=== PATIENT | female | born 1940 | race Caucasian/White ===

== ENCOUNTER 2017-05-15 12:48 | Day surgery (SDC) | payer MEDICARE ==
--- NOTE | 2017-05-10 14:40 | HP ---
CC: RUDDY Pulido, in Cardiology Office; Jatin Ordonez MD; Dr. Obdulio Castrejon; Dr. Lucas Harley * HISTORY AND PHYSICAL: DATE OF OFFICE VISIT/ENCOUNTER: 05/10/17 DATE OF ADMISSION/SURGERY: 05/15/17 CHIEF COMPLAINT: Left inner thigh mass. ATTENDING PHYSICIAN: Nabila Huynh MD (DICTATED BY RUDDY MILLER) HISTORY OF PRESENT ILLNESS: Ms. Estrada is a pleasant 77-year-old female who was seen in our office last month for evaluation of left thigh mass. The patient apparently was diagnosed with a left thigh abscess that was treated initially with clindamycin and it resolved. However, it started to become swollen again for which she was sent to our office to discuss I and D. She was seen by Dr. Huynh approximately 3 weeks ago where she was evaluated and found to have a possible left thigh abscess but no drainage or I and D was indicated at the time. The patient continued on clindamycin 3 times daily and reports that every time she stops taking her clindamycin the swollen mass would return. She returned to the office today and she is still on clindamycin but now want to discuss possible excision of that left thigh mass. She denies any fever, chills, drainage or bleeding from the area. She is not sure exactly how long she has had it or how it started, but she notes that she works in her garden quite a lot and she possibly had a bug bite or some sort of contact dermatitis to the area that progressed to an abscess. She is scheduled with Dr. Huynh to undergo excision of her left thigh mass later next week and she was seen in the office today for preop evaluation and to discuss surgery. PAST MEDICAL HISTORY: She has a quite significant past medical history with known angina type chest pain, with negative as stress echo test most recently in December 2016. She has been on nitro patch for her chest pain that has helped a lot and she denied having any atypical chest pain since then. She had multiple negative EKGs and negative troponin by her hydroelectric component machinist Dr. Castrejon in recent visits. She also had history of hypertension, herniated cervical discs, mild congenital spinal stenosis, hypercholesterolemia, history of DVT in the lower extremity after knee arthroscopy. She also had history of peripheral vascular disease, vertigo, sleep apnea, Alzheimer, colitis that has been treated with antibiotics on occasion. PAST SURGICAL HISTORY: Significant for sections x3, left breast lumpectomy after biopsy, left knee arthroscopy, history of Meckel's diverticulum , renal artery stenosis with right renal angioplasty and patient had recently a renal ultrasound that she informed was normal, cervical stenosis at C4 to C7 with a cervical fusion in [facility] back in July 2011. The patient had most recently a nuclear stress echocardiogram revealing no evidence of ischemia or infarction, with normal ejection fraction of 70% that was in December 2016. She also has history of cardiac catheterization with no obstructive disease back in January 2005. CURRENT MEDICATIONS: Her current medications include: 1. Clindamycin 300 mg 1 tab p.o. t.i.d. 2. Nitro-Dur 0.4 mg per hour on in the morning and off at night. 3. Verapamil 240 mg 1 tablet p.o. once daily. 4. Torsemide 10 mg once daily. 5. Nitrostat 0.4 mg sublingual every 5 minutes up to 3 doses as needed for chest pain. 6. Triazolam 0.25 two tablets q.h.s. p.r.n. 7. Nucynta extended release 200 mg b.i.d. 8. Hyalgan injection twice a year in both knees. 9. Aspirin coated 81 mg once daily. 10. Calcium with vitamin D 1 tablet daily. 11. Jantoven 5 mg once a week. 12. Multivitamin once daily. 13. Glucosamine chondroitin 1500 complex once daily. 14. Lialda 2 tablets daily. 15. Diovan 40 mg one tablet a day. 16. Coumadin 5 mg once daily. ALLERGIES: She has long list of allergies including PENICILLIN, CELEBREX, BETA - BLOCKERS, NEURONTIN, EFFEXOR, NORTRIPTYLINE, LYRICA, TRAMADOL, STATINS, OXYCODONE, DOXYCYCLINE, CYMBALTA, and CODEINE. Allergy list most recently reviewed on 04/30/2017. FAMILY HISTORY: Noncontributory. She denies any history of skin cancer in the family. SOCIAL HISTORY: The patient is . Lives with . She has never smoked and she drinks alcoholic beverage occasionally. REVIEW OF SYSTEMS: See HPI, otherwise negative. She denies any fevers, chills , night sweats or recent weight loss. No headache, dizziness, blurred vision, or double vision. No sore throat, chest pain, palpitation or shortness of breath. No abdominal pain, hernias, nausea, vomiting, or changes in her bowel habits. No flank pain, dysuria, hematuria or urinary frequency. She reports a left inner thigh mass that has gotten better as long as she stays on her clindamycin. Denies any significant pain, redness, induration, bleeding or drainage. PHYSICAL EXAMINATION GENERAL: She is a pleasant, elderly female appears healthy and in no acute distress or discomfort at this time. VITALS: Today revealed a blood pressure of 140/80, pulse of 80, temperature of 98.1, respirations of 16. She is 5 feet 2 inches, 148 pounds with BMI of 27. HEENT: Sclerae anicteric. PERRLA. EOMs intact. Oropharynx is pink, moist, with no exudate. NECK: Supple. Trachea midline. No cervical adenopathy, thyromegaly or JVD. LUNGS: Clear to auscultation bilaterally. No rales or rhonchi noted. HEART: Regular rate and rhythm. Normal S1 and S2 without rubs, murmurs or gallops. ABDOMEN: Soft, nontender and nondistended. No hernias, masses or hepatosplenomegaly. BACK: With normal curvature. No CVA tenderness. BREAST EXAM: Deferred at this time. EXTREMITIES: Without cyanosis, clubbing or edema. Examination of the left inner thigh revealed a palpable mass to the inner mid thigh on the left side approximately 2 cm that was mobile and nontender. There is no surrounding induration, erythema noted. No bleeding or discharge noted as well. There is no inguinal lymphadenopathy. RECTAL EXAM: Deferred at this time. NEUROLOGIC: Grossly intact. IMPRESSION: A 77-year-old female with persistent left inner thigh mass. PLAN: We discussed with the patient proceeding with excision of her left thigh mass. She seems to be doing well as long as she is taking her antibiotics; however, when she has stopped talking her clindamycin the mass gets larger in size, more tender, and surrounded with erythema. I discussed with her that we likely will like to the mass while it is not inflamed and more tender to decrease any risk of spreading infections. She was seen by Dr. Huynh earlier this week and plan was made for her to have an excision of this left thigh mass next week under IV sedation. Given her ongoing cardiac history, we will obtain baseline blood work; however, her recent hydroelectric component machinist visit revealed a negative echocardiogram as well as good ejection fraction with no signs of any cardiac problems at this time. She was advised to hold her Coumadin 5 days prior to surgery and we will check a stat PT/INR at Day Surgery upon her arrival on surgery date. All her questions were answered. I discussed with her the rationale, indications, risks and benefits of left thigh mass excision. Risks include but not limited to infection, bleeding or injury to adjacent structures. She seems to be well informed and she consents to proceed with surgery as outlined. We will follow her up accordingly after surgery. RUDDY MILLER [id number]/[facility] #: [id number] MTDNicole
[~2017-05-15 12:48] MED LIST: Buffered Lidocaine 0.9% SYRIN* 5 ML/SYR SYRINGE INTRADERM ONE; Buffered Lidocaine 0.9% SYRIN* 5 ML/SYR SYRINGE ONE; Clindamycin 900 MG IVPREMIX(* 900 MG/50 ML SDV IV ONE; Dexamethasone IV* 4 MG/ML 1 ML (4 MG) ONE; Famotidine IV* 10 MG/ML 2 ML (20 mg) IV ONE; Famotidine IV* 10 MG/ML 2 ML (20 mg) ONE; KETAMINE HCL* 50 MG/ML 10 ML VIAL ONE; Ketorolac INJ* 30 MG/ML 1 ML VIAL ONE; Lidocaine 2% PF * 5 ML VIAL ONE; Metoclopramide TAB* 10 MG ONE; Metoclopramide TAB* 10 MG PO ONE; Midazolam* 1 MG/ML 5 ML VIAL (5 MG) ONE; Ondansetron INJ* 2 MG/ML VIAL ONE; Propofol* 10 MG/ML 20 ML BTL IV PUSH ONE; fentaNYL* 50 MCG/ML 2 ML VIAL (100 MCG VIAL) ONE
[2017-05-15] MEDS ORDERED: Ondansetron INJ* 2 MG/ML VIAL IV PRN (13:24)
[2017-05-15] MEDS ORDERED: fentaNYL* 50 MCG/ML 2 ML VIAL (100 MCG VIAL) IV PRN (13:24)
--- NOTE | 2017-05-15 13:26 | PN ---
Progress Note - Progress Note Date of Service: 05/15/17 Note: Surgery Ms. Estrada reported that the mass on the left thigh opened up and "started draining a couple of days ago". Exam shows an open wound ~3 cm across, with surrounding erythema and induration and a mix of granulation and slough on wound base. Will plan I&D and possible excision of wound rather than simple excision. I discussed this with and explained it to Ms. Estrada who understands that there will be an open wound that will need further care most likely at the wound center. Dawit
[2017-05-15] MEDS ORDERED: Bupivacaine 0.5% W/EPI SDV* 10 ML VIAL INJ ONE (14:18)
[2017-05-15] MEDS ORDERED: Lidocaine 1% INJ* 10 MG/ML 30 ML SDV ONE (14:19)
[2017-05-15] MEDS ORDERED: EPHEDrine (Pressors)* 50 MG/ML VIAL ONE (14:52)
[2017-05-15] MEDS ORDERED: Propofol* 10 MG/ML 20 ML BTL IV PUSH ONE (14:57)
--- NOTE | 2017-05-15 15:44 | SURGPN ---
Brief Operative Note - Surgery Procedures: Procedures CATARAC PHACOEMULS/ASPIR (05/07/13) COLONOSCOPY (09/26/02) D & C NEC (03/26/95) DESTRUCT-KNEE LESION NEC (01/14/01) EXCIS KNEE SEMILUN CARTL (01/14/01) HYSTEROSCOPY (03/26/95) INSERT LENS AT CATAR EXT (05/07/13) KNEE SYNOVECTOMY (01/14/01) OTHER LOCAL DESTRUC SKIN (03/26/95) OTHER SLEEP DISORDER FUNCTION TESTS (03/20/02) POLYSOMNOGRAM (02/18/02) SPINAL CANAL INJECT NEC (03/12/14) 05/15/17 Op Note Pre-op dx: infected cyst of left thigh Post-op dx: same Procedure: excision of infected cyst Surgeon: Lino asst: none Anesth: local-MAC EBL: 25 cc complications: none Pt. tolerated procedure well and was transferred to in a stable condition. CLFoster
[2017-05-15] MEDS ORDERED: fentaNYL* 50 MCG/ML 2 ML VIAL (100 MCG VIAL) ONE (15:45)
[2017-05-15 16:24] VITALS: BP 95/42
--- NOTE | 2017-05-16 13:16 | OP ---
CC: Dr. Estefania Dumont * DATE OF OPERATION: 05/15/17 - [facility] DATE OF : 38 SURGEON: Nabila Huynh MD. SCREEN STRETCHER: There was no medical practice assistant for this case. ANESTHESIOLOGIST: Francois Grant MD ANESTHESIA: Monitored anesthesia care. PRE-OP DIAGNOSIS: Infected cyst of the left thigh. POST-OP DIAGNOSIS: Infected cyst of the left thigh. OPERATIVE PROCEDURE: Excision of infected cyst on the left thigh. INDICATION: Ms. Estrada is a 77-year-old woman, who presented with an infected lesion on her thigh, prompting a plan for surgical intervention as it initially seemed to be responding to antibiotics. She was kept on antibiotics with an eye toward getting this done in the operating room and apparently 2 days prior to the surgical date, it opened and drained. Exam showed lesion with 3 cm of open wound with granulation and some fibrinopurulent exudate on the surface, thus changed the plan to possible I and D versus excision of the lesion and she was brought to the operating room. DESCRIPTION OF PROCEDURE: She was placed on the OR table in supine position and given IV sedation. The left thigh was prepped and draped in the usual sterile fashion. After infiltrating with local anesthetic, an elliptical incision encompassing the lesion was made. Subcutaneous tissue was then divided with electrocautery to excise what appeared to be cavitating lesion and it was handed off as a specimen. Cultures were taken prior to handing it off. In the process of excising this lesion, some blood vessels were encountered, these were suture ligated for control. The wound was then irrigated copiously with saline. It was noted that the depth of the wound extended to the muscle layer and there did not appear to be any residual infection or cyst wall left in the wound. The wound was packed with half inch packing strip and covered with a dry sterile dressing. She was given instructions regarding packing changes and will follow up in the Wound Center in a week. [id number]/[facility] #: [id number] E.J. NOBLE HOSPITALNicole
== END 2017-05-15 16:44 | disposition home or self-care (01) ==
LOC: OR 12:48
PROVIDERS: ATTEND Surgery
DX: L02.416 Cutaneous abscess of left lower limb (principal); Z86.718 Personal history of other venous thrombosis and embolism; Z79.01 Long term (current) use of anticoagulants; I10 Essential (primary) hypertension
CPT/HCPCS: 36415; 85610; 87070; 87073; 87077; 87186; 87205; 88305; A9270-GY; J1100; J1885; J2001; J2250; J2405; J2704; J3010

== ENCOUNTER 2017-07-13 18:02 | Observation (INO) | payer MEDICARE ==
[2017-07-13] MEDS ORDERED: Nitroglycerin 0.4 MG/HR PATCH* (10 MG) TRANSDERM ONE (18:37)
[2017-07-13] MEDS ORDERED: LORazepam INJ* 2 MG/ML 1 ML VIAL IV PUSH PRN (18:37)
--- NOTE | 2017-07-13 18:56 | RAD ---
HISTORY: Chest pain COMPARISONS: October 10, 2015 VIEWS:1: Single frontal portable view of the chest at 6:43 PM FINDINGS: LINES AND TUBES: None. CARDIOMEDIASTINAL SILHOUETTE: The cardiomediastinal silhouette is normal for portable technique. PLEURA: The costophrenic angles are sharp. No pleural abnormalities are noted. LUNG PARENCHYMA: There is hyperinflation. ABDOMEN: The upper abdomen is clear. There is no subphrenic gas. BONES AND SOFT TISSUES: No bone or soft tissue abnormalities are noted. IMPRESSION: HYPERINFLATION. NO ACTIVE CARDIOPULMONARY DISEASE.
[2017-07-13 18:58] LABS: Hematocrit 40 % (35-47); Hemoglobin 12.9 g/dl (12.0-16.0); Mean Corpuscular HGB Conc 33 g/dl (31-36); Mean Corpuscular Hemoglobin 29 pg (27-31); Mean Corpuscular Volume 88 fL (80-97); Mean Platelet Volume 8 um3 (7.4-10.4); Red Blood Count 4.53 10^6/ul (4.0-5.4); Red Cell Distribution Width 15 % (10.5-15); White Blood Count 6.1 10^3/ul (3.5-10.8)
[2017-07-13] MEDS ORDERED: Nitro Patch/OINT Remove TOPICAL SCH (19:00)
[2017-07-13 19:14] LABS: Albumin 3.9 g/dL (3.2-5.2); BUN/Creatinine Ratio 15.1 (8-20); Calcium 10.3 mg/dL (8.6-10.3); EGFR African American 99.2 (>60); EGFR Non-African American 77.1 (>60); Globulin 3.2 g/dL (2-4); Potassium 3.7 mmol/L (3.5-5.0); Total Bilirubin 0.3 mg/dL (0.2-1.0); Total Protein 7.1 g/dL (6.4-8.9)
--- NOTE | 2017-07-13 20:03 | ED ---
Lilly Leonard Alfonso, scribed for Mae Solomon MD on 07/13/17 at 1840 . HPI Chest Pain - HPI Summary HPI Summary: This patient is a 77 year old F presenting to [facility] accompanied by and daughter with a chief complaint of substernal CP since approximately one week ago. The CP is worse since 1744 today. The CP radiates to her bilateral UE. The CP is described as a pressure. The patient rates the pain 8/10 at its worse and 6/10 currently in severity. Symptoms aggravated by stress (son recently ) and deep breaths. Symptoms alleviated by nothing. Patient reports anxiety and a rash (aggravated by louie butter). She reports a [address] two days ago. She did not take her NTG today. Dr. Castrejon is her professional nursing tutor. She denies CAD, and DM. PMHx includes HTN and DVTs. - History of Current Complaint Chief Complaint: EDChestPainROMI Time Seen by Provider: 07/13/17 18:19 Hx Obtained From: Patient Onset/Duration: Started Weeks Ago - 1, Worse Since - 1744 today Timing: Lasting Weeks - 1 Initial Severity: Severe Current Severity: Severe Pain Intensity: 8 Pain Scale Used: 0-10 Numeric Chest Pain Location: Discrete at: - substernal Chest Pain Radiates: Yes Chest Pain Radiates To:: Arm - Bilateral Character: Pressure/Squeezing Aggravating Factor(s): Deep Breaths, Other: - Stress Alleviating Factor(s): Nothing Associated Signs and Symptoms: Positive: Other: - Patient reports anxiety and a rash (aggravated by louie butter). - Allergy/Home Medications Allergies/Adverse Reactions: Allergies Allergy/AdvReac Type Severity Reaction Status Date / Time Penicillins Allergy Severe Difficulty Verified 07/13/17 19:12 Breathing Perryman Butter Allergy Mild Hives Verified 07/13/17 19:14 Gabapentin [From Neurontin] Allergy Mild rash and Verified 07/13/17 19:14 hives Celecoxib [From Celebrex] AdvReac Intermediate hypertensive Verified 07/13/17 19 :14 reaction Pregabalin [From Lyrica] AdvReac Intermediate hallucinati Verified 07/13/17 19: 14 ng Tramadol AdvReac Intermediate felt extra Verified 07/13/17 19:14 hyper and agitated Atenolol AdvReac Mild fatigued Verified 07/13/17 19:14 and "washed out" Metronidazole [From Flagyl] AdvReac Mild Nausea Verified 07/13/17 19:14 Nortriptyline AdvReac Mild Nausea Verified 07/13/17 19:14 Statins AdvReac Mild Muscle Ache Verified 07/13/17 19:14 Venlafaxine [From Effexor] AdvReac Mild Nausea Verified 07/13/17 19:14 PMH/Surg Hx/FS Hx/Imm Hx Endocrine/Hematology History: Denies: Hx Diabetes Cardiovascular History: Reports: Hx Angina, Hx Hypertension, Hx Peripheral Vascular Disease, Other Cardiovascular Problems/Disorders - DVT HAS BEEN ON COUMADIN Denies: Hx Coronary Artery Disease, Hx Hypercholesterolemia, Hx Myocardial Infarction, Hx Pacemaker/ICD, Hx Valvular Heart Disease Respiratory History: Reports: Hx Sleep Apnea Denies: Hx Asthma, Hx Chronic Obstructive Pulmonary Disease (COPD) GI History: Reports: Hx Gastroesophageal Reflux Disease - ON MEDICATON, Hx Hiatal Hernia, Other GI Disorders - chronic diarrhea, MECKLES DIVERTICULUM Musculoskeletal History: Reports: Hx Arthritis - GENERALIZED, Other Musculoskeletal History - LUMBAR RADICULOPATHY AND CERVICAL LUMBAR SPONDYLOLISTHESIS Sensory History: Reports: Hx Cataracts, Hx Contacts or Glasses - GLASSES Denies: Hx Hearing Aid Opthamlomology History: Reports: Hx Cataracts, Hx Contacts or Glasses - GLASSES Neurological History: Reports: Other Neuro Impairments/Disorders - PAIN CLINIC INJECTION Psychiatric History: Reports: Hx Anxiety Denies: Hx Panic Disorder - Surgical History Surgery Procedure, Year, and Place: [facility] [place] CERVICAL SPINE FUSION SURGERY C4-C7 BREAST BIOPSY LEFT [facility] BILATERAL CATARACT REMOVAL Hx Anesthesia Reactions: No - Immunization History Date of Tetanus Vaccine: UTD Date of Influenza Vaccine: UTD Infectious Disease History: Denies: Traveled Outside the [place] in Last 30 Days - Family History Known Family History: Positive: Other - Cancer - Social History Alcohol Use: Rare Alcohol Amount: 1 glass of wine on Sunday nights Substance Use Type: Reports: None Substance Use Comment - Amount & Last Used: Nucynta Smoking Status (MU): Never Smoked Tobacco Review of Systems Positive: Chest Pain Positive: Rash Positive: Anxious All Other Systems Reviewed And Are Negative: Yes Physical Exam Triage Information Reviewed: Yes Vital Signs On Initial Exam: Initial Vitals Temp Pulse Resp BP Pulse Ox 98.4 F 80 20 220/90 94 07/13/17 18:13 07/13/17 18:13 07/13/17 18:13 07/13/17 18:13 07/13/17 18:13 Vital Signs Reviewed: Yes Appearance: Positive: Well-Appearing, No Pain Distress Skin: Positive: Skin Color Reflects Adequate Perfusion, Dry Eyes: Positive: EOMI, FLORENCIA ENT: Positive: Pharynx normal, TMs normal Neck: Positive: Supple, Nontender Respiratory/Lung Sounds: Positive: Clear to Auscultation, Breath Sounds Present. Negative: Rales, Rhonchi, Wheezes Cardiovascular: Positive: RRR, Other - No gallop. Negative: Murmur, Rub Abdomen Description: Positive: Nontender, Soft, Other: - No rebound. Negative: Distended, Guarding Bowel Sounds: Positive: Present Musculoskeletal: Positive: Strength/ROM Intact. Negative: Edema Left, Edema Right Neurological: Positive: Sensory/Motor Intact, Alert, Oriented to Person Place, Time, CN Intact II-III Psychiatric: Positive: Affect/Mood Appropriate Diagnostics - Vital Signs Vital Signs Temp Pulse Resp BP Pulse Ox 07/13/17 18:13 98.4 F 80 20 220/90 94 - Laboratory Lab Results: Lab Results 07/13/17 07/13/17 07/13/17 Range/Units 18:48 18:48 18:48 WBC 6.1 (3.5-10.8) 10^3/ul RBC 4.53 (4.0-5.4) 10^6/ul Hgb 12.9 (12.0-16.0) g/dl Hct 40 (35-47) % MCV 88 (80-97) fL MCH 29 (27-31) pg MCHC 33 (31-36) g/dl RDW 15 (10.5-15) % Plt Count 315 (150-450) 10^3/ul MPV 8 (7.4-10.4) um3 Neut % (Auto) 56.2 (38-83) % Lymph % (Auto) 29.5 (25-47) % [place] % (Auto) 8.6 (1-9) % Eos % (Auto) 4.5 (0-6) % Baso % (Auto) 1.2 (0-2) % Absolute Neuts (auto) 3.4 (1.5-7.7) 10^3/ul Absolute Lymphs (auto) 1.8 (1.0-4.8) 10^3/ul Absolute Monos (auto) 0.5 (0-0.8) 10^3/ul Absolute Eos (auto) 0.3 (0-0.6) 10^3/ul Absolute Basos (auto) 0.1 (0-0.2) 10^3/ul Absolute Nucleated RBC 0.01 10^3/ul Nucleated RBC % 0.1 Sodium 137 (133-145) mmol/L Potassium 3.7 (3.5-5.0) mmol/L Chloride 101 (101-111) mmol/L Carbon Dioxide 32 (22-32) mmol/L Anion Gap 4 (2-11) mmol/L BUN 11 (6-24) mg/dL Creatinine 0.73 (0.51-0.95) mg/dL Est GFR ( Amer) 99.2 (>60) Est GFR (Non-Af Amer) 77.1 (>60) BUN/Creatinine Ratio 15.1 (8-20) Glucose 96 (70-100) mg/dL Lactic Acid 0.6 (0.5-2.0) mmol/L Calcium 10.3 (8.6-10.3) mg/dL Total Bilirubin 0.30 (0.2-1.0) mg/dL AST 23 (13-39) U/L ALT 18 (7-52) U/L Alkaline Phosphatase 86 (34-104) U/L Troponin I 0.00 (<0.04) ng/mL Total Protein 7.1 (6.4-8.9) g/dL Albumin 3.9 (3.2-5.2) g/dL Globulin 3.2 (2-4) g/dL Albumin/Globulin Ratio 1.2 (1-3) Result Diagrams: 07/13/17 18:48 07/13/17 18:48 Lab Statement: Any lab studies that have been ordered have been reviewed, and results considered in the medical decision making process. - Radiology CXR Radiology Interpretation Completed By: Radiologist - HYPERINFLATION. NO ACTIVE CARDIOPULMONARY DISEASE. ED physician has reviewed this radiology report and agrees. - EKG 1814 Cardiac Rate: NL - BPM 63 EKG Rhythm: Sinus Rhythm EKG Interpretation: Frequent PACs. Normal T-waves EKG Comparison: Other - Frequent PACs from 10/10/13 Chest Pain Course/Dx - Course Course Of Treatment: pt admitted for chest pain case discussed with Dr. Wong - Diagnoses Provider Diagnoses: Chest pain - Provider Notifications Discussed Care Of Patient With: Baldemar Wong Time Discussed With Above Provider: 19:35 Instructed by Provider To: Other - Consulted Dr. Wong (hospitalist) who agrees to admit. Discharge - Discharge Plan Condition: Stable Disposition: HOME The documentation as recorded by the Lilly hope Alfonso accurately reflects the service I personally performed and the decisions made by me, Mae Solomon MD.
--- NOTE | 2017-07-13 20:17 | HP ---
H&P (Free Text) History and Physical: PCP: Darline Dumont MD Date/Time of Evaluation: 07/13/20171999 CC: chest pain HPI: Mrs Estrada is a 77YO female HX chronic chest pain who reports around 1500 noticing an increase in non-exertional chest pressure in the L apical area radiating down the L arm without SOB associated with light nausea, but no palpitations, light-headedness, or sweats. 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 She did not feel this was necessary and so monitored it at home. Around 1700 the pain had continued to increase and her blood pressure had increased to ~210 systolic causing her to become concerned enough to present for evaluation. She denies exacerbating or alleviating factors. Bowel & bladder have been normal. She denies F/C, cough, congestion, or other new complaints. 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 PMedHx chronic chest pain DVT on warfarin HTN renal artery stenosis s/p stent ulcerative colitis cardiac murmur GERD lumbar radiculopathy & spondylolisthesis OA B knees Ambulatory Orders Calcium Carbonate-Vitamin D [Calcium 600 + D] 1 tab PO DAILY 12/24/12 Lidocaine PATCH 5%* [Lidoderm 5% Patch*] 3 patch TOPICAL QAM 12/24/12 Multivitamins/Minerals TAB* [Thera M Plus*] 1 tab PO DAILY 12/24/12 Tapentadol ER (NF) [Nucynta ER (NF)] 200 mg PO BID 12/24/12 Tapentadol HCl [Nucynta] 50 mg PO 1200 12/24/12 Triazolam TAB* [Halcion*] 0.50 mg PO BEDTIME 12/24/12 Glucosamine-Chondroitin [Glucosamine Chondroitin] 1 cap PO DAILY 04/23/13 Verapamil HCl [Verapamil HCl ER] 240 mg PO DAILY 04/23/13 Valsartan TAB* [Diovan TAB*] 80 mg PO DAILY 10/05/14 Warfarin TAB(*) [Coumadin TAB(*)] 15 mg PO SEE INSTRUCTIONS 10/05/14 Warfarin Sodium [Jantoven] 5 mg PO WEEKLY 07/08/15 Mesalamine (NF) [Lialda (NF)] 2 tab PO BID 01/04/17 Aspirin [Aspirin Adult Low Dose 81 MG] 81 mg PO DAILY 05/10/17 Metaxalone TAB* [Skelaxin TAB*] 800 mg PO BID 05/10/17 Nitroglycerin 0.4 MG/HR PATCH* [Nitroglycerin 10 MG PATCH*] 1 patch TRANSDERM DAILY 05/10/17 Allergies Penicillins Allergy (Severe, Verified 07/13/17 19:12) Difficulty Breathing [place] Butter Allergy (Mild, Verified 07/13/17 19:14) Hives Gabapentin [From Neurontin] Allergy (Mild, Verified 07/13/17 19:14) rash and hives Celecoxib [From Celebrex] Adverse Reaction (Intermediate, Verified 07/13/17 19: 14) hypertensive reaction Pregabalin [From Lyrica] Adverse Reaction (Intermediate, Verified 07/13/17 19:14 ) hallucinating Tramadol Adverse Reaction (Intermediate, Verified 07/13/17 19:14) felt extra hyper and agitated Atenolol Adverse Reaction (Mild, Verified 07/13/17 19:14) fatigued and "washed out" Metronidazole [From Flagyl] Adverse Reaction (Mild, Verified 07/13/17 19:14) Nausea Nortriptyline Adverse Reaction (Mild, Verified 07/13/17 19:14) Nausea Statins Adverse Reaction (Mild, Verified 07/13/17 19:14) Muscle Ache Venlafaxine [From Effexor] Adverse Reaction (Mild, Verified 07/13/17 19:14) Nausea PSurgHx C4-7 fusion breast biopsy Meckle's diverticulum repair renal artery stenting appendectomy section x3 L knee arthroscopy SocHx: no HX tobacco or recreational drugs, rare alcohol; lives with her , Dr Wongtanna; significantly increased stress over the past week 2nd her son who had been treated via radiation for SCCA of throat which had unknowingly eroded into his carotid causing a rupture and sudden ; full code status FamHx: Mother passed of ovarian CA. Father passed of lung CA. Son recently ( last week) passed of a carotid artery rupture 2nd radiation therapy for SCC of throat. ROS: as above, otherwise reviewed and all were negative Constitutional: NAD, normally developed, well-nourished elderly white female vitals: Vital Signs Temp 37.3 C 07/13/17 19:09 Pulse 70 07/13/17 19:30 Resp 16 07/13/17 19:30 BP 174/61 07/13/17 19:30 Pulse Ox 97 07/13/17 19:30 Intake & Output 07/12/17 07/13/17 07/13/17 23:59 11:59 23:59 Weight 66.678 kg HEENM: atraumatic; sclera/conjunctiva: non-icteric/clear; hearing: clinically intact; oropharynx: clear, mucosa moist Neck: soft tissue: non-tender; thyroid: normal Pulmonary: clear to auscultation bilaterally, good aeration, no accessory muscle use CV: RR/RR, normal S1S2, no carotid bruit, no jugular venous distention, 2+ B DP/ PT, no edema Abdominal: soft, non-distended, non-tender, no rebound/guarding/rigidity, normoactive bowel sounds, no hepatosplenomegaly or masses, no costovertebral angle tenderness Musculoskeletal: general: grossly intact; gait: stable Integumental: normal appearance and texture of exposed skin Psychiatric orientation: AA&O to PPS affect: calm mood: cooperative eye contact: good content: reliable responses: timely insight: fair Testing: Lab Results 07/13/17 07/13/17 07/13/17 Range/Units 18:48 18:48 18:48 WBC 6.1 (3.5-10.8) 10^3/ul RBC 4.53 (4.0-5.4) 10^6/ul Hgb 12.9 (12.0-16.0) g/dl Hct 40 (35-47) % MCV 88 (80-97) fL MCH 29 (27-31) pg MCHC 33 (31-36) g/dl RDW 15 (10.5-15) % Plt Count 315 (150-450) 10^3/ul MPV 8 (7.4-10.4) um3 Neut % (Auto) 56.2 (38-83) % Lymph % (Auto) 29.5 (25-47) % [place] % (Auto) 8.6 (1-9) % Eos % (Auto) 4.5 (0-6) % Baso % (Auto) 1.2 (0-2) % Absolute Neuts (auto) 3.4 (1.5-7.7) 10^3/ul Absolute Lymphs (auto) 1.8 (1.0-4.8) 10^3/ul Absolute Monos (auto) 0.5 (0-0.8) 10^3/ul Absolute Eos (auto) 0.3 (0-0.6) 10^3/ul Absolute Basos (auto) 0.1 (0-0.2) 10^3/ul Absolute Nucleated RBC 0.01 10^3/ul Nucleated RBC % 0.1 Sodium 137 (133-145) mmol/L Potassium 3.7 (3.5-5.0) mmol/L Chloride 101 (101-111) mmol/L Carbon Dioxide 32 (22-32) mmol/L Anion Gap 4 (2-11) mmol/L BUN 11 (6-24) mg/dL Creatinine 0.73 (0.51-0.95) mg/dL Est GFR ( Amer) 99.2 (>60) Est GFR (Non-Af Amer) 77.1 (>60) BUN/Creatinine Ratio 15.1 (8-20) Glucose 96 (70-100) mg/dL Lactic Acid 0.6 (0.5-2.0) mmol/L Calcium 10.3 (8.6-10.3) mg/dL Total Bilirubin 0.30 (0.2-1.0) mg/dL AST 23 (13-39) U/L ALT 18 (7-52) U/L Alkaline Phosphatase 86 (34-104) U/L Troponin I 0.00 (<0.04) ng/mL Total Protein 7.1 (6.4-8.9) g/dL Albumin 3.9 (3.2-5.2) g/dL Globulin 3.2 (2-4) g/dL Albumin/Globulin Ratio 1.2 (1-3) ECG, personally reviewed: supraventricular bigemini rate 63, no ischemia, T- wave inversion III CXR, personally reviewed: IMPRESSION: HYPERINFLATION. NO ACTIVE CARDIOPULMONARY DISEASE. US renal artery: (05/08/2017) IMPRESSION: No Doppler evidence for hemodynamic significant renal artery stenosis. Impression: 77F presenting with chest pain for r/o ACS DIAGNOSIS & PLAN Primary chest pain r/o ACS : telemetry : trend troponin : aspirin : metoprolol : supplemental oxygen : recheck ECG in AM : if patient rules out and has no further cardiac symptoms, may have outpatient stress next week : supportive care HTN, uncontrolled : HX renal artery stent, US 05/08/2017 w/o recurrent stenosis : possible HTN-barbara urgency given chest pain escalation : continue valsartan & verapamil : add PO metoprolol as above : hydralazine IV PRN Secondary HX DVT : continue warfarin ulcerative colitis : continue mesalamine GERD : omeprazole lumbar radiculopathy & spondylolisthesis : continue tapentadol OA B knees : continue tapentadol & lidocaine patch Admission Rational: CDU observation for r/o ACS DVTp: warfarin Code Status: full HCP: , Dr Estrada
[2017-07-13] MEDS ORDERED: TAPENTADOL 200 MG PO SCH (21:00)
[2017-07-13] MEDS ORDERED: Triazolam TAB* 0.25 MG PO SCH ×2 (21:00→23:30)
[2017-07-13] MEDS ORDERED: Aspirin Low Dose CHEW TAB* 81 MG PO ONE (21:28)
[2017-07-13] MEDS ORDERED: Acetaminophen TAB* 325 MG PO PRN (21:33)
[2017-07-13] MEDS ORDERED: Morphine INJ* 2 MG/ML 1 ML SYRINGE IV PRN (21:33)
[2017-07-13] MEDS ORDERED: CMCS:Melatonin (NF) 3 MG TAB PO PRN (21:33)
[2017-07-13] MEDS ORDERED: oxyCODONE TAB* 5 MG TAB PO PRN (21:33)
[2017-07-13] MEDS ORDERED: Ondansetron INJ* 2 MG/ML VIAL IV PRN (21:33)
[2017-07-13] MEDS ORDERED: NS 0.9% 1000 ML* 1,000 ML IV SCH (21:45)
[2017-07-13] MEDS: Metoprolol Tartrate TAB* 25 MG PO SCH (22:01)
[2017-07-13] MEDS: Tapentadol(NF) 50 MG TAB PO SCH (23:38)
[2017-07-13] MEDS: Metaxalone TAB* 800 MG PO SCH (23:39)
[2017-07-13] MEDS: Mesalamine (NF) 1.2 GM TAB PO SCH (23:41)
[2017-07-14] MEDS ORDERED: Omeprazole CAP* 20 MG PO SCH (06:00)
[2017-07-14] MEDS ORDERED: hydrALAZINE IV* 20 MG/ML VIAL IV PRN (06:12)
[2017-07-14] MEDS: Tapentadol(NF) 50 MG TAB PO SCH ×2 (06:53→09:18)
[2017-07-14 07:43] VITALS: BP 164/71
[2017-07-14] MEDS: Metaxalone TAB* 800 MG PO SCH (07:50)
[2017-07-14] MEDS: Metoprolol Tartrate TAB* 25 MG PO SCH (07:51)
[2017-07-14] MEDS: Mesalamine (NF) 1.2 GM TAB PO SCH (08:01)
[2017-07-14] MEDS ORDERED: Valsartan TAB* 40 MG PO SCH (09:00)
[2017-07-14] MEDS ORDERED: Nitroglycerin 0.4 MG/HR PATCH* (10 MG) TRANSDERM SCH (09:00)
[2017-07-14] MEDS ORDERED: Aspirin EC Low Dose* 81 MG TAB.EC PO SCH (09:00)
[2017-07-14] MEDS ORDERED: Lidocaine PATCH 5%* 1 PATCH TRANSDERM SCH (09:00)
[2017-07-14] MEDS ORDERED: Verapamil SR TAB* 240 MG PO SCH (09:00)
[2017-07-14] MEDS ORDERED: Tapentadol(NF) 50 MG TAB PO SCH ×2 (12:00→13:00)
[2017-07-14] MEDS ORDERED: Warfarin TAB(*) 5 MG PO SCH (17:00)
[2017-07-14] MEDS ORDERED: Nitro Patch/OINT Remove PATCH OFF SCH (21:00)
--- NOTE | 2017-07-15 02:12 | DS ---
CC: Dr. Estefania Dumont * DISCHARGE SUMMARY: DATE OF ADMISSION: 07/13/17 DATE OF DISCHARGE: 07/14/17 PRIMARY CARE PHYSICIAN: Dr. Estefania Dumont. ADMISSION DIAGNOSIS: Chest pain. SECONDARY DIAGNOSES: 1. Hypertension. 2. History of deep venous thrombosis. 3. Gastroesophageal reflux disease. 4. Ulcerative colitis. DISCHARGE DIAGNOSES: 1. Hypertension. 2. History of deep venous thrombosis. 3. Gastroesophageal reflux disease. 4. Ulcerative colitis. HOSPITAL COURSE: The patient is a 77-year-old woman, who presented to the [facility] with a chief complaint of chest pain. Please see H and P for further details. The patient also notes that her son suddenly last week at the age of 52. She admits to being quite anxious and sad about this. The patient was admitted and ruled out for an acute SC. Her troponin never luis to more than 0.02. She also notes she has had a stress test within last 3 months. The patient was anxious to go home over the following day. 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 PHYSICAL EXAMINATION: On the date of discharge, well-developed, well-nourished woman, sitting up in bed, no acute distress. Vital Signs: Heart rate 64 beats per minute, respiratory rate 16 breaths per minute, pulse ox 97% on room air, blood pressure 164/71, temperature 98.2 degrees. HEENT: Normocephalic, atraumatic. Pupils equal, round, and reactive to light. Moist mucous membranes. Neck: Supple. No JVD, bruits, palpable thyroid, or lymphadenopathy. Chest: Clear to auscultation and percussion bilaterally. Cardiovascular Exam: S1 and S2 appreciated. Regular rate and rhythm. No murmurs, gallops, or rubs. Abdominal Exam: Positive bowel sounds in all 4 quadrants. Soft, nontender, and nondistended. No hepatosplenomegaly. Extremities: No cyanosis, clubbing, or edema. +2 pulses bilaterally. Neuro: Alert and oriented x3. Moves all extremities. Skin: No rashes or abnormalities. STUDIES DONE WHILE IN THE HOSPITAL: Chest x-ray, on 07/13/17, impression: Hyperinflation and no active cardiopulmonary disease. DISCHARGE MEDICATIONS: 1. Coumadin 15 mg 6 days a week, 5 mg one day a week. 2. Verapamil 240 mg daily. 3. Valsartan 80 mg daily. 4. Halcion 0.5 mg at bedtime. 5. Nucynta 50 mg at noon and Nucynta ER 200 mg twice daily. 6. Nitroglycerin 0.4 mg per hour patch daily. 7. Multivitamin 1 tablet daily. 8. Skelaxin 800 mg twice daily. 9. Mesalamine 2 tabs twice daily. 10. Lidocaine patch 5%, 3 patches topical in the morning. 11. Glucosamine chondroitin 1 capsule daily. 12. Calcium with vitamin D 1 tablet daily. 13. Aspirin 81 mg daily. DISCHARGE PLAN: The patient will be discharged to home as noted earlier. She will follow up with her PCP within 1 week as well as assistant plant controller. The patient will return to the ED if she develops any worrisome symptoms. TIME SPENT: Over 35 minutes was spent on this discharge, more than 20 minutes of which was spent in direct [id number] contact with the patient in evaluation , physical exam, counseling, and coordination of care. [id number]/[facility] #: [id number] ELVIRA
[2017-07-15] MEDS ORDERED: Warfarin TAB(*) 5 MG PO SCH (17:00)
== END 2017-07-14 10:55 | disposition home or self-care (01) ==
LOC: ED 18:02 → MEDTELE 19:58
PROVIDERS: ADMIT Hospitalist; ATTEND Internal Medicine
DX: R07.89 Other chest pain (principal); M79.602 Pain in left arm; M79.601 Pain in right arm; I10 Essential (primary) hypertension; I49.1 Atrial premature depolarization; Z73.3 Stress, not elsewhere classified; F41.9 Anxiety disorder, unspecified; Z86.718 Personal history of other venous thrombosis and embolism; Z79.01 Long term (current) use of anticoagulants; K21.9 Gastro-esophageal reflux disease without esophagitis; Z79.899 Other long term (current) drug therapy; K51.90 Ulcerative colitis, unspecified, without complications
CPT/HCPCS: 36415; 71010; 80053; 83605; 84484; 85025; 85379; 85610; 93005; 99284; A9270-GY; G0378

== ENCOUNTER 2017-07-27 18:42 | Emergency (ER) | payer MEDICARE ==
[2017-07-27] MEDS ORDERED: NS 0.9% 1000 ML* 1,000 ML IV ONE (19:33)
[2017-07-27 19:42] VITALS: BP 116/80
[2017-07-27 20:08] LABS: Urine Bacteria Absent (Absent); Urine Bilirubin Negative (Negative); Urine Glucose Negative (Negative); Urine Nitrite Negative (Negative)
[2017-07-27 20:10] LABS: Hematocrit 39 % (35-47); Mean Corpuscular HGB Conc 33 g/dl (31-36); Mean Corpuscular Hemoglobin 29 pg (27-31); Mean Corpuscular Volume 88 fL (80-97); Mean Platelet Volume 7 um3 (7.4-10.4); Red Blood Count 4.44 10^6/ul (4.0-5.4); Red Cell Distribution Width 14 % (10.5-15); White Blood Count 8.6 10^3/ul (3.5-10.8)
[2017-07-27 20:26] LABS: Albumin 3.7 g/dL (3.2-5.2); BUN/Creatinine Ratio 18.5 (8-20); C Reactive Protein 8.37 mg/L (< 5.00); Calcium 9.3 mg/dL (8.6-10.3); EGFR African American 113.4 (>60); EGFR Non-African American 88.2 (>60); Globulin 3.4 g/dL (2-4); Total Bilirubin 0.3 mg/dL (0.2-1.0); Total Protein 7.1 g/dL (6.4-8.9)
[2017-07-27] MEDS ORDERED: Ciprofloxacin TAB* 500 MG PO ONE (21:18)
[2017-07-27] MEDS ORDERED: metroNIDAZOLE TAB* 250 MG PO ONE (21:20)
--- NOTE | 2017-07-27 22:35 | ED ---
Sylvester Leonard SooYoung, scribed for Donald Roblero MD on 07/27/17 at 1935 . GI/ HPI - HPI Summary HPI Summary: A 77 y/o F referred by Dr. Dumont presents to ED with c/o intermittent rectal bleeding initial onset in December. Bleeding has been worsening, becoming more consistent over the past two weeks. Today's rectal bleeding was heavy. Pt states when she used the bathroom earlier it was "all over" pants. When she used the bathroom at the ED, she states blood was on the tissue. Associated sx: R-sided abd pain mostly resolved, dizziness since resolved, diarrhea, melena. Denies: nausea, fever. She states her appetite has been normal. PMHx: Colonoscopy in November, dx: colitis, diverticulitis. Started new Rx steroid yesterday. Takes a baby aspirin a day. Takes Coumadin. 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 Negative: Nausea, Fever Additional Signs & Symptoms: Positive: Other: - rectal bleeding - Additional Pertinent History Primary Care Physician: [id number] - Allergy/Home Medications Allergies/Adverse Reactions: Allergies Allergy/AdvReac Type Severity Reaction Status Date / Time Penicillins Allergy Severe Difficulty Verified 07/27/17 19:37 Breathing [place] Butter Allergy Mild Hives Verified 07/27/17 19:37 Gabapentin [From Neurontin] Allergy Mild rash and Verified 07/27/17 19:37 hives Celecoxib [From Celebrex] AdvReac Intermediate hypertensive Verified 07/27/17 19 :37 reaction Pregabalin [From Lyrica] AdvReac Intermediate hallucinati Verified 07/27/17 19: 37 ng Tramadol AdvReac Intermediate felt extra Verified 07/27/17 19:37 hyper and agitated Atenolol AdvReac Mild fatigued Verified 07/27/17 19:37 and "washed out" Metronidazole [From Flagyl] AdvReac Mild Nausea Verified 07/27/17 19:37 Nortriptyline AdvReac Mild Nausea Verified 07/27/17 19:37 Statins AdvReac Mild Muscle Ache Verified 07/27/17 19:37 Venlafaxine [From Effexor] AdvReac Mild Nausea Verified 07/27/17 19:37 PMH/Surg Hx/FS Hx/Imm Hx Previously Healthy: No Endocrine/Hematology History: Denies: Hx Diabetes Cardiovascular History: Reports: Hx Angina, Hx Hypertension, Hx Peripheral Vascular Disease, Other Cardiovascular Problems/Disorders - DVT HAS BEEN ON COUMADIN Denies: Hx Coronary Artery Disease, Hx Hypercholesterolemia, Hx Myocardial Infarction, Hx Pacemaker/ICD, Hx Valvular Heart Disease Respiratory History: Reports: Hx Sleep Apnea Denies: Hx Asthma, Hx Chronic Obstructive Pulmonary Disease (COPD) GI History: Reports: Hx Gastroesophageal Reflux Disease - ON MEDICATON, Hx Hiatal Hernia, Other GI Disorders - chronic diarrhea, MECKLES DIVERTICULUM Musculoskeletal History: Reports: Hx Arthritis - GENERALIZED, Other Musculoskeletal History - LUMBAR RADICULOPATHY AND CERVICAL LUMBAR SPONDYLOLISTHESIS Sensory History: Reports: Hx Cataracts, Hx Contacts or Glasses Denies: Hx Hearing Aid Opthamlomology History: Reports: Hx Cataracts, Hx Contacts or Glasses Neurological History: Reports: Other Neuro Impairments/Disorders - PAIN CLINIC INJECTION Psychiatric History: Reports: Hx Anxiety Denies: Hx Panic Disorder - Surgical History Surgery Procedure, Year, and Place: [facility] CERVICAL SPINE FUSION SURGERY C4-C7 BREAST BIOPSY LEFT [facility] BILATERAL CATARACT REMOVAL Hx Anesthesia Reactions: No - Immunization History Date of Tetanus Vaccine: UTD Date of Influenza Vaccine: UTD Infectious Disease History: Denies: Traveled Outside the [place] in Last 30 Days - Family History Known Family History: Positive: Other - Cancer - Social History Occupation: Retired Lives: With Family Alcohol Use: Occasionally Alcohol Amount: 1 glass of wine on Sunday nights Hx Substance Use: No Substance Use Type: Reports: None Substance Use Comment - Amount & Last Used: Nucynta Hx Tobacco Use: No Smoking Status (MU): Never Smoked Tobacco Review of Systems Negative: Fever Positive: Abdominal Pain, Diarrhea, Other - pos: rectal bleeding, melena. Negative: Nausea Neurological: Other - pos: dizziness All Other Systems Reviewed And Are Negative: Yes Physical Exam - Summary Physical Exam Summary: The patient is well-nourished in no acute distress and in no acute pain. The skin is warm and dry and skin color reflects adequate perfusion. HEENT: The head is normocephalic and atraumatic. The pupils are equal and reactive. The conjunctivae are clear and without drainage. Nares are patent and without drainage. Mouth reveals moist mucous membranes and the throat is without erythema and exudate. The external ears are intact. The ear canals are patent and without drainage. The tympanic membranes are intact. Neck is supple with full range of motion and non-tender. There are no carotid bruits. There is no neck vein distension. Respiratory: Chest is non-tender. Lungs are clear to auscultation and breath sounds are symmetrical and equal. Cardiovascular: Heart is regular rate and rhythm. Murmur. There is no peripheral edema and pulses are symmetrical and equal. Abdomen: The abdomen is soft. Tenderness to RLQ, RUQ. No CVA tenderness. Tenderness over transverse colon with palpation. No palpable tenderness on L. No guarding. No rebounding. There are normal bowel sounds heard in all four quadrants and there is no organomegaly palpated. Musculoskeletal: There is no back pain noted. Extremities are non-tender with full range of motion. There is good capillary refill. There is no peripheral edema or calf tenderness elicited. Neurological: Patient is alert and oriented to person, place and time. The patient has symmetrical motor strength in all four extremities. Cranial nerves are grossly intact. Deep tendon reflexes are symmetrical and equal in all four extremities. Psychiatric: The patient has an appropriate affect and does not exhibit any anxiety or depression. Triage Information Reviewed: Yes Vital Signs On Initial Exam: Initial Vitals Temp Pulse Resp BP Pulse Ox 98.4 F 84 20 154/79 95 07/27/17 18:44 07/27/17 18:44 07/27/17 18:44 07/27/17 18:44 07/27/17 18:44 Vital Signs Reviewed: Yes Diagnostics - Vital Signs Vital Signs Temp Pulse Resp BP Pulse Ox 07/27/17 18:44 98.4 F 84 20 154/79 95 - Laboratory Lab Results: Lab Results 07/27/17 07/27/17 07/27/17 Range/Units 19:55 20:00 20:00 WBC 8.6 (3.5-10.8) 10^3/ul RBC 4.44 (4.0-5.4) 10^6/ul Hgb 13.0 (12.0-16.0) g/dl Hct 39 (35-47) % MCV 88 (80-97) fL MCH 29 (27-31) pg MCHC 33 (31-36) g/dl RDW 14 (10.5-15) % Plt Count 364 (150-450) 10^3/ul MPV 7 L (7.4-10.4) um3 Neut % (Auto) 72.1 (38-83) % Lymph % (Auto) 14.8 L (25-47) % [place] % (Auto) 7.9 (1-9) % Eos % (Auto) 4.4 (0-6) % Baso % (Auto) 0.8 (0-2) % Absolute Neuts (auto) 6.2 (1.5-7.7) 10^3/ul Absolute Lymphs (auto) 1.3 (1.0-4.8) 10^3/ul Absolute Monos (auto) 0.7 (0-0.8) 10^3/ul Absolute Eos (auto) 0.4 (0-0.6) 10^3/ul Absolute Basos (auto) 0.1 (0-0.2) 10^3/ul Absolute Nucleated RBC 0 10^3/ul Nucleated RBC % 0 INR (Anticoag Therapy) (0.89-1.11) APTT (26.0-36.3) seconds Sodium 135 (133-145) mmol/L Potassium 4.0 (3.5-5.0) mmol/L Chloride 100 L (101-111) mmol/L Carbon Dioxide 29 (22-32) mmol/L Anion Gap 6 (2-11) mmol/L BUN 12 (6-24) mg/dL Creatinine 0.65 (0.51-0.95) mg/dL Est GFR ( Amer) 113.4 (>60) Est GFR (Non-Af Amer) 88.2 (>60) BUN/Creatinine Ratio 18.5 (8-20) Glucose 105 H (70-100) mg/dL Lactic Acid (0.5-2.0) mmol/L Calcium 9.3 (8.6-10.3) mg/dL Total Bilirubin 0.30 (0.2-1.0) mg/dL AST 18 (13-39) U/L ALT 17 (7-52) U/L Alkaline Phosphatase 90 (34-104) U/L C-Reactive Protein 8.37 H (< 5.00) mg/L Total Protein 7.1 (6.4-8.9) g/dL Albumin 3.7 (3.2-5.2) g/dL Globulin 3.4 (2-4) g/dL Albumin/Globulin Ratio 1.1 (1-3) Lipase 13 (11.0-82.0) U/L Urine Color Straw Urine Appearance Clear Urine pH 6.0 (5-9) Ur Specific [place] 1.006 L (1.010-1.030) Urine Protein Negative (Negative) Urine Ketones Negative (Negative) Urine Blood 1+ H (Negative) Urine Nitrate Negative (Negative) Urine Bilirubin Negative (Negative) Urine Urobilinogen Negative (Negative) Ur Leukocyte Esterase 2+ H (Negative) Urine WBC (Auto) Trace(0-5/hpf) (Absent) Urine RBC (Auto) 1+(3-5/hpf) H (Absent) Urine Bacteria Absent (Absent) Urine Glucose Negative (Negative) 07/27/17 07/27/17 Range/Units 20:00 20:00 WBC (3.5-10.8) 10^3/ul RBC (4.0-5.4) 10^6/ul Hgb (12.0-16.0) g/dl Hct (35-47) % MCV (80-97) fL MCH (27-31) pg MCHC (31-36) g/dl RDW (10.5-15) % Plt Count (150-450) 10^3/ul MPV (7.4-10.4) um3 Neut % (Auto) (38-83) % Lymph % (Auto) (25-47) % [place] % (Auto) (1-9) % Eos % (Auto) (0-6) % Baso % (Auto) (0-2) % Absolute Neuts (auto) (1.5-7.7) 10^3/ul Absolute Lymphs (auto) (1.0-4.8) 10^3/ul Absolute Monos (auto) (0-0.8) 10^3/ul Absolute Eos (auto) (0-0.6) 10^3/ul Absolute Basos (auto) (0-0.2) 10^3/ul Absolute Nucleated RBC 10^3/ul Nucleated RBC % INR (Anticoag Therapy) 1.67 H (0.89-1.11) APTT 37.0 H (26.0-36.3) seconds Sodium (133-145) mmol/L Potassium (3.5-5.0) mmol/L Chloride (101-111) mmol/L Carbon Dioxide (22-32) mmol/L Anion Gap (2-11) mmol/L BUN (6-24) mg/dL Creatinine (0.51-0.95) mg/dL Est GFR ( Amer) (>60) Est GFR (Non-Af Amer) (>60) BUN/Creatinine Ratio (8-20) Glucose (70-100) mg/dL Lactic Acid 0.6 (0.5-2.0) mmol/L Calcium (8.6-10.3) mg/dL Total Bilirubin (0.2-1.0) mg/dL AST (13-39) U/L ALT (7-52) U/L Alkaline Phosphatase (34-104) U/L C-Reactive Protein (< 5.00) mg/L Total Protein (6.4-8.9) g/dL Albumin (3.2-5.2) g/dL Globulin (2-4) g/dL Albumin/Globulin Ratio (1-3) Lipase (11.0-82.0) U/L Urine Color Urine Appearance Urine pH (5-9) Ur Specific [place] (1.010-1.030) Urine Protein (Negative) Urine Ketones (Negative) Urine Blood (Negative) Urine Nitrate (Negative) Urine Bilirubin (Negative) Urine Urobilinogen (Negative) Ur Leukocyte Esterase (Negative) Urine WBC (Auto) (Absent) Urine RBC (Auto) (Absent) Urine Bacteria (Absent) Urine Glucose (Negative) Result Diagrams: 07/27/17 20:00 07/27/17 20:00 Lab Statement: Any lab studies that have been ordered have been reviewed, and results considered in the medical decision making process. Re-Evaluation - Re-Evaluation 1 Re-Evaluation Time: 21:16 Change: Unchanged Comment: Discussing labs with pt and diverticulitis shown on CT scan done yesterday. Offered admissoin, pt declined. Will dispo home. Pt voiced understanding. GIGU Course/Dx - Course Course Of Treatment: Pt is a 77 y/o F referred by Dr. Dumont presents to ED with c/o intermittent rectal bleeding initial onset in December. Bleeding has been worsening, becoming more consistent over the past two weeks. Today's rectal bleeding was heavy. Pt states when she used the bathroom earlier it was "all over" pants. When she used the bathroom at the ED, she states blood was on the tissue. Associated sx: R-sided abd pain mostly resolved, dizziness since resolved, diarrhea, melena. Denies: nausea, fever. She states her appetite has been normal. PMHx: Colonoscopy in November, dx: colitis, diverticulitis. Started new Rx steroid yesterday. Daily aspirin, on Coumadin. Bloodwork is without significant abnormality. UA results show 1+ blood, 2+ esterase, 1+ RBC and specific gravity of 1.006. Pt will be D/C home with Jose and Mulu, and f/u with Dr. Dumont. - Diagnoses Differential Diagnoses - Female: Colitis, Diverticulitis, Other - anticoagulation therapy, Provider Diagnoses: Diverticulitis Discharge - Discharge Plan Condition: Stable Disposition: HOME Prescriptions: Ciprofloxacin TAB* [Cipro 500 MG TAB*] 500 mg PO BID #18 tab Metronidazole [Flagyl 500 MG TAB] 500 mg PO QID #38 tab Patient Education Materials: Diverticulitis (ED), Rectal Bleeding (ED), Ciprofloxacin (By mouth), Metronidazole (By mouth) Referrals: Estefania Dumont MD [Primary Care Provider] - 4 Days Additional Instructions: Follow up with Dr. Dumont within the next week. Please return to the ED if you experience increase in pain, fever, or vomiting. The documentation as recorded by the Sylvester hope SooYoung accurately reflects the service I personally performed and the decisions made by me, Donald Roblero MD.
--- NOTE | 2017-07-30 08:59 | PN ---
Progress Note - Progress Note Date of Service: 07/27/17 Note: Patient was diagnosed with diverticulitis and placed on cipro. urine preliminary results show gram negative bacilli 10-25,000 of growth. already on cipro. will wait for final sensitivity results however growth is very minimal treatment is not required. no further action needed at this time.
== END 2017-07-27 21:57 | disposition home or self-care (01) ==
LOC: ED 18:42
DX: K57.92 Diverticulitis of intestine, part unspecified, without perforation or abscess without bleeding (principal); I10 Essential (primary) hypertension; I73.9 Peripheral vascular disease, unspecified; Z79.01 Long term (current) use of anticoagulants; K21.9 Gastro-esophageal reflux disease without esophagitis; Z86.718 Personal history of other venous thrombosis and embolism; M19.90 Unspecified osteoarthritis, unspecified site; F41.9 Anxiety disorder, unspecified; Z79.82 Long term (current) use of aspirin; Z88.0 Allergy status to penicillin
CPT/HCPCS: 36415; 80053; 81003; 81015; 83605; 83690; 85025; 85610; 85730; 86140; 87077; 87086; 87186; A9270-GY

== ENCOUNTER 2017-10-26 09:41 | Emergency (ER) | payer MEDICARE ==
[2017-10-26 10:22] LABS: Hematocrit 41 % (35-47); Hemoglobin 13.1 g/dl (12.0-16.0); Mean Corpuscular HGB Conc 32 g/dl (31-36); Mean Corpuscular Hemoglobin 28 pg (27-31); Mean Corpuscular Volume 88 fL (80-97); Mean Platelet Volume 8 um3 (7.4-10.4); Red Blood Count 4.62 10^6/ul (4.0-5.4); Red Cell Distribution Width 16 % (10.5-15); White Blood Count 11.6 10^3/ul (3.5-10.8)
[2017-10-26 10:46] LABS: Troponin I 0.01 ng/mL (<0.04)
--- NOTE | 2017-10-26 10:46 | RAD ---
HISTORY: Chest pain COMPARISONS: July 13, 2017 VIEWS: 4: Frontal dual-energy and lateral views of the chest. FINDINGS: CARDIOMEDIASTINAL SILHOUETTE: The cardiomediastinal silhouette is normal. NAZ: The naz are normal. PLEURA: The costophrenic angles are sharp. No pleural abnormalities are noted. LUNG PARENCHYMA: There is hyperinflation with flattening of the diaphragm and expansion of the AP diameter of the chest. ABDOMEN: The upper abdomen is clear. There is no subphrenic gas. BONES AND SOFT TISSUES: The patient is status post anterior cervical fusion. Mild degenerative changes are noted. OTHER: None. IMPRESSION: HYPERINFLATION. NO ACTIVE CARDIOPULMONARY DISEASE.
[2017-10-26 10:47] LABS: Albumin 3.8 g/dL (3.2-5.2); BUN/Creatinine Ratio 22.4 (8-20); Calcium 9.4 mg/dL (8.6-10.3); EGFR African American 109.5 (>60); EGFR Non-African American 85.1 (>60); Globulin 3.3 g/dL (2-4); Potassium 3.6 mmol/L (3.5-5.0); Total Bilirubin 0.6 mg/dL (0.2-1.0); Total Protein 7.1 g/dL (6.4-8.9)
--- NOTE | 2017-10-26 10:47 | RAD ---
HISTORY: Left shoulder pain COMPARISONS: March 01, 2006 VIEWS: 4, Frontal internal rotation, external rotation, outlet, and axillary views of the left shoulder FINDINGS: BONE DENSITY: Normal. BONES: There is no displaced fracture. JOINTS: There is moderate to advanced osteoarthritis of the glenohumeral joint with mild osteoarthritis of the AC joint ALIGNMENT: There is no dislocation. SOFT TISSUES: Unremarkable. OTHER FINDINGS: The patient is status post anterior cervical fusion. IMPRESSION: OSTEOARTHRITIS. NO ACUTE OSSEOUS INJURY. IF SYMPTOMS PERSIST, RECOMMEND REPEAT IMAGING.
[2017-10-26] MEDS ORDERED: Dexamethasone IV* 4 MG/ML 1 ML (4 MG) IV SLOW PU ONE (11:48)
[2017-10-26] MEDS ORDERED: HYDROcodone/ACETAMIN 5-325 MG* 1 TAB PO ONE (11:48)
[2017-10-26 11:56] LABS: T4 9.85 mcg/mL (6.09-12.23)
[2017-10-26 12:00] LABS: TSH (Thyroid Stimulating Horm) 2.05 mcIU/mL (0.34-5.60)
[2017-10-26] MEDS ORDERED: Tapentadol(NF) 50 MG TAB PO ONE (12:40)
[2017-10-26 14:14] VITALS: BP 152/70
--- NOTE | 2017-10-28 16:25 | ED ---
Gabino Leonard Angela, scribed for Channing Trammell MD on 10/26/17 at 1003 . HPI Chest Pain - HPI Summary HPI Summary: This pt is a 77 y/o female presenting to [facility] c/o left sided chest pain since 08:30 today. Pt reports her pain began in her left shoulder which radiated to her right arm. As pt started ambulating, she began to experience left sided chest pain, which she describes as "just pain." She additionally endorses light- headedness. Currently, pt rates her pain 7-8 out of 10 in severity. Pt denies SOB, nausea, vomiting, diaphoresis, abd pain, swelling in LE. Pt has had stress tests in the past, she is unsure of when was her last one. PMHx includes diverticulitis, HTN, DVT. - History of Current Complaint Time Seen by Provider: 10/26/17 09:47 Hx Obtained From: Patient Onset/Duration: Started Hours Ago, Atraumatic, Still Present Pain Intensity: 7 Pain Scale Used: 0-10 Numeric Chest Pain Location: Left Anterior Chest Pain Radiates: Yes Chest Pain Radiates To:: Shoulder - left, Arm - left Character: Other: - "just pain" Associated Signs and Symptoms: Positive: Chest Pain, Other: - light-headedness. Negative: Shortness of Breath, Diaphoresis, Nausea, Abdominal Pain, Calf Pain/ Swelling, Vomiting - Additional Pertinent History Primary Care Physician: JANET - Allergy/Home Medications Allergies/Adverse Reactions: Allergies Allergy/AdvReac Type Severity Reaction Status Date / Time Penicillins Allergy Severe Difficulty Verified 10/26/17 10:19 Breathing [place] Butter Allergy Mild Hives Verified 10/26/17 10:19 Gabapentin [From Neurontin] Allergy Mild rash and Verified 10/26/17 10:19 hives Celecoxib [From Celebrex] AdvReac Intermediate hypertensive Verified 10/26/17 10 :19 reaction Pregabalin [From Lyrica] AdvReac Intermediate hallucinati Verified 10/26/17 10: 19 ng Tramadol AdvReac Intermediate felt extra Verified 10/26/17 10:19 hyper and agitated Atenolol AdvReac Mild fatigued Verified 10/26/17 10:19 and "washed out" Metronidazole [From Flagyl] AdvReac Mild Nausea Verified 10/26/17 10:19 Nortriptyline AdvReac Mild Nausea Verified 10/26/17 10:19 Statins AdvReac Mild Muscle Ache Verified 10/26/17 10:19 Venlafaxine [From Effexor] AdvReac Mild Nausea Verified 07/27/17 19:37 Home Medications: Home Medications Aspirin EC Low Dose* [Ecotrin EC Low Dose 81 MG*] 81 mg PO DAILY 10/26/17 [ History Confirmed 10/26/17] Ciprofloxacin TAB* [Cipro 500 MG TAB*] 500 mg PO BID 10/26/17 [History Confirmed 10/26/17] Esomeprazole(NF) [NexIUM(NF)] 40 mg PO DAILY 10/26/17 [History Confirmed ] Mirtazapine TAB* [Remeron TAB*] 7.5 mg PO BEDTIME 10/26/17 [History Confirmed ] Nitroglycerin 0.6 MG/HR PATCH* [Nitroglycerin 15 MG PATCH*] 1 patch TRANSDERM DAILY 10/26/17 [History Confirmed 10/26/17] Tapentadol(NF) [Nucynta(NF)] 50 mg PO DAILY 10/26/17 [History Confirmed 10/26/17 ] Verapamil SR TAB* [Calan Sr TAB*] 240 mg PO DAILY 10/26/17 [History Confirmed ] Warfarin TAB(*) [Coumadin TAB(*)] 10 mg PO .MOWEFR 10/26/17 [History Confirmed 10/26/17] PMH/Surg Hx/FS Hx/Imm Hx Endocrine/Hematology History: Denies: Hx Diabetes Cardiovascular History: Reports: Hx Angina, Hx Hypertension, Hx Peripheral Vascular Disease, Other Cardiovascular Problems/Disorders - DVT HAS BEEN ON COUMADIN Denies: Hx Coronary Artery Disease, Hx Hypercholesterolemia, Hx Myocardial Infarction, Hx Pacemaker/ICD, Hx Valvular Heart Disease Respiratory History: Reports: Hx Sleep Apnea Denies: Hx Asthma, Hx Chronic Obstructive Pulmonary Disease (COPD) GI History: Reports: Hx Gastroesophageal Reflux Disease - ON MEDICATON, Hx Hiatal Hernia, Other GI Disorders - chronic diarrhea, MECKLES DIVERTICULUM Musculoskeletal History: Reports: Hx Arthritis - GENERALIZED, Other Musculoskeletal History - LUMBAR RADICULOPATHY AND CERVICAL LUMBAR SPONDYLOLISTHESIS Sensory History: Reports: Hx Cataracts, Hx Contacts or Glasses Denies: Hx Hearing Aid Opthamlomology History: Reports: Hx Cataracts, Hx Contacts or Glasses Neurological History: Reports: Other Neuro Impairments/Disorders - PAIN CLINIC INJECTION Psychiatric History: Reports: Hx Anxiety Denies: Hx Panic Disorder - Surgical History Surgery Procedure, Year, and Place: APPENDECTOMY 60 YEARS AGO C-SECTONS [facility] [place] LEFT KNEE ARTHROSCOPY [facility] CERVICAL SPINE FUSION SURGERY C4-C7 BREAST BIOPSY LEFT [facility] BILATERAL CATARACT REMOVAL Hx Anesthesia Reactions: No - Immunization History Date of Tetanus Vaccine: UTD Date of Influenza Vaccine: UTD - Family History Known Family History: Positive: Other - Cancer - Social History Alcohol Use: Weekly Alcohol Amount: 1 drink/week Hx Substance Use: No Substance Use Type: Reports: None Substance Use Comment - Amount & Last Used: Nucynta Hx Tobacco Use: No Smoking Status (MU): Never Smoked Tobacco Review of Systems Negative: Fever, Chills, Skin Diaphoresis Positive: Chest Pain Negative: Shortness Of Breath Negative: Abdominal Pain, Vomiting, Nausea Musculoskeletal: Other - left shoulder pain Negative: Edema - in LE Neurological: Other - Light-headedness All Other Systems Reviewed And Are Negative: Yes Physical Exam - Summary Physical Exam Summary: VITAL SIGNS: Reviewed. GENERAL: Patient is a well-developed and nourished female who is lying comfortable in the stretcher. Patient is not in any acute respiratory distress. HEAD AND FACE: No signs of trauma. No ecchymosis, hematomas or skull depressions. No sinus tenderness. EYES: PERRLA, EOMI x 2, No injected conjunctiva, no nystagmus. EARS: Hearing grossly intact. Ear canals and tympanic membranes are within normal limits. MOUTH: Oropharynx within normal limits. NECK: Supple, trachea is midline, no adenopathy, no JVD, no carotid bruit, no c- spine tenderness, neck with full ROM. CHEST: Symmetric. Some chest tenderness on left sided chest. LUNGS: Clear to auscultation bilaterally. No wheezing or crackles. CVS: Regular rate and rhythm, S1 and S2 present, no murmurs or gallops appreciated. ABDOMEN: Soft, non-tender. No signs of distention. No rebound no guarding, and no masses palpated. Bowel sounds are normal. EXTREMITIES: No edema, no cyanosis or clubbing. RUE: decreased ROM of the left shoulder. Decreased abduction. Tenderness to palpation on left shoulder. There is no deformity. No hematoma. NEURO: Alert and oriented x 3. No acute neurological deficits. Speech is normal and follows commands. SKIN: Dry and warm Triage Information Reviewed: Yes Vital Signs On Initial Exam: Initial Vitals Temp Pulse Resp BP Pulse Ox 98.4 F 85 17 155/74 94 10/26/17 09:52 10/26/17 09:52 10/26/17 09:52 10/26/17 09:52 10/26/17 09:52 Vital Signs Reviewed: Yes Diagnostics - Vital Signs Vital Signs Temp Pulse Resp BP Pulse Ox 10/26/17 14:13 98.4 F 82 16 152/70 98 10/26/17 09:52 98.4 F 85 17 155/74 94 - Laboratory Lab Results: Lab Results 10/26/17 10/26/17 10/26/17 Range/Units 10:10 10:10 10:10 WBC (3.5-10.8) 10^3/ul RBC (4.0-5.4) 10^6/ul Hgb (12.0-16.0) g/dl Hct (35-47) % MCV (80-97) fL MCH (27-31) pg MCHC (31-36) g/dl RDW (10.5-15) % Plt Count (150-450) 10^3/ul MPV (7.4-10.4) um3 Neut % (Auto) (38-83) % Lymph % (Auto) (25-47) % [place] % (Auto) (1-9) % Eos % (Auto) (0-6) % Baso % (Auto) (0-2) % Absolute Neuts (auto) (1.5-7.7) 10^3/ul Absolute Lymphs (auto) (1.0-4.8) 10^3/ul Absolute Monos (auto) (0-0.8) 10^3/ul Absolute Eos (auto) (0-0.6) 10^3/ul Absolute Basos (auto) (0-0.2) 10^3/ul Absolute Nucleated RBC 10^3/ul Nucleated RBC % INR (Anticoag Therapy) 2.33 H (0.77-1.02) APTT 41.0 H (26.0-36.3) seconds Sodium 138 (133-145) mmol/L Potassium 3.6 (3.5-5.0) mmol/L Chloride 101 (101-111) mmol/L Carbon Dioxide 32 (22-32) mmol/L Anion Gap 5 (2-11) mmol/L BUN 15 (6-24) mg/dL Creatinine 0.67 (0.51-0.95) mg/dL Est GFR ( Amer) 109.5 (>60) Est GFR (Non-Af Amer) 85.1 (>60) BUN/Creatinine Ratio 22.4 H (8-20) Glucose 105 H (70-100) mg/dL Calcium 9.4 (8.6-10.3) mg/dL Total Bilirubin 0.60 (0.2-1.0) mg/dL AST 20 (13-39) U/L ALT 24 (7-52) U/L Alkaline Phosphatase 95 (34-104) U/L Total Creatine Kinase 427 H (10-223) U/L CK-MB (CK-2) 3.1 (0.6-6.3) ng/mL Troponin I 0.01 (<0.04) ng/mL B-Natriuretic Peptide 94 ( - 100) pg/mL Total Protein 7.1 (6.4-8.9) g/dL Albumin 3.8 (3.2-5.2) g/dL Globulin 3.3 (2-4) g/dL Albumin/Globulin Ratio 1.2 (1-3) TSH 2.05 (0.34-5.60) mcIU/mL Thyroxine (T4) 9.85 (6.09-12.23) mcg/mL 10/26/17 10/26/17 Range/Units 10:10 13:20 WBC 11.6 H (3.5-10.8) 10^3/ul RBC 4.62 (4.0-5.4) 10^6/ul Hgb 13.1 (12.0-16.0) g/dl Hct 41 (35-47) % MCV 88 (80-97) fL MCH 28 (27-31) pg MCHC 32 (31-36) g/dl RDW 16 H (10.5-15) % Plt Count 303 (150-450) 10^3/ul MPV 8 (7.4-10.4) um3 Neut % (Auto) 83.3 H (38-83) % Lymph % (Auto) 4.6 L (25-47) % [place] % (Auto) 7.8 (1-9) % Eos % (Auto) 3.8 (0-6) % Baso % (Auto) 0.5 (0-2) % Absolute Neuts (auto) 9.6 H (1.5-7.7) 10^3/ul Absolute Lymphs (auto) 0.5 L (1.0-4.8) 10^3/ul Absolute Monos (auto) 0.9 H (0-0.8) 10^3/ul Absolute Eos (auto) 0.4 (0-0.6) 10^3/ul Absolute Basos (auto) 0.1 (0-0.2) 10^3/ul Absolute Nucleated RBC 0 10^3/ul Nucleated RBC % 0 INR (Anticoag Therapy) (0.77-1.02) APTT (26.0-36.3) seconds Sodium (133-145) mmol/L Potassium (3.5-5.0) mmol/L Chloride (101-111) mmol/L Carbon Dioxide (22-32) mmol/L Anion Gap (2-11) mmol/L BUN (6-24) mg/dL Creatinine (0.51-0.95) mg/dL Est GFR ( Amer) (>60) Est GFR (Non-Af Amer) (>60) BUN/Creatinine Ratio (8-20) Glucose (70-100) mg/dL Calcium (8.6-10.3) mg/dL Total Bilirubin (0.2-1.0) mg/dL AST (13-39) U/L ALT (7-52) U/L Alkaline Phosphatase (34-104) U/L Total Creatine Kinase (10-223) U/L CK-MB (CK-2) (0.6-6.3) ng/mL Troponin I 0.01 (<0.04) ng/mL B-Natriuretic Peptide ( - 100) pg/mL Total Protein (6.4-8.9) g/dL Albumin (3.2-5.2) g/dL Globulin (2-4) g/dL Albumin/Globulin Ratio (1-3) TSH (0.34-5.60) mcIU/mL Thyroxine (T4) (6.09-12.23) mcg/mL Result Diagrams: 10/26/17 10:10 10/26/17 10:10 Lab Statement: Any lab studies that have been ordered have been reviewed, and results considered in the medical decision making process. - Radiology Chest XR Xray Interpretation: Positive (See Comments) - IMPRESSION: Hyperinflation. No active cardiopulmonary disease. ED physician has reviewed this radiology report and agrees. Radiology Interpretation Completed By: Radiologist Left shoulder XR Xray Interpretation: No Acute Changes - IMPRESSION: Osteoarthritis. No acute osseous injury. If symptoms persist, recommend repeat imaging. ED physician has reviewed this radiology report and agrees. Radiology Interpretation Completed By: Radiologist - EKG 0959 Cardiac Rate: NL EKG Rhythm: Sinus Rhythm - at 83 bpm EKG Interpretation: No ST elevation. Normal axis. Chest Pain Course/Dx - Course Assessment/Plan: This pt is a 77 y/o female [facility] c/o left sided chest pain since 08:30 today. Pt reports her pain began in her left shoulder which radiated to her right arm. As pt started ambulating, she began to experience left sided chest pain, which she describes as "just pain." She additionally endorses light-headedness. Currently, pt rates her pain 7-8 out of 10 in severity. Pt denies SOB, nausea, vomiting, diaphoresis, abd pain, swelling in LE. Pt has had stress tests in the past, she is unsure of when was her last one. PMHx includes diverticulitis, HTN, DVT. Test result without any significant abnormalities except for WBC of 11.6, INR of 2.33, total CK is 427. Troponin 1 is 0.01 and second troponin is 0.01. Chest XR shows hyperinflation. No active cardiopulmonary disease. Left shoulder XR shows osteoarthritis. No acute osseous injury. In the ED course, the pt was given one dose of Nucynta and Decadron. I believe the pts pain is coming from his shoulder since she has decreased abduction and has pain coming from her LUE. After these medications, the symptoms are better. Therefore the pt will be discharged to home with follow up from PCP and orthopedics. Pt is hemodynamically stable, alert and oriented x3. - Chest Pain Differential Diagnosis/HQI/PQRI: Acute TX, ACS, Angina, CHF, Chest Wall, GI Disease, Lower Respiratory Infection - Diagnoses Provider Diagnoses: Atypical chest pain, Shoulder pain Discharge - Discharge Plan Condition: Stable Disposition: HOME Prescriptions: Methylprednisolone [Medrol Dosepak 4 MG*] 0 mg PO .SEE CATRACHITO INSTRUCTION #1 catrachito Patient Education Materials: Chest Pain (ED), Shoulder Pain (ED) Referrals: Estefania Dumont MD [Primary Care Provider] - Ramón Covington MD [Medical Doctor] - Additional Instructions: Follow up with Dr. Covington, from orthopedics. Please follow up with your primary care provider. RETURN TO THE ED FOR ANY WORSENING OR NEW SYMPTOMS. The documentation as recorded by the Gabino hope Angela accurately reflects the service I personally performed and the decisions made by , Channing Trammell MD.
== END 2017-10-26 14:13 | disposition home or self-care (01) ==
LOC: ED 09:41
DX: R07.89 Other chest pain (principal); M25.512 Pain in left shoulder; Z86.79 Personal history of other diseases of the circulatory system
CPT/HCPCS: 36415; 71020; 80053; 82550; 82553; 83880; 84436; 84443; 84484; 85025; 85610; 85730; 93005; 96374; 99283; J1100

== ENCOUNTER 2018-02-06 12:23 | Emergency (ER) | payer OTHER, MEDICARE ==
[2018-02-06] MEDS ORDERED: HYDROmorphone INJ* 1 MG/ML CARPUJECT SYRINGE IV ONE (13:22)
[2018-02-06] MEDS ORDERED: Ondansetron INJ* 2 MG/ML VIAL IV ONE (13:22)
[2018-02-06 13:51] LABS: ABS Basophils 0.1 10^3/ul (0-0.2); ABS Eosinophils 0.2 10^3/ul (0-0.6); ABS Monocytes 0.7 10^3/ul (0-0.8); ABS Neutrophils 8.1 10^3/ul (1.5-7.7); ABS Nucleated RBC 0 10^3/ul; Eosinophil % 2.2 % (0-6); Hematocrit 38 % (35-47); Hemoglobin 12.4 g/dl (12.0-16.0); Lymphocyte % 9.7 % (25-47); Mean Corpuscular HGB Conc 33 g/dl (31-36); Mean Corpuscular Hemoglobin 29 pg (27-31); Mean Corpuscular Volume 88 fL (80-97); Mean Platelet Volume 7.7 um3 (7.4-10.4); Nucleated Red Blood Cells % 0; Platelet Count 332 10^3/ul (150-450); Red Blood Count 4.32 10^6/ul (4.0-5.4); Red Cell Distribution Width 14 % (10.5-15); White Blood Count 10.2 10^3/ul (3.5-10.8)
[2018-02-06 13:56] LABS: INR 2.5 (0.77-1.02)
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
[2018-02-06 14:09] LABS: EGFR Non-African American 93.1 (>60)
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
[2018-02-06 15:32] VITALS: BP 125/58
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
== END 2018-02-06 16:00 | disposition home or self-care (01) ==
LOC: ED 12:23
DX: S10.93XA Contusion of unspecified part of neck, initial encounter (principal); S16.1XXA Strain of muscle, fascia and tendon at neck level, initial encounter; M48.54XA Collapsed vertebra, not elsewhere classified, thoracic region, initial encounter for fracture; M51.34 Other intervertebral disc degeneration, thoracic region; M19.90 Unspecified osteoarthritis, unspecified site; V43.52XA Car driver injured in collision with other type car in traffic accident, initial encounter; Y92.9 Unspecified place or not applicable
CPT/HCPCS: 36415; 70450; 71250; 72125; 72131; 74176; 80053; 84484; 85025; 85610; 99282; J1170; J2405

== ENCOUNTER 2018-06-10 13:32 | Observation (INO) | payer BC, MEDICARE, OTHER ==
--- NOTE | 2018-06-10 14:18 | ED ---
Neurological HPI - HPI Summary HPI Summary: This is jayy Schwartz documenting for attending Neto Shipman MD. 78 year old F from PMD's office to [facility] accompanied by complains of intermittent slurred speech for two days. Symptoms aggravated by nothing. Symptoms alleviated by nothing. Patient reports fatigue. Patient was at PMD's office for chronic right knee pain when PMD noticed slurred speech. - History of Current Complaint Chief Complaint: EDGeneral Stated Complaint: POSS STROKE Time Seen by Provider: 06/10/18 14:00 Hx Obtained From: Patient Onset/Duration: Started days ago - 2, Still Present Timing: Intermittent Episodes Lasting: Aggravating: Nothing Alleviating: Nothing - Additional Pertinent History Primary Care Physician: JANET - Allergy/Home Medications Allergies/Adverse Reactions: Allergies Allergy/AdvReac Type Severity Reaction Status Date / Time Penicillins Allergy Severe Difficulty Verified 06/10/18 13:42 Breathing cocoa butter Allergy Mild Hives Verified 06/10/18 13:42 gabapentin Allergy Mild Hives Verified 06/10/18 13:42 celecoxib AdvReac Intermediate Hypertensive Verified 06/10/18 13:42 Reaction tramadol AdvReac Intermediate See Comment Verified 06/10/18 17:45 atenolol AdvReac Mild See Comment Verified 06/10/18 17:49 metronidazole AdvReac Mild Nausea Verified 06/10/18 17:49 nortriptyline AdvReac Mild Nausea Verified 06/10/18 17:49 pregabalin AdvReac Mild Hallucinati Verified 06/10/18 13:42 ons [id number] Reductase AdvReac Mild See Comment Verified 06/10/18 17:49 Inhibitor venlafaxine AdvReac Mild Nausea Verified 06/10/18 17:49 Home Medications: Home Medications Aspirin EC TAB* [Ecotrin EC Low Dose 81 MG*] 81 mg PO DAILY 06/10/18 [History Confirmed 06/10/18] Calcium Polycarbophil TAB* [Fibercon TAB*] 625 mg PO DAILY 06/10/18 [History Confirmed 06/10/18] Cholecalciferol TAB* [Vitamin D TAB*] 2,000 units PO DAILY 06/10/18 [History Confirmed 06/10/18] Diclofenac 1% GEL (NF) [Voltaren 1% GEL (NF)] 3 gm TOPICAL BID PRN 06/10/18 [ History Confirmed 06/10/18] Escitalopram (NF) [Lexapro 10 mg (NF)] 10 mg PO DAILY 06/10/18 [History Confirmed 06/10/18] Fluocinonide 0.05% CM (NF) [Lidex 0.05% CREAM (NF)] 1 gm TOPICAL BID 06/10/18 [ History Confirmed 06/10/18] Lidocaine PATCH 5%* [Lidoderm 5% Patch*] 1 patch TRANSDERM DAILY 06/10/18 [ History Confirmed 06/10/18] Losartan TAB* [Cozaar TAB*] 12.5 mg PO DAILY 06/10/18 [History Confirmed ] Mesalamine (NF) [Lialda (NF)] 2.4 gm PO BID 06/10/18 [History Confirmed 06/10/18 ] Nitroglycerin 0.6 MG/HR PATCH* [Nitroglycerin 15 MG PATCH*] 1 patch TRANSDERM DAILY 06/10/18 [History Confirmed 06/10/18] Nitroglycerin TAB 0.4 MG* 0.4 mg SL Q5M PRN 06/10/18 [History Confirmed 06/10/18 ] Omeprazole CAP* [Prilosec CAP* 20 MG] 20 mg PO DAILY 06/10/18 [History Confirmed 06/10/18] Tapentadol ER (NF) [Nucynta ER (NF)] 200 mg PO DAILY 06/10/18 [History Confirmed 06/10/18] Tapentadol(NF) [Nucynta(NF)] 50 mg PO BID PRN 06/10/18 [History Confirmed ] Triamcinolone 0.5% CREAM(NF) [Triamcinolone 0.5% CREAM*] 1 applic TOPICAL BID [History Confirmed 06/10/18] Triazolam TAB* [Halcion TAB*] 0.5 mg PO BEDTIME 06/10/18 [History Confirmed ] Verapamil SR TAB* [Calan Sr TAB*] 240 mg PO DAILY 06/10/18 [History Confirmed ] Warfarin TAB(*) [Coumadin TAB(*)] 15 mg PO DAILY 06/10/18 [History Confirmed ] PMH/Surg Hx/FS Hx/Imm Hx Previously Healthy: No Endocrine/Hematology History: Denies: Hx Diabetes Cardiovascular History: Reports: Hx Angina, Hx Hypertension, Hx Peripheral Vascular Disease, Other Cardiovascular Problems/Disorders - DVT HAS BEEN ON COUMADIN Denies: Hx Coronary Artery Disease, Hx Hypercholesterolemia, Hx Myocardial Infarction, Hx Pacemaker/ICD, Hx Valvular Heart Disease Respiratory History: Reports: Hx Sleep Apnea Denies: Hx Asthma, Hx Chronic Obstructive Pulmonary Disease (COPD) GI History: Reports: Hx Gastroesophageal Reflux Disease - ON MEDICATON, Hx Hiatal Hernia, Other GI Disorders - chronic diarrhea, MECKLES DIVERTICULUM History: Denies: Hx Renal Disease Musculoskeletal History: Reports: Hx Arthritis - GENERALIZED, Other Musculoskeletal History - LUMBAR RADICULOPATHY AND CERVICAL LUMBAR SPONDYLOLISTHESIS Denies: Hx Osteoporosis Sensory History: Reports: Hx Cataracts, Hx Contacts or Glasses Denies: Hx Hearing Aid Opthamlomology History: Reports: Hx Cataracts, Hx Contacts or Glasses Neurological History: Reports: Other Neuro Impairments/Disorders - PAIN CLINIC INJECTION Psychiatric History: Reports: Hx Anxiety Denies: Hx Panic Disorder - Surgical History Surgery Procedure, Year, and Place: APPENDECT[facility]Y 60 YEARS [facility] [place] [facility] [place] [facility] [place] FUSION SURGERY C4-C7 BREAST BIOPSY [place] [facility] [place] BIL[place] CATARACT REMOVAL Hx Anesthesia Reactions: No - Immunization History Date of Tetanus Vaccine: UTD Date of Influenza Vaccine: UTD Immunizations Up to Date: Yes Infectious Disease History: Denies: Traveled Outside the [place] in Last 30 Days - Family History Known Family History: Positive: Other - Cancer - Social History Alcohol Use: Weekly Alcohol Amount: 1 drink/week Hx Substance Use: No Substance Use Type: Reports: None Substance Use Comment - Amount & Last Used: Nucynta Hx Tobacco Use: No Smoking Status (MU): Never Smoked Tobacco Review of Systems Positive: Fatigue Positive: Slurred Speech - intermittent x2 days All Other Systems Reviewed And Are Negative: Yes Physical Exam - Summary Physical Exam Summary: Appearance: The patient is well-nourished in no acute distress and in no acute pain. Skin: The skin is warm and dry and skin color reflects adequate perfusion. HEENT: The head is normocephalic and atraumatic. The pupils are equal and reactive. The conjunctivae are clear and without drainage. Nares are patent and without drainage. Mouth reveals moist mucous membranes and the throat is without erythema and exudate. The external ears are intact. The ear canals are patent and without drainage. The tympanic membranes are intact. Neck: The neck is supple with full range of motion and non-tender. There are no carotid bruits. There is no neck vein distension. Respiratory: Chest is non-tender. Lungs are clear to auscultation and breath sounds are symmetrical and equal. Cardiovascular: Heart is regular rate and rhythm. There is no murmur or rub auscultated. There is no peripheral edema and pulses are symmetrical and equal. Abdomen: The abdomen is soft and non-tender. There are normal bowel sounds heard in all four quadrants and there is no organomegaly palpated. Musculoskeletal: There is no back tenderness noted. Extremities are non-tender with full range of motion. There is good capillary refill. There is no peripheral edema or calf tenderness elicited. Neurological: Patient is alert and oriented to person, place and time. She has a little bit of slurred speech. The patient has symmetrical motor strength in all four extremities. Cranial nerves are grossly intact. Deep tendon reflexes are symmetrical and equal in all four extremities. Psychiatric: The patient has an appropriate affect and does not exhibit any anxiety or depression. Triage Information Reviewed: Yes Vital Signs On Initial Exam: Initial Vitals Temp Pulse BP Pulse Ox 98.4 F 50 87/62 92 06/10/18 13:36 06/10/18 13:36 06/10/18 13:36 06/10/18 13:36 Vital Signs Reviewed: Yes Diagnostics - Vital Signs Vital Signs Temp Pulse BP Pulse Ox 06/10/18 13:36 98.4 F 50 87/62 92 - Laboratory Result Diagrams: 06/10/18 14:43 06/10/18 15:52 Lab Statement: Any lab studies that have been ordered have been reviewed, and results considered in the medical decision making process. - CT Brain CT Interpretation Completed By: Radiologist - NO ACUTE INTRACRANIAL PATHOLOGY. ED physician has reviewed this report. NIH Scale - NIH Scale Level of Consciousness: Alert/Keenly Responsive Ask Patient the Month and His/Her Age: Both Correct Ask Pt to Open/Close Eyes and Decorator Lighting Fixtures/Release Non-Paretic Hand: Both Correctly Best Gaze (Only Horizontal Eye Movement): Normal Visual Field Testing: No Visual Loss Facial Paresis-Pt to Smile & Close Eyes or Grimace Symmetry: Normal/Symmetrical Motor Function - Right Arm: No Drift-Holds 10 Seconds Motor Function - Left Arm: No Drift-Holds 10 Seconds Motor Function - Right Leg: No Drift-Holds 10 Seconds Motor Function - Left Leg: No Drift-Holds 10 Seconds Limb Ataxia-Must be out of Proportion to Weakness Present: Absent Sensory (Use Pinprick to Test Arms/Legs/Trunk/Face): Normal Best Language (Describe Picture, Name Items): No Aphasia Dysarthria (Read Several Words): Slurs Some Words Extinction and Inattention: No Abnormality Total Score: 1 Course/Dx - Course Course Of Treatment: Ms. Estrada was brought in by her after checking her to 's office. For the last 2 days she has intermittently had slurred speech and in general her mental status seems to have been decreased. Her speech was very slightly slurred when I saw her and I didn't detect any other neurological issue. CT scan was obtained and was read by the radiologist as being negative and a consult to rayon winder for neurology. He felt that this was possibly a subacute stroke and recommended admission to the hospital and the hospitalists were contacted. - Diagnoses Provider Diagnoses: CVA (cerebral vascular accident) - Physician Notifications Discussed Care Of Patient With: James Mora Time Discussed With Above Provider: 16:40 Instructed by Provider To: Other - Dr. Mora, neurology, recommends that patient be admited. Dr. Neal, hospitalist, agrees to admit patient. Discharge - Sign-Out/Discharge Documenting (check all that apply): Patient Departure - Admit - Discharge Plan Condition: Stable Disposition: ADMITTED TO [facility] - Billing Disposition and Condition Condition: STABLE Disposition: Admitted to [facility]
[2018-06-10 14:57] LABS: ABS Basophils 0.1 10^3/ul (0-0.2); ABS Eosinophils 0.1 10^3/ul (0-0.6); ABS Lymphocytes 1.3 10^3/ul (1.0-4.8); ABS Monocytes 0.6 10^3/ul (0-0.8); ABS Neutrophils 6.5 10^3/ul (1.5-7.7); ABS Nucleated RBC 0 10^3/ul; Eosinophil % 1.4 % (0-6); Hematocrit 40 % (35-47); Hemoglobin 13.2 g/dl (12.0-16.0); Lymphocyte % 15.5 % (25-47); Mean Corpuscular HGB Conc 33 g/dl (31-36); Mean Corpuscular Hemoglobin 28 pg (27-31); Mean Corpuscular Volume 86 fL (80-97); Mean Platelet Volume 8.4 um3 (7.4-10.4); Nucleated Red Blood Cells % 0; Platelet Count 362 10^3/ul (150-450); Red Blood Count 4.71 10^6/ul (4.00-5.40); Red Cell Distribution Width 16 % (10.5-15); White Blood Count 8.6 10^3/ul (3.5-10.8)
--- NOTE | 2018-06-10 15:03 | RAD ---
HISTORY: AMS COMPARISONS: February 06, 2018 TECHNIQUE: Multiple contiguous axial CT scans were obtained of the head without intravenous contrast. FINDINGS: HEMORRHAGE/INFARCT: There is no hemorrhage or acute infarct. MASSES/SHIFT: There is no mass or shift. EXTRA-AXIAL SPACES: There are no extra-axial fluid collections. SULCI AND VENTRICLES: The sulci and ventricles are normal in size and position for the patient's stated age. CEREBRUM: There is mild, patchy hypoattenuation of the periventricular and subcortical white matter. BRAINSTEM: There are no focal parenchymal abnormalities. CEREBELLUM: There are no focal parenchymal abnormalities. VESSELS: The vessels are grossly normal. PARANASAL SINUSES: The paranasal sinuses are clear. ORBITS: The orbits are unremarkable. BONES AND SOFT TISSUE: No bone or soft tissue abnormalities are noted. OTHER: None IMPRESSION: NO ACUTE INTRACRANIAL PATHOLOGY.
[2018-06-10 15:12] LABS: EGFR Non-African American 46.4 (>60)
--- NOTE | 2018-06-10 16:58 | CONSULT ---
Consult Consult: Complete consult note was dictated. Mrs. Estrada is a pleasant 78-year-old female with history of hypertension who recently had adjustment to her anti-hypertensive agents. She is hypotensive on presentation today and was experiencing a 2 day history of slurred speech, gait imbalance, and excessive fatigue. I suspect she may be symptomatic from her hypotension. CT head showed hypodensity in the left cerebral hemisphere and a left MCA infarction should be further evaluated. I have ordered an MRI brain w/o contrast, MRA head without contrast, carotid ultrasound, and 2D echo. Please hold her aspirin if she is going to be on coumadin. Please hold all antihypertensive agents until her SBP is between 120-<140 mmHg. Call me anytime for any questions or concerns.
[2018-06-10] MEDS ORDERED: Acetaminophen TAB* 325 MG PO PRN (17:31)
[2018-06-10 17:36] LABS: INR 2.82 (0.77-1.02)
[2018-06-10] MEDS ORDERED: HYDROcodone/ACETAMIN 5-325 MG* 1 TAB PO PRN ×2 (18:28→18:45)
--- NOTE | 2018-06-10 18:38 | RAD ---
INDICATION: Slurred speech. COMPARISON: Comparison is made with a prior CT of the brain of the same date. TECHNIQUE: Sagittal T1, axial T1, T2, susceptibility, FLAIR and diffusion weighted images were obtained. FINDINGS: The ventricles, cisterns and sulci are prominent consistent with diffuse atrophy. There are focal areas of increased signal intensity on T2-weighted images present in the subcortical and periventricular white matter most consistent with moderate chronic small vessel ischemic changes. No areas of restricted diffusion are present. There is no evidence for infarct or hemorrhage. The visualized portion of the paranasal sinuses and mastoid air cells appear clear. IMPRESSION: 1. NO EVIDENCE FOR ACUTE INTRACRANIAL ABNORMALITY. 2. ATROPHY AND FINDINGS SUGGESTIVE OF MODERATE CHRONIC SMALL VESSEL ISCHEMIC CHANGES.
--- NOTE | 2018-06-10 18:43 | RAD ---
INDICATION: Slurred speech. COMPARISON: Correlation is made with a prior MRI of the brain of the same day. TECHNIQUE: A 3-D time of flight magnetic resonance angiogram was performed around the [place] of [place]. Images were reconstructed in the maximum intensity projection format. FINDINGS: The internal carotid, anterior and middle cerebral arteries appear patent without evidence for high-grade stenosis or occlusion. The vertebral, basilar and posterior cerebral arteries appear patent without evidence for high-grade stenosis or occlusion. No aneurysm or vascular malformation is seen. IMPRESSION: NEGATIVE EXAM.
[2018-06-10] MEDS: Triamcinolone 0.5% OINT * 15 GM TUBE TOPICAL SCH (20:13)
[2018-06-10] MEDS ORDERED: FLUOCINONIDE 0.05% TOPICAL SCH (21:00)
[2018-06-10] MEDS ORDERED: Triazolam TAB* 0.25 MG PO SCH (21:00)
--- NOTE | 2018-06-10 21:55 | CONS ---
NEUROLOGY CONSULTATION NOTE: DATE OF CONSULT: 06/10/18 CONSULTING PHYSICIAN: Neto Shipman MD REASON FOR CONSULT: Slurred speech. CHIEF COMPLAINT: Slurred speech. HISTORY OF PRESENT ILLNESS: Mrs. Noemy Estrada is a pleasant 78-year-old right handed female who has a history of arthritis, chronic right knee pain, cervical fusion in 2017, depression, arthritis, who presented with a 2-day history of excessive fatigue, and intermittent slurred speech. She has been recently started on a new blood pressure medication after discontinuing Valsartan. She was also started on Lexapro few weeks ago. She is currently taking verapamil 240 mg daily. She also takes Nucynta for pain, but she has been taking this for 2 years. The patient stated that since yesterday morning, her keeps constantly asking if she is okay. She has slurring of speech. She has trouble walking. She went and saw her primary care doctor this morning and since she was unable to walk straight line and was slurring her words, her PCP, Dr. Dumont recommended she should come to the ED immediately. Currently, the patient says that she is extremely tired. Her slurred speech has improved, but she still finds it difficult pronouncing certain words. She has numbness in the right side of the face associated with right arm numbness. She denied any neck pain. She denied any impairment in her bowel or bladder function. She denied any headaches, visual disturbance, chest pain, shortness of breath, fevers or chills. PAST MEDICAL HISTORY: Cervical fusion 2017, depression, arthritis, Meckel's diverticulum, breast biopsy, appendix, bilateral cataract surgery, wedge compression fracture of the thoracic spine. 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 MEDICATIONS: Home medications: 1. Aspirin 81 mg daily. 2. Nitroglycerin 0.4 mg sublingual every 5 minutes as needed for chest pain. 3. Mesalamine 2.4 mg p.o. twice daily. 4. Vitamin D 2000 units p.o. daily. 5. Warfarin 50 mg p.o. daily. ALLERGIES: To PENICILLIN, COCOA BUTTER, GABAPENTIN, CELECOXIB, MS TRAMADOL. FAMILY HISTORY: Father of cancer that metastasized to the brain. No family history of stroke or seizures. SOCIAL HISTORY: She denied any tobacco use. She drinks wine 3 times a year. 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 REVIEW OF SYSTEMS: A 14-point review of systems was obtained and otherwise negative except for what is mentioned in the HPI. PHYSICAL EXAM: Vital Signs: Temperature of 98.4, pulse of 50, oxygen saturation 92, blood pressure of 87/62. General: This is a very pleasant, well -nourished female in no acute distress. She is cooperative throughout the examination. Head is normocephalic, atraumatic without any obvious abnormalities. Eyes: Conjunctivae/corneas are clear with no scleral icterus. Neck is supple and symmetrical with no carotid bruits. Lungs: Clear to auscultation bilaterally with nonlabored breathing. Cardiovascular: Regular rhythm with normal S1, S2. Radial pulses are palpable. Extremities: Normal range of motion with no cyanosis. Skin: No skin lesions or lacerations. Psychiatric: Affect is broad and normal mood. Easy to establish rapport. Neurological Examination: The patient is awake, alert, oriented to person, place, time, and general circumstances. She has mild dysarthria, but language including expression, naming, repetition, and comprehension were assessed and found to be normal. Cranial Nerves: Normal to confrontation testing bilaterally. Pupils are mid range and reactive to light. Normal consensual response. Extraocular muscles were intact with no ptosis. Sensation is reduced to light touch and temperature sensation on the right face. There is mild facial droop on the right with loss of the nasolabial fold on the right, but very subtle finding. There is facial asymmetry. She is able to hear throughout the history process. Symmetrical palatal elevation. There is normal strength against shoulder shrug. Tongue is symmetrical and midline with no atrophy or fasciculation. Motor: No abnormal movement, but there is some subtle pronator drift on the right. There is reduced alternative movements on the right side compared to the left. She has normal strength 5/5 in the upper and lower extremities bilaterally. The patient is having tenderness to palpation in the right knee region. Reflexes Right/Left: Brachioradialis 2/1; biceps 2/1; triceps 2/1; patella unable to assess on the right, 1 on the left; ankles 0/0. Plantar flexor bilaterally. Sensation is reduced to the right arm to light touch and pinprick. In the right arm, there is normal vibration and proprioception at the great toes. Coordination: Normal [id number]-gx-relt bilaterally. Again, station was not assessed due to moderate right knee pain. DIAGNOSTIC STUDIES/LAB DATA: Laboratory findings: WBC of 8.6, hemoglobin of 13.2, hematocrit of 40, platelets of 362. Sodium of 137, potassium of 4.8, creatinine 1.13, lactic acid 1.1. CT head without contrast showed no evidence of acute infarction, however, there are some hypodensities involving the left frontal region near the insula suggestive of subacute to chronic infarction. ASSESSMENT: 1. Mrs. Noemy Estrada is a 78-year-old female with history of cervical spondylosis with fusion, depression, recurrent DVTs on anticoagulation with Coumadin, who presented with a 2-day history of excessive fatigue and intermittent slurred speech. There has been a change in the patient's antihypertensive medication. The patient is slightly hypotensive and she is complaining of chronic fatigue. I suspect her symptoms are related to hypotension. Other differential diagnosis include possible left MCA vascular territory infarction as there is subtle finding of pronator drift on the right as well as reduced rapid alternating movement on the right upper extremity. However, I would first elevate the patient's blood pressure to normal range to see if her symptoms resolve or if she becomes asymptomatic. 2. Evaluate for obstructive sleep apnea as an outpatient - the patient has a history of snoring and excessive fatigue during the day. An underlying sleep disorder should be further evaluated. 3. History of depression, on Lexapro. I do not think Lexapro is the cause of her symptoms. I recommend continuing the medications. 4. Recurrent DVTs on anticoagulation therapy- not sure if she was evaluated by hematology for hypercoagulability. This will not change the medical management as she needs to be on long-term anticoagulation. RECOMMENDATIONS: The patient is not a candidate for IVTPA or mechanical thrombectomy given that she is outside the therapeutic window. Her NIH stroke scale would be 1-2 for slurred speech and decreased sensation on the right side. I recommend admitting to the hospitalist service for possible stroke workup and to improve the patient's hypotension. Neuro checks every 4 hours for the next 24 hours. I have ordered an MRI of brain without contrast, MRA head without contrast, and a carotid sonogram. I also ordered a 2D transthoracic echo. Place the patient on telemetry. Check fasting lipid panel. Continue aspirin 81 mg daily and continue the Coumadin with the therapeutic INR range of 2.0 to 3.0. Please keep her blood pressure within normotensive range in the 120 less than 140 systolic. Please consult Physical Therapy. Do not place urinary catheter unless there is evidence of urinary retention. DVT prophylaxis with Coumadin. I will continue to follow. TIME SPENT: I spent a total of 70 minutes, greater than 50% of that was spent directly reviewing the medical chart, obtaining history and examining the patient, education, counseling and discussing treatment plan with the primary team and the patient. The patient's and the patient agreed to be admitted for further evaluation. [id number]/[facility] #: [id number] ELVIRA
--- NOTE | 2018-06-10 22:45 | HP ---
CC: Dr. Estefania Dumont; Dr. Mora * HISTORY AND PHYSICAL: DATE OF ADMISSION: 06/10/18 PRIMARY CARE PROVIDER: Dr. Estefania Dumont. NEUROLOGY: Dr. Mora. CHIEF COMPLAINT: Slurred speech, unsteady gait. HISTORY OF PRESENT ILLNESS: Noemy Estrada is a 78-year-old female with a history of ulcerative colitis, renal artery stenosis, and chronic pain, who also has a history of hypertension, presented to the hospital with slurred speech, not feeling well, dizziness when walking and standing up. The patient has systolic pressure on presentation in the 80s. The patient stated that due to her problem with recent recall of the valsartan, it was discontinued by her primary care provider and started on losartan 12.5 mg daily approximately a week ago. For the past two or three days, she had been having problems with dizziness, unsteady gait, and intermittent slurred speech. She was evaluated by Neurology and the thought that she could have had a stroke, but likely her symptoms are related to hypotension. She is going to be placed on overnight observation with a diagnosis of slurred speech, to rule out stroke. PAST MEDICAL HISTORY: 1. History of chronic problems with chest pain. 2. History of recurrent DVT. 3. History of hypertension. 4. History of renal artery stenosis, status post stenting. 5. History of ulcerative colitis. 6. History of gastroesophageal reflux disease. 7. History of lumbar radiculopathy. 8. History of heart murmur. 9. History of osteoarthritis, bilateral knees, preparing for knee replacement on the right. MEDICATIONS: Current medications at home include: 1. Lidex cream 0.05% 1 g topical b.i.d. 2. Aspirin 81 daily. 3. Nitroglycerin on a p.r.n. basis. 4. Nitroglycerin powder 0.5 mg an hour. 5. Mesalamine 1200 mg b.i.d. 6. Vitamin D 2000 units daily. 7. FiberCon 625 mg daily. 8. Coumadin 15 mg daily. 9. Triamcinolone 0.5% cream 1 application b.i.d. 10. Omeprazole 20 mg daily. 11. Voltaren gel 1% b.i.d. p.r.n. 12. Nucynta immediate release 50 mg b.i.d. p.r.n. 13. Nucynta extended release 200 mg b.i.d. 14. Lexapro 10 mg daily. 15. Verapamil SR 240 mg daily. 16. Lidoderm patch 5% one patch daily. 17. Halcion 0.5 mg at bedtime. 18. Cozaar 12.5 mg daily. ALLERGIES: PENICILLIN, COCOA POWDER, GABAPENTIN, CELECOXIB, TRAMADOL, ATENOLOL , METRONIDAZOLE, NORTRIPTYLINE, PREGABALIN, STATINS, VENLAFAXINE. FAMILY HISTORY: The patient has a history of being an Ashkenazi Latter Day and multiple relatives with either ovarian or breast cancer. The patient's mother had ovarian cancer in her 60s. Grandmother ovarian cancer in her 60s. Father from lung cancer. Son of carotid artery rupture secondary to radiation therapy for squamous cell carcinoma of throat. 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 She ambulates with a cane. She has problems with ambulation due to her knee osteoarthritis. Denies any tobacco or recreational drugs. Rare alcohol use. Her is her surrogate. REVIEW OF SYSTEMS: Please see history of present illness. All the remaining 12 systems were reviewed with the patient and were otherwise negative. PHYSICAL EXAMINATION GENERAL: The patient is a very pleasant 78-year-old female, who is in no acute distress. Alert, awake, and oriented x3. VITAL SIGNS: Blood pressure currently of 130/64, heart rate of 66 and regular, respiratory rate 17, oxygen saturation 98% on room air, temperature of 97.9. HEENT: Head: Atraumatic, normocephalic. Eyes: Pupils are equal, reactive to light and accommodation. Oropharynx is clear. Mucosa moist. NECK: Supple. No JVD. No bruits bilaterally. RESPIRATORY: Clear to auscultation bilaterally. CARDIOVASCULAR: Regular rate and rhythm. 3/6 systolic ejection murmur to auscultation of the apex. ABDOMEN: Soft and nontender. Bowel sounds are present in all 4 quadrants. EXTREMITIES: There is no edema. Pulses are +2 bilaterally. No clubbing or cyanosis. SKIN: On evaluation of the skin, venous varicosities in bilateral lower extremities noted. There is no evidence of ecchymotic areas of rashes. NEUROLOGIC: Speech is clear. Cranial nerves II through XII are grossly intact. Motor strength is 5/5 bilaterally. Limited range of motion bilateral knees due to severe osteoarthritic changes. PSYCHIATRIC: Oriented x3 with no evidence of anxiety or depression. DIAGNOSTIC STUDIES/LAB DATA: Showed white blood cell count of 8.6, hemoglobin 13.2, hematocrit 40, and platelet of 362. Sodium was 137, potassium 4.8, chloride 98, carbon dioxide 32, BUN 17, creatinine 1.13. Liver functions are unremarkable. Troponin of 0.01. MRI of the brain, impression: "No evidence of acute intracranial abnormality. Atrophy and findings suggestive of moderate chronic small vessel ischemic changes." The patient's EKG shows sinus bradycardia with the heart rate of 48 beats per minute with no ST changes. ASSESSMENT AND PLAN: 1. Episodes of slurred speech, dizziness in a patient, who presented hypotensive after starting a new hypertension medication. At this point, the likely etiology of the patient's symptoms is hypotension. Nevertheless, as per Neurology, the patient is recommended to stay for overnight observation on telemetry monitored bed. An echo is going to be obtained in the morning. Head MRA as well as carotid Dopplers are pending and at time of this history and physical. 2. In regards to patient's hypertension, her verapamil as well as losartan is going to be held. I suspect the patient can be restarted on verapamil once her pressures are in 140s range. 3. Elevated creatinine. Likely due to mild hypoperfusion of kidneys in the setting of hypotension. 4. Chronic pain. The patient's Nucynta unfortunately is not on formulary in the hospital. She is going to be placed on [place] on a p.r.n. basis. 5. In regards to the patient's ulcerative colitis, the patient is going to be continued on mesalamine. 6. For DVT prophylaxis, the patient's INR is 2.8 currently and her Coumadin is going to be held today. INR is going to rechecked in the morning. 7. The patient's code status is full. Her surrogate is her . TIME SPENT: Approximately, 65 minutes was spent on admission of this patient, more than half of that time was spent [id number] with the patient during the interview and physical exam. [id number]/[facility] #: [id number] [facility]
[2018-06-11 03:46] LABS: Urine Appearance Clear; Urine Blood 1+ (Negative); Urine Color Straw; Urine Ketones Negative (Negative); Urine Protein Negative (Negative); Urine Red Blood Cell Trace(0-2/hpf) (Absent); Urine Specific Gravity 1.006 (1.010-1.030); Urine Urobilinogen Negative (Negative); Urine White Blood Cell Trace(0-5/hpf) (Absent)
[2018-06-11] MEDS ORDERED: Losartan TAB* 25 MG PO SCH (05:00)
[2018-06-11 05:55] LABS: ABS Basophils 0 10^3/ul (0-0.2); ABS Eosinophils 0.3 10^3/ul (0-0.6); ABS Lymphocytes 1.2 10^3/ul (1.0-4.8); ABS Monocytes 0.6 10^3/ul (0-0.8); ABS Neutrophils 3.2 10^3/ul (1.5-7.7); ABS Nucleated RBC 0 10^3/ul; Eosinophil % 6.2 % (0-6); Hematocrit 40 % (35-47); Lymphocyte % 22.6 % (25-47); Mean Corpuscular HGB Conc 32 g/dl (31-36); Mean Corpuscular Hemoglobin 28 pg (27-31); Mean Corpuscular Volume 85 fL (80-97); Mean Platelet Volume 8.1 um3 (7.4-10.4); Nucleated Red Blood Cells % 0.1; Platelet Count 289 10^3/ul (150-450); Red Blood Count 4.72 10^6/ul (4.00-5.40); Red Cell Distribution Width 16 % (10.5-15); White Blood Count 5.4 10^3/ul (3.5-10.8)
[2018-06-11 06:04] LABS: INR 2.93 (0.77-1.02)
[2018-06-11 06:13] LABS: EGFR Non-African American 84.9 (>60)
[2018-06-11] MEDS ORDERED: Omeprazole CAP* 20 MG PO SCH (07:30)
[2018-06-11 08:12] VITALS: BP 154/69
[2018-06-11] MEDS: Triamcinolone 0.5% OINT * 15 GM TUBE TOPICAL SCH (08:34)
[2018-06-11] MEDS ORDERED: Calcium Polycarbophil TAB* 625 MG PO SCH (09:00)
[2018-06-11] MEDS ORDERED: Nitroglycerin 0.6 MG/HR PATCH* (15 MG) TRANSDERM SCH (09:00)
[2018-06-11] MEDS ORDERED: Verapamil SR TAB* 240 MG PO SCH (09:00)
[2018-06-11] MEDS ORDERED: Cholecalciferol TAB* 1000 UNITS PO SCH (09:00)
[2018-06-11] MEDS ORDERED: Lidocaine PATCH 5%* 1 PATCH TRANSDERM SCH (09:00)
[2018-06-11] MEDS ORDERED: CMC: Escitalopram (NF) 10 MG TAB PO SCH (09:00)
--- NOTE | 2018-06-11 11:30 | ECHO ---
Patient: GUIDO ROBERTS I [facility] Rec#: [id number] : 1940 Date: 06/11/2018 Age: 78y Height: 157 cm / 61.8 in Weight: 68 kg / 149.9 lbs Sex: F BSA: 1.69 Room#: [facility] Admit Date#: 06/10/2018 Type: Inpatient Referring: James Mora Reading: Keith Florian MD Foundation Engineer: Alta Castellanos,CYNTHIACS,RDMS CC: Estefania Dumont MD Transthoracic Echocardiogram Indication: TIA BP: 153/62 HR: 81 Rhythm: NSR Findings History: HTN, DVT, renal artery stenosis, murmur Technical Comments: The study quality is good. Left Ventricle: The left ventricular chamber size is normal. Mild to moderate concentric left ventricular hypertrophy is observed. Basal interventricular septum shows moderate thickening. Global left ventricular wall motion and contractility are within normal limits. There is normal left ventricular systolic function. The estimated ejection fraction is greater than 65%. There is an E to A reversal in the mitral valve flow pattern suggestive of diastolic dysfunction. Left Atrium: The left atrium is mildly dilated. Right Ventricle: The right ventricular chamber size and systolic function are within normal limits. Right Atrium: The right atrial cavity size is normal. Aortic Valve: The aortic valve is trileaflet. The aortic valve leaflets are mildly thickened. There is aortic annular calcification. There is a trace of aortic regurgitation. There is mild aortic stenosis. The mean gradient of the aortic valve is 16 mmHg. The aortic valve area, by peak velocities, is calculated at 1.8 cm2. The highest aortic valve velocity was obtained with the standard probe from the A5C view. Mitral Valve: The mitral valve leaflets appear normal. There is mitral annular calcification. There is no evidence of mitral regurgitation. There is no evidence of mitral stenosis. Tricuspid Valve: The tricuspid valve leaflets are normal. There is trace tricuspid regurgitation. Unable to estimate the right ventricular systolic pressure. Pulmonic Valve: The pulmonic valve structure is not well visualized. There is a trace pulmonic regurgitation. Pericardium: There is no significant pericardial effusion. Aorta: The aortic root appears normal. There is no dilatation of the aortic arch. Pulmonary Artery: The main pulmonary artery is not well visualized. Venous: The inferior vena cava appears normal in size. There is a greater than 50% respiratory change in the inferior vena cava dimension. Conclusions Mild to moderate concentric left ventricular hypertrophy is observed. Basal interventricular septum shows moderate thickening. Global left ventricular wall motion and contractility are within normal limits. The estimated ejection fraction is greater than 65%. There is mild aortic stenosis. The mean gradient of the aortic valve is 16 mmHg. There is no evidence of mitral regurgitation. There is trace tricuspid regurgitation. Unable to estimate the right ventricular systolic pressure. There is no significant pericardial effusion. Measurements Name Value Normal Range RVIDd (AP) 2D 3 cm (0.9 - 2.6) RVDdMajor (2D) 2.9 cm (2.2 - 4.4) RAd ISD 4CH 4.4 cm (3.4 - 4.9) RA (A4C)W 4 cm (2.9 - 4.6) IVSd (2D) 1.7 cm (0.6 - 1) LVPWd (2D) 1.2 cm (0.6 - 1) LVIDd (2D) 3.8 cm (3.6 - 5.4) LVIDs (2D) 2.1 cm - LV FS (2D) 46 % (25 - 45) Aortic Annulus 2 cm (1.4 - 2.6) Ao root diameter (2D) 2.9 cm (2.1 - 3.5) Ascending Ao 2.3 cm (2.1 - 3.4) Aortic arch 2.3 cm (1.8 - 3.4) LA dimension (AP) 2D 4.2 cm (2.3 - 3.8) LAd ISD 4CH 5.8 cm (2.9 - 5.3) LA ISD 4CH W 3.8 cm (2.5 - 4.5) Name Value Normal Range LA ESV BP (A/L) index 28 ml/m2 - Name Value Normal Range MV E-wave Vmax 0.9 m/sec - MV deceleration time 161 msec - MV A-wave Vmax 1.1 m/sec - MV E:A ratio 0.8 ratio - LV septal e' Vmax 0.07 m/sec - LV lateral e' Vmax 0.09 m/sec - LV E:e' septal ratio 14 ratio - LV E:e' lateral ratio 10 ratio - Name Value Normal Range AV Vmax 2.8 m/sec - AV VTI 52 cm - AV peak gradient 31 mmHg - AV mean gradient 16 mmHg - LVOT diameter 2 cm - LVOT Vmax 1.6 m/sec - LVOT VTI 29 cm - LVOT peak gradient 10 mmHg - LVOT mean gradient 5 mmHg - DOI (VTI) 0.6 ratio - IVONE (continuity Vmax) 1.8 cm2 - IVONE (continuity VTI) 1.8 cm2 - [place] Vmax 0.7 m/sec - Name Value Normal Range MV Vmax 1 m/sec - MV VTI 24 cm - MV peak gradient 4 mmHg - MV mean gradient 2 mmHg - MV PHT 43 msec - MVA (PHT) 5.1 cm2 - Name Value Normal Range RAP 8 mmHg - IVC diameter 1.7 cm - Name Value Normal Range PV Vmax 1 m/sec - PV peak gradient 4 mmHg -
--- NOTE | 2018-06-11 16:58 | PN ---
NEUROLOGY PROGRESS REPORT: DATE OF SERVICE: 06/11/18 PRIMARY PROVIDER: Dr. Nora Sanchez. Neurology is following for the evaluation of intermittent episodes of slurred speech. SUBJECTIVE: The patient is resting comfortably. She has not had any recurrence of slurred speech, except that when she woke up early this morning, she felt that her tongue was heavier and her words were slightly slurred. This lasted for a few minutes. Her blood pressure was within normal range with SBP being around 150s. Her blood pressure did improve yesterday from the systolic in the 80s and it jumped up to the 170s. She was given losartan yesterday and was restarted on the verapamil today. REVIEW OF SYSTEMS: The patient denied any chest pain, shortness of breath, or palpitations. She denied any headaches, slurred speech, inability to swallow, or fevers/chills. MEDICATIONS: Coumadin Aspirin Verapamil IMAGING STUDIES: MRI brain without contrast showed no evidence of acute intracranial abnormality. She has generalized atrophy and moderate chronic small vessel ischemic changes. MRA of the head showed no evidence of large vessel occlusion. EKG this morning showed sinus bradycardia and the rate of 48. PHYSICAL EXAMINATION: Vitals: Temperature of 98.4, pulse rate of 79, respiratory rate of 16, oxygen saturation 97% on room air, and blood pressure of 154/69. General: Well-nourished, well-developed female, in no acute distress. She was getting her echo done this morning. Head: Atraumatic, normocephalic. Neck: Supple with no carotid bruit. Cardiovascular: Regular rate and rhythm with normal S1, S2. Lungs are clear to auscultation bilaterally. Extremities: Normal range of motion with no cyanosis or edema. Neurological Examination: The patient is awake, alert, and oriented. She is oriented to person, place, and time and general circumstances. She has no dysarthria. She has no aphasia. Pupils are midrange and reactive to light. Normal consensual response. Extraocular muscles are intact with no ptosis. Tongue is symmetrical and midline with no atrophy. Motor: No abnormal movements or pronator drift this morning. Pronator drift seen yesterday has resolved. Motor strength is 5/5 in upper and lower extremities bilaterally and symmetrically. Reflexes 1/1 throughout and absent at the ankles. Flexor plantar responses bilaterally. Sensation is intact today in the right arm when compared to yesterday. Coordination: Normal gerzre-xh-nges bilaterally. ASSESSMENT AND RECOMMENDATIONS: 1. Mrs. Noemy Estrada is a 78-year-old female who presented with symptomatic hypotension- Symptoms have resolved once her BP improved. MRI brain was negative for any acute infarction. The patient should continue taking Coumadin and closely monitoring any drop in her blood pressure. She is in no need for aspirin while on coumadin. Pending ultrasound of the carotids. 2. Chronic fatigue and snoring - she should be evaluated for obstructive sleep apnea as an outpatient. 3. Recurrent deep venous thromboses, on chronic anticoagulation therapy. 4. History of depression, on Lexapro. If her echo turns out to be unremarkable, I recommend discharge. We would be more than happy to see her as an outpatient. Please schedule an appointment for her to be seen in 4-6 weeks. [id number]/[facility] #: [id number] ADDENDUM: The patient did not have her carotid ultrasound done while in- patient. She will need to have this done as an outpatient. In addition, she needs to have a lipid panel done and if LDL is over 70, please start her on statin therapy. I have contacted Mrs. Estrada today, June 12 at 824 am and discussed the above mentioned recommendation. She verbalized that an appointment with Dr. Dumont will be made within the next week so she can obtain the carotid ultrasound and lipid panel. Please copy to Dr. Estefania Dumont. [facility] CENTERNicole
[2018-06-11] MEDS ORDERED: Nitro Patch/OINT Remove TOPICAL SCH (21:00)
[2018-06-11] MEDS ORDERED: Lidocaine Patch REMOVE* 1 NOTE MISC PATCH OFF SCH (21:00)
--- NOTE | 2018-06-12 02:34 | DS ---
ADDENDUM NOW INCLUDED ON THIS REPORT CC: Dr. Dumont; Neurology, Dr. Mora; Dr. Hastings, Orthopedic Surgery * DISCHARGE SUMMARY: DATE OF ADMISSION: 06/10/18 DATE OF DISCHARGE: 06/11/18 PRIMARY CARE PROVIDER: Dr. Dumont. DISCHARGE DIAGNOSIS: Episode of slurred speech and dizziness likely due to symptomatic hypotension. MEDICATIONS AT DISCHARGE: Include: 1. Aspirin 81 mg daily. 2. Fibercon 625 mg daily. 3. Voltaren gel 1% apply to the affected area as previously taken. 4. Vitamin D 2000 units daily. 5. Lexapro 10 mg daily. 6. Lidex cream 1 g topical p.r.n. 7. Lidoderm patch as previously taken. 8. Mesalamine 1.2 g b.i.d. 9. Nitroglycerin patch 0.6 mg per hour transdermally daily. 10. Omeprazole 20 mg daily. 11. Nucynta ER 200 mg b.i.d. 12. Nucynta Immediate Release 50 mg up to b.i.d., but usually the patient takes it once a day. 13. Triamcinolone cream 0.5% 1 application topically b.i.d. p.r.n. 14. Halcion 0.5 mg at bedtime. 15. Verapamil SR 240 mg daily. 16. Coumadin 15 mg started on 06/08/18. LABORATORY DATA AND STUDIES PERFORMED DURING THE HOSPITAL STAY: Included: On the day of discharge, INR of 2.93. Sodium was 139, potassium 4.0, chloride 102 , carbon dioxide 32, BUN 14, creatinine 0.67. White blood cell count of 5.4, hemoglobin 13.0, hematocrit of 40, and platelets of 289. Transthoracic echocardiogram obtained on 06/11/18 showed EF of greater than 65% with mild aortic stenosis and basal interventricular septum shows moderate thickening and moderate concentric LVH. Had MRA on 06/10/18, impression, "negative exam." Brain MRI on 06/10/18, impression, "No evidence of acute intracranial abnormality. Atrophy and findings consistent with moderate chronic small vessel ischemic changes." Brain CT, impression, "no active intracranial pathology." CONSULTATIONS DURING THE HOSPITAL STAY: Included Dr. Mora from Neurology. HOSPITALIZATION COURSE: Noemy Estrada is a 78-year-old female with history of hypertension, who was on Diovan that was discontinued due to problems with carcinogenic substances found in the valsartan pills and some of those were discontinued. Instead, the patient was started on losartan 12.5 mg by her primary care provider approximately a week prior to her admission. The patient stated that for the past couple of days, she has been slurring her words and feeling dizzy whenever she walked and stood up. When she came in to the hospital, her systolic pressures were in the 80s. Once her hypotension resolved , her symptoms resolved also. The patient was seen by Neurology, who recommended observation to rule out TIA versus CVA. Her overall neurologic workup was negative. At this point, her losartan is going to be discontinued and remaining medications are going to be continued as previously taken. PHYSICAL EXAMINATION AT THE TIME OF DISCHARGE: Unchanged from admission. ADDENDUM: I just had a followup conversation with the patient's primary care provider, Dr. Dumont. It was noted that as outpatient, the patient has had episodes of confusion that appeared to be related to narcotics. Dr. Dumont noted that patient was off her Nucynta for 4 to 6 weeks and then she was back on it recently. The patient herself did not remember that happening when on an initial interview at admission. Nevertheless, it was decided that the patient should be taking lower Nucynta dose with a dose of 200 of extended release once a day and continue taking the Nucynta 50 mg once to twice a day as needed. I communicated that with the patient and spoke with the patient about it. [id number]/[facility] #: [id number] A- [id number]/[facility] #: [id number] [facility] HEALTHNicole
--- NOTE | 2018-06-12 03:24 | DS ---
CC: Dr. uDmont. DISCHARGE SUMMARY: ADDENDUM: I just had a followup conversation with the patient's primary care provider, Dr. Dumont. It was noted that as outpatient, the patient has had episodes of confusion that appeared to be related to narcotics. Dr. Dumont noted that patient was off her Nucynta for 4 to 6 weeks and then she was back on it recently. The patient herself did not remember that happening when on an initial interview at admission. Nevertheless, it was decided that the patient should be taking lower Nucynta dose with a dose of 200 of extended release once a day and continue taking the Nucynta 50 mg once to twice a day as needed. I communicated that with the patient and spoke with the patient about it. [id number]/[facility] #: [id number] MTDD
== END 2018-06-11 12:57 | disposition home or self-care (01) ==
LOC: ED 13:32 → MEDTELE 17:50
PROVIDERS: ADMIT Internal Medicine; ATTEND Internal Medicine
DX: R47.81 Slurred speech (principal); R42 Dizziness and giddiness; I70.1 Atherosclerosis of renal artery; Z88.0 Allergy status to penicillin; Z79.82 Long term (current) use of aspirin; Z79.01 Long term (current) use of anticoagulants
CPT/HCPCS: 36415; 70450; 70544; 70551; 80048; 80053; 81003; 81015; 83605; 84443; 84484; 85025; 85610; 87077; 87086; 87186; 93005; 93306; 99284; A9270-GY; G0378

== ENCOUNTER 2018-11-25 10:19 | Observation (INO) | payer MEDICARE ==
--- OUTSIDE RECORDS SUMMARY | 2018-11-25 10:29 | XMS REPORT | Continuity of Care Document ---
:1940 External Reference #:[id number] Author Name Otis Figueroa M.D. Address [address] [place] [address] Care Team Providers Name Role Phone Juan Womack M.D. Primary Care Physician Unavailable Payers Type Date Identification Numbers Payment Provider Subscriber Policy Number: [id number] [employer] [facility] Noemy Estrada Group Number: [id number] [address] [address] PayID: [id number] [place] [address] PayID: [id number] Medicare - [facility] Noemy Estrada [address] [place] [address] Advance Directives Description No Information Available Problems Date Description Provider Status Onset: H/O: coagulation defect Active Onset: Sleep apnea Active Onset: Gastroesophageal reflux disease Active Onset: 11/24/2015 Vitreous degeneration Rosette Cottrell O.D. Active Onset: 11/24/2015 Regular astigmatism Rosette Cottrell O.D. Active Onset: 11/24/2015 Presbyopia Rosette Cottrell O.D. Active Onset: 11/24/2015 Other secondary cataract, bilateral Rosette Cottrell O.D. Active Onset: 11/24/2015 Presence of intraocular lens Rosette Cottrell O.D. Active Onset: Arthritis Active Onset: 11/01/2018 Ocular hypertension Otis Figueroa M.D. Active Family History Date Family Member(s) Problem(s) Comments Father No Current Problems Mother No Current Problems Social History Type Date Description Comments Sex Unknown Marital Status Legal Status: Work Status Retired ETOH Use Denies alcohol use Tobacco Use Start: Unknown Patient has never smoked Recreational Drug Use Denies Drug Use Smoking Status Reviewed: 12/14/18 Patient has never smoked Allergies, Adverse Reactions, Alerts Date Description Reaction Status Severity Comments 11/24/2015 Penicillins Active 11/24/2015 Cipro Active Medications Medication Date Status Form Strength Qnty SIG Indications Ordering Provider Nucynta Active Tablets 50mg Unknown Jantoven Active Tablets 5mg Unknown Lidocaine Active Patches 5% Unknown Verapamil HCL ER Active Tablets ER 240mg Unknown Coumadin Active Tablets 5mg Unknown Multi Vitamin Active Tablets Unknown Daily 00 Nitroglycerin Active Patches 24HR 0.6mg/HR Mauser, 00 MD Obdulio Mesalamine Active Tablets DR 1.2gm Julia, 00 Estefania FaganDLv Escitalopram Active Tablets 10mg Jander, Oxalate 00 Estefania M.D. Losartan Active Tablets 25mg Jander, Potassium 00 Estefania M.D. Omeprazole Active Capsules DR 20mg Julia, 00 Estefania M.DLv Clonazepam Active Tablets 0.5mg Jander, 00 Estefania M.D. Aspirin Active Tablets DR 81mg Unknown 00 Immunizations Description No Information Available Vital Signs Description No Information Available Results Test Date Facility Test Result H/L Range Note Laboratory test 04/30/2017 [facility] Hemoglobin A1c 6.1 % High Less than [address] (Glyco HGB) 6.0 [place] [address] (607)- - CBC Auto Diff 03/29/2017 [facility] White Blood 6.1 10 ^3/uL N 3.5-10.[address] [place] [address] (607)- - Red Blood Count 4.63 10^6/uL N 4.0-5.4 Hemoglobin 13.1 g/dL N 12.0-16.0 Hematocrit 41 % N 35-47 Mean Corpuscular Volume 89 fL N 80-97 Mean Corpuscular Hemoglobin 28 pg N 27-31 Mean Corpuscular HGB Conc 32 g/dL N 31-36 Red Cell Distribution Width 15 % N 10.5-15 Platelet Count 366 10^3/uL N 150-450 Mean Platelet Volume 8 um3 N 7.4-10.4 Abs Neutrophils 3.6 10^3/uL N 1.5-7.7 Abs Lymphocytes 1.4 10^3/uL N 1.0-4.8 Abs Monocytes 0.7 10^3/uL N 0-0.8 Abs Eosinophils 0.5 10^3/uL N 0-0.6 Abs Basophils 0.1 10^3/uL N 0-0.2 Abs Nucleated RBC 0 10^3/uL N Granulocyte % 58.4 % N 38-83 Lymphocyte % 22.1 % Low 25-47 Monocyte % 10.7 % High 1-9 Eosinophil % 7.7 % High 0-6 Basophil % 1.1 % N 0-2 Nucleated Red Blood Cells % 0 N Laboratory test 03/29/2017 [facility] B-Type Natriuretic 49 pg/mL N [address] [place] [address] (607)- - Troponin-I (TnI) 0.00 ng/mL N <0.04 3 Inr/Protime 03/29/2017 [facility] Inr 1.67 High 0.89 -1.[address] [place] [address] (607)- - Basic Metabolic Panel 03/29/2017 [facility] Sodium 138 mmol/L N 133-[address] [place] [address] (607)- - Potassium 4.3 mmol/L N 3.5-5.0 Chloride 101 mmol/L N 101-111 Co2 Carbon Dioxide 33 mmol/L High 22-32 Anion Gap 4 mmol/L N 2-11 Glucose 84 mg/dL N 70-100 Blood Urea Nitrogen 13 mg/dL N 6-24 Creatinine 0.71 mg/dL N 0.51-0.95 BUN/Creatinine Ratio 18.3 N 8-20 Calcium 9.3 mg/dL N 8.6-10.3 Egfr Non- 79.8 N >60 Egfr 102.7 N >60 4 CBC Auto Diff 02/17/2016 [facility] White Blood 6.9 10 ^3/uL N 3.5-10.[address] [place] [address] (607)- - Red Blood Count 4.38 10^6/uL N 4.0-5.4 Hemoglobin 12.8 g/dL N 12.0-16.0 Hematocrit 39 % N 35-47 Mean Corpuscular Volume 88 fL N 80-97 Mean Corpuscular Hemoglobin 29 pg N 27-31 Mean Corpuscular HGB Conc 33 g/dL N 31-36 Red Cell Distribution Width 14 % N 10.5-15 Platelet Count 343 10^3/uL N 150-450 Mean Platelet Volume 8 um3 N 7.4-10.4 Abs Neutrophils 4.1 10^3/uL N 1.5-7.7 Abs Lymphocytes 2.0 10^3/uL N 1.0-4.8 Abs Monocytes 0.7 10^3/uL N 0-0.8 Abs Eosinophils 0.2 10^3/uL N 0-0.6 Abs Basophils 0 10^3/uL N 0-0.2 Abs Nucleated RBC 0.01 10^3/uL N Granulocyte % 58.7 % N 38-83 Lymphocyte % 28.6 % N 25-47 Monocyte % 9.6 % High 1-9 Eosinophil % 2.4 % N 0-6 Basophil % 0.7 % N 0-2 Nucleated Red Blood Cells % 0.1 N Basic Metabolic Panel 02/17/2016 [facility] Sodium 136 mmol/L N 133-[address] [place] [address] (607)- - Potassium 3.8 mmol/L N 3.5-5.0 Chloride 99 mmol/L Low 101-111 Co2 Carbon Dioxide 31 mmol/L N 22-32 Anion Gap 6 mmol/L N 2-11 Glucose 98 mg/dL N 70-100 Blood Urea Nitrogen 14 mg/dL N 6-24 Creatinine 0.67 mg/dL N 0.51-0.95 BUN/Creatinine Ratio 20.9 High 8-20 Calcium 9.6 mg/dL N 8.6-10.3 Egfr Non- 85.6 N >60 Egfr 110.1 N >60 5 Laboratory test 02/17/2016 [facility] Troponin-I (TnI) 0.01 ng/mL N <0.03 [address] [place] [address] (607)- - B-Type Natriuretic Peptide BNP 31 pg/mL N 7 D Dimer Quantitative < 200 ng/mL N Less Than 230 8 Connective Tissue 02/17/2016 [facility] [place] Anti-Nuclear Antibody 0.8 U N [address] [place] [address] (000)- - Cyclic Citrullinated Peptide <15.6 U N 10 Interpretation See Comment N 11 1 Therapeutic target for the treatment of diabetes Mellitus patients is <7% HBA1C, and in selective patients <6.0%.Please refer to [place] [employer] Diabetic care guidelines for further information. 2 >100 to <200 pg/mL: likely compensated congestive heart failure (CHF) 200 to 400 pg/mL: likely moderate CHF >400 pg/mL: likely moderate to severe CHF 3 99th percentile=0.04 ng/mL Troponin results at [facility] and [facility] are not interchangeable. 4 Because ethnic data is not always readily available, this report includes an eGFR for both -Americans and non- Americans. The National Kidney Disease Education Program (NKDEP) does not endorse the use of the MDRD equation for patients that are not between the ages of 18 and 70, are , have extremes of body size, muscle mass, or nutritional status, or are non- or non-. According to the National Kidney Foundation, irrespective of diagnosis, the stage of the disease is based on the level of kidney function: Stage Description GFR(mL/min/1.73 m(2)) 1 Kidney damage with normal or decreased GFR 90 2 Kidney damage with mild decrease in GFR 60-89 3 Moderate decrease in GFR 30-59 4 Severe decrease in GFR 15-29 5 Kidney failure <15 (or dialysis) 5 Because ethnic data is not always readily available, this report includes an eGFR for both -Americans and non- Americans. The National Kidney Disease Education Program (NKDEP) does not endorse the use of the MDRD equation for patients that are not between the ages of 18 and 70, are , have extremes of body size, muscle mass, or nutritional status, or are non- or non-. According to the National Kidney Foundation, irrespective of diagnosis, the stage of the disease is based on the level of kidney function: Stage Description GFR(mL/min/1.73 m(2)) 1 Kidney damage with normal or decreased GFR 90 2 Kidney damage with mild decrease in GFR 60-89 3 Moderate decrease in GFR 30-59 4 Severe decrease in GFR 15-29 5 Kidney failure <15 (or dialysis) 6 Reference Range and Interpretation: TnI (ng/mL) Interpretation Less Than 0.03 ng/mL Not supportive of diagnosis of DC 0.03 - 0.50 ng/mL Indeterminate: suggest serial studies if clinically indicated. Greater than 0.5 ng/mL Consistent with diagnosis of DC 7 >100 to <200 pg/mL: likely compensated congestive heart failure (CHF) 200 to 400 pg/mL: likely moderate CHF >400 pg/mL: likely moderate to severe CHF 8 Please note: The following may produce a false positive D Dimer test: - Rheumatoid factor greater than 60 IU/ml - Plasma hemoglobin greater than 0.05 gm/dl - Bilirubin greater than 50 mg/dl - Lipids greater than 1000 mg/dl - FDP greater than 20 ug/ml 9 REFERENCE VALUE <=1.0 (Negative) 10 REFERENCE VALUE <20.0 (Negative) 11 Tests for antibodies to dsDNA and SAMY antigens are not performed automatically unless the TRACEY result is > or= 3.0 U. Studies performed at [facility] indicate that positive TRACEY results <3.0 U are rarely accompanied by positive second order tests. Test Performed by: [facility] - [address] [address] [employer] Instructor: Satya Wu II, M.D., Ph.D. Procedures Date Code Description Status 11/24/2016 600 Frame Parts Completed 11/24/2015 85458 Determination Of Refractive State Completed 11/24/2015 89111 Est Patient Comprehensive Exam Completed 06/14/2013 72879 Recheck Completed 05/07/2013 35396 Extracapsular Cataract Extraction W/Intraocular Lens Completed 04/30/2013 70876 Extracapsular Cataract Extraction W/Intraocular Lens Completed 04/15/2013 11640 Ophthalmic Biometry Completed 04/15/2013 39669 Ophthalmic Biometry Completed 10/30/2012 10458 Est Patient Comprehensive Exam Completed 10/30/2012 90994 Determination Of Refractive State Completed 11/15/2010 09921 Determination Of Refractive State Completed 11/15/2010 18796 Est Patient Comprehensive Exam Completed 04/12/2010 77761 Determination Of Refractive State Completed 04/12/2010 21742 Est Patient Comprehensive Exam Completed 12/31/2008 49027 Determination Of Refractive State Completed 07/22/2008 63613 Determination Of Refractive State Completed 07/22/2008 81259 Est Patient Comprehensive Exam Completed Encounters Type Date Location Provider Dx Diagnosis Office Visit 04/15/2013 Otis Figueroa, Otis Figueroa, 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 If you are a smoker , we strongly recommend that you quit.If you are not a smoker, we strongly recommend that you do not start. There is clouding in the sac that holds your artificial lens in both eyes. We will schedule you an appointment for the YAG Capsulotomy laser with Dr. Figueroa. Please read the pamphlet that has been printed out for you. We recommend you bring someone to drive you home.Follow up :Schedule YAG OUZ96.1 Presence of intraocular lensComments:The artificial lens implants in both eyes appear to be stable at this time.H43.813 Vitreous degeneration, [id number] Ocular hypertension, bilateralComments:You have Ocular Hypertension in both eyes. This means that your eye pressure is higher than average, but you have not been diagnosed with Glaucoma.Follow up:6 Month Follow Up IOP Check Diagnostic Refraction At your next visit, we are not planning to dilate your eyes. However, if you have any changes in your vision or new symptoms, there are certain situations that require us to dilate your eyes. If Dr. Figueroa requests any additional testing, that may require extra time. If you have any questions before your next appointment, please call our office at .
[2018-11-25] MEDS ORDERED: Aspirin 81 mg CHEW TAB* 81 MG TAB.CHEW PO ONE (10:37)
[2018-11-25] MEDS ORDERED: Aspirin 81 mg CHEW TAB* 81 MG TAB.CHEW ONE (10:37)
--- NOTE | 2018-11-25 10:46 | ED ---
HPI Chest Pain - HPI Summary HPI Summary: This patient is a 78 year old F presenting to [facility] accompanied by family with a chief complaint of sharp left shoulder pain that woke the patient up at 0400 today. The patient rates the pain 8/10 in severity. Symptoms aggravated by nothing. Symptoms alleviated by nothing. Patient reports chest pressure and SOB. Patient denies nausea, vomiting, dizziness, and lightheadedness. Patient states her last stress test was approximately two years ago. - History of Current Complaint Chief Complaint: EDChestPainROMI Time Seen by Provider: 11/25/18 10:29 Hx Obtained From: Patient Onset/Duration: Started Hours Ago Time of Onset: 04:00 Timing: Constant Initial Severity: Severe Current Severity: Severe Pain Intensity: 8 Pain Scale Used: 0-10 Numeric Chest Pain Radiates: Yes Chest Pain Radiates To:: Shoulder Aggravating Factor(s): Nothing Alleviating Factor(s): Nothing Associated Signs and Symptoms: Positive: Other: - Positive chest pressure and SOB. Negative nausea, vomiting, dizziness, and lightheadedness. - Additional Pertinent History Primary Care Physician: JANET - Allergy/Home Medications Allergies/Adverse Reactions: Allergies Allergy/AdvReac Type Severity Reaction Status Date / Time Penicillins Allergy Severe Difficulty Verified 11/25/18 10:26 Breathing cocoa butter Allergy Mild Hives Verified 11/25/18 10:26 gabapentin Allergy Mild Hives Verified 11/25/18 10:26 celecoxib AdvReac Intermediate Hypertensive Verified 11/25/18 10:26 Reaction tramadol AdvReac Intermediate See Comment Verified 11/25/18 10:26 atenolol AdvReac Mild See Comment Verified 11/25/18 10:26 metronidazole AdvReac Mild Nausea Verified 11/25/18 10:26 nortriptyline AdvReac Mild Nausea Verified 11/25/18 10:26 pregabalin AdvReac Mild Hallucinati Verified 11/25/18 10:26 ons Oyglmqz-Itp-Nwm Reductase AdvReac Mild See Comment Verified 11/25/18 10:26 Inhibitor venlafaxine AdvReac Mild Nausea Verified 11/25/18 10:26 Home Medications: Home Medications Tapentadol ER (NF) [Nucynta ER (NF)] 150 mg PO BEDTIME 11/25/18 [History Confirmed 11/25/18] Verapamil HCl [Verapamil ER] 240 mg PO DAILY 11/25/18 [History Confirmed ] Verapamil HCl [Verapamil HCl ER] 120 mg PO BEDTIME 11/25/18 [History Confirmed 11/25/18] Warfarin TAB(*) [Coumadin TAB(*)] 10 mg PO .REMAINING DAYS 11/25/18 [History Confirmed 11/25/18] PMH/Surg Hx/FS Hx/Imm Hx Previously Healthy: No Endocrine/Hematology History: Denies: Hx Diabetes Cardiovascular History: Reports: Hx Angina, Hx Hypertension, Hx Peripheral Vascular Disease, Other Cardiovascular Problems/Disorders - DVT HAS BEEN ON COUMADIN Denies: Hx Coronary Artery Disease, Hx Hypercholesterolemia, Hx Myocardial Infarction, Hx Pacemaker/ICD, Hx Valvular Heart Disease Respiratory History: Reports: Hx Sleep Apnea Denies: Hx Asthma, Hx Chronic Obstructive Pulmonary Disease (COPD) GI History: Reports: Hx Gastroesophageal Reflux Disease - ON MEDICATON, Hx Hiatal Hernia, Other GI Disorders - chronic diarrhea, MECKLES DIVERTICULUM History: Denies: Hx Renal Disease Musculoskeletal History: Reports: Hx Arthritis - GENERALIZED, Other Musculoskeletal History - LUMBAR RADICULOPATHY AND CERVICAL LUMBAR SPONDYLOLISTHESIS Denies: Hx Osteoporosis Sensory History: Reports: Hx Cataracts, Hx Contacts or Glasses Denies: Hx Hearing Aid Opthamlomology History: Reports: Hx Cataracts, Hx Contacts or Glasses Neurological History: Reports: Other Neuro Impairments/Disorders - PAIN CLINIC INJECTION Psychiatric History: Reports: Hx Anxiety Denies: Hx Panic Disorder - Surgical History Surgery Procedure, Year, and Place: CERVIAL FUSION C4-C7, 2010 Hx Anesthesia Reactions: No - Immunization History Date of Tetanus Vaccine: UTD Date of Influenza Vaccine: UTD Infectious Disease History: No Infectious Disease History: Denies: Traveled Outside the [place] in Last 30 Days - Family History Known Family History: Positive: Other - Cancer - Social History Occupation: Retired Lives: With Family Alcohol Use: Weekly Alcohol Amount: 1 drink/week Hx Substance Use: No Substance Use Type: Reports: None Substance Use Comment - Amount & Last Used: Nucynta Hx Tobacco Use: No Smoking Status (MU): Never Smoked Tobacco Review of Systems Positive: Chest Pain Positive: Shortness Of Breath Negative: Vomiting, Nausea Positive: Other - Positive L shoulder pain Neurological: Other - Negative dizziness and lightheadedness All Other Systems Reviewed And Are Negative: Yes Physical Exam - Summary Physical Exam Summary: VITAL SIGNS: Reviewed. GENERAL: Patient is a well-developed and nourished female who is lying comfortable in the stretcher. Patient is not in any acute respiratory distress. HEAD AND FACE: No signs of trauma. No ecchymosis, hematomas or skull depressions. No sinus tenderness. EYES: PERRLA, EOMI x 2, No injected conjunctiva, no nystagmus. EARS: Hearing grossly intact. Ear canals and tympanic membranes are within normal limits. MOUTH: Oropharynx within normal limits. NECK: Supple, trachea is midline, no adenopathy, no JVD, no carotid bruit, no c- spine tenderness, neck with full ROM. CHEST: Symmetric, no tenderness at palpation LUNGS: Clear to auscultation bilaterally. No wheezing or crackles. CVS: Regular rate and rhythm, S1 and S2 present, no murmurs or gallops appreciated. ABDOMEN: Soft, non-tender. No signs of distention. No rebound no guarding, and no masses palpated. Bowel sounds are normal. EXTREMITIES: FROM in all major joints, no edema, no cyanosis or clubbing. NEURO: Alert and oriented x 3. No acute neurological deficits. Speech is normal and follows commands. SKIN: Dry and warm Triage Information Reviewed: Yes Vital Signs On Initial Exam: Initial Vitals Temp Pulse Resp BP Pulse Ox 99.4 F 94 18 182/65 97 11/25/18 10:21 11/25/18 10:21 11/25/18 10:21 11/25/18 10:21 11/25/18 10:21 Vital Signs Reviewed: Yes Diagnostics - Vital Signs Vital Signs Temp Pulse Resp BP Pulse Ox 11/25/18 10:21 99.4 F 94 18 182/65 97 - Laboratory Result Diagrams: 11/26/18 06:18 11/26/18 06:18 Lab Statement: Any lab studies that have been ordered have been reviewed, and results considered in the medical decision making process. - Radiology Chest XR Radiology Interpretation Completed By: ED Physician Summary of Radiographic Findings: Chest XR reveals, per ED physician, no acute process. - EKG 1032 Cardiac Rate: NL EKG Rhythm: Sinus Rhythm - 91 BPM Summary of EKG Findings: An EKG taken at 1032 reveals nml sinus rhythm at [address] elevation, ST depression in III and V4 through V6, and Q wave in III. Chest Pain Course/Dx - Course Assessment/Plan: This patient is a 78 year old F presenting to [facility] accompanied by family with a chief complaint of sharp left shoulder pain that woke the patient up at 0400 today. The patient rates the pain 8/10 in severity. Symptoms aggravated by nothing. Symptoms alleviated by nothing. Patient reports chest pressure and SOB. Patient denies nausea, vomiting, dizziness, and lightheadedness. Patient states her last stress test was approximately two years ago. Past medical history significant for colitis, DVT, hypertension, renal artery stenosis, GERD, lumbar radiculopathy, osteoarthritis and chronic pain. In the ED course the patient reports the pain is 8 out of 10, the patient already has a Nitro Patch and the patient was given aspirin. The patient also will be given morphine for the pain. Blood work without any significant abnormality except for WBCs of 11.9, INR is 2.87 PTT 47.7 sodium 132 , chloride 95, glucose 142, magnesium 1.6, CPK is 289, troponin 0.02 and BNP is 165. In the ED course the patient was admission IV for the hypomagnesemia. EKG is a normal sinus rhythm at 91 bpm and he has just depressions in leads 3, before to V6. Because of the ST depressions and believe the patient is to be admitted to rule out acute coronary syndrome. I discussed my physical exam, findings and test results with Dr. Neal from the hospital services who accepted the patient for admission. The patient is hemodynamically stable, alert oriented 3. - Chest Pain Differential Diagnosis/HQI/PQRI: Acute PA, ACS, Angina, CHF, Chest Wall, GI Disease, Lower Respiratory Infection - Diagnoses Provider Diagnoses: Chest pain - Provider Notifications Discussed Care Of Patient With: Carlos Neal Time Discussed With Above Provider: 12:04 Instructed by Provider To: Other - Consult with Dr. Neal (hospitalist) at 1204. He agrees to admit the patient for further evaluation. Discharge - Sign-Out/Discharge Documenting (check all that apply): Patient Departure - Admit to [facility] - Discharge Plan Condition: Stable Disposition: ADMITTED TO [facility] - Billing Disposition and Condition Condition: STABLE Disposition: Admitted to [facility] - Attestation Statements Document Initiated by Scribe: Yes Documenting Scribe: Larissa Taylor Provider For Whom Scribe is Documenting (Include Credential): MD Lawanda Johnsonibe Attestation: I, Larissa Taylor, scribed for Dr. Channing Trammell MD on 11/26/18 at 2048. Scribe Documentation Reviewed: Yes Provider Attestation: The documentation as recorded by the scribe, Larissa Taylor accurately reflects the service I personally performed and the decisions made by me, Dr. Channing Trammell MD Status of Scribe Document: Viewed
[2018-11-25] MEDS ORDERED: Morphine VIAL* 4 MG/ML VIAL (1 ml vial) IV ONE (10:48)
[2018-11-25 11:21] LABS: ABS Basophils 0 10^3/ul (0-0.2); ABS Eosinophils 0 10^3/ul (0-0.6); ABS Lymphocytes 0.7 10^3/ul (1.0-4.8); ABS Monocytes 0.8 10^3/ul (0-0.8); ABS Neutrophils 10.4 10^3/ul (1.5-7.7); ABS Nucleated RBC 0 10^3/ul; Eosinophil % 0 %; Hematocrit 40 % (35-47); Hemoglobin 13.2 g/dl (12.0-16.0); Lymphocyte % 5.8 %; Mean Corpuscular HGB Conc 33 g/dl (31-36); Mean Corpuscular Hemoglobin 29 pg (27-31); Mean Corpuscular Volume 87 fL (80-97); Mean Platelet Volume 7.9 fL (7.4-10.4); Nucleated Red Blood Cells % 0; Platelet Count 310 10^3/ul (150-450); Red Blood Count 4.63 10^6/ul (4.00-5.40); Red Cell Distribution Width 15 % (10.5-15); White Blood Count 11.9 10^3/ul (3.5-10.8)
[2018-11-25 11:30] LABS: Activated Partial Thrombo Time 47.7 seconds (26.0-36.3); INR 2.87 (0.77-1.02)
[2018-11-25 11:40] LABS: Albumin 4.2 g/dL (3.2-5.2); Albumin/Globulin Ratio 1.4 (1-3); Calcium 9.4 mg/dL (8.6-10.3); EGFR Non-African American 113.8 (>60); Magnesium 1.6 mg/dL (1.9-2.7); Potassium 3.6 mmol/L (3.5-5.0); Total Bilirubin 0.5 mg/dL (0.2-1.0); Total Protein 7.2 g/dL (6.4-8.9)
[2018-11-25 12:01] LABS: TSH (Thyroid Stimulating Horm) 1.04 mcIU/mL (0.34-5.60)
[2018-11-25] MEDS ORDERED: Al Hydrox/Mg Hydrox/Simet LIQ* 30 ML UDC PO PRN (13:53)
[2018-11-25] MEDS ORDERED: Acetaminophen TAB* 325 MG PO PRN (13:53)
[2018-11-25] MEDS ORDERED: Nitroglycerin TAB 0.4 MG* 0.4 MG TAB SL PRN (13:57)
[2018-11-25] MEDS ORDERED: Magnesium Sulfate 2 GM IV* 2 GM/50 ML BAG IVPB ONE (14:02)
[2018-11-25] MEDS: Aspirin EC TAB* 81 MG TAB.EC PO SCH (15:55)
[2018-11-25] MEDS: Pantoprazole TAB * 40 MG TAB PO SCH (15:55)
[2018-11-25] MEDS: Nitroglycerin 0.6 MG/HR PATCH* (15 MG) TRANSDERM SCH (15:58)
[2018-11-25] MEDS: Lidocaine PATCH 5%* 1 PATCH TRANSDERM SCH (16:00)
[2018-11-25] MEDS ORDERED: Warfarin TAB(*) 5 MG PO SCH (17:00)
[2018-11-25 17:54] LABS: Urine Appearance Clear; Urine Bacteria Absent (Absent); Urine Bilirubin Negative (Negative); Urine Blood 2+ (Negative); Urine Color Yellow; Urine Glucose Negative (Negative); Urine Ketones Negative (Negative); Urine Nitrite Negative (Negative); Urine Protein Negative (Negative); Urine Red Blood Cell 3+(>10/hpf) (Absent); Urine Specific Gravity 1.011 (1.010-1.030); Urine Urobilinogen Negative (Negative); Urine White Blood Cell Trace(0-5/hpf) (Absent)
[2018-11-25] MEDS: Tapentadol(NF) 50 MG TAB PO SCH (18:12)
[2018-11-25] MEDS ORDERED: TAPENTADOL 150 MG PO SCH (21:00)
[2018-11-25] MEDS: Triazolam TAB* 0.25 MG PO SCH (21:36)
[2018-11-25] MEDS: Nitro Patch/OINT Remove PATCH OFF SCH (21:38)
[2018-11-25] MEDS: Warfarin TAB(*) 5 MG PO SCH (21:43)
[2018-11-26] MEDS: Lidocaine Patch REMOVE* 1 NOTE MISC PATCH OFF SCH ×2 (00:57→22:24)
[2018-11-26] MEDS: VERAPAMIL HCL 120 MG PO SCH ×2 (00:57→22:31)
[2018-11-26] MEDS: Tapentadol(NF) 50 MG TAB PO SCH ×6 (01:00→20:47)
[2018-11-26 01:47] LABS: Erythrocyte Sed Rate 38 mm/Hr (0-40)
--- NOTE | 2018-11-26 02:44 | HP ---
CC: Dr. Dumont * HISTORY AND PHYSICAL: DATE OF ADMISSION: 11/25/18 PROVIDER: Talia Gorman NP. PRIMARY CARE PROVIDER: Dr. Dumont. ATTENDING PHYSICIAN WHILE IN THE HOSPITAL: Dr. Carlos Neal * (dictated by Talia Gorman NP). CHIEF COMPLAINT: Left shoulder pain that radiates to left chest and left upper arm. HISTORY OF PRESENT ILLNESS: Ms. Estrada is a 78-year-old female with a past medical history significant for ulcerative colitis, renal artery stenosis, chronic pain, hypertension, recurrent DVTs, lumbar radiculopathy, GERD, who presented to the emergency room with a complaint of left shoulder pain. The patient states that she developed left shoulder pain approximately 2 days ago and this morning approximately between 3 and 4 a.m. it woke her up out of the sleep. She reports that she is unable to move her left arm as it does exacerbate the pain in her left shoulder. Minimal movement of the left arm increases the pain that radiates into her left chest and left upper arm. She denies any recent fevers. She does report she has chest pain that radiates from her shoulder to her chest. She denies any cough, hemoptysis, or shortness of breath. Denies any nausea or vomiting. She does report chronic diarrhea and occasional abdominal pain, unchanged from her baseline. Denies hematuria. She does report frequency, but no pain. Denies any focal weakness or sensory loss. Denies any visual complaints or dysphagia. She does complain of left shoulder joint pain and tenderness with palpation of the left shoulder. She denies rashes, lesions. She denies any psychosis. She has had remote history of of her and son within the last year. Given her complaints of left-sided chest pain and left shoulder pain, we were asked to see and evaluate her for admission. PAST MEDICAL HISTORY: 1. Chronic problems with chest pain. 2. History of recurrent DVTs. 3. Hypertension. 4. Renal artery stenosis, status post stenting. 5. History of ulcerative colitis. 6. GERD. 7. Lumbar radiculopathy. 8. Heart murmur. 9. Osteoarthritis, bilateral knees. PAST SURGICAL HISTORY: 1. x3. 2. Meckel's diverticulum. 3. Appendectomy. 4. Left breast lumpectomy. 5. Tonsillectomy. MEDICATIONS: Home medications include: 1. Aspirin 81 mg p.o. daily. 2. Nitroglycerin 0.4 mg sublingual p.r.n. chest pain. 3. Nitroglycerin patch to chest daily. 4. Mesalamine 1200 mg p.o. b.i.d. 5. Vitamin D 2000 units p.o. daily. 6. FiberCon 625 mg p.o. daily. 7. Coumadin 15 mg Sunday and Sunday; 10 mg Sunday, Sunday, Sunday, , Sunday. 8. Omeprazole 20 mg p.o. daily. 9. Voltaren gel 1% b.i.d. as needed. 10. Nucynta extended release 200 mg in the a.m., 50 mg at noon, and 150 mg at night. 11. Verapamil 240 mg in the morning and 120 mg at night. 12. Lidoderm patch 5%, 1 patch daily. 13. Halcion 0.25 mg at bedtime. ALLERGIES: Allergy to PENICILLIN, COCOA POWDER, GABAPENTIN, CELECOXIB, TRAMADOL , ATENOLOL, FLAGYL, NORTRIPTYLINE, PREGABALIN, STATINS, VENLAFAXINE. FAMILY HISTORY: Has multiple relatives with ovarian cancer. Grandmother had ovarian cancer. Mother with a history of ovarian cancer as well. Son of carotid artery rupture due to radiation therapy from squamous cell carcinoma of the throat. Father also had a history of lung cancer. No reported of diabetes in the family. SOCIAL HISTORY: The patient is . She lives alone. Her daughter does stay with her currently 3 days a week. She uses a cane to ambulate due to osteoarthritis in her knees. She denies any tobacco or recreational drug use. Surrogate decision maker is her daughter; her phone number is . She is a full code. REVIEW OF SYSTEMS: A review of 14 systems was completed. All those that were positive as per the HPI, the remaining systems reviewed were negative. PHYSICAL EXAMINATION GENERAL: At this time, Ms. Estrada is a 78-year-old female. She does not appear in any acute distress. She is awake, alert, oriented x3. VITAL SIGNS: Blood pressure was 141/61, heart rate 77, respirations 16, O2 saturation 94%, temperature was 99.8. HEENT: Head is atraumatic, normocephalic. Eyes: EOMs are intact. Sclerae anicteric and not pale. Oral mucosa appeared to be moist. NECK: Supple. LUNGS: Clear to auscultation bilaterally. No wheezes, rales, or rhonchi. CARDIAC: S1, S2. She does have a systolic murmur. ABDOMEN: Soft and nontender. Bowel sounds are present x4. EXTREMITIES: No edema. Pulses are +2 bilaterally. No clubbing or cyanosis. She does have significant left shoulder pain with flexion and extension, abduction and adduction of her left arm. Radial pulse is 2+. She does have tenderness with palpation to the left shoulder as well. She denies any recent injury, heavy lifting to that shoulder. NEUROLOGIC: She is awake, alert, oriented x3. Speech is clear. No gross focal deficits are noted. SKIN: Intact. DIAGNOSTIC STUDIES AND LABORATORY DATA: WBCs are 11.9, RBCs 12.63, hemoglobin 13.2, hematocrit was 40, platelet count was 310. INR was 2.87. Sodium 132, potassium 3.6, chloride 95, carbon dioxide was 30, anion gap was 7, BUN was 13, creatinine 0.52. Lactic acid was 1.6. Calcium 9.4. Magnesium was 1.6. TSH was 1.04. BNP was 165. Troponin was 0.02 and 0.03 x2. Urine, pH was 7, specific gravity 1.011. Urine protein was negative. Ketones were negative. Urine blood was 2+. Nitrites, bilirubin, urobilinogen, leukocyte esterase were negative. Urine wbc's was trace, rbc's were 3+, bacteria was absent. She had a chest x-ray, radiologist's impression: No evidence of active cardiopulmonary disease. She has a shoulder x-ray, radiologist's impression: Mild, severe glenohumeral joint osteoarthritis. She had an electrocardiogram, which showed sinus rhythm at a rate of 91. She does have some ST depressions in V4, 5, and 6, which look mildly more depressed when compared to 10/26/17. ASSESSMENT AND PLAN: Ms. Estrada is a 78-year-old female who presented to the emergency room with complaints of left shoulder and left upper chest pain. We were asked to see and evaluate her due to her left shoulder and chest pain. She will be admitted under observation for: 1. Left-sided chest pain. I suspect that this left-sided chest pain is related to her left shoulder pain. She does complain of severe pain with abduction, adduction, flexion, and extension of the left shoulder. She does also complain of pain with palpation. She reports with palpation of the left shoulder, the pain radiates to her left side of the chest. It is reproducible to the pain that she was having on admission. We will continue to trend her troponins. We will repeat an EKG in the a.m. Her last nuclear stress test was in 2014. At that time, it was low risk. We will continue to monitor her and reassess in the a.m. if further cardiac workup is necessary. 2. Left shoulder pain. I suspect this is related to osteoarthritis. She does have significant pain with palpation to her left shoulder and significant increased pain with radiation to the left chest and left upper arm, reproducible with movement of her left arm. She has minimal ability to move her left shoulder and arm. I will get physical therapy involved and continue with pain management for left shoulder pain. 3. History of recurrent deep vein thromboses. She will continue on Coumadin as previously prescribed. 4. Hypertension. She will continue on verapamil as previously prescribed. 5. Gastroesophageal reflux disease. She will continue on pantoprazole 40 mg p.o. daily. 6. Chronic pain. She will continue on Nucynta 100 mg p.o. q.6 hours as we do not have extended release Nucynta at this time. 7. DVT prophylaxis: She will continue on Coumadin. Her INR is therapeutic at this time. 8. FEN: She can have a heart healthy, no caffeine diet. 9. Code status: She is a full code. Surrogate decision maker is her daughter. TIME SPENT: Time spent on this admission was 60 minutes, greater than half that time was spent with the patient at the bedside obtaining my history and physical, the other half of the time was spent in implementing my plan of care and reviewing my plan of care. I have discussed this with my attending, Dr. Carlos Neal; he is in agreement with my plan. TALIA GORMAN, HUMAN RESOURCES VICE PRESIDENT [id number]/[facility] #: [id number] [facility]
[2018-11-26 06:32] LABS: ABS Basophils 0.1 10^3/ul (0-0.2); ABS Eosinophils 0.1 10^3/ul (0-0.6); ABS Lymphocytes 1.3 10^3/ul (1.0-4.8); ABS Monocytes 0.9 10^3/ul (0-0.8); ABS Neutrophils 4.7 10^3/ul (1.5-7.7); ABS Nucleated RBC 0 10^3/ul; Eosinophil % 1.1 %; Hematocrit 39 % (35-47); Hemoglobin 12.8 g/dl (12.0-16.0); Lymphocyte % 19.2 %; Mean Corpuscular HGB Conc 33 g/dl (31-36); Mean Corpuscular Hemoglobin 29 pg (27-31); Mean Corpuscular Volume 86 fL (80-97); Mean Platelet Volume 7.9 fL (7.4-10.4); Nucleated Red Blood Cells % 0; Platelet Count 303 10^3/ul (150-450); Red Blood Count 4.48 10^6/ul (4.00-5.40); Red Cell Distribution Width 15 % (10.5-15)
[2018-11-26 06:36] LABS: INR 2.91 (0.77-1.02)
[2018-11-26 06:50] LABS: BUN/Creatinine Ratio 26.8 (8-20); EGFR Non-African American 104.4 (>60); HDL Cholesterol 62.9 mg/dL; Potassium 3.7 mmol/L (3.5-5.0)
[2018-11-26] MEDS: Pantoprazole TAB * 40 MG TAB PO SCH (07:44)
[2018-11-26] MEDS: Verapamil SR TAB* 240 MG PO SCH (07:44)
[2018-11-26] MEDS: Cholecalciferol TAB* 1000 UNITS PO SCH (07:44)
[2018-11-26] MEDS: Lidocaine PATCH 5%* 1 PATCH TRANSDERM SCH (07:46)
[2018-11-26] MEDS: Nitroglycerin 0.6 MG/HR PATCH* (15 MG) TRANSDERM SCH (07:47)
[2018-11-26] MEDS: Aspirin EC TAB* 81 MG TAB.EC PO SCH (07:47)
[2018-11-26] MEDS ORDERED: TAPENTADOL 200 MG PO SCH (09:00)
[2018-11-26] MEDS ORDERED: Nitroglycerin 0.6 MG/HR PATCH* (15 MG) TRANSDERM SCH (09:00)
[2018-11-26] MEDS ORDERED: Diphenoxylat/Atrop 2.5-0.025M* 1 TAB PO PRN (11:33)
[2018-11-26] MEDS ORDERED: LORazepam INJ* 2 MG/ML 1 ML VIAL IV PUSH ONE (15:05)
--- NOTE | 2018-11-26 18:34 | PN ---
Subjective Date of Service: 11/26/18 Interval History: Patient seen and examined. Describes inability to rotate shoulder, also describes difficulty with left knitted cloth examiner and some fine motor in the left digits. Patient reports that she had 4 level cervical fusion 5 years ago at [facility]. Denies chest pain, no SOB, no fevers or chills, no headache or dizziness. Objective Active Medications: Acetaminophen (Tylenol Tab*) 650 mg PO Q4H PRN PRN Reason: FEVER/PAIN Last Admin: 11/26/18 07:52 Dose: 650 mg Al Hydrox/Mg Hydrox/Simethicone (Maalox Plus*) 30 ml PO Q6H PRN PRN Reason: INDIGESTION Aspirin (Aspirin Ec Tab*) 81 mg PO DAILY [facility] Last Admin: 11/26/18 07:47 Dose: 81 mg Cholecalciferol (Vitamin D Tab*) 2,000 units PO DAILY [facility] Last Admin: 11/26/18 07:44 Dose: 2,000 units Diphenoxylate HCl/Atropine (Lomotil Tab*) 1 tab PO BID PRN PRN Reason: DIARRHEA Lidocaine (Lidoderm 5% Patch*) 1 patch TRANSDERM DAILY [facility] Last Admin: 11/26/18 07:46 Dose: Not Given Mesalamine (Mesalamine Dr Cap*) 1,200 mg PO BID [facility] Last Admin: 11/26/18 11:41 Dose: 1,200 mg Nitroglycerin (Nitroglycerin Tab 0.4 Mg*) 0.4 mg SL Q5M PRN PRN Reason: PAIN - CHEST Nitroglycerin (Nitroglycerin 15 Mg Patch*) 1 patch TRANSDERM DAILY [facility] Last Admin: 11/26/18 07:47 Dose: 1 patch Non-Formulary Medication (Verapamil Hcl [Verapamil Er]) 120 mg PO BEDTIME [facility] Last Admin: 11/26/18 00:57 Dose: Not Given Pantoprazole Sodium (Protonix Tab *) 40 mg PO DAILY [facility] Last Admin: 11/26/18 07:44 Dose: 40 mg Pharmacy Profile Note (Lidocaine Patch Remove*) 1 note PATCH OFF 2099 [facility] Last Admin: 11/26/18 00:57 Dose: Not Given Pharmacy Profile Note (Nitro Patch/Oint Remove*) 1 note PATCH OFF 2099 [facility] Last Admin: 11/25/18 21:38 Dose: 1 patch Tapentadol (Nucynta(Nf)) 100 mg PO Q6H [facility] Last Admin: 11/26/18 18:08 Dose: 50 mg Triazolam (Halcion Tab*) 0.25 mg PO BEDTIME [facility] Last Admin: 11/25/18 21:36 Dose: 0.25 mg Verapamil HCl (Calan Sr Tab*) 240 mg PO DAILY [facility] Last Admin: 11/26/18 07:44 Dose: 240 mg Warfarin Sodium (Coumadin Tab(*)) 15 mg PO WeSa@2100 [facility]; Protocol Warfarin Sodium (Coumadin Tab(*)) 10 mg PO SuMoTuThFr@2100 [facility]; Protocol Last Admin: 11/25/18 21:43 Dose: 10 mg Vital Signs - 8 hr 11/26/18 11/26/18 11/26/18 11:41 11:42 14:56 Temperature 98.6 F Pulse Rate 73 Respiratory 16 16 18 Rate Blood Pressure 106/50 (mmHg) O2 Sat by Pulse 94 Oximetry 11/26/18 11/26/18 11/26/18 15:24 16:27 17:45 Temperature 98.9 F Pulse Rate 68 Respiratory 19 20 16 Rate Blood Pressure 91/53 (mmHg) O2 Sat by Pulse 95 Oximetry 11/26/18 18:08 Temperature Pulse Rate Respiratory 16 Rate Blood Pressure (mmHg) O2 Sat by Pulse Oximetry Oxygen Devices in Use Now: None Appearance: alert, NAD Eyes: No Scleral Icterus, PERRLA Ears/Nose/Mouth/Throat: NL Teeth, Lips, Gums, Mucous Membranes Moist Neck: NL Appearance and Movements; NL JVP, Trachea Midline Respiratory: Symmetrical Chest Expansion and Respiratory Effort, Clear to Auscultation Cardiovascular: NL Sounds; No Murmurs; No JVD, RRR, No Edema Abdominal: NL Sounds; No Tenderness; No Distention, No Hepatosplenomegaly Extremities: No Edema, No Clubbing, Cyanosis, - - restricted ROM LUE Neurological: Alert and Oriented x 3, - - decreased sensation and motor on LUE Nutrition: Taking PO's Result Diagrams: 11/26/18 06:18 11/26/18 06:18 Microbiology and Other Data: Microbiology 11/25/18 17:20 Urine Culture - Final Urine No Growth (<1,000 CFU/mL) Assess/Plan/Problems-Billing Assessment: This is a 78 year old female patient with multiple admissions for left shoulder and chest pain, has been ruled out for ACS recently. - Patient Problems (1) Left shoulder pain Code(s): M25.512 - PAIN IN LEFT SHOULDER SNOMED Code(s): 58957500 Comment: - Xray of left shoulder with no fracture or acute pathology - given history of cervical fusion and pain and paresthesias that seem more radicular/myelopathic in nature, will MRI cervical spine and assess for any further stenosis - Patient nervous about MRI, will order 1 mg ativan pre-procedure (2) Hypertension Code(s): I10 - ESSENTIAL (PRIMARY) HYPERTENSION SNOMED Code(s): 01040634 Comment: - With history of renal artery stenosis - BP stable on home meds (3) Osteoarthritis Code(s): M19.90 - UNSPECIFIED OSTEOARTHRITIS, UNSPECIFIED SITE SNOMED Code(s) : 580793385 Comment: - Per patient "all over" - Pain control PRN (4) Degenerative disc disease Code(s): GTE4270 - SNOMED Code(s): 66872636 Comment: - Cervical and lumbar, supportive care (5) Ulcerative colitis Code(s): K51.90 - ULCERATIVE COLITIS, UNSPECIFIED, WITHOUT COMPLICATIONS SNOMED Code(s): 11816940 Comment: - Continue mesalamine and lomotil (6) DVT (deep venous thrombosis) Code(s): I82.409 - ACUTE EMBOLISM AND THOMBOS UNSP DEEP VN UNSP LOWER EXTREMITY SNOMED Code(s): 608583072 Comment: - On coumadin (7) Full code status Code(s): Z78.9 - OTHER SPECIFIED HEALTH STATUS SNOMED Code(s): 950241696 Status and Disposition: Dispo TBD pending results of MRI.
[2018-11-26] MEDS: Triazolam TAB* 0.25 MG PO SCH ×2 (20:49→23:00)
[2018-11-26] MEDS: Warfarin TAB(*) 5 MG PO SCH (20:50)
[2018-11-26] MEDS: Nitro Patch/OINT Remove PATCH OFF SCH (21:40)
[2018-11-27] MEDS: Tapentadol(NF) 50 MG TAB PO SCH ×5 (00:27→23:39)
[2018-11-27] MEDS: Cholecalciferol TAB* 1000 UNITS PO SCH (09:04)
[2018-11-27] MEDS: Lidocaine PATCH 5%* 1 PATCH TRANSDERM SCH (09:04)
[2018-11-27] MEDS: Aspirin EC TAB* 81 MG TAB.EC PO SCH (09:04)
[2018-11-27] MEDS: Verapamil SR TAB* 240 MG PO SCH (09:04)
[2018-11-27] MEDS: Pantoprazole TAB * 40 MG TAB PO SCH (09:05)
[2018-11-27] MEDS ORDERED: Nitroglycerin 0.6 MG/HR PATCH* (15 MG) ONE (12:13)
[2018-11-27] MEDS: Nitroglycerin 0.6 MG/HR PATCH* (15 MG) TRANSDERM SCH (12:19)
--- NOTE | 2018-11-27 13:43 | PN ---
Subjective Date of Service: 11/27/18 Interval History: Patient seen and examined. Discussed results of MRI with interval worsening of C3-C4 level. Explained that neurosurgery will evaluate MRI and see the patient. Today, patient offers no complaints of SOB, no chest pain. States her left shoulder pain is mildly improved. Still with numbness and weakness on the LUE. Objective Active Medications: Acetaminophen (Tylenol Tab*) 650 mg PO Q4H PRN PRN Reason: FEVER/PAIN Last Admin: 11/26/18 07:52 Dose: 650 mg Al Hydrox/Mg Hydrox/Simethicone (Maalox Plus*) 30 ml PO Q6H PRN PRN Reason: INDIGESTION Aspirin (Aspirin Ec Tab*) 81 mg PO DAILY [facility] Last Admin: 11/27/18 09:04 Dose: 81 mg Cholecalciferol (Vitamin D Tab*) 2,000 units PO DAILY [facility] Last Admin: 11/27/18 09:04 Dose: 2,000 units Diphenoxylate HCl/Atropine (Lomotil Tab*) 1 tab PO BID PRN PRN Reason: DIARRHEA Lidocaine (Lidoderm 5% Patch*) 1 patch TRANSDERM DAILY [facility] Last Admin: 11/27/18 09:04 Dose: 1 patch Mesalamine (Mesalamine Dr Cap*) 1,200 mg PO BID [facility] Last Admin: 11/27/18 09:04 Dose: 1,200 mg Nitroglycerin (Nitroglycerin Tab 0.4 Mg*) 0.4 mg SL Q5M PRN PRN Reason: PAIN - CHEST Nitroglycerin (Nitroglycerin 15 Mg Patch*) 1 patch TRANSDERM DAILY@0900 [facility] Last Admin: 11/27/18 12:19 Dose: 1 patch Non-Formulary Medication (Verapamil Hcl [Verapamil Er]) 120 mg PO BEDTIME [facility] Last Admin: 11/26/18 22:31 Dose: Not Given Pantoprazole Sodium (Protonix Tab *) 40 mg PO DAILY [facility] Last Admin: 11/27/18 09:05 Dose: 40 mg Pharmacy Profile Note (Lidocaine Patch Remove*) 1 note PATCH OFF 2100 [facility] Last Admin: 11/26/18 22:24 Dose: Not Given Pharmacy Profile Note (Nitro Patch/Oint Remove*) 1 note PATCH OFF 2100 [facility] Last Admin: 11/26/18 21:40 Dose: 1 patch Tapentadol (Nucynta(Nf)) 100 mg PO Q6H [facility] Last Admin: 11/27/18 12:16 Dose: 100 mg Triazolam (Halcion Tab*) 0.25 mg PO BEDTIME [facility] Last Admin: 11/26/18 23:00 Dose: 0.25 mg Verapamil HCl (Calan Sr Tab*) 240 mg PO DAILY [facility] Last Admin: 11/27/18 09:04 Dose: 240 mg Warfarin Sodium (Coumadin Tab(*)) 15 mg PO WeSa@2100 [facility]; Protocol Warfarin Sodium (Coumadin Tab(*)) 10 mg PO SuMoTuThFr@2100 [facility]; Protocol Last Admin: 11/26/18 20:50 Dose: 10 mg Vital Signs - 8 hr 11/27/18 11/27/18 11/27/18 07:29 08:00 08:43 Temperature 98.5 F Pulse Rate 82 Respiratory 15 16 16 Rate Blood Pressure 176/79 (mmHg) O2 Sat by Pulse 97 Oximetry 11/27/18 11/27/18 11/27/18 10:27 11:02 12:16 Temperature 98.8 F Pulse Rate 82 Respiratory 18 14 16 Rate Blood Pressure 115/59 (mmHg) O2 Sat by Pulse 98 Oximetry Oxygen Devices in Use Now: None Appearance: alert, NAD Eyes: No Scleral Icterus, PERRLA Ears/Nose/Mouth/Throat: NL Teeth, Lips, Gums, Mucous Membranes Moist Neck: NL Appearance and Movements; NL JVP, Trachea Midline Respiratory: Symmetrical Chest Expansion and Respiratory Effort, Clear to Auscultation Cardiovascular: NL Sounds; No Murmurs; No JVD, RRR, No Edema Abdominal: NL Sounds; No Tenderness; No Distention Extremities: No Edema, No Clubbing, Cyanosis Skin: No Rash or Ulcers, No Nodules or Sclerosis Neurological: Alert and Oriented x 3, - - LUE weakness and paresthesias Nutrition: Taking PO's Result Diagrams: 11/26/18 06:18 11/26/18 06:18 Microbiology and Other Data: Microbiology 11/25/18 17:20 Urine Culture - Final Urine No Growth (<1,000 CFU/mL) Assess/Plan/Problems-Billing Assessment: This is a 78 year old female patient with multiple admissions for left shoulder and chest pain, has been ruled out for ACS recently. - Patient Problems (1) Left shoulder pain Code(s): M25.512 - PAIN IN LEFT SHOULDER SNOMED Code(s): 81931100 Comment: - Xray of left shoulder with no fracture or acute pathology - MRI as above, appears to have additional changes at C3-C4 that correlate with symptoms (2) Hypertension Code(s): I10 - ESSENTIAL (PRIMARY) HYPERTENSION SNOMED Code(s): 21058588 Comment: - With history of renal artery stenosis - BP stable on home meds (3) Osteoarthritis Code(s): M19.90 - UNSPECIFIED OSTEOARTHRITIS, UNSPECIFIED SITE SNOMED Code(s) : 766442258 Comment: - Per patient "all over" - Pain control PRN (4) Degenerative disc disease Code(s): YPM4615 - SNOMED Code(s): 60739054 Comment: - Cervical and lumbar, supportive care (5) Ulcerative colitis Code(s): K51.90 - ULCERATIVE COLITIS, UNSPECIFIED, WITHOUT COMPLICATIONS SNOMED Code(s): 43424738 Comment: - Continue mesalamine and lomotil (6) DVT (deep venous thrombosis) Code(s): I82.409 - ACUTE EMBOLISM AND THOMBOS UNSP DEEP VN UNSP LOWER EXTREMITY SNOMED Code(s): 063418992 Comment: - On coumadin (7) Full code status Code(s): Z78.9 - OTHER SPECIFIED HEALTH STATUS SNOMED Code(s): 558314857 Status and Disposition: If clear by neurosurgery will discharge home today.
[2018-11-27] MEDS ORDERED: Warfarin TAB(*) 5 MG PO SCH (21:00)
[2018-11-27] MEDS ORDERED: Verapamil SR TAB* 240 MG PO SCH (21:00)
[2018-11-27] MEDS: Lidocaine Patch REMOVE* 1 NOTE MISC PATCH OFF SCH (22:39)
[2018-11-27] MEDS ORDERED: Triazolam TAB* 0.25 MG PO SCH (23:00)
[2018-11-27] MEDS: Nitro Patch/OINT Remove PATCH OFF SCH (23:07)
[2018-11-27] MEDS: Triazolam TAB* 0.25 MG PO SCH (23:15)
--- NOTE | 2018-11-28 00:33 | CONS ---
CONSULTATION NOTE: DATE OF CONSULT: 11/27/18 HISTORY OF PRESENT ILLNESS: The patient is a very pleasant 78-year-old female with a past medical history of ulcerative colitis, renal artery stenosis, chronic pain, hypertension, recurrent DVTs, lumbar radiculopathy, GERD, and history of anterior cervical discectomy and fusion of C4-C7 five years ago, who was admitted to the hospital because of complaints of left upper extremity pain. The patient reports that she has chronic neck pain, but has no exacerbation recently. She reports that she has been having chronic left shoulder pain and she woke up a few days ago with severe left shoulder pain and had difficulty moving her left upper extremity and the pain was extending into the left anterior chest. The patient denies any weakness of her extremities. She reported she has chronic numbness in her fingertips and in her toes; denies any tingling. She ambulates with a cane, but denies any difficulty with her balance. She reports that her dexterity is quite good. She denies any urinary or GI incontinence. The patient is retired. 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 She is a . She has 4 children. She is accompanied today by her daughter. PAST MEDICAL HISTORY: Recurrent DVTs; hypertension; renal artery stenosis, status post stenting; ulcerative colitis; GERD; lumbar radiculopathy; heart murmur; osteoarthritis. PAST SURGICAL HISTORY: Anterior cervical discectomy and fusion C4-C7, C- section x3, Meckel diverticulum, appendectomy, left breast lumpectomy, tonsillectomy. MEDICATIONS: The patient is on: 1. Aspirin. 2. Nitroglycerin. 3. Mesalamine. 4. Vitamin D. 5. FiberCon. 6. Coumadin. 7. Omeprazole. 8. Voltaren gel. 9. Nucynta. 10. Verapamil. 11. Lidoderm patch. 12. Halcion. ALLERGIES: The patient is allergic to PENICILLIN, COCOA POWDER, GABAPENTIN, CELECOXIB, TRAMADOL, ATENOLOL, FLAGYL, NORTRIPTYLINE, PREGABALIN, STATINS, VENLAFAXINE. FAMILY HISTORY: The patient has family history of ovarian cancer. Son of carotid artery rupture due to radiation therapy from squamous cell carcinoma of the throat. Father with history of lung cancer. SOCIAL HISTORY: Tobacco, negative. Alcohol, negative. Recreational drug use, negative. PHYSICAL EXAM: The patient is in no acute distress. She ambulates with assistance of a cane. She has no tenderness to palpation of the thoracic and lumbar spine. She has free range of motion as expected from her previous fusion in the cervical spine. Her previous wound is soft and intact, healed very well. She is awake, alert, and oriented x3. Her pupils are equal and reactive. Cranial nerves II through XII are grossly intact. Motor 4 to 5/5 in all extremities. The patient does have decreased range of motion in the left shoulder with pain in the passive motion and pain in the palpation of the left shoulder. Sensory is grossly intact to light touch. Deep tendon reflexes +1 bilaterally. No clonus, no Babinski. Barry is negative. Straight leg test is negative in extended position. DIAGNOSTIC STUDIES/LAB DATA: The patient had an MRI of her cervical spine revealing postoperative changes in C4-C7 of anterior cervical discectomy and fusion. There is evidence of significant stenosis with disk osteophyte complex at C3-4 without evidence of spinal cord signal changes. ASSESSMENT: The patient is a very pleasant 78-year-old female with a history of anterior cervical diskectomy and fusion from C4-C7 and MRI findings consistent with C3-C4 stenosis. PLAN: The patient, at this point, has mild chronic complaints of neck pain. There are no signs of myelopathy. Based on her MRI, she does have evidence of adjacent level degeneration, but this may not likely explain the patient's complaint of left shoulder pain. Discussed in extent with the patient regarding imaging finding and the potential need for extension of her arthrodesis in the future, especially if she develops any signs of myelopathy, but at this point, I doubt that surgical intervention may help with her main symptoms of left shoulder pain. May consider an orthopedic evaluation. We will be happy to see the patient in the office for followup and discuss any further options. The patient understands risks and benefits of observation versus surgical treatment of her cervical stenosis, and she would definitely not like to consider surgical intervention at this time. She understands the importance of fall precautions and avoid any activities that may put her at risk for any injury. Thank you for allowing us to participate in the care of this patient. Please do not hesitate to contact our office in case you have any further questions or concerns regarding the care of this patient. The patient may follow up in our office in 1 or 2 months. [id number]/[facility] #: [id number] MTDNicole
[2018-11-28] MEDS: Tapentadol(NF) 50 MG TAB PO SCH (05:49)
[2018-11-28 08:24] VITALS: BP 154/62
[2018-11-28] MEDS: Pantoprazole TAB * 40 MG TAB PO SCH (08:29)
[2018-11-28] MEDS: Cholecalciferol TAB* 1000 UNITS PO SCH (08:29)
[2018-11-28] MEDS: Aspirin EC TAB* 81 MG TAB.EC PO SCH (08:29)
[2018-11-28] MEDS: Verapamil SR TAB* 240 MG PO SCH (08:29)
[2018-11-28] MEDS: Nitroglycerin 0.6 MG/HR PATCH* (15 MG) TRANSDERM SCH (08:34)
[2018-11-28] MEDS: Lidocaine PATCH 5%* 1 PATCH TRANSDERM SCH (08:34)
--- NOTE | 2018-11-28 17:59 | DS ---
CC: Dr. Dumont; Dr. Green * DISCHARGE SUMMARY: DATE OF ADMISSION: 11/25/18 DATE OF DISCHARGE: 11/28/18 PRIMARY CARE PROVIDER: Dr. Dumont. MY ATTENDING FOR TODAY: Dr. Anguiano * (DICTATED BY BETSY PRICE, MICA) HOSPITAL COURSE: The patient is a very pleasant 78-year-old female who came to the hospital several times for a left sided shoulder and chest pain. She has had cardiac workup in the past, which was negative. She was admitted again this time not necessarily for rule out ACS, but more for localized orthopedic pain of the shoulder. The patient had an imaging of the shoulder, which did not show any acute fracture or separation. Upon examination of the patient, she did have some radicular symptoms in the form of paresthesias in the left finger tips, difficulty with item processor and radiating pain from the neck. Patient does have a significant medical history for degenerative spine disease and has had multilevel cervical fusion in the past. We sent the patient for imaging in the form of an MRI of her cervical spine given her previous history of degenerative disease and large surgery. She did have some interval changes at her C3, C4 level, for this reason, we requested Dr. Green to evaluate the patient for possibility of intervention. It is significant to note that the patient had her cervical spinal fusion done at [facility] approximately 4 years ago. This change though represents some additional disease at the level just above the start of her fusion. She was seen by Dr. Green after evaluation of her MRI, who determined she did not require any emergent surgical intervention. He explained to the patient that she could continue with conservative management for her pain control and radicular symptoms. The patient did use to see Dr. Marco Womack in the past for pain management, who initially referred her to [facility]. We recommended that the patient possibly follow up with Dr. Womack as needed. DISCHARGE DIAGNOSES: 1. Left shoulder pain and cervical radicular pain. 2. 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 3. History of hypertension, stable. 4. History of generalized osteoarthritis, at baseline. 5. History of ulcerative colitis, stable. 6. History of recurrent deep venous thrombosis. 7. History of renal artery stenosis, status post stenting. 8. History of gastroesophageal reflux disease. 9. History of heart murmur. REVIEW OF SYSTEMS: A 10-point review of systems is negative today except as noted in hospital course above. PHYSICAL EXAM: General: The patient is alert, well appearing in no acute distress. Vital signs are blood pressure 154/62, heart rate 72, respiratory rate 16, O2 saturation 95% on room air with temperature of 97.4. HEENT: The patient is atraumatic, normocephalic. PERRLA with nonicteric sclerae. Oral mucosa is moist. Tongue is midline. Neck is supple , nontender. No JVD noted. No carotid bruits auscultated. Cardiovascular: S1 , S2 present. No gallops or rubs noted. She does have a grade 2/6 murmur, rate and rhythm are regular. Lungs are clear bilaterally to auscultation with no wheezing, rhonchi or rales. Abdomen is soft, nontender, nondistended. Positive bowel sounds in all 4 quadrants. is deferred. Musculoskeletal: There is no clubbing, no cyanosis and no edema. Patient has +2 distal pulses palpable. She does have palpable pain over the left shoulder radiating down from the left cervical region of the spine. She does have a paraspinal tenderness in that region. Also, diminished item processor and sensation on the left upper extremity extending into the finger tips. Rest of the neurologic exam is grossly normal. Psychiatric: She is cooperative and appropriate. LABORATORY DATA: WBC 7.0, RBC 4.48, hemoglobin 12.8, hematocrit 39, platelets 303. Sodium 138, potassium 3.7, chloride 100, CO2 of 30, BUN 15, creatinine 0.56 , GFR 104.4, glucose 113, calcium 9.0, troponins were negative at 0.02, 0.03 and 0.03. Triglycerides 54, cholesterol 164, LDL 90, HDL 62.9 and TSH 1.04. Imaging of cervical spine MRI dated 11/26/18, impression, there is a fusion anteriorly of C3 to C7, broad based disk protrusion as previously identified on prior MRI is less conspicuous on the current exam at C3, C4. There is a broad- based protrusion and spondylitic ridge, which flattens the thecal sac and abuts the spinal cord, there may be mild spinal stenosis at this level, this is slightly progressed since the previous exam of 01/25/06. DISPOSITION: The patient will be discharged to home. FOLLOWUP: The patient was instructed to follow up with her primary care provider, Dr. Dumont on an as-needed basis. She was provided an appointment with Dr. Green for followup on 12/24/18 at 2:30 p.m. She was also instructed to call Dr. Marco Womack, if her pain continued, she could see him before she sees Dr. Green in the office. She was also referred to [facility] physical therapy for evaluation and treatment of her cervical radicular pain. MEDICATIONS FOR DISCHARGE: 1. Halcion tablet 0.5 mg p.o. at bedtime p.r.n. 2. Aspirin 81 mg daily. 3. Lidoderm patch one patch transderm daily. 4. Vitamin D 2000 units p.o. daily. 5. Coumadin 15 mg twice a week and 10 mg on all other days. 6. Nucynta 150 mg p.o. at bedtime, 250 mg p.o. daily. 7. Nitroglycerin 0.4 mg sublingual q.5 minutes as needed. 8. Nitroglycerin patch 0.6 mg per hour patch 1 patch transdermal daily. 9. Lexapro 10 mg p.o. daily. 10. Verapamil 240 mg in the morning, 120 mg in the evening. 11. Omeprazole 20 mg daily. 12. Mesalamine 1.2 g p.o. b.i.d. DISPOSITION: The patient is discharged in stable condition. All questions were answered. The patient stated understanding of discharge instructions and followup. BETSY PRICE, MICA [id number]/[facility] #: [id number] ELVIRA
== END 2018-11-28 11:50 | disposition home or self-care (01) ==
LOC: ED 10:19 → MED 13:53
PROVIDERS: ADMIT Internal Medicine; ATTEND Internal Medicine
DX: R07.9 Chest pain, unspecified (principal); M25.512 Pain in left shoulder; M54.2 Cervicalgia; M51.36 Other intervertebral disc degeneration, lumbar region; I10 Essential (primary) hypertension; K51.90 Ulcerative colitis, unspecified, without complications; M15.9 Polyosteoarthritis, unspecified; I82.409 Acute embolism and thrombosis of unspecified deep veins of unspecified lower extremity; I70.1 Atherosclerosis of renal artery; Z95.820 Peripheral vascular angioplasty status with implants and grafts; K21.9 Gastro-esophageal reflux disease without esophagitis; R01.1 Cardiac murmur, unspecified
CPT/HCPCS: 36415; 71046; 72141; 80048; 80053; 80061; 81003; 81015; 82550; 82553; 83605; 83735; 83880; 84443; 84484; 85025; 85610; 85652; 85730; 87086; 93005; 96365; 96375; 99284; A9270-GY; G0378; G8978-GP-CH; G8979-GP-CH; G8980-GP-CH; G8987-GO-CI; G8988-GO-CI; G8989-GO-CI; J2060; J3475

== ENCOUNTER 2019-06-25 19:46 | Emergency (ER) | payer MEDICARE ==
--- NOTE | 2019-06-25 20:17 | ED ---
HPI Chest Pain - HPI Summary HPI Summary: The patient is an 79 y/o F presenting to [facility] with a chief complaint of chest pressure starting tonight around 1730. She reports that she had been eating dinner with some friends when she started to feel left anterior pressure in the chest that lasted for about an hour before starting to resolve. The pressure radiated into the left arm and into the neck, but she states she has arthritis and the pain in her arm and neck may have been secondary to that. She denies any fever, chills, cough, SOB, nausea, or abdominal pain. The pressure pain is mildly still present. There are no aggravating or alleviating factors. No hx of PE, CHF, OK. She has had similar episodes previous to this, and she has seen Dr. Castrejon for cardiology. She reports a negative stress test recently about a year ago. PMHx: angina, HTN, congenital heart murmur, peripheral vascular disease, DVT (Warfarin), GERD. FHx: cardiac disease in father. Nonsmoker, weekly EtOH, no substance use. - History of Current Complaint Chief Complaint: EDChestPainROMI Time Seen by Provider: 06/25/19 20:06 Hx Obtained From: Patient Onset/Duration: Started Hours Ago - 1730, Still Present - mostly resolved but mild in ED Timing: Lasting Hours Initial Severity: Moderate Current Severity: Mild Pain Intensity: 0 Pain Scale Used: 0-10 Numeric Chest Pain Location: Left Anterior Chest Pain Radiates: Yes Chest Pain Radiates To:: Arm - left, Neck Character: Pressure/Squeezing Aggravating Factor(s): Nothing Alleviating Factor(s): Nothing Associated Signs and Symptoms: Positive: Chest Pain - pressure. Negative: Shortness of Breath, Fever, Chills, Nausea, Cough, Abdominal Pain - Additional Pertinent History Primary Care Physician: JANET - Allergy/Home Medications Allergies/Adverse Reactions: Allergies Allergy/AdvReac Type Severity Reaction Status Date / Time Penicillins Allergy Severe Difficulty Verified 11/25/18 10:26 Breathing cocoa butter Allergy Mild Hives Verified 11/25/18 10:26 gabapentin Allergy Mild Hives Verified 11/25/18 10:26 celecoxib AdvReac Intermediate Hypertensive Verified 11/25/18 10:26 Reaction tramadol AdvReac Intermediate See Comment Verified 11/25/18 10:26 atenolol AdvReac Mild See Comment Verified 11/25/18 10:26 metronidazole AdvReac Mild Nausea Verified 11/25/18 10:26 nortriptyline AdvReac Mild Nausea Verified 11/25/18 10:26 pregabalin AdvReac Mild Hallucinati Verified 11/25/18 10:26 ons Kbanpzr-Uyh-Odu Reductase AdvReac Mild See Comment Verified 11/25/18 10:26 Inhibitor venlafaxine AdvReac Mild Nausea Verified 11/25/18 10:26 PMH/Surg Hx/FS Hx/Imm Hx Endocrine/Hematology History: Denies: Hx Diabetes Cardiovascular History: Reports: Hx Angina, Hx Deep Vein Thrombosis, Hx Hypertension, Hx Peripheral Vascular Disease, Other Cardiovascular Problems/ Disorders - DVT HAS BEEN ON COUMADIN Denies: Hx Coronary Artery Disease, Hx Hypercholesterolemia, Hx Myocardial Infarction, Hx Pacemaker/ICD, Hx Valvular Heart Disease Respiratory History: Reports: Hx Sleep Apnea Denies: Hx Asthma, Hx Chronic Obstructive Pulmonary Disease (COPD) GI History: Reports: Hx Gastroesophageal Reflux Disease - ON MEDICATON, Hx Hiatal Hernia, Other GI Disorders - chronic diarrhea, MECKLES DIVERTICULUM History: Denies: Hx Renal Disease Musculoskeletal History: Reports: Hx Arthritis - GENERALIZED, Hx Back Problems, Other Musculoskeletal History - LUMBAR RADICULOPATHY AND CERVICAL LUMBAR SPONDYLOLISTHESIS Denies: Hx Osteoporosis Sensory History: Reports: Hx Cataracts, Hx Contacts or Glasses Denies: Hx Hearing Aid Opthamlomology History: Reports: Hx Cataracts, Hx Contacts or Glasses Neurological History: Reports: Other Neuro Impairments/Disorders - PAIN CLINIC INJECTION Psychiatric History: Reports: Hx Anxiety Denies: Hx Panic Disorder - Surgical History Surgical History: Yes Surgery Procedure, Year, and Place: CERVIAL FUSION C4-C7, 2010 Hx Anesthesia Reactions: No - Immunization History Date of Tetanus Vaccine: UTD Date of Influenza Vaccine: UTD Infectious Disease History: No Infectious Disease History: Denies: Traveled Outside the [place] in Last 30 Days - Family History Known Family History: Positive: Other - Cancer - Social History Alcohol Use: Weekly Alcohol Amount: 1 drink/week Hx Substance Use: No Substance Use Type: Reports: None Substance Use Comment - Amount & Last Used: Nucynta Hx Tobacco Use: No Smoking Status (MU): Never Smoked Tobacco Have You Smoked in the Last Year: No Review of Systems Negative: Fever, Chills Positive: Chest Pain - pressure radiating into LUE and neck Negative: Shortness Of Breath, Cough Negative: Abdominal Pain, Nausea All Other Systems Reviewed And Are Negative: Yes Physical Exam - Summary Physical Exam Summary: Constitutional: Well-developed, Well-nourished, Alert. (-) Distressed Skin: Warm, Dry HENT: Normocephalic; Atraumatic Eyes: Conjunctiva normal Neck: Musculoskeletal ROM normal neck. (-) JVD, (-) Stridor, (-) Nuchal rigidity Cardio: Rhythm regular, rate normal, Systolic heart murmur; Intact distal pulses ; Radial pulses are 2+ and symmetric Pulmonary/Chest wall: Effort normal. (-) Respiratory distress, (-) Wheezes, (-) Rales Abd: Soft, (-) tenderness, (-) Distension, (-) Guarding, (-) Rebound Musculoskeletal: (-) Edema Lymph: (-) Cervical adenopathy Neuro: Alert, Oriented x3 Psych: Mood and affect Normal Triage Information Reviewed: Yes Vital Signs On Initial Exam: Initial Vitals Temp Pulse Resp BP Pulse Ox 99.1 F 82 18 149/84 97 06/25/19 20:07 06/25/19 20:07 06/25/19 20:07 06/25/19 20:07 06/25/19 20:07 Vital Signs Reviewed: Yes Diagnostics - Vital Signs Vital Signs Temp Pulse Resp BP Pulse Ox 06/25/19 20:07 99.1 F 82 18 149/84 97 - Laboratory Result Diagrams: 06/25/19 21:59 06/25/19 21:59 Lab Statement: Any lab studies that have been ordered have been reviewed, and results considered in the medical decision making process. - EKG 1948 Cardiac Rate: NL - 80 bpm EKG Rhythm: Sinus Rhythm EKG Comparison: No Significant Change - Unchanged from 11/25/2018 Summary of EKG Findings: An EKG at 1948 reveals normal sinus rhythm 80 bpm, nml axis, nml intervals. No STEMI. No acute changes. Chest Pain Course/Dx - Course Course Of Treatment: 79 y/o F with a history of hypertension, chest pain in the past, remote DVT, ulcerative colitis, who presents with chest pain while eating. Chest Pain DDX: The patient is well appearing, with stable vitals. Given the patient's clinical presentation, highest on differential is atypical CP. Per ROR: She saw Dr. Castrejon in 2015 for similar symptoms. He noted that she had had intermittent chest and sitting in meals that was not exertional and did not suspect fixed coronary obstruction at that time. She had a negative stress test afterwards. Although less likely, differential also includes the following: --Pneumothorax: Equal breath sounds, story inconsistent since gradual onset of symptoms. CXR shows no evidence of pneumothorax. Unlikely. -- Cardiac tamponade: The history and physical are not concerning for tamponade. No Pulsus Paradoxus, no tachypnea. Unlikely. --Mediastinitis or esophageal rupture: The history is not consistent, as the patient has had no recent history of significant wretching, instrumentation, or mediastinal surgeries. Unlikely. --Aortic dissection: The patient does not describe the classical tearing chest pain radiating into the back, and the CXR does not show mediastinal widening or other signs of aortic dissection. Unlikely. --PE: Vitals wnl (not hypoxic, tachycardic or tachypneic). On coumadin ( supratherapeutic). --ACS: The initial EKG shows no ischemic changes. The initial troponin is not elevated. Plan for trop x2, if negative can follow up w Dr. Castrejon. - Diagnoses Provider Diagnoses: Chest pain Discharge - Sign-Out/Discharge Documenting (check all that apply): Sign-Out Patient Signing out patient TO: Regina Alexandra - Patient is a sign-out to Dr. Regina Alexandra MD, at change of shift 2200 on 06/25/2019, pending labs and disposition. Patient Received Moderate/Deep Sedation with Procedure: No - Discharge Plan Condition: Stable Patient Education Materials: Chest Pain (DC) Referrals: Obdulio Castrejon MD [Medical Doctor] - 3 Days Estefania Dumont MD [Primary Care Provider] - 3 Days Additional Instructions: You were seen in the emergency department for chest pain. Your labs showed a normal heart number, If any studies were not completed at the time of discharge you will be called with the relevant results. Please follow up with your primary care doctor and girl friday in the next 2-3 days and return to the emergency department for worsening pain, trouble breathing, passing out or concerning symptoms. It was a pleasure taking care of you today. - Billing Disposition and Condition Condition: STABLE - Attestation Statements Document Initiated by Juan A: Yes Documenting Scribe: Lashon Morocho Provider For Whom Juan A is Documenting (Include Credential): Dr. Virginia Mackey MD Scribe Attestation: Lashon Leonard, scribed for Dr. Virginia Mackey MD on 06/25/19 at 2226. Scribe Documentation Reviewed: Yes Provider Attestation: The documentation as recorded by the Lashon hope accurately reflects the service I personally performed and the decisions made by me, Dr. Virginia Mackey MD Status of Scribe Document: Viewed
--- OUTSIDE RECORDS SUMMARY | 2019-06-25 21:24 | XMS REPORT | Continuity of Care Document ---
:1940 External Reference #:[id number] Author Name Iveth Blanco Care Team Providers Name Role Phone Estefania Dumont MD Primary Care Physician Unavailable Payers Date Identification Numbers Payment Provider Subscriber Expires: 2016 Policy Number: [id number] Medicare Noemy Estrada PayID: [id number] [address] [place] [address] Effective: 2014 Policy Number: [id number] Medicare Blue Ppo Noemy Estrada Group Number: [id number] [address] [address] PayID: [id number] ZARIA Blank [id number] Onset: 1920 Policy Number: [id number] [facility] Auto Policy Noemy Estrada PayID: [id number] [address] [address] [place] [address] Problems Active Problems Provider Date Irritable bowel syndrome with diarrhea Adebayo Vieira MD Onset: 12/27/2001 Note: diarrhea bouts many times over years in many Dr Jean notes; 2001 after [place] trip, then Lipitor cessation (? 2004) Nexium cessation (2014), clindamycin ( 2002 no CD) and to Dr Vieira winter 2017 OJ and cider intake Left sided ulcerative colitis Adebayo Vieira MD Onset: 11/23/2016 Note: rectal sparing visual colitis prox sigmoid Nov 2016; on Uceris at time of Dec 2017 flex sig Chest pain Obdulio Castrejon M.D. Onset: 11/22/2012 Note: atypical - Dr Jean observed that a trial of Nexium did not help in 2014 and diarrhea went away off the PPI Mixed hyperlipidemia Obdulio Castrejon M.D. Onset: 11/22/2012 Benign essential hypertension Obdulio Castrejon M.D. Onset: 11/22/2012 Lumbosacral spondylosis without myelopathy Obdulio Castrejon M.D. 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 Onset: 2013 Dizziness and giddiness Obdulio Castrejon M.D. Onset: 09/01/2014 Localized, primary osteoarthritis Kailey Hastings M.D. Onset: 02/21/2016 Knee joint effusion Kailey Hastings M.D. Onset: 04/04/2017 Inactive Problems Electrocardiogram abnormal Obdulio Castrejon M.D. Onset: 11/22/2012 Inactive: 12/29/2017 Polyuria Obdulio Castrejon M.D. Onset: 04/28/2014 Inactive: 01/23/2017 Family History Date Family Member(s) Observation Comments General Cancer General Hypercholesterolemia General Hypertension General Heart Disease Mother due to Ovarian Cancer () Siblings None Social History Type Date Description Comments Sex Unknown Marital Status Lives With Alone 02/2019 Tobacco Use Start: Unknown Never Smoked Cigarettes Smoking Status Reviewed: 06/23/19 Never Smoked Cigarettes ETOH Use Drinks Alcoholic Beverages Occasionally Tobacco Use Start: Unknown Patient has never exposure to second smoked hand smoke in the past Recreational Drug Use Denies Drug Use Exercise Type/Frequency Exercises regularly Allergies, Adverse Reactions, Alerts Active Allergies Reaction Severity Comments Date Penicillin Severe difficulty breathing 05/06/2004 Celebrex hypertensive rxn severe 05/06/2004 Betablockers washed out 05/06/2004 Neurontin rash hives 08/11/2005 Effexor 11/10/2011 Nortriptyline 11/10/2011 Lyrica 11/10/2011 Tramadol nausea 11/10/2011 Statins 11/10/2011 Oxycodone per Almodovar 09/01/2014 Doxycycline per Almod[facility]ar [place] 09/01/2014 Cymbalta per Almodovar [place] 09/01/2014 Codeine per Almodovar [place] 09/01/2014 [place] Butter Urticaria 07/04/2017 Metronidazole diarrhea/nausea 12/06/2018 Sulfa Antibiotics rash 12/06/2018 Levofloxacin 12/27/2018 Medications Active Medications SIG Qnty Indications Ordering Date Provider Finger Splint Medium apply finger splint [facility]units [facility] Chata Palacios 8 left 3rd mcp joint and prevent triggering diagnosis 715.14 icd9 Icy Hot Smart Relief Apply daily as 1units Otis TENS Therapy needed Dz Chata Palacios 8 Device Osteoarthritis of the spine 722.52 Aspirin 1 by mouth every Obdulio Lv 81mg Chewtabs day Chata Castrejon 8 Nitro-Dur 1 placed on chest 90units R07.9 Obdulio Lv 0.6mg/HR Patches during day, removed Chata Castrejon 8 24HR at night Nucynta ER 1 tab by mouth 10tabs Bryan Howard 200mg Tablets ER twice a day as , CORI 7 12HR needed for pain Verapamil HCL ER 1 po mid-day or am 100caps Obdulio DomingaLv 240mg Caps (pt states between Chata Castrejon 5 ER 24HR 12-4). and 1/2 at night (per pt) Alendronate Sodium take one tablet by Unknown 70mg mouth once a week 0 Tablets Mesalamine Novosiel, 1.2gm Tablets DR Estefania MD 0 Clobetasol Propionate Piotr, 0.05% MD Lucie 0 Ointment Triamcinolone Acetonide Novosiel, 0.5% MD Estefania 0 Cream Vitamin E Unknown 200Unit Capsules 0 Omeprazole 1 by mouth every Unknown 20mg Capsules DR day 0 Alprazolam once a day Novosiel, 0.25mg Tablets MD Estefania 0 Nucynta ER 1 po @hs Unknown 150mg Tablets ER 0 12HR Fiber Unknown 625mg Tablets 0 Esomeprazole Magnesium 1 cap po daily Novosiel, 40mg MD Estefania [address] Methylprednisolone 1 tab by mouth Unknown 4mg nightly 0 Tablets Nucynta 1 by mouth at noon Unknown 50mg Tablets daily 0 Metaxalone 2 times per day Unknown 800mg Tablets 0 Multivitamin W/O K 1 po qd Unknown Tablets 0 Coumadin as directed ( Unknown 5mg Tablets adjustment Dr. Jonatan Dumont) Calcium + D 1 tablet po daily Unknown 0 History Medications Levaquin Take 1 tablet by 7tabs L03.115 Bryan Howard, 12/12/2018 - 500mg Tablets mouth daily for , CORI 12/22/2018 7 days for infection Aspercreme Lidocaine Max apply 1 patch 90units M54.5 Otis 09/12/2018 - Strength/XL every 12 hours Chata Palacios 10/29/2018 4% Patches as needed Aspercreme Lidocaine Max apply 1 patch 90units M54.5 Otis 09/11/2018 - Strength/XL every 12 hours Chata Palacios 09/11/2018 4% Patches as needed Lidocaine 1 apply to 35.440gm Otis 09/11/2018 - 5% Ointment affected area 12 Chata Palacios 09/12/2018 hours on, 12 hours off Lidoderm 1 apply to 30units Otis 08/26/2018 - 5% Patches affected area 12 SuzanneGracia callahanDLv 09/11/2018 hours on, 12 hours off Turmeric Curcumin take one 90caps Otis 07/25/2018 - 500mg capsule/tablet Chata Palacios 08/14/2018 Capsules daily by mouth Hydroxychloroquine take one tablet 30tabs M06.4 Otis 01/25/2018 - Sulfate by mouth daily Chata Palacios 04/23/2018 200mg Tablets (not taking) Lidocaine 1 apply to 35.440gm M54.5 Otis 12/07/2017 - 5% Ointment affected area 12 Chata Palacios 09/11/2018 hours on, 12 hours off Instaflex Cholo Eason, 12/04/2017 - 10/29/[address] on chest 30units R07.9 Obdulio Rodriguez 10/23/2017 - 0.4mg/HR Patches wall in the Chata Castrejon 01/21/2018 24HR morning and remove at night Nitro-Dur 1 placed on 30units R07.9 Obdulio Rodriguez 10/23/2017 - 0.6mg/HR Patches chest during Chata Castrejon 10/23/2017 24HR day, removed at night Nitro-Dur place on chest 30units R07.9 Obdulio Rodriguez 09/27/2017 - 0.4mg/HR Patches wall in the Chata Castrejon 10/23/2017 24HR morning and remove at night Nitro-Dur 1 placed on 30units R07.9 Obdulio Rodriguez 09/11/2017 - 0.6mg/HR Patches chest during Chata Castrejon 09/27/2017 24HR day, removed at night Nitrostat one sl q5min up 90tabs R94.31 Obdulio Rodriguez 06/19/2017 - 0.4mg Tablets Sub to 3 doses as Chata Castrejon 02/11/2019 needed Clindamycin HCL 1 cap by mouth 6caps Bryan Howard, 05/09/2017 - 300mg three times a MD, FACS 06/18/2017 Capsules day Clindamycin HCL 1 tabs by mouth 30caps Jatin Muñoz 05/04/2017 - 300mg 3 times a day Osiel, 06/18/2017 Capsules GraciaDLv Diovan 1/2 by mouth 30tabs Obdulio Rodriguez 04/30/2017 - 80mg Tablets once a day Chata Castrejon 09/10/2017 Clindamycin HCL 1 tabs by mouth 21caps L02.416 Jatin DLv 04/25/2017 - 300mg 3 times a day Osiel, 05/04/2017 Capsules M.D. Clindamycin HCL 1 tab by mouth 3 21caps L02.416 Jatin D. 04/20/2017 - 300mg times a day Osiel, 04/25/2017 Capsules M.D. Sulfamethoxazole/Trimeth 1 by mouth twice 30tabs L02.416 Jatin Muñoz 2016 - oprim DS daily Osiel, 04/20/2017 800-160mg Tablets M.D. Nitro-Dur place first 30units R07.9 Obdulio Rodriguez 01/11/2017 - 0.4mg/HR Patches thing in the Chata Castrejon 09/11/2017 24HR morning and off at night Nitro-Dur 1 patch every 90units R07.9 Obdulio Rodriguez 11/27/2016 - 0.2mg/HR Patches day on in the Chata Castrejon 01/11/2017 24HR morning, off at night Torsemide 1 by mouth once 15tabs Obdulio Rodriguez 04/30/2015 - 10mg Tablets a day as needed. Chata Castrejon 06/18/2017 Verapamil HCL ER 1 po every 90caps Obdulio Rodriguez 12/24/2014 - 240mg Caps morning, 1/2 tab Chata Castrejon 07/29/2015 ER 24HR every evening Nitrostat one sl q5min up 25tabs Obdulio Rodriguez 12/23/2014 - 0.4mg Tablets Sub to 3 doses as Chata Castrejon 06/18/2017 needed Eplerenone 1 by mouth every 30tabs Obdulio Rodriguez 09/19/2014 - 25mg Tablets day Chata Castrejon 05/10/2015 Diovan 1 tab daily 90tabs Obdulio Rodriguez 09/16/2014 - 40mg Tablets Chata Castrejon 04/30/2017 Diovan 1 by mouth every 30tabs Obdulio Rodriguez 09/01/2014 - 80mg Tablets day (hold Chata Castrejon 09/16/2014 09/04/14) Potassium Chloride Jacquelyn take 2 tabs by 60tabs 786.50 Obdulio Rodriguez 2013 - ER mouth daily as Chata Castrejon 09/16/2014 10Meq Tablets ER directed (pt is not taking this med) Potassium Chloride ER 1 by mouth every 30tabs Obdulio Rodriguez 05/01/2014 - 20Meq day Chata Castrejon 06/25/2014 Tablets ER Diovan 1/2 by mouth 100tabs Obdulio Rodriguez 04/28/2014 - 320mg Tablets every day Chata Castrejon 06/19/2014 Crestor 1 po qd 100tabs Obdulio Rodriguez 11/27/2011 - 5mg Tablets Chata Castrejon 12/01/2011 Calcium Plus D one po qd Obdulio Rodriguez 11/10/2011 - 600mg Chata Castrejon 04/02/2013 Fish Oil Obdulio Rodriguez 02/14/2008 - OTC Oil Chata Castrejon 11/10/2011 Lidoderm Patch 1-2 Patches qd 30units Obdulio Rodriguez 02/14/2008 - 5% Patches Chata Castrejon 04/28/2014 On For 12H Off For 12H Glucosamine/Chondroitin 1 po daily Obdulio Rodriguez 12/28/2006 - Chata Castrejon 08/31/2014 Ativan prn dizziness Obdulio Rodriguez 12/28/2006 - 1mg Tablets Chata Castrejon 11/10/2011 Cortisone Injections 11/28/06 Obdulio Rodriguez 12/28/2006 - Neck Chata Castrejon 02/14/2008 Oxycodone & Q 4 HR prn Obdulio Rodriguez 12/28/2006 - Acetaminophen Chata Castrejon 02/14/2008 5mg;325 mg Tablets Loratadine 1 PO qd prn 30tabs Obdulio Rodriguez 12/28/2006 - 10mg Tablets Chata Castrejon 11/10/2011 Zithromax 2 tablets po 1 Obdulio Rodriguez 12/28/2006 - 250mg Tablets hour pre- Chata Castrejon 02/14/2008 dental prn Diovan 1 po qd Obdulio Rodriguez 08/11/2005 - 160mg Tablets Chata Castrejon 06/03/2010 Darvocet N 100 prn neck Obdulio Rodriguez 08/11/2005 - 100mg;650 mg pain-usually 1 Chata Castrejon 11/10/2011 Tablets per day Glucosamine 1 qd Obdulio Rodriguez 08/11/2005 - 750mg Tablets Chata Castrejon 12/28/2006 Nabumetone 1 qd Obdulio Rodriguez 02/13/2005 - 1500mg Tablets Chata Castrejon 06/03/2010 Tramadol q 6 hrs prn pain 120tabs Obdulio Rodriguez 02/01/2005 - 50mg Tablets Chata Castrejon 08/11/2005 Lipitor 1 po qd 30tabs Obdulio Rodriguez 10/26/2004 - 20mg Tablets Chata Castrejon 09/19/2005 Lipitor 1 po qd Obdulio FLv 08/17/2004 - 40mg Tablets Chata Castrejon 10/26/2004 Lipitor 1 po qd 30tabs Obdulio Rodriguez 06/30/2004 - 20mg Tablets Chata Castrejon 08/17/2004 Cardizem CD 1 po qd 30caps Obdulio Rodriguez 06/30/2004 - 240mg Capsules Chata Castrejon 04/18/2012 Ativan 1 po tid Obdulio Rodriguez 06/30/2004 - 0.5mg Tablets Chata Castrejon 12/28/2006 vertigo Plavix 1 po qd 30tabs Obdulio Rodriguez 06/14/2004 - 75mg Tablets Chata Castrejon 02/02/2005 Cardizem CD 1 po bid 60caps Obdulio Rodriguez 05/25/2004 - 120mg Capsules Chata Castrejon 06/30/2004 Nabumetone two po qd Obdulio Rodriguez 05/24/2004 - 500mg Tablets Chata Castrejon 02/13/2005 Triazolam 2 po qhs Obdulio Rodriguez 05/24/2004 - 0.25mg Tablets Chata Castrejon 12/28/2006 Claritin 1 po qd prn Obdulio Rordiguez 05/06/2004 - 10mg Tablets Chata Castrejon 08/11/2005 Aspirin 1 PO qd Obdulio Rodriguez 05/06/2004 - 81mg Chewtabs Chata Castrejon 07/27/2015 Clonidine 1 po qd 270tabs Obdulio Rodriguez 05/06/2004 - 0.2mg Tablets Chata Castrejon 08/11/2005 HCTZ 1 PO qd 30tabs Obdulio Rodriguez 05/06/2004 - 25mg Tablets Chata Castrejon 09/19/2014 Diovan 1 po qd 90tabs Obdulio Rodriguez 05/06/2004 - 320mg Tablets Chata Castrejon 08/11/2005 Calcium Obdulio Rodriguez 05/06/2004 - Tablets Chata Castrejon 04/18/2012 Nexium 1 PO qd 30caps Obdulio Rodriguez 05/06/2004 - 40mg Capsules Chata Castrejon 02/16/2016 Nabumetone 3 po qd prn 60tabs Obdulio Rodriguez 05/06/2004 - 500mg Tablets Chata Castrejon 05/25/2004 Cardizem CD 1 po qd 30caps Obdulio Rodriguez 05/06/2004 - 120mg Capsules Chata Castrejon 05/25/2004 Valsartan Unknown - 40mg Tablets 02/13/2016 Verapamil HCL ER Unknown - 240mg 02/13/2016 Tablets ER Lidocaine Apply 3 Patches Unknown - 5% Patches To Affected Area 04/23/2018 qd prn And Remove After 12 Hours Nucynta ER take one tab by Unknown - 150mg Tablets ER mouth every 09/10/2017 12HR afternoon and one and 1/2 in evening Glucosamine Chondroitin 1 by mouth every Unknown - 1500 Complex day 11/19/2017 1500Com Capsules Lialda 2 patches Am,1 Unknown - PM 02/11/2019 Mirtazapine 1 by mouth every Unknown - 7.5mg Tablets night at bedtime 09/10/2017 Esomeprazole Magnesium 1 by mouth every Unknown - 40mg day 09/10/2017 Capsules Mesalamine 4 tablets by Unknown - 1.2gm Tablets DR mouth daily 08/07/2017 Metronidazole one tablet by Unknown - 500mg Tablets mouth 4 times 08/13/2017 daily Diovan 1 by mouth in am Unknown - 80mg Tablets and 1/2 tab at 09/11/2017 hs Diovan 1 by mouth at Unknown - 40mg Tablets noon and hs 12/27/2018 every day Medals 9 Unknown - 04/23/2018 Valsartan 1 by mouth every Unknown - 80mg Tablets day 12/27/2018 Metronidazole 2 tabs bid Unknown - 500mg Tablets Unknown Clobetasol Propionate Piotr, - 0.05% MD Lucie 10/29/2018 Cream Doxycycline Hyclate 1 by mouth twice Unknown - 100mg a day 12/12/2018 Capsules Levaquin 1 by mouth every Unknown - 500mg Tablets day Unknown Valsartan 1 tab by mouth Unknown - 40mg Tablets at noon and 1/2 12/27/2018 tab by mouth at bedtime. Florastor 1 by mouth twice Unknown - 250mg Capsules a day 02/11/2019 Verapamil HCL ER Julia, - 240mg MD Estefania 02/13/2019 Tablets ER Triazolam 2 tablets qhs 60tabs Unknown - 0.25mg Tablets 12/26/2018 Nabumetone 1 po bid Unknown - 750mg Tablets 04/18/2012 Diovan 1 po qd Unknown - 320mg Tablets 04/28/2014 Vitamin 1 po daily Unknown - 05/10/2015 Nucynta ER 200mg bid 60tabs Unknown - 200mg Tablets 06/18/2017 Nucynta one po at 1200 40tabs Unknown - 50mg Tablets 04/18/2012 Osteo Bi-Flex one po qd Unknown - 05/10/2015 B6 one po qd Unknown - 11/22/2012 B12 one po qd Unknown - 11/22/2012 Jantoven 3 tabs po qd 90tabs Unknown - 5mg Tablets 04/18/2012 Metaxalone take 1 tablet 2 90tabs Unknown - 800mg Tablets times a day as 03/19/2014 needed Coumadin 15mg x 5days wk 90daysup Unknown - 5mg Tablets and 5mg x2 days 02/20/2016 week as directed Verapamil HCL ER 1 po qd 90caps Unknown - 240mg Caps 04/28/2014 ER 24HR Lorazepam 1 q 6 hours prn 120tabs Unknown - 1mg Tablets 04/28/2014 Hylagan twice a year 5 Unknown - Inj injections in 06/18/2017 both knees (no longer using) Diovan 1 by mouth every Unknown - 320mg Tablets day 09/01/2014 Diltiazem HCL ER 1 by mouth every 90caps Unknown - 240mg Caps day 12/23/2014 ER 24HR Lidoderm 1 patch topical 30units Unknown - 5% Patches route daily . 12 02/20/2016 hours on and 12 hours off Lorazepam 1 every 6 hours 90tabs Unknown - 1mg Tablets as needed 07/27/2015 Aspirin Ec Lo-Dose 1 tablet daily. Unknown - 81mg 04/08/[address] Mak Unknown - 50mg Tablets 02/13/2016 Medications Administered in Office Medication SIG Qnty Indications Ordering Provider Date Depomedrol 40MG Kailey Hastings M.D. 08/15/2017 Injection Depomedrol 40MG Kailey Hastings M.D. 08/15/2017 Injection Depomedrol 40MG Kailey Hastings M.D. 04/04/2017 Injection Depomedrol 40MG Kailey Hastings M.D. 04/04/2017 Injection Hyalagan Or Natasha, Jerome Hastings M.D. 01/24/2017 Intra-Articular Inject Per Dose Injection Hyalagan Or Kavitaartz, Jerome Hastings M.D. 01/24/2017 Intra-Articular Inject Per Dose Injection Hyalagan Or Supartz, Jerome Hastings M.D. 01/17/2017 Intra-Articular Inject Per Dose Injection Hyalagan Or Supartz, Jerome Hastings M.D. 01/17/2017 Intra-Articular Inject Per Dose Injection Inj, Regadenoson, 0.1 MG Tim Bal, DO [facility] 01/11/2017 Injection Technetium TC 99M Tim Bal, DO [facility] 01/11/2017 Tetrofosmin, Per Unit Dose Up To 40 Millicuries Injection Hyalagan Or Supartz, Jerome Hastings M.D. 01/10/2017 Intra-Articular Inject Per Dose Injection Hyalagan Or Supartz, For Kailey Hastings M.D. 01/10/2017 Intra-Articular Inject Per Dose Injection Synvisc Or Synvisc-One Kailey Hastings M.D. 05/29/2016 Injection 1 MG Injection Synvisc Or Synvisc-One Kailey Hastings M.D. 05/29/2016 Injection 1 MG Injection Hyalagan Or Supartz, For Kailey Hastings M.D. 05/24/2016 Intra-Articular Inject Per Dose Injection Hyalagan Or Supartz, For Kailey Hastings M.D. 05/24/2016 Intra-Articular Inject Per Dose Injection Hyalagan Or Supartz, For Kailey Hastings M.D. 05/15/2016 Intra-Articular Inject Per Dose Injection Hyalagan Or Supartz, For Kailey Hastings M.D. 05/15/2016 Intra-Articular Inject Per Dose Injection Inj, Regadenoson, 0.1 MG Tim Bal, DO [facility] 03/15/2016 Injection Technetium TC 99M Tim Bal, DO [facility] 03/15/2016 Tetrofosmin, Per Unit Dose Up To 40 Millicuries Injection Depomedrol 80MG JEFFERSON Reveles 10/21/2014 Injection Vital Signs Date Vital Result Comment 06/23/2019 1:57pm Height 62 inches 5'2" Weight 151.00 lb BP Systolic Sitting 128 mmHg BP Diastolic Sitting 80 mmHg Pain Level 8 BMI (Body Mass Index) 27.6 kg/m2 04/24/2019 2:38pm Height 62 inches 5'2" Weight 151.25 lb Heart Rate 85 /min BP Systolic Sitting 140 mmHg BP Diastolic Sitting 90 mmHg Pain Level 6 O2 % BldC Oximetry 96 % BMI (Body Mass Index) 27.7 kg/m2 03/13/2019 10:15am Height 62 inches 5'2" Weight 151.25 lb Heart Rate 76 /min BP Systolic 149 mmHg BP Diastolic 75 mmHg O2 % BldC Oximetry 96 % BMI (Body Mass Index) 27.7 kg/m2 02/14/2019 1:55pm Height 62 inches 5'2" Weight 148.00 lb Heart Rate 73 /min BP Systolic 168 mmHg BP Diastolic 78 mmHg Respiratory Rate 18 /min Body Temperature 97.8 F O2 % BldC Oximetry 100 % BMI (Body Mass Index) 27.1 kg/m2 02/12/2019 10:36am Height 62 inches 5'2" Weight 148.00 lb Heart Rate 82 /min BP Systolic 118 mmHg BP Diastolic 58 mmHg BMI (Body Mass Index) 27.1 kg/m2 12/27/2018 1:24pm Height 62 inches 5'2" Weight 148.00 lb Heart Rate 70 /min BP Systolic 124 mmHg BP Diastolic 59 mmHg Respiratory Rate 18 /min Body Temperature 97.3 F O2 % BldC Oximetry 95 % BMI (Body Mass Index) 27.1 kg/m2 12/27/2018 10:00am Height 62 inches 5'2" Weight 148.25 lb no shoes Heart Rate 68 /min BP Systolic Sitting 110 mmHg lue reg cuff BP Diastolic Sitting 70 mmHg lue reg cuff BP Systolic Standing 112 mmHg lue reg cuff BP Diastolic Standing 70 mmHg lue reg cuff Respiratory Rate 16 /min BMI (Body Mass Index) 27.1 kg/m2 12/24/2018 2:36pm Height 62 inches 5'2" Weight 149.00 lb BP Systolic Sitting 130 mmHg BP Diastolic Sitting 80 mmHg Pain Level 4 BMI (Body Mass Index) 27.2 kg/m2 12/23/2018 3:40pm Height 62 inches 5'2" Weight 149.00 lb Heart Rate 80 /min BP Systolic Sitting 134 mmHg BP Diastolic Sitting 70 mmHg Pain Level 7 BMI (Body Mass Index) 27.2 kg/m2 12/12/2018 9:15am Heart Rate 78 /min Respiratory Rate 18 /min Body Temperature 97.4 F 12/06/2018 10:29am Heart Rate 84 /min BP Systolic Sitting 126 mmHg BP Diastolic Sitting 88 mmHg Respiratory Rate 18 /min Body Temperature 98.0 F 10/30/2018 11:34am Height 62 inches 5'2" Weight 150.38 lb no shoes Heart Rate 72 /min lt radial, regular BP Systolic Sitting 155 mmHg lt arm BP Diastolic Sitting 65 mmHg lt arm BMI (Body Mass Index) 27.5 kg/m2 Ejection Fraction >65% echo 06/11/18 08/26/2018 10:01am Height 62 inches 5'2" Heart Rate 80 /min BP Systolic 118 mmHg BP Diastolic 68 mmHg Respiratory Rate 16 /min Body Temperature 98.1 F Pain Level 8 08/15/2018 9:54am Height 62 inches 5'2" Weight 147.25 lb Heart Rate 84 /min BP Systolic 130 mmHg BP Diastolic 84 mmHg BMI (Body Mass Index) 26.9 kg/m2 07/25/2018 3:08pm Height 62 inches 5'2" Weight 147.12 lb Heart Rate 70 /min BP Systolic Sitting 128 mmHg BP Diastolic Sitting 78 mmHg Pain Level 0 O2 % BldC Oximetry 95 % BMI (Body Mass Index) 26.9 kg/m2 04/23/2018 9:16am Height 62 inches 5'2" Weight 148.38 lb Heart Rate 84 /min BP Systolic Sitting 126 mmHg BP Diastolic Sitting 82 mmHg Respiratory Rate 14 /min Pain Level 5 BMI (Body Mass Index) 27.1 kg/m2 04/09/2018 3:11pm Height 62 inches 5'2" Weight 150.00 lb w/o shoes Heart Rate 86 /min reg BP Systolic Sitting 140 mmHg Rue, reg cuff BP Diastolic Sitting 80 mmHg Rue, reg cuff BP Systolic Standing 122 mmHg la repeat sitting BP Diastolic Standing 59 mmHg la repeat sitting Respiratory Rate 16 /min BMI (Body Mass Index) 27.4 kg/m2 Ejection Fraction 65-70% as of 03/2017 echo 02/14/2018 11:36am Height 62 inches 5'2" Weight 152.19 lb BP Systolic Sitting 119 mmHg lue reg cuff BP Diastolic Sitting 65 mmHg lue reg cuff Respiratory Rate 17 /min BMI (Body Mass Index) 27.8 kg/m2 Ejection Fraction 65-70% 04/01/2017 echo 01/21/2018 7:59am Height 62 inches 5'2" Weight 150.00 lb Heart Rate 87 /min BP Systolic Sitting 123 mmHg BP Diastolic Sitting 77 mmHg Respiratory Rate 16 /min Pain Level 5 BMI (Body Mass Index) 27.4 kg/m2 12/07/2017 1:17pm Height 62 inches 5'2" Heart Rate 86 /min BP Systolic Sitting 122 mmHg BP Diastolic Sitting 80 mmHg Respiratory Rate 14 /min Pain Level 7 12/04/2017 10:23am Height 62 inches 5'2" Weight 147.00 lb per pt Heart Rate 80 /min reg Respiratory Rate 16 /min Pain Level 7 left shoulder BMI (Body Mass Index) 26.9 kg/m2 11/06/2017 10:49am Height 62 inches 5'2" Weight 149.00 lb w/o shoes Heart Rate 82 /min BP Systolic Sitting 128 mmHg LA reg cuff BP Diastolic Sitting 72 mmHg LA reg cuff BMI (Body Mass Index) 27.2 kg/m2 Ejection Fraction 65-70% Echo 04/11/17 09/11/2017 8:32am Height 62 inches 5'2" Weight 148.25 lb with shoes Heart Rate 86 /min BP Systolic Sitting 146 mmHg Rue reg cuff BP Diastolic Sitting 72 mmHg Rue reg cuff BP Systolic Standing 140 mmHg Rue reg cuff BP Diastolic Standing 70 mmHg Rue reg cuff Respiratory Rate 16 /min BMI (Body Mass Index) 27.1 kg/m2 Ejection Fraction 65-70% echo 04/11/17 09/05/2017 11:37am Height 62 inches 5'2" Weight 140.00 lb Heart Rate 80 /min BP Systolic 128 mmHg BP Diastolic 67 mmHg BMI (Body Mass Index) 25.6 kg/m2 08/15/2017 10:57am Height 61.5 inches 5'1.50" Weight 148.00 lb Heart Rate 88 /min BP Systolic 126 mmHg BP Diastolic 67 mmHg Body Temperature 97.7 F BMI (Body Mass Index) 27.5 kg/m2 08/14/2017 9:44am Height 62 inches 5'2" Weight 151.12 lb Heart Rate 64 /min BP Systolic 120 mmHg BP Diastolic 58 mmHg BMI (Body Mass Index) 27.6 kg/m2 08/08/2017 9:40am Height 62 inches 5'2" Heart Rate 76 /min BP Systolic 126 mmHg LA, reg 157/80 home unit BP Diastolic 84 mmHg LA, reg 157/80 home unit BP Systolic Sitting 126 mmHg Ra, reg BP Diastolic Sitting 86 mmHg Ra, reg BP Systolic Standing 152 mmHg Ra, stand BP Diastolic Standing 86 mmHg Ra, stand 08/06/2017 11:27am Height 62 inches 5'2" Weight 148.12 lb Heart Rate 84 /min BP Systolic 118 mmHg BP Diastolic 68 mmHg O2 % BldC Oximetry 93 % BMI (Body Mass Index) 27.1 kg/m2 06/19/2017 8:37am Height 62 inches 5'2" Weight 149.50 lb BP Systolic Sitting 118 mmHg Lue reg cuff BP Diastolic Sitting 66 mmHg Lue reg cuff Respiratory Rate 18 /min BMI (Body Mass Index) 27.3 kg/m2 Ejection Fraction 65-70% 04/11/17-echo 05/09/2017 1:51pm Height 62 inches 5'2" Weight 148.00 lb Heart Rate 80 /min BP Systolic 140 mmHg BP Diastolic 80 mmHg Respiratory Rate 16 /min Body Temperature 98.1 F BMI (Body Mass Index) 27.1 kg/m2 05/08/2017 2:56pm Heart Rate 78 /min BP Systolic Sitting 118 mmHg BP Diastolic Sitting 70 mmHg Respiratory Rate 18 /min Body Temperature 98.7 F 04/30/2017 2:47pm Height 62 inches 5'2" Weight 148.25 lb w/shoes Heart Rate 76 /min BP Systolic Sitting 148 mmHg LA reg cuff BP Diastolic Sitting 78 mmHg LA reg cuff BMI (Body Mass Index) 27.1 kg/m2 Ejection Fraction 65-70% Echo 04/11/17 04/30/2017 1:10pm Heart Rate 66 /min BP Systolic Sitting 140 mmHg BP Diastolic Sitting 78 mmHg Respiratory Rate 18 /min Body Temperature 98.8 F 04/25/2017 3:38pm Height 62 inches 5'2" Weight 148.25 lb Heart Rate 80 /min BP Systolic Sitting 128 mmHg BP Diastolic Sitting 82 mmHg Respiratory Rate 14 /min Body Temperature 99.0 F BMI (Body Mass Index) 27.1 kg/m2 04/20/2017 1:04pm Heart Rate 86 /min Respiratory Rate 18 /min Body Temperature 98.4 F 04/17/2017 10:04am Heart Rate 78 /min BP Systolic 140 mmHg BP Diastolic 90 mmHg Respiratory Rate 18 /min Body Temperature 98.0 F 04/12/2017 2:00pm Height 62 inches 5'2" Weight 147.00 lb per pt Heart Rate 86 /min BP Systolic Sitting 128 mmHg BP Diastolic Sitting 60 mmHg Respiratory Rate 14 /min Body Temperature 98.9 F BMI (Body Mass Index) 26.9 kg/m2 04/04/2017 11:37am Height 62 inches 5'2" Weight 150.00 lb BP Systolic 117 mmHg BP Diastolic 69 mmHg Respiratory Rate 16 /min Body Temperature 97.8 F Pain Level 5 BMI (Body Mass Index) 27.4 kg/m2 03/27/2017 3:44pm Height 62 inches 5'2" Weight 150.25 lb with shoes Heart Rate 86 /min BP Systolic Sitting 120 mmHg LA reg cuff BP Diastolic Sitting 62 mmHg LA reg cuff BMI (Body Mass Index) 27.5 kg/m2 Ejection Fraction 70% NLM 01/11/17 01/24/2017 10:49am Height 62 inches 5'2" Weight 147.00 lb Heart Rate 80 /min Respiratory Rate 16 /min Pain Level 5 BMI (Body Mass Index) 26.9 kg/m2 01/17/2017 10:59am Height 62 inches 5'2" Weight 147.00 lb Heart Rate 96 /min BP Systolic 130 mmHg BP Diastolic 80 mmHg Respiratory Rate 18 /min Pain Level 8 BMI (Body Mass Index) 26.9 kg/m2 01/10/2017 11:17am Height 62 inches 5'2" Weight 147.00 lb Heart Rate 92 /min BP Systolic 141 mmHg BP Diastolic 75 mmHg Pain Level 6 BMI (Body Mass Index) 26.9 kg/m2 12/28/2016 1:43pm Height 62 inches 5'2" Weight 147.75 lb w/o shoes Heart Rate 90 /min BP Systolic Sitting 144 mmHg LA reg cuff BP Diastolic Sitting 84 mmHg LA reg cuff BMI (Body Mass Index) 27.0 kg/m2 Ejection Fraction 67% NLM 03/15/16 12/13/2016 11:28am Height 62 inches 5'2" Weight 145.00 lb Heart Rate 78 /min BP Systolic 133 mmHg BP Diastolic 64 mmHg BMI (Body Mass Index) 26.5 kg/m2 11/27/2016 1:31pm Height 61 inches 5'1" Weight 146.75 lb with shoes Heart Rate 78 /min BP Systolic Sitting 142 mmHg LA reg cuff BP Diastolic Sitting 86 mmHg LA reg cuff BMI (Body Mass Index) 27.7 kg/m2 Ejection Fraction 67% NLM 03/15/16 08/15/2016 10:05am Height 61 inches 5'1" Weight 148.00 lb Heart Rate 72 /min BP Systolic Sitting 126 mmHg BP Diastolic Sitting 80 mmHg Respiratory Rate 14 /min BMI (Body Mass Index) 28.0 kg/m2 08/07/2016 2:33pm Height 61 inches 5'1" Weight 148.00 lb w/o shoes Heart Rate 92 /min BP Systolic Sitting 120 mmHg Lue, reg cuff BP Diastolic Sitting 80 mmHg Lue, reg cuff BP Systolic Standing 118 mmHg Lue BP Diastolic Standing 74 mmHg Lue Respiratory Rate 16 /min BMI (Body Mass Index) 28.0 kg/m2 Ejection Fraction 60-65% As of 03/03/16 echo 05/29/2016 10:22am Height 61 inches 5'1" Weight 146.00 lb Pain Level 6 BMI (Body Mass Index) 27.6 kg/m2 05/24/2016 9:24am Height 61 inches 5'1" Weight 146.00 lb Pain Level 4 BMI (Body Mass Index) 27.6 kg/m2 05/15/2016 1:40pm Height 61 inches 5'1" Weight 146.00 lb Pain Level 5 BMI (Body Mass Index) 27.6 kg/m2 05/05/2016 12:05pm Height 61 inches 5'1" Weight 146.00 lb Heart Rate 68 /min BP Systolic Sitting 156 mmHg BP Diastolic Sitting 90 mmHg Respiratory Rate 16 /min BMI (Body Mass Index) 27.6 kg/m2 04/24/2016 10:37am Height 61 inches 5'1" Weight 150.00 lb Pain Level 6 BMI (Body Mass Index) 28.3 kg/m2 02/21/2016 10:14am Height 61 inches 5'1" Weight 150.00 lb Heart Rate 72 /min Respiratory Rate 16 /min Pain Level 8 BMI (Body Mass Index) 28.3 kg/m2 02/17/2016 2:22pm Height 61 inches 5'1" Weight 150.00 lb Heart Rate 70 /min BP Systolic Sitting 132 mmHg LA, reg BP Diastolic Sitting 74 mmHg LA, reg BMI (Body Mass Index) 28.3 kg/m2 Ejection Fraction 55%-60% 04/29/14 echo 07/29/2015 4:31pm Height 61 inches 5'1" Weight 146.00 lb w/o shoes Heart Rate 66 /min BP Systolic Sitting 138 mmHg LA reg cuff BP Diastolic Sitting 82 mmHg LA reg cuff BP Systolic Standing 128 mmHg la reg cuff BP Diastolic Standing 80 mmHg la reg cuff BMI (Body Mass Index) 27.6 kg/m2 Ejection Fraction 55-60 echo 04/29/14 05/11/2015 11:58am Height 61 inches 5'1" Weight 146.00 lb Heart Rate 72 /min BP Systolic Sitting 138 mmHg BP Diastolic Sitting 72 mmHg Respiratory Rate 16 /min BMI (Body Mass Index) 27.6 kg/m2 12/24/2014 3:49pm Height 61 inches 5'1" Weight 148.00 lb Heart Rate 82 /min BP Systolic Sitting 148 mmHg BP Diastolic Sitting 148 mmHg BMI (Body Mass Index) 28.0 kg/m2 10/21/2014 3:02pm Height 61 inches 5'1" Heart Rate 86 /min BP Systolic 140 mmHg BP Diastolic 85 mmHg 10/05/2014 2:51pm Height 61 inches 5'1" Weight 143.00 lb Heart Rate 87 /min BP Systolic 143 mmHg BP Diastolic 72 mmHg BMI (Body Mass Index) 27.0 kg/m2 09/17/2014 1:48pm Height 61 inches 5'1" Weight 146.50 lb Heart Rate 80 /min BP Systolic 126 mmHg LA reg cuff BP Diastolic 80 mmHg LA reg cuff BP Systolic Sitting 118 mmHg la repeat BP Diastolic Sitting 60 mmHg la repeat BP Systolic Standing 120 mmHg Ra, reg 118/70 LA BP Diastolic Standing 70 mmHg Ra, reg 118/70 LA BP Systolic Recheck 138 mmHg sit Ra, 132/74 LA -sit BP Diastolic Recheck 74 mmHg sit Ra, 132/74 LA -sit Respiratory Rate 15 /min BMI (Body Mass Index) 27.7 kg/m2 09/14/2014 11:08am Height 61 inches 5'1" Weight 143.00 lb Heart Rate 86 /min home unit 89 BP Systolic 168 mmHg home unit, reg BP Diastolic 92 mmHg home unit, reg BP Systolic Sitting 168 mmHg right, reg BP Diastolic Sitting 88 mmHg right, reg BP Systolic Recheck 160 mmHg left, reg BP Diastolic Recheck 84 mmHg left, reg BMI (Body Mass Index) 27.0 kg/m2 09/01/2014 2:27pm Height 61 inches 5'1" Weight 145.00 lb Heart Rate 76 /min BP Systolic Sitting 128 mmHg La reg cuff BP Diastolic Sitting 80 mmHg La reg cuff Respiratory Rate 14 /min BMI (Body Mass Index) 27.4 kg/m2 06/25/2014 10:31am Height 61 inches 5'1" Weight 147.00 lb Heart Rate 80 /min BP Systolic Sitting 132 mmHg Ra reg cuff BP Diastolic Sitting 72 mmHg Ra reg cuff BP Systolic Standing 110 mmHg Ra BP Diastolic Standing 62 mmHg Ra Respiratory Rate 16 /min BMI (Body Mass Index) 27.8 kg/m2 04/28/2014 4:44pm Height 61 inches 5'1" Weight 154.25 lb Heart Rate 80 /min BP Systolic Sitting 138 mmHg BP Diastolic Sitting 78 mmHg BMI (Body Mass Index) 29.1 kg/m2 03/31/2014 10:56am Height 61 inches 5'1" Weight 147.00 lb Heart Rate 84 /min BP Systolic Sitting 120 mmHg BP Diastolic Sitting 62 mmHg Respiratory Rate 16 /min BMI (Body Mass Index) 27.8 kg/m2 04/21/2013 2:22pm Weight 148.00 lb Heart Rate 71 /min BP Systolic 140 mmHg BP Diastolic 80 mmHg Respiratory Rate 16 /min 04/02/2013 11:57am Heart Rate 72 /min BP Systolic Sitting 148 mmHg BP Diastolic Sitting 82 mmHg Respiratory Rate 12 /min 11/22/2012 1:07pm Height 61 inches 5'1" Weight 143.00 lb Heart Rate 100 /min BP Systolic 128 mmHg BP Diastolic 64 mmHg BMI (Body Mass Index) 27.0 kg/m2 04/19/2012 2:28pm Height 61 inches 5'1" Weight 143.00 lb Heart Rate 76 /min BP Systolic 128 mmHg BP Diastolic 68 mmHg BMI (Body Mass Index) 27.0 kg/m2 11/10/2011 12:19pm Height 61 inches 5'1" Weight 149.00 lb Heart Rate 71 /min BP Systolic Sitting 152 mmHg L BP Diastolic Sitting 70 mmHg L BMI (Body Mass Index) 28.2 kg/m2 02/14/2008 2:32pm Height 61 inches 5'1" Weight 155.00 lb Heart Rate 69 /min BP Systolic Sitting 170 mmHg BP Diastolic Sitting 80 mmHg Respiratory Rate 16 /min BMI (Body Mass Index) 29.3 kg/m2 12/28/2006 3:28pm Height 61 inches 5'1" Weight 154.00 lb Heart Rate 80 /min BP Systolic Sitting 180 mmHg BP Diastolic Sitting 86 mmHg BP Systolic Standing 170 mmHg BP Diastolic Standing 84 mmHg BMI (Body Mass Index) 29.1 kg/m2 08/11/2005 3:54pm Height 61 inches 5'1" Weight 141.00 lb Heart Rate 65 /min BP Systolic Sitting 160 mmHg BP Diastolic Sitting 80 mmHg BP Systolic Standing 154 mmHg BP Diastolic Standing 78 mmHg BMI (Body Mass Index) 26.6 kg/m2 02/02/2005 8:42am Height 61 inches 5'1" Weight 165.00 lb Heart Rate 68 /min BP Systolic Sitting 168 mmHg L BP Diastolic Sitting 70 mmHg L BP Systolic Standing 164 mmHg L BP Diastolic Standing 80 mmHg L BMI (Body Mass Index) 31.2 kg/m2 06/30/2004 9:25am Weight 158.00 lb Heart Rate 76 /min BP Systolic Sitting 114 mmHg BP Diastolic Sitting 80 mmHg BP Systolic Standing 126 mmHg BP Diastolic Standing 78 mmHg 06/14/2004 9:36am Height 62 inches 5'2" Weight 160.00 lb Heart Rate 68 /min regular BP Systolic Sitting 130 mmHg left arm BP Diastolic Sitting 70 mmHg left arm BP Systolic Standing 124 mmHg BP Diastolic Standing 70 mmHg BMI (Body Mass Index) 29.3 kg/m2 05/25/2004 10:11am Height 62 inches 5'2" Weight 155.00 lb Heart Rate 68 /min BP Systolic Sitting 140 mmHg L BP Diastolic Sitting 90 mmHg L BP Systolic Standing 140 mmHg L BP Diastolic Standing 80 mmHg L BMI (Body Mass Index) 28.3 kg/m2 Results Test Date Facility Test Result H/L Range Note Laboratory test 03/10/2019 [facility] Cancer Ag 11 U/mL <46 1 finding [address] [facility] ([address] [place] [address] [phone] Laboratory test 02/19/2019 [facility] Cancer Ag <pending> finding [address] [facility] ([address]), [place] [address] [phone] Basic Metabolic 04/23/2018 [facility] Sodium 139 mmol/L Normal 139-[address] [place] [address] [phone] Potassium 4.5 mmol/L Normal 3.5-5.0 Chloride 101 mmol/L Normal 101-111 Co2 Carbon Dioxide 33 mmol/L High 22-32 Anion Gap 5 mmol/L Normal 2-11 Glucose 88 mg/dL Normal 70-100 Blood Urea Nitrogen 16 mg/dL Normal 6-24 Creatinine 0.65 mg/dL Normal 0.51-0.95 BUN/Creatinine Ratio 24.6 High 8-20 Calcium 9.7 mg/dL Normal 8.6-10.3 Egfr Non- 87.9 >60 Egfr 113.1 >60 2 Laboratory test 04/23/2018 [facility] Erythrocyte Sed 20 mm/Hr Normal 0-[address] [place] [address] [phone] Vitamin D Total 25(Oh) 39.3 ng/mL Normal 20-50 Vitamin B12 04/23/2018 [facility] Vitamin B12 473 pg/mL Normal 180-914 [address] [place] [address] [phone] Folic Acid (Folate) > 20.00 ng/mL >3.99 Urinalysis Profile 01/22/2018 [facility] Urine Color Yellow [address] [place] [address] [phone] Urine Appearance Cloudy Urine Specific Venetie 1.024 Normal 1.010-1.030 Urine pH 5.0 Normal 5-9 Urine Urobilinogen Negative Negative Urine Ketones Negative Negative Urine Protein Negative Negative Urine Leukocytes Negative Negative Urine Blood Negative Negative * * Abnormal Negative 4 Urine Nitrite Negative Negative Urine Bilirubin Negative Negative Urine Glucose Negative Negative Laboratory test 12/25/2017 [facility] Surgical SEE RESULT [address] [place] [address] [phone] Hla B27 12/19/2017 [facility] Hla B27 Negative [address] [place] [address] [phone] Hla B27 Interp See Comment 7 Connective Tissue 12/19/2017 [facility] Anti-Nuclear 1.5 U High [address] [place] [address] [phone] Cyclic Citrullinated Peptide <15.6 U 9 Interpretation See Comment 10 Anca AB Ser If 12/19/2017 [facility] C-Anca Negative Negative [address] [place] [address] [phone] P-Anca Positive Negative 11 Laboratory test 12/19/2017 [facility] C Reactive 8.19 mg/L High < 5.00 [address] [place] [address] [phone] Erythrocyte Sed Rate 52 mm/Hr High 0-40 Vitamin D, 1,25 Dihydroxy 57 pg/mL 18-78 13 Quantiferon Gold 12/19/2017 [facility] M tuberculosis Negative Negative [address] [place] [address] [phone] TB Ag minus Nil Result 0 IU/mL TB Mitogen minus Nil Result 8.39 IU/mL TB Nil Result 0.02 IU/mL 15 CBC Auto 06/19/2017 [facility] White Blood 6.9 10^3/uL Normal 3.5-10.[address] [place] [address] [phone] Red Blood Count 4.29 10^6/uL Normal 4.0-5.4 Hemoglobin 12.6 g/dL Normal 12.0-16.0 Hematocrit 39 % Normal 35-47 Mean Corpuscular Volume 91 fL Normal 80-97 Mean Corpuscular Hemoglobin 29 pg Normal 27-31 Mean Corpuscular HGB Conc 32 g/dL Normal 31-36 Red Cell Distribution Width 15 % Normal 10.5-15 Platelet Count 347 10^3/uL Normal 150-450 Mean Platelet Volume 8 um3 Normal 7.4-10.4 Abs Neutrophils 4.8 10^3/uL Normal 1.5-7.7 Abs Lymphocytes 1.2 10^3/uL Normal 1.0-4.8 Abs Monocytes 0.6 10^3/uL Normal 0-0.8 Abs Eosinophils 0.3 10^3/uL Normal 0-0.6 Abs Basophils 0.1 10^3/uL Normal 0-0.2 Abs Nucleated RBC 0.01 10^3/uL Normal Granulocyte % 69.8 % Normal 38-83 Lymphocyte % 17.5 % Low 25-47 Monocyte % 8.1 % Normal 1-9 Eosinophil % 3.7 % Normal 0-6 Basophil % 0.9 % Normal 0-2 Nucleated Red Blood Cells % 0.1 Normal Comp Metabolic 06/19/2017 [facility] Sodium 139 mmol/L Normal 133-145 Panel [address] [place] [address] [phone] Potassium 4.6 mmol/L Normal 3.5-5.0 Chloride 103 mmol/L Normal 101-111 Co2 Carbon Dioxide 31 mmol/L Normal 22-32 Anion Gap 5 mmol/L Normal 2-11 Glucose 88 mg/dL Normal 70-100 Blood Urea Nitrogen 12 mg/dL Normal 6-24 Creatinine 0.63 mg/dL Normal 0.51-0.95 BUN/Creatinine Ratio 19.0 Normal 8-20 Calcium 9.4 mg/dL Normal 8.6-10.3 Total Protein 6.5 g/dL Normal 6.4-8.9 Albumin 3.7 g/dL Normal 3.2-5.2 Globulin 2.8 g/dL Normal 2-4 Albumin/Globulin Ratio 1.3 Normal 1-3 Total Bilirubin 0.30 mg/dL Normal 0.2-1.0 Alkaline Phosphatase 92 U/L Normal 34-104 Alt 19 U/L Normal 7-52 Ast 23 U/L Normal 13-39 Egfr Non- 91.4 Normal >60 Egfr 117.5 Normal >60 16 Laboratory 06/19/2017 [facility] Troponin-I 0.00 ng/mL Normal <0.04 17 test finding [address] (TnI) [place], [place] [id number] [phone] Laboratory 05/15/2017 [facility] Surgical SEE RESULT 18 test finding [address] [place] [address] [phone] Wound 05/15/2017 [facility] Wound/Misc SEE RESULT 19 Culture/Sensi [address] [place] [address] Stain [phone] Laboratory 05/15/2017 [facility] Anaerobic SEE RESULT 20 test finding [address] [place] [address] [phone] Inr/Protime 05/15/2017 [facility] Inr 0.97 Normal 0.89-1.[address] [place] [address] [phone] CBC No Diff 05/09/2017 [facility] White Blood 7.1 Normal 3.5- 10.[address] Count 10^3/uL [place], [place] [address] [phone] Red Blood Count 4.23 10^6/uL Normal 4.0-5.4 Hemoglobin 12.0 g/dL Normal 12.0-16.0 Hematocrit 37 % Normal 35-47 Mean Corpuscular Volume 88 fL Normal 80-97 Mean Corpuscular Hemoglobin 29 pg Normal 27-31 Mean Corpuscular HGB Conc 32 g/dL Normal 31-36 Red Cell Distribution Width 15 % Normal 10.5-15 Platelet Count 378 10^3/uL Normal 150-450 Mean Platelet Volume 7 um3 Low 7.4-10.4 Basic Metabolic 05/09/2017 [facility] Sodium 136 mmol/L Normal 133-[address] [place] [address] [phone] Potassium 4.3 mmol/L Normal 3.5-5.0 Chloride 101 mmol/L Normal 101-111 Co2 Carbon Dioxide 31 mmol/L Normal 22-32 Anion Gap 4 mmol/L Normal 2-11 Glucose 104 mg/dL High 70-100 Blood Urea Nitrogen 13 mg/dL Normal 6-24 Creatinine 0.56 mg/dL Normal 0.51-0.95 BUN/Creatinine Ratio 23.2 High 8-20 Calcium 9.2 mg/dL Normal 8.6-10.3 Egfr Non- 104.7 Normal >60 Egfr 134.6 Normal >60 21 Laboratory test 04/30/2017 [facility] Hemoglobin A1c 6.1 % High Less [address] (Glyco HGB) than 6.0 [place] [address] [phone] Laboratory test 03/29/2017 [facility] Troponin-I 0.00 Normal < 0.04 [address] (TnI) ng/[place] [address] [phone] CBC Auto Diff 03/29/2017 [facility] White Blood 6.1 Normal 3.5 -10.[address] Count 10^3/[place] [address] [phone] Red Blood Count 4.63 10^6/uL Normal 4.0-5.4 Hemoglobin 13.1 g/dL Normal 12.0-16.0 Hematocrit 41 % Normal 35-47 Mean Corpuscular Volume 89 fL Normal 80-97 Mean Corpuscular Hemoglobin 28 pg Normal 27-31 Mean Corpuscular HGB Conc 32 g/dL Normal 31-36 Red Cell Distribution Width 15 % Normal 10.5-15 Platelet Count 366 10^3/uL Normal 150-450 Mean Platelet Volume 8 um3 Normal 7.4-10.4 Abs Neutrophils 3.6 10^3/uL Normal 1.5-7.7 Abs Lymphocytes 1.4 10^3/uL Normal 1.0-4.8 Abs Monocytes 0.7 10^3/uL Normal 0-0.8 Abs Eosinophils 0.5 10^3/uL Normal 0-0.6 Abs Basophils 0.1 10^3/uL Normal 0-0.2 Abs Nucleated RBC 0 10^3/uL Normal Granulocyte % 58.4 % Normal 38-83 Lymphocyte % 22.1 % Low 25-47 Monocyte % 10.7 % High 1-9 Eosinophil % 7.7 % High 0-6 Basophil % 1.1 % Normal 0-2 Nucleated Red Blood Cells % 0 Normal Inr/Protime 03/29/2017 [facility] Inr 1.67 High 0.89-1.[address] [place] [address] [phone] Laboratory test 03/29/2017 [facility] B-Type 49 Normal [address] Natriuretic pg/[place] [address] Peptide BNP [phone] Basic Metabolic 03/29/2017 [facility] Sodium 138 Normal 133- 145 Panel 101 mmol/[place] [address] [phone] Potassium 4.3 mmol/L Normal 3.5-5.0 Chloride 101 mmol/L Normal 101-111 Co2 Carbon Dioxide 33 mmol/L High 22-32 Anion Gap 4 mmol/L Normal 2-11 Glucose 84 mg/dL Normal 70-100 Blood Urea Nitrogen 13 mg/dL Normal 6-24 Creatinine 0.71 mg/dL Normal 0.51-0.95 BUN/Creatinine Ratio 18.3 Normal 8-20 Calcium 9.3 mg/dL Normal 8.6-10.3 Egfr Non- 79.8 Normal >60 Egfr 102.7 Normal >60 25 Inr/Protime 02/28/2017 [facility] Inr 0.97 Normal 0.89-1.[address] [place] [address] [phone] Laboratory test 11/27/2016 [facility] Troponin 0.01 Normal < 0.[address] -I (TnI) ng/[place] [address] [phone] Erythrocyte Sed Rate 37 mm/Hr Normal 0-40 C Reactive Protein 4.58 mg/L Normal < 5.00 27 CBC Auto 11/27/2016 [facility] White Blood 6.6 10^3/uL Normal 3.5-10.[address] [place] [address] [phone] Red Blood Count 4.55 10^6/uL Normal 4.0-5.4 Hemoglobin 13.1 g/dL Normal 12.0-16.0 Hematocrit 40 % Normal 35-47 Mean Corpuscular Volume 88 fL Normal 80-97 Mean Corpuscular Hemoglobin 29 pg Normal 27-31 Mean Corpuscular HGB Conc 33 g/dL Normal 31-36 Red Cell Distribution Width 14 % Normal 10.5-15 Platelet Count 372 10^3/uL Normal 150-450 Mean Platelet Volume 8 um3 Normal 7.4-10.4 Abs Neutrophils 3.8 10^3/uL Normal 1.5-7.7 Abs Lymphocytes 1.7 10^3/uL Normal 1.0-4.8 Abs Monocytes 0.7 10^3/uL Normal 0-0.8 Abs Eosinophils 0.2 10^3/uL Normal 0-0.6 Abs Basophils 0.1 10^3/uL Normal 0-0.2 Abs Nucleated RBC 0 10^3/uL Normal Granulocyte % 58.3 % Normal 38-83 Lymphocyte % 25.8 % Normal 25-47 Monocyte % 11.2 % High 1-9 Eosinophil % 3.6 % Normal 0-6 Basophil % 1.1 % Normal 0-2 Nucleated Red Blood Cells % 0 Normal Laboratory test 02/17/2016 [facility] B-Type 31 pg/mL Normal [address] [place] [address] Peptide BNP [phone] Troponin-I (TnI) 0.01 ng/mL Normal <0.03 29 CBC Auto 02/17/2016 [facility] White Blood 6.9 10^3/uL Normal 3.5-10.[address] [place] [address] [phone] Red Blood Count 4.38 10^6/uL Normal 4.0-5.4 Hemoglobin 12.8 g/dL Normal 12.0-16.0 Hematocrit 39 % Normal 35-47 Mean Corpuscular Volume 88 fL Normal 80-97 Mean Corpuscular Hemoglobin 29 pg Normal 27-31 Mean Corpuscular HGB Conc 33 g/dL Normal 31-36 Red Cell Distribution Width 14 % Normal 10.5-15 Platelet Count 343 10^3/uL Normal 150-450 Mean Platelet Volume 8 um3 Normal 7.4-10.4 Abs Neutrophils 4.1 10^3/uL Normal 1.5-7.7 Abs Lymphocytes 2.0 10^3/uL Normal 1.0-4.8 Abs Monocytes 0.7 10^3/uL Normal 0-0.8 Abs Eosinophils 0.2 10^3/uL Normal 0-0.6 Abs Basophils 0 10^3/uL Normal 0-0.2 Abs Nucleated RBC 0.01 10^3/uL Normal Granulocyte % 58.7 % Normal 38-83 Lymphocyte % 28.6 % Normal 25-47 Monocyte % 9.6 % High 1-9 Eosinophil % 2.4 % Normal 0-6 Basophil % 0.7 % Normal 0-2 Nucleated Red Blood Cells % 0.1 Normal Laboratory 02/17/2016 [facility] D Dimer < 200 Normal Less 30 test finding 101 Quantitative ng/[place] [address] 230 [phone] Basic 02/17/2016 [facility] Sodium 136 Normal 133-145 Metabolic 101 mmol/L Panel [place], [place] [id number] [phone] Potassium 3.8 mmol/L Normal 3.5-5.0 Chloride 99 mmol/L Low 101-111 Co2 Carbon Dioxide 31 mmol/L Normal 22-32 Anion Gap 6 mmol/L Normal 2-11 Glucose 98 mg/dL Normal 70-100 Blood Urea Nitrogen 14 mg/dL Normal 6-24 Creatinine 0.67 mg/dL Normal 0.51-0.95 BUN/Creatinine Ratio 20.9 High 8-20 Calcium 9.6 mg/dL Normal 8.6-10.3 Egfr Non- 85.6 Normal >60 Egfr 110.1 Normal >60 31 Connective Tissue 02/17/2016 [facility] Anti-Nuclear 0.8 U Normal 32 Panel [address] [place] [address] [phone] Cyclic Citrullinated Peptide <15.6 U Normal 33 Interpretation See Comment Normal 34 Lipid Profile 02/04/2016 [facility] Triglycerides 90 mg/dL Normal 35 (Trig/Chol/HDL) [address] [place] [address] [phone] Cholesterol 204 mg/dL Normal 36 HDL Cholesterol 64.7 mg/dL Normal 37 LDL Cholesterol 121 mg/dL Normal 38 Comp Metabolic 02/04/2016 [facility] Sodium 137 mmol/L Normal 133-[address] [place] [address] [phone] Potassium 4.1 mmol/L Normal 3.5-5.0 Chloride 101 mmol/L Normal 101-111 Co2 Carbon Dioxide 32 mmol/L Normal 22-32 Anion Gap 4 mmol/L Normal 2-11 Glucose 91 mg/dL Normal 70-100 Blood Urea Nitrogen 13 mg/dL Normal 6-24 Creatinine 0.65 mg/dL Normal 0.51-0.95 BUN/Creatinine Ratio 20.0 Normal 8-20 Calcium 9.4 mg/dL Normal 8.6-10.3 Total Protein 6.4 g/dL Normal 6.4-8.9 Albumin 3.9 g/dL Normal 3.2-5.2 Globulin 2.5 g/dL Normal 2-4 Albumin/Globulin Ratio 1.6 Normal 1-3 Total Bilirubin 0.50 mg/dL Normal 0.2-1.0 Alkaline Phosphatase 90 U/L Normal 34-104 Alt 14 U/L Normal 7-52 Ast 18 U/L Normal 13-39 Egfr Non- 88.6 Normal >60 Egfr 114.0 Normal >60 39 CBC Auto 02/04/2016 [facility] White Blood 5.1 10^3/uL Normal 3.5-10.[address] [place] [address] [phone] Red Blood Count 4.71 10^6/uL Normal 4.0-5.4 Hemoglobin 13.6 g/dL Normal 12.0-16.0 Hematocrit 42 % Normal 35-47 Mean Corpuscular Volume 90 fL Normal 80-97 Mean Corpuscular Hemoglobin 29 pg Normal 27-31 Mean Corpuscular HGB Conc 32 g/dL Normal 31-36 Red Cell Distribution Width 14 % Normal 10.5-15 Platelet Count 366 10^3/uL Normal 150-450 Mean Platelet Volume 8 um3 Normal 7.4-10.4 Abs Neutrophils 3.2 10^3/uL Normal 1.5-7.7 Abs Lymphocytes 1.3 10^3/uL Normal 1.0-4.8 Abs Monocytes 0.5 10^3/uL Normal 0-0.8 Abs Eosinophils 0.1 10^3/uL Normal 0-0.6 Abs Basophils 0 10^3/uL Normal 0-0.2 Abs Nucleated RBC 0 10^3/uL Normal Granulocyte % 62.1 % Normal 38-83 Lymphocyte % 25.1 % Normal 25-47 Monocyte % 9.3 % High 1-9 Eosinophil % 2.7 % Normal 0-6 Basophil % 0.8 % Normal 0-2 Nucleated Red Blood Cells % 0 Normal Laboratory test 01/12/2015 [facility] Inr 1.42 High 0.78-1.07 [address] [place] [address] [phone] Comp Metabolic 12/15/2014 [facility] Sodium 138 mmol/L Normal 133-[address] [place] [address] [phone] Potassium 4.0 mmol/L Normal 3.5-5.0 Chloride 102 mmol/L Normal 101-111 Co2 Carbon Dioxide 31 mmol/L Normal 22-32 Anion Gap 5 mmol/L Normal 2-11 Glucose 83 mg/dL Normal 70-100 Blood Urea Nitrogen 15 mg/dL Normal 6-24 Creatinine 0.81 mg/dL Normal 0.51-0.95 BUN/Creatinine Ratio 18.5 Normal 8-20 Calcium 9.4 mg/dL Normal 8.6-10.3 Total Protein 6.7 g/dL Normal 6.4-8.9 Albumin 3.9 g/dL Normal 3.2-5.2 Globulin 2.8 g/dL Normal 2-4 Albumin/Globulin Ratio 1.4 Normal 1-3 Total Bilirubin 0.50 mg/dL Normal 0.2-1.0 Alkaline Phosphatase 91 U/L Normal 34-104 Alt 19 U/L Normal 7-52 Ast 17 U/L Normal 13-39 Egfr Non- 68.9 Normal >60 Egfr 88.6 Normal >60 41 Inr/Protime 12/15/2014 [facility] Inr 2.32 High 0.85-1.[address] [place] [address] [phone] Laboratory test 12/15/2014 [facility] Troponin I 0.00 Normal < 0.[address] ng/[place] [address] [phone] GGTP 15 U/L Normal 9-64.0 CBC Auto 12/15/2014 [facility] White Blood 5.3 10^3/uL Normal 4.8-10.[address] [place] [address] [phone] Red Blood Count 4.58 10^6/uL Normal 4.0-5.4 Hemoglobin 13.2 g/dL Normal 12.0-16.0 Hematocrit 42 % Normal 35-47 Mean Corpuscular Volume 91 fL Normal 80-97 Mean Corpuscular Hemoglobin 29 pg Normal 27-31 Mean Corpuscular HGB Conc 32 g/dL Normal 31-36 Red Cell Distribution Width 15 % Normal 10.5-15 Platelet Count 273 10^3/uL Normal 150-450 Mean Platelet Volume 8 um3 Normal 7.4-10.4 Abs Neutrophils 3.0 10^3/uL Normal 1.5-7.7 Abs Lymphocytes 1.6 10^3/uL Normal 1.0-4.8 Abs Monocytes 0.5 10^3/uL Normal 0-0.8 Abs Eosinophils 0.1 10^3/uL Normal 0-0.6 Abs Basophils 0.1 10^3/uL Normal 0-0.2 Abs Nucleated RBC 0 10^3/uL Normal Granulocyte % 57.3 % Normal 38-83 Lymphocyte % 30.4 % Normal 25-47 Monocyte % 8.7 % Normal 1-9 Eosinophil % 2.3 % Normal 0-6 Basophil % 1.3 % Normal 0-2 Nucleated Red Blood Cells % 0.1 Normal Laboratory test 12/15/2014 [facility] B Type 40 pg/mL Normal 43 finding [address] [facility] [place] [address] Peptide [phone] D Dimer Quantitative < 200 ng/mL Normal Less Than 230 44 Laboratory 12/01/2014 [facility] Inr 5.40 High 0.85-1.06 45, 46 test finding [facility] [place] [address] [phone] Laboratory 11/09/2014 [facility] Inr 1.67 High 0.85-1.06 test finding [address] [place] [address] [phone] Laboratory 10/08/2014 [facility] Inr 1.76 High 0.85-1.06 test finding [address] [place] [address] [phone] Laboratory 10/08/2014 [facility] Magnesium 1.9 Normal 1.9-2.7 test finding [address] [facility] mg/[place] [address] [phone] Basic 10/08/2014 [facility] Sodium 138 Normal 133-145 Metabolic [address] [facility] mmol/[place] [address] [phone] Potassium 4.4 mmol/L Normal 3.5-5.0 47 Chloride 103 mmol/L Normal 101-111 Co2 Carbon Dioxide 31 mmol/L Normal 22-32 Anion Gap 4 mmol/L Normal 2-11 Glucose 88 mg/dL Normal 70-100 Blood Urea Nitrogen 16 mg/dL Normal 6-24 Creatinine 0.74 mg/dL Normal 0.51-0.95 BUN/Creatinine Ratio 21.6 High 8-20 Calcium 9.2 mg/dL Normal 8.6-10.3 Egfr Non- 76.5 Normal >60 Egfr 98.4 Normal >60 48 Basic Metabolic 09/17/2014 [facility] Sodium 136 mmol/L Normal 133-[address] [place] [address] [phone] Potassium 3.5 mmol/L Low 3.7-5.6 Chloride 98 mmol/L Low 101-111 Co2 Carbon Dioxide 33 mmol/L High 22-32 Anion Gap 5 mmol/L Normal 2-11 Glucose 109 mg/dL High 70-100 Blood Urea Nitrogen 15 mg/dL Normal 6-24 Creatinine 0.72 mg/dL Normal 0.51-0.95 BUN/Creatinine Ratio 20.8 High 8-20 Calcium 9.3 mg/dL Normal 8.6-10.3 Egfr Non- 79.0 Normal >60 Egfr 101.6 Normal >60 49 CBC Auto 09/17/2014 [facility] White Blood 7.2 10^3/uL Normal 4.8-10.[address] [place] [address] [phone] Red Blood Count 4.36 10^6/uL Normal 4.0-5.4 Hemoglobin 12.8 g/dL Normal 12.0-16.0 Hematocrit 39 % Normal 35-47 Mean Corpuscular Volume 89 fL Normal 80-97 Mean Corpuscular Hemoglobin 29 pg Normal 27-31 Mean Corpuscular HGB Conc 33 g/dL Normal 31-36 Red Cell Distribution Width 14 % Normal 10.5-15 Platelet Count 307 10^3/uL Normal 150-450 Mean Platelet Volume 8 um3 Normal 7.4-10.4 Abs Neutrophils 4.2 10^3/uL Normal 1.5-7.7 Abs Lymphocytes 2.2 10^3/uL Normal 1.0-4.8 Abs Monocytes 0.6 10^3/uL Normal 0-0.8 Abs Eosinophils 0.1 10^3/uL Normal 0-0.6 Abs Basophils 0.1 10^3/uL Normal 0-0.2 Abs Nucleated RBC 0.01 10^3/uL Normal Granulocyte % 57.7 % Normal 38-83 Lymphocyte % 30.7 % Normal 25-47 Monocyte % 8.6 % Normal 1-9 Eosinophil % 2.0 % Normal 0-6 Basophil % 1.0 % Normal 0-2 Nucleated Red Blood Cells % 0.1 Normal Laboratory test 09/17/2014 [facility] Troponin I 0.00 ng/mL Normal <0.03 50 finding [address] [place] [address] [phone] Laboratory test 04/29/2014 [facility] Inr 3.93 High 0.85-1.06 finding [address] [place] [address] [phone] Laboratory test 04/29/2014 [facility] Troponin I 0.00 ng/mL Normal <0.03 [address] [place] [phone] Hemoglobin A1c 6.4 % High Less than 6.0 52 Lipid Profile 04/29/2014 [facility] Triglycerides 93 mg/dL Normal 53 (Trig/Chol/HDL) [address] [place] [address] [phone] Cholesterol 171 mg/dL Normal 54 HDL Cholesterol 65.8 mg/dL Normal 55 LDL Cholesterol 87 mg/dL Normal 56 Comp Metabolic 04/29/2014 [facility] Sodium 138 mmol/L Normal 133-145 Panel [address] [place] [address] [phone] Potassium 3.6 mmol/L Low 3.7-5.6 Chloride 100 mmol/L Low 101-111 Co2 Carbon Dioxide 32 mmol/L Normal 22-32 Anion Gap 6 mmol/L Normal 2-11 Glucose 81 mg/dL Normal 70-100 Blood Urea Nitrogen 16 mg/dL Normal 6-24 Creatinine 0.75 mg/dL Normal 0.51-0.95 BUN/Creatinine Ratio 21.3 High 8-20 Calcium 9.4 mg/dL Normal 8.6-10.3 Total Protein 6.6 g/dL Normal 6.4-8.9 Albumin 3.8 g/dL Normal 3.2-5.2 Globulin 2.8 g/dL Normal 2-4 Albumin/Globulin Ratio 1.4 Normal 1-3 Total Bilirubin 0.30 mg/dL Normal 0.2-1.0 Alkaline Phosphatase 101 U/L Normal 34-104 Alt 20 U/L Normal 7-52 Ast 18 U/L Normal 13-39 Egfr Non- 75.3 Normal >60 Egfr 96.9 Normal >60 57 Lipid Panel 04/29/2014 [facility] Creatine 145 U/L Normal 10- 223 - J[facility] [address] [place] [address] [phone] CBC Auto 04/29/2014 [facility] White Blood 5.2 Normal 4.8- 10.[address] Count 10^3/[place] [address] [phone] Red Blood Count 4.19 10^6/uL Normal 4.0-5.4 Hemoglobin 12.4 g/dL Normal 12.0-16.0 Hematocrit 37 % Normal 35-47 Mean Corpuscular Volume 88 fL Normal 80-97 Mean Corpuscular Hemoglobin 30 pg Normal 27-31 Mean Corpuscular HGB Conc 34 g/dL Normal 31-36 Red Cell Distribution Width 14 % Normal 10.5-15 Platelet Count 282 10^3/uL Normal 150-450 Mean Platelet Volume 8 um3 Normal 7.4-10.4 Abs Neutrophils 2.7 10^3/uL Normal 1.5-7.7 Abs Lymphocytes 1.8 10^3/uL Normal 1.0-4.8 Abs Monocytes 0.5 10^3/uL Normal 0-0.8 Abs Eosinophils 0.2 10^3/uL Normal 0-0.6 Abs Basophils 0 10^3/uL Normal 0-0.2 Abs Nucleated RBC 0.01 10^3/uL Normal Granulocyte % 51.1 % Normal 38-83 Lymphocyte % 35.4 % Normal 25-47 Monocyte % 9.7 % High 1-9 Eosinophil % 3.1 % Normal 0-6 Basophil % 0.7 % Normal 0-2 Nucleated Red Blood Cells % 0.1 Normal Comp Metabolic Panel 11/22/2012 [facility] Sodium 138 mmol/L 133-[address] [place] [address] [phone] Potassium 3.8 mmol/L 3.5-5.0 Chloride 100 mmol/L Low 101-111 Co2 Carbon Dioxide 33.0 mmol/L High 22-32 Anion Gap 5.0 mmol/L 2-11 Glucose 84 mg/dL 70-100 Blood Urea Nitrogen 13 mg/dL 6-24 Creatinine 0.60 mg/dL 0.50-1.40 BUN/Creatinine Ratio 21.7 High 8-20 Calcium 9.3 mg/dL 8.1-9.9 Total Protein 7.1 g/dL 6.2-8.1 Albumin 3.9 g/dL 3.2-5.2 Globulin 3.2 g/dL 2-4 Albumin/Globulin Ratio 1.2 1-3 Total Bilirubin 0.4 mg/dL 0.4-1.5 Alkaline Phosphatase 93 U/L 30-110 Alt 20 U/L 14-54 Ast 23 U/L 12-42 Egfr Non- 98.0 >60 Egfr 126.0 >60 58 CBC Auto Diff 11/22/2012 [facility] White Blood 6.4 10^3/uL 4.8-10.[address] [place] [address] [phone] Red Blood Count 4.43 10^6/uL 4.0-5.4 Hemoglobin 13.1 g/dL 12.0-16.0 Hematocrit 40 % 35-47 Mean Corpuscular Volume 90 fL 80-97 Mean Corpuscular Hemoglobin 30 pg 27-31 Mean Corpuscular HGB Conc 33 g/dL 31-36 Red Cell Distribution Width 15 % 10.5-15 Platelet Count 304 10^3/uL 150-450 Mean Platelet Volume 8 um3 7.4-10.4 Abs Neutrophils 3.9 10^3/uL 1.5-7.7 Abs Lymphocytes 1.8 10^3/uL 1.0-4.8 Abs Monocytes 0.6 10^3/uL 0-0.8 Abs Eosinophils 0.1 10^3/uL 0-0.6 Abs Basophils 0.1 10^3/uL 0-0.2 Abs Nucleated RBC 0.01 10^3/uL Granulocyte % 61.1 % 38-83 Lymphocyte % 28.0 % 25-47 Monocyte % 8.7 % 1-9 Eosinophil % 1.2 % 0-6 Basophil % 1.0 % 0-2 Nucleated Red Blood Cells % 0.1 Inr/Protime 11/22/2012 [facility] Inr 2.59 High 0.82-1.[address] [place] [address] [phone] Laboratory test 11/22/2012 [facility] Troponin I 0.01 0-0.06 [address] ng/[place] [address] [phone] Laboratory test 11/10/2011 [facility] TSH 1.76 0.34-5.[address] MIU/[place] [address] [phone] Troponin-I 0.02 NG/ML 0-0.06 61 Lipid Profile 11/10/2011 [facility] Triglyceride 82 mg/dL 40- 200 (Trig/Chol/HDL) [address] [place] [address] [phone] Cholesterol 219 mg/dL High Less Than 200 62 High Density Lipoprotein 73 mg/dL High 40-60 63 Low Density Lipoprotein 130 mg/dL High Less Than 100 64 Cholesterol/HDL Ratio 3.00 AVERAGE 1-4.44 Laboratory test 11/10/2011 [facility] D Dimer 209 NG/ML Less [address] Quantitative Than 230 [place] [address] [phone] CBC Auto Diff 11/10/2011 [facility] White Blood Count 5.7 CUMM 4.8-10.[address] [place] [address] [phone] Red Cell Count 4.42 CUMM 4.2-5.4 Hemoglobin 12.5 g/dL 12.0-16.0 Hematocrit 38 % 35-47 Mean Corpuscular Volume 85 um3 79-97 Mean Corpuscular Hemoglob 28 pg 27-31 Mean Corpuscular HGB Cone 33 g/dL 32-36 Redcell Distribution WDTH 15 % 10.5-15 Platelet Count 325 CUMM 150-450 Mean Platelet Volume 8.9 um3 7.4-10.4 Gran % 56.3 % 38-83 Lymph % 33.6 % 25-47 Mononuclear % 7.8 % 1-9 Eosinophil % 1.4 % 0-6 Basophil % 0.9 % 0-2 Abs Lymphs 1.9 1.0-4.8 Abs Mononuclear 0.4 0-0.8 Absolute Neutrophil Count 3.2 1.5-7.7 Abs Eosinophils 0.1 0-0.6 Abs Basophils 0.1 0-0.2 Laboratory test 11/10/2011 [facility] CPK (Creatine 78 U/L 0- [address] [place]) [place] [address] [phone] Comp Metabolic 11/10/2011 [facility] Sodium 139 135-[address] mmol/[place] [address] [phone] Potassium 4.2 mmol/L 3.5-5.0 Chloride 99 mmol/L Low 101-111 Co2 (Carbon Dioxide) 32.0 mmol/L 22-32 Anion Gap 8.0 mmol/L 2-11 66 Glucose 104 mg/dL High 70-100 BUN 13 mg/dL 6-24 Creatinine 0.7 mg/dL 0.50-1.40 One Over Creatinine 1.42 BUN/Creatinine Ratio 18.6 8-20 Calcium 9.3 mg/dL 8.1-9.9 Total Protein 6.8 GM/DL 6.2-8.1 Albumin 3.8 GM/DL 3.2-5.2 Globulin 3.0 GM/DL 2-4 Albumin/Globulin Ratio 1.3 1-3 Bilirubin Total 0.5 mg/dL 0.4-1.5 67 Alkaline Phosphatase 103 U/L 30-110 Alt (SGPT) 25 U/L 14-54 Ast (Sgot) 26 U/L 12-42 eGFR Non- 82.3 > 60 eGFR 105.8 > 60 68 1 ADDITIONAL INFORMATION The testing method is an electrochemiluminescence assay manufactured by [employer] and performed on the Errol system. Values obtained with different assay methods or kits may be different and cannot be used interchangeably. Test results cannot be interpreted as absolute evidence for the presence or absence of malignant disease. Test Performed by: [facility] [address] [place] [address] 2 Because ethnic data is not always readily [...] 15-29 5 Kidney failure <15 (or dialysis) 3 Normal Range 180 to 914 Indeterminate Range 145 to 180 Deficient Range <145 4 *Ascorbic acid is present which may interfere with detection of blood. 5 SEE RESULT BELOW Name: NOEMY ESTRADA I : [address]: Adebayo Vieira MD Acct: [id number] Unit: [id number] AGE: 77 Location: ENDO Re12/25/17 SEX: F Status: DEP REF SPEC: [id number] REA: 12/25/17-151 [facility] [address]: Adebayo Vieira MD REQ: [id number] RECD: 12/25/17 STATUS: DAE CASTREJON DR: Estefania Palacios MD _ ORDERED: LEVEL 4/2 FINAL DIAGNOSIS 1. Colon, descending, biopsy: -- Benign colonic mucosa with no significant pathologic abnormalities. -- No evidence of microscopic colitis. 2. Colon, sigmoid, biopsy: -- Benign colonic mucosa with surface red blood cell extravasation and hyperplastic change. -- No evidence of microscopic colitis. -- No evidence of viral cytopathic effect or parasites. CLINICAL HISTORY Diarrhea POST-OPERATIVE DIAGNOSIS Colonoscopy to 45 cm ? nodular stool; 25-33 white exudate and rice granularity, no blood. Conclusions/Plan: Diverticulosis; sigmoid inflammation; nodular stool GROSS DESCRIPTION 1. The specimen is received in formalin labeled, Descending Colon Biopsies , and consists of a 0.3 x 0.3 x 0.1 cm monroy-pink irregular soft tissue fragment which is submitted entirely in one cassette. 2. The specimen is received in formalin labeled, Sigmoid Colon Biopsies, and consists of two monroy-pink irregular soft tissue fragments measuring 0.3 x 0.2 x 0.1 cm and 0.4 by up to 0.2 x 0.1 cm which are submitted entirely in one cassette. Signed (signature on file) Charlee Vazquez MD 06/05 1121 END OF REPORT * ML=Testing performed at Main Lab DEPARTMENT OF PATHOLOGY, [address] [place] [address] Theodore Link M.D. Director [facility] # [id number] 6 REFERENCE VALUE Not Applicable 7 RESULT: HLA-B27 antigen was not detected. ADDITIONAL INFORMATION Method: Flow Cytometry Performing Laboratory CLIA# [id number] Test Performed by: [facility] ([facility] [address] [place] [address] 8 Interpretation: Weak Positive (1.1-2.9) REFERENCE VALUE <=1.0 (Negative) 9 REFERENCE VALUE <20.0 (Negative) 10 Tests for antibodies to dsDNA and SAMY antigens are not performed automatically unless the TRACEY result is > or= 3.0 U. Studies performed at [facility] indicate that positive TRACEY results <3.0 U are rarely accompanied by positive second order tests. 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 Suggest further testing for anti-myeloperoxidase (anti-MPO) antibodies, if clinically indicated. ADDITIONAL INFORMATION This test was developed and its performance characteristics determined by [facility] in a manner consistent with CLIA requirements. This test has not been cleared or approved by the U.S. Food and Drug Administration. Test Performed by: [facility] - [address] [address] 12 Acute inflammation: >10.00 13 ADDITIONAL INFORMATION This test was developed and its performance characteristics determined by [facility] in a manner consistent with CLIA requirements. This test has not been cleared or approved by the U.S. Food and Drug Administration. Test Performed by: [facility] [address] [place] [address] 14 No interferon-gamma response to M. tuberculosis antigens was detected. Infection with M. tuberculosis is unlikely. A negative result alone does not exclude infection with M. tuberculosis. For detailed information regarding test interpretation see: [email or web address] 15 Test Performed by: [facility] - [address] [facility], [place] [address] 16 Because ethnic data is not always readily [...] 15-29 5 Kidney failure <15 (or dialysis) 17 HOLD AND CALL PROVIDER NUMBER- [phone] PATIENT NUMBER- [id number] 18 SEE RESULT BELOW Name: NOEMY ESTRADA I : [address]: Nabila Huynh MD Acct: [id number] Unit: [id number] AGE: 77 Location: OR Re05/15/17 SEX: F Status: [place] SPEC: [id number] REA: 05/15/17-1451 [facility] [address]: Nabila Huynh MD REQ: [id number] RECD: 05/15/17 STATUS: SOUT _ ORDERED: LEVEL 4 FINAL DIAGNOSIS Skin and subcutaneous tissue, left thigh, excision: -- Organizing abscess with acute and chronic inflammation foreign body giant cell reaction and scattered granulomas. -- No evidence of neoplasia identified. PRE-OPERATIVE DIAGNOSIS Left thigh mass. GROSS DESCRIPTION The specimen is received in formalin labeled, Left Thigh Excision, and consists of a 2.1 by up to 2.0 cm monroy wrinkled unoriented skin ellipse excised to a maximum depth of 4.2 cm with a central 1.8 by up to 1.2 cm monroy shaggy defect. There is a 2.1 x 1.9 by up to 1.6 cm yellow-white heterogeneous ill-defined focally disrupted area within the subcutaneous tissue. The remaining cut surface consists of yellow lobulated adipose tissue. The specimen is inked, serially sectioned and shipping services sales representative sections are submitted in four cassettes. Signed (signature on file) Theodore Link MD 1113 END OF REPORT * ML=Testing performed at Main Lab DEPARTMENT OF PATHOLOGY, [address] [place] [address] Theodore Link M.D. Director [facility] # [id number] 19 SEE RESULT BELOW Name: NOEMY ESTRADA I : [address]: Nabila Huynh MD Acct: [id number] Unit: [id number] AGE: 77 Location: OR Re05/15/17 SEX: F Status: DEP SDC SPEC: [id number] REA: 05/15/17-14[address] [facility] [address]: Nabila Huynh MD REQ: [id number] RECD: 05/15/17 STATUS: RES OTHR DR: Estefania Dumont MD _ SOURCE: WOUND SPDESC:LEFT LEG ORDERED: Anaerobic Cult, Culture Stain QUERIES: Specimen Description LEFT THIGH MASS Procedure Result Reported Site Anaerobic Culture PENDING Wound/Misc Gram Stain Final 05/16/17- 07 ML 3+ Neutrophils 2+ Nucleated Cells No Organisms Seen Wound/Misc Culture PENDING * ML - MAIN LAB ([facility]) . END OF REPORT * ML=Testing performed at Main Lab DEPARTMENT OF PATHOLOGY, [address] [place] [address] Theodore Link M.D. Director [facility] # [id number] 20 SEE RESULT BELOW Name: NOEMY ESTRADA I : [address]: Nabila Huynh MD Acct: [id number] Unit: [id number] AGE: 77 Location: OR Re05/15/17 SEX: F Status: DEP SDC SPEC: [id number] REA: 05/15/17-8 [facility] DR: Nabila Huynh MD REQ: [id number] RECD: 05/15/17 STATUS: KINA CASTREJON DR: Estefania Dumont MD _ SOURCE: WOUND SPDESC:LEFT LEG ORDERED: Anaerobic Cult, Culture Stain QUERIES: Specimen Description LEFT THIGH MASS Procedure Result Reported Site Anaerobic Culture Final 05/19/17- 949 ML Anaerobe Culture No Anaerobes Day 4 Wound/Misc Gram Stain Final 05/16/17- 737 ML 3+ Neutrophils 2+ Nucleated Cells No Organisms Seen Wound/Misc Culture Final 05/20/17- 806 ML Organism 1 STAPHYLOCOCCUS AUREUS Quantity 1+ 1. STAPHYLOCOCCUS AUREUS M.I.C. RX --------- ------ Penicillin 0.12 S Clindamycin <=0.25 S Erythromycin <=0.25 S Gentamicin <=0.5 S Linezolid 2 S Nitrofurantoin <=16 S Oxacillin <=0.25 S * Quinupristin/Dalfopristin <=0.25 S Rifampin <=0.5 S Tetracycline <=1 S Doxycycline - Deduced S CONTINUED ON NEXT PAGE * ML=Testing performed at Main Lab DEPARTMENT OF PATHOLOGY, [address] [place] [address] Theodore Link M.D. Director [facility] # [id number] Patient: NOEMY ESTRADA I [id number] (Continued) Specimen: [id number] Collected: 05/15/17 Received: 05/15/17 (Continued) Procedure Result Reported Site Wound/Misc Culture Final (continued) 05/20/17- 806 1. STAPHYLOCOCCUS AUREUS (continued) M.I.C. RX --------- ------ * Minocycline - Deduced S Trimethoprim/Sulfamethoxazole <=10 S Vancomycin 1 S Imipenem-Deduced S * Ampicillin/Sulbactam-Deduced S Cefazolin-Deduced S * These antibiotics are not available in the [facility] Formulary Contact the Microbiology Department for any additional antibiotic reporting. * ML - MAIN LAB ([facility]) . END OF REPORT * ML=Testing performed at Main Lab DEPARTMENT OF PATHOLOGY, [address] [place] [address] Theodore Link M.D. Director [facility] # [id number] 21 Because ethnic data is not always readily [...] 15-29 5 Kidney failure <15 (or dialysis) 22 Therapeutic target for the treatment of diabetes Mellitus patients is <7% HBA1C, and in selective patients <6.0%.Please refer to [place] [employer] Diabetic care guidelines for further information. 23 99th percentile=0.04 ng/mL Troponin results at [facility] and [facility] are not interchangeable. 24 >100 to <200 pg/mL: likely compensated congestive heart failure (CHF) 200 to 400 pg/mL: likely moderate CHF >400 pg/mL: likely moderate to severe CHF 25 Because ethnic data is not always readily [...] 15-29 5 Kidney failure <15 (or dialysis) 26 99th percentile=0.04 ng/mL Troponin results at [facility] and [facility] are not interchangeable. 27 Acute inflammation: >10.00 28 >100 to <200 pg/mL: likely compensated congestive heart failure (CHF) 200 to 400 pg/mL: likely moderate CHF >400 pg/mL: likely moderate to severe CHF 29 Reference Range and Interpretation: TnI (ng/mL) Interpretation Less Than 0.03 ng/mL Not supportive of diagnosis of GA 0.03 - 0.50 ng/mL Indeterminate: suggest serial studies if clinically indicated. Greater than 0.5 ng/mL Consistent with diagnosis of GA 30 Please note: The following may produce a false positive D Dimer test: - Rheumatoid factor greater than 60 IU/ml - Plasma hemoglobin greater than 0.05 gm/dl - Bilirubin greater than 50 mg/dl - Lipids greater than 1000 mg/dl - FDP greater than 20 ug/ml 31 Because ethnic data is not always readily [...] 15-29 5 Kidney failure <15 (or dialysis) 32 REFERENCE VALUE <=1.0 (Negative) 33 REFERENCE VALUE <20.0 (Negative) 34 Tests for antibodies to dsDNA and SAMY antigens are not performed automatically unless the TRACEY result is > or= 3.0 U. Studies performed at [facility] indicate that positive TRACEY results <3.0 U are rarely accompanied by positive second order tests. Test Performed by: [facility] [place] [address] [employer] Lia[employer] Officer: Satya Wu II, M.D., Ph.D. 35 Desirable <150 Borderline high 150-199 High 200-499 Very High >500 36 Desirable <200 Borderline high 200-239 High >239 37 Low <40 Desirable: 40-60 High: >60 38 Desirable: <100 mg/dL Near Optimal: 100-129 mg/dL Borderline High: 130-159 mg/dL High: 160-189 mg/dL Very High: >189 mg/dL 39 Because ethnic data is not always readily [...] 15-29 5 Kidney failure <15 (or dialysis) 40 Please note: Effective December 16, 2014, the reference value for this test has changed due to the validation and activation of a new reagent lot number. 41 Because ethnic data is not always readily [...] 15-29 5 Kidney failure <15 (or dialysis) 42 Reference Range and Interpretation: TnI (ng/mL) Interpretation Less Than 0.03 ng/mL Not supportive of diagnosis of GA 0.03 - 0.50 ng/mL Indeterminate: suggest serial studies if clinically indicated. Greater than 0.5 ng/mL Consistent with diagnosis of GA 43 >100 to <200 pg/mL: likely compensated congestive heart failure (CHF) 200 to 400 pg/mL: likely moderate CHF >400 pg/mL: likely moderate to severe CHF [place] [facility] 44 Please note: The following may produce a false positive D Dimer test: - Rheumatoid factor greater than 60 IU/ml - Plasma hemoglobin greater than 0.05 gm/dl - Bilirubin greater than 50 mg/dl - Lipids greater than 1000 mg/dl - FDP greater than 20 ug/ml 45 LEMPERT 46 DIMITRIPERT 47 Potassium reference range changed effective 09/20/14 48 Because ethnic data is not always readily [...] 15-29 5 Kidney failure <15 (or dialysis) 49 Because ethnic data is not always readily [...] 15-29 5 Kidney failure <15 (or dialysis) 50 Reference Range and Interpretation: TnI (ng/mL) Interpretation Less Than 0.03 ng/mL Not supportive of diagnosis of GA 0.03 - 0.50 ng/mL Indeterminate: suggest serial studies if clinically indicated. Greater than 0.5 ng/mL Consistent with diagnosis of GA 51 Reference Range and Interpretation: TnI (ng/mL) Interpretation Less Than 0.03 ng/mL Not supportive of diagnosis of GA 0.03 - 0.50 ng/mL Indeterminate: suggest serial studies if clinically indicated. Greater than 0.5 ng/mL Consistent with diagnosis of GA 52 Therapeutic target for the treatment of diabetes Mellitus patients is <7% HBA1C, and in selective patients <6.0%.Please refer to [place] [employer] Diabetic care guidelines for further information. 53 Desirable <150 Borderline high 150-199 High 200-499 Very High >500 54 Desirable <200 Borderline high 200-239 High >239 55 Low <40 Desirable: 40-60 High: >60 56 Desirable <100 Near Optimal 100-129 Borderline high 130-159 High 160-189 Very High >189 57 Because ethnic data is not always readily [...] 15-29 5 Kidney failure <15 (or dialysis) 58 Because ethnic data is not always readily [...] 15-29 5 Kidney failure <15 (or dialysis) 59 The INR(International Normalized Ratio) was adopted by the World Health Organization (WHO) in 1982 as a standardized system of reporting PT (Prothrombin Time). The Centers for Disease Control (CDC) states that reporting of PT results in INR only is the preferred method. Recommended INR for Patients on Oral Anticoagulants Prophylaxis 2.0 - 3.0 Treatment of thrombosis 2.0 - 3.0 Prevention of embolism 2.0 - 3.0 Prevention of embolism from prosthetic heart valves 2.5 - 3.5 60 Reference Range and Interpretation: TnI (ng/ml) Interpretation Less Than 0.06 ng/mL Not supportive of diagnosis of GA 0.06 - 0.50 ng/ml Indeterminate: suggest serial studies if clinically indicated. Greater than 0.5 ng/mL Consistent with diagnosis of GA 61 New Reference Range and Interpretation effective 08/22/2002 TnI (ng/ml) INTERPRETATION Less Than 0.06 ng/mL NOT SUPPORTIVE OF DIAGNOSIS OF GA 0.06 - 0.50 ng/ml INDETERMINATE: SUGGEST SERIAL STUDIES IF CLINICALLY INDICATED. Greater than 0.5 ng/mL CONSISTENT WITH DIAGNOSIS OF GA . 62 CHOLESTEROL INTERPRETATION: Desirable: Less than 200 MG/DL Borderline-High Risk: 200-239 MG/DL High-Risk: 240 MG/DL and over 63 HDL INTERPRETATION: Undesirable: High Risk: Less than 40 MG/DL Desirable: Low Risk: Greater than 60 MG/DL 64 LDL INTERPRETATION: Low Risk Optimal Level: LDL Less than 100 MG/DL Near or Above Optimal: LDL 100-129 MG/DL Borderline High Risk: LDL 130-159 MG/DL High Risk: LDL 160-189 MG/DL Very High Risk: LDL Greater than 189 MG/DL 65 Please note: The following may produce a false positive D Dimer test: - Rheumatoid factor greater than 1400 IU/ml - Plasma hemoglobin greater than 0.5 gm/dl - Bilirubin greater than 18 mg/dl - Triglycerides greater than 1327 mg/dl - FDP greater than 10 ug/ml . 66 Anion gap measurement may be of limited value in the presence of any alkalosis, especially in a combined acid base disorder. . 67 A metabolite of Naproxen, O-desmethylnaproxen, has been shown to interfere with the Jendrassik-Giulia method for measuring total bilirubin. Samples from patients who have taken Naproxen have shown spurious elevation in total bilirubin levels. 68 Because ethnic data is not always readily [...] 15-29 5 Kidney failure <15 (or dialysis) Procedures Date Code Description Status 02/04/2019 36788 Removal Devitalization Tissue Wound Less Than Equal 20 Completed Square CM 01/30/2019 13671 Removal Devitalization Tissue Wound Less Than Equal 20 Completed Square CM 01/22/2019 [id number] Mammogram Completed 01/21/2019 36736 Debridement Skin,& sq Tissue Completed 01/14/2019 94758 Removal Devitalization Tissue Wound Less Than Equal 20 Completed Square CM 01/07/2019 80004 Debridement Skin,& sq Tissue Completed 12/27/2018 01253 EKG Tracing & Interpretation Completed 10/30/2018 32472 EKG Tracing & Interpretation Completed 06/11/2018 23121 ECHO Transthorasic Realtime 2D W Doppler & Color Flow Completed Hosp 04/09/2018 75557 EKG Tracing & Interpretation Completed 04/09/2018 18180 EKG Tracing & Interpretation Completed 02/14/2018 68178 EKG Tracing & Interpretation Completed 02/06/2018 [id number] Bone Mineral Density Test Completed 12/25/2017 86246621 Colonoscopy Completed 11/06/2017 62692 EKG Tracing & Interpretation Completed 08/15/2017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
[2019-06-25 22:05] LABS: ABS Basophils 0.1 10^3/ul (0-0.2); ABS Eosinophils 0.2 10^3/ul (0-0.6); ABS Lymphocytes 1.5 10^3/ul (1.0-4.8); ABS Monocytes 0.6 10^3/ul (0-0.8); ABS Neutrophils 3.9 10^3/ul (1.5-7.7); Eosinophil % 3.3 %; Hematocrit 39 % (35-47); Hemoglobin 12.9 g/dL (12.0-16.0); Lymphocyte % 23.3 %; Mean Corpuscular HGB Conc 33 g/dL (31-36); Mean Corpuscular Hemoglobin 29 pg (27-31); Mean Corpuscular Volume 88 fL (80-97); Mean Platelet Volume 7.5 fL (7.4-10.4); Platelet Count 306 10^3/uL (150-450); Red Blood Count 4.45 10^6 /uL (3.70-4.87); Red Cell Distribution Width 15 % (10-15); White Blood Count 6.2 10^3/uL (3.5-10.8)
[2019-06-25 22:22] LABS: Albumin 4.1 g/dL (3.2-5.2); Albumin/Globulin Ratio 1.4 (1-3); BUN/Creatinine Ratio 29.5 (8-20); Calcium 9.6 mg/dL (8.6-10.3); EGFR Non-African American 71.1 (>60); Globulin 2.9 g/dL (2-4); Potassium 4.2 mmol/L (3.5-5.0); Total Bilirubin 0.3 mg/dL (0.2-1.0)
[2019-06-25 22:41] LABS: INR 7.31 (0.82-1.09)
--- NOTE | 2019-06-26 01:18 | ED ---
Progress - Progress Note Progress Note: This patient was signed out from Dr. Mackey to Dr. Alexandra at 22: 00 06/25/19 pending labs. Blood work and chemistries obtained. The patient has had two negative troponins and will be discharged home and follow up with her PCP. The patient is agreeable with this plan. Course/Dx - Course Course Of Treatment: This patient was signed out from Dr. Mackey to Dr. Alexandra at 22:00 06/25/19 pending labs. Blood work and chemistries obtained. The patient has had two negative troponins and will be discharged home and follow up with her PCP and assembler for puller over hand. The patient is agreeable with this plan. - Diagnoses Provider Diagnoses: Chest pain Discharge ED - Sign-Out/Discharge Documenting (check all that apply): Patient Departure - DC Patient Received Moderate/Deep Sedation with Procedure: No - Discharge Plan Condition: Stable Disposition: HOME Patient Education Materials: Chest Pain (DC) Print Language: QATARI Referrals: Obdulio Castrejon MD [Medical Doctor] - 3 Days Estefania Dumont MD [Primary Care Provider] - 3 Days Additional Instructions: You were seen in the emergency department for chest pain. Your labs showed a normal heart number, If any studies were not completed at the time of discharge you will be called with the relevant results. Please follow up with your primary care doctor and assembler for puller over hand in the next 2-3 days and return to the emergency department for worsening pain, trouble breathing, passing out or concerning symptoms. It was a pleasure taking care of you today. Do not take your Coumadin tonight. Follow-up with your primary care doctor for further instruction. - Billing Disposition and Condition Condition: STABLE Disposition: Home - Attestation Statements Document Initiated by Juan A: Yes Documenting Scribe: Phil Ortega Provider For Whom Juan A is Documenting (Include Credential): Regina Millan MD Scribe Attestation: Horacio, alec Saeznibed for Regina Alexandra MD on 08/13/19 at 1107. Scribe Documentation Reviewed: Yes Provider Attestation: The documentation as recorded by the Phil hope accurately reflects the service I personally performed and the decisions made by me, Regina Alexandra MD Status of Scribe Document: Viewed
[2019-06-26 01:31] VITALS: BP 0/0
== END 2019-06-26 01:29 | disposition home or self-care (01) ==
LOC: ED 19:46
DX: R07.9 Chest pain, unspecified (principal); I20.9 Angina pectoris, unspecified; I10 Essential (primary) hypertension; K21.9 Gastro-esophageal reflux disease without esophagitis; Z86.718 Personal history of other venous thrombosis and embolism; Z79.01 Long term (current) use of anticoagulants; Z79.899 Other long term (current) drug therapy; Z88.6 Allergy status to analgesic agent; Z88.1 Allergy status to other antibiotic agents; Z88.5 Allergy status to narcotic agent; Z88.0 Allergy status to penicillin; Z88.8 Allergy status to other drugs, medicaments and biological substances
CPT/HCPCS: 36415; 80053; 84484; 85025; 85610; 93005; 99283

== ENCOUNTER 2020-01-04 15:50 | Emergency (ER) | payer MEDICARE ==
--- OUTSIDE RECORDS SUMMARY | 2020-01-04 16:16 | XMS REPORT | Continuity of Care Document ---
:1940 External Reference #:[id number] Author Name Marie Martell M.D. (transmitted by agent of provider Karie Luis) Address [address] 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 2004) Nexium [...] joint effusion Kailey Hastings M.D. Onset: 04/04/2017 Social History Type Date Description Comments Sex Unknown Tobacco Use Start: Unknown Never Smoked Cigarettes Smoking Status Reviewed: 12/19/19 Never Smoked Cigarettes ETOH Use Drinks Alcoholic Beverages Occasionally Tobacco Use Start: Unknown Patient has never exposure to second smoked hand smoke in the past Recreational Drug Use Denies Drug Use Exercise Type/Frequency Exercises regularly Stationary Bicycle 2miles almost every day Allergies, Adverse Reactions, Alerts Active Allergies Reaction Severity Comments Date Penicillin Severe difficulty breathing 05/06/2004 Celebrex hypertensive rxn severe 05/06/2004 Betablockers washed out 05/06/2004 Neurontin rash hives 08/11/2005 Effexor 11/10/2011 Nortriptyline 11/10/2011 Lyrica 11/10/2011 Tramadol nausea 11/10/2011 Statins 11/10/2011 Oxycodone per [facility] 09/01/2014 Doxycycline per [facility] 09/01/2014 Cymbalta per [facility] 09/01/2014 Codeine per [facility] 09/01/2014 [place] Butter Urticaria 07/04/2017 Metronidazole diarrhea/nausea 12/06/2018 Sulfa Antibiotics rash 12/06/2018 Levofloxacin 12/27/2018 Medications Active Medications SIG Qnty Indications Ordering Date Provider Aspirin 1 by mouth every Obdulio Rodriguez 04/09/2018 81mg Chewtabs day Chata Castrejon Nitro-Dur 1 placed on chest 90units R07.9 Obdulio Rodriguez 01/21/2018 0.6mg/HR during day, Chata Castrejon Patches 24HR removed at night Nucynta ER 1 tab by mouth 10tabs Bryan Howard, 05/09/2017 200mg twice a day as MDCORI Tablets ER 12HR needed for pain Verapamil HCL ER 1 po mid-day or am 100caps Obdulio Rodriguez 07/29/2015 240mg (pt states between Chata Castrejon Caps ER 24HR 12-4). and 1/2 at night (per pt) Coumadin as directed ( Unknown 12/30/[address] Dumont) Alendronate Sodium take one tablet by Unknown 70mg mouth once a week Tablets Mesalamine Estefania Dumont, 1.2gm Tablets Clobetasol Propionate Lucie Saldaña, 0.05% Ointment Triamcinolone Estefania Dumont, Acetonide 0.5% Cream Vitamin E Unknown 200Unit Capsules Omeprazole 1 by mouth every Unknown 20mg day Capsules Alprazolam once a day Estefania Dumont, 0.25mg MD Tablets Nucynta ER 1 po @hs Unknown 150mg Tablets ER 12HR Fiber Unknown 625mg Tablets Esomeprazole 1.5 cap po daily Estefania Dumont, Magnesium MD 40mg Capsules DR Mak 1 by mouth at noon Unknown 50mg Tablets daily Metaxalone 2 times per day Unknown 800mg Tablets Multivitamin W/O K 1 po qd Unknown Tablets Calcium + D 1 tablet po daily Unknown Medications Administered in Office Medication SIG Qnty Indications Ordering Provider Date Depomedrol 40MG Kailey Hastings M.D. 08/15/2017 Injection Depomedrol 40MG Kailey Hastings M.D. 08/15/2017 Injection Depomedrol 40MG Kailey Hastings M.D. 04/04/2017 Injection Depomedrol 40MG Kailey Hastings M.D. 04/04/2017 Injection Hyalagan Or Supartz, Jerome Hastings M.D. 01/24/2017 Intra-Articular Inject Per Dose Injection Hyalagan Or Natasha, Jerome Hastings M.D. 01/24/2017 Intra-Articular Inject Per Dose Injection Hyalagan Or Supartz, For Kailey Hastings M.D. 01/17/2017 Intra-Articular Inject Per Dose Injection Hyalagan Or Supartz, Jerome Hastings M.D. 01/17/2017 Intra-Articular Inject Per Dose Injection Inj, Regadenoson, 0.1 MG Tim Bal, DO [facility] 01/11/2017 Injection Technetium TC 99M Tim Bal, DO [facility] 01/11/2017 Tetrofosmin, Per Unit Dose Up To 40 Millicuries Injection Hyalagan Or Supartz, For Kailey Hastings [...] Inj, Regadenoson, 0.1 MG Tim Bal, DO [facility] 03/15/2016 Injection Technetium TC 99M Tim Bal, DO [facility] 03/15/2016 Tetrofosmin, Per Unit Dose Up To 40 Millicuries Injection Depomedrol 80MG JEFFERSON Reveles 10/21/2014 Injection Immunizations Description No Information Available Vital Signs Date Vital Result Comment 12/19/2019 1:51pm Height 62 inches 5'2" Weight 151.00 lb without shoes Heart Rate 88 /min BP Systolic Sitting 115 mmHg Ra BP Diastolic Sitting 80 mmHg Ra BP Systolic Standing 120 mmHg BP Diastolic Standing 82 mmHg O2 % BldC Oximetry 95 % BMI (Body Mass Index) 27.6 kg/m2 Ejection Fraction 65-70% Echo 08/20/19 12/11/2019 1:17pm Height 62 inches 5'2" Weight 150.50 lb Heart Rate 81 /min BP Systolic 135 mmHg BP Diastolic 58 mmHg Respiratory Rate 16 /min O2 % BldC Oximetry 95 % BMI (Body Mass Index) 27.5 kg/m2 Results Description No Information Available Procedures Date Code Description Status 08/20/2019 19223 ECHO Transthoracic, Real-Time 2D With Doppler And Completed Color Flow 08/20/2019 04012 ECHO Transthoracic, Real-Time 2D With Doppler And Completed Color Flow 01/22/2019 [id number] Mammogram Completed 02/06/2018 [id number] Bone Mineral Density Test Completed 12/25/2017 [id number] Colonoscopy Completed 11/23/2016 [id number] Colonoscopy Completed 07/12/2015 [id number] Colonoscopy Completed 07/19/2012 [id number] Mammogram Completed 11/09/2005 [id number] Colonoscopy Completed 09/26/2002 [id number] Colonoscopy Completed Medical Devices Description No Information Available Encounters Type Date Location Provider Dx Diagnosis Office Visit 12/11/2019 [facility] Adebayo Contreras K51.90 Ulcerative colitis, 1:00p MD Dariel unspecified, without complications I10 Essential (primary) hypertension Z79.899 Other exterminator termite (current) drug therapy Office Visit 09/30/2019 9:30a [facility] Candy S. I35.0 Nonrheumatic [facility] Lino, N.P. aortic (valve) stenosis R07.9 Chest pain, unspecified I10 Essential (primary) hypertension M54.12 Radiculopathy, cervical region R00.2 Palpitations Office Visit 07/23/2019 10:00a [facility] Candy S. R07.9 Chest pain, Foster, N.P. unspecified I10 Essential (primary) hypertension I35.0 Nonrheumatic aortic (valve) stenosis Office Visit 07/23/2019 [facility] [place] M54.12 Radiculopathy, 11:30a [facility] RUDDY Morgan cervical region Office Visit 06/23/2019 [facility] M54.12 Radiculopathy, 2:00p [facility] RUDDY Morgan cervical region Assessments Date Code Description Provider 12/19/2019 R00.2 Palpitations Marie Martell M.D. 12/19/2019 R00.0 Tachycardia, unspecified Marie Martell M.D. 12/11/2019 K51.90 Ulcerative colitis, unspecified, without Adebayo Vieira MD complications 12/11/2019 I10 Essential (primary) hypertension Adebayo Vieira MD 12/11/2019 Z79.899 Other exterminator termite (current) drug therapy Adebayo Vieira MD 09/30/2019 I35.0 Nonrheumatic aortic (valve) stenosis Candy Huynh, N.P. 09/30/2019 R07.9 Chest pain, unspecified Candy SLv Huynh, N.P. 09/30/2019 I10 Essential (primary) hypertension Candy SLv Huynh, N.P. 09/30/2019 M54.12 Cervical radiculopathy Candy SLv Huynh, N.P. 09/30/2019 R00.2 Palpitations Candy SLv Huynh, N.P. 08/20/2019 I35.0 Nonrheumatic aortic (valve) stenosis Obdulio Castrejon M.D. 08/20/2019 I35.0 Nonrheumatic aortic (valve) stenosis Traveling ECHO 1 08/20/2019 R07.9 Chest pain, unspecified Traveling ECHO 1 07/23/2019 M54.12 Cervical radiculopathy RUDDY Hauser 07/23/2019 R07.9 Chest pain, unspecified Candy SLv Huynh, N.P. 07/23/2019 I10 Essential (primary) hypertension Candy S. Lino, N.P. 07/23/2019 I35.0 Nonrheumatic aortic (valve) stenosis Candy SLv Huynh, N.P. 06/23/2019 M54.12 Cervical radiculopathy RUDDY Hauser Plan of Treatment Future Appointment(s):02/02/2020 3:40 pm - Marie Martell M.D. at [facility]01/09/2020 9:30 am - Anastacio Srivastava MD at [facility]04/22/2020 1:00 pm - Otis Palacios M.D. at [facility]12/19/2019 - Marie Martell M.D.R00.2 NxldpcwsuyvrN54.0 Tachycardia, unspecifiedFollow up:4-6 weeks after monitor. Functional Status Description No Information Available Mental Status Description No Information Available Referrals Description No Information Available
--- OUTSIDE RECORDS SUMMARY | 2020-01-04 16:16 | XMS REPORT | Continuity of Care Document ---
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 2004) Nexium [...] Unknown Never Smoked Cigarettes Smoking Status Reviewed: 12/11/19 Never Smoked Cigarettes ETOH Use Drinks Alcoholic [...] Tramadol nausea 11/10/2011 Statins 11/10/2011 Oxycodone per [facility] 09/01/2014 Doxycycline per [facility] 09/01/2014 Cymbalta per [facility] 09/01/2014 Codeine per [facility] 09/01/2014 [place] Butter Urticaria 07/04/2017 Metronidazole diarrhea/nausea 12/06/2018 Sulfa Antibiotics rash 12/06/2018 Levofloxacin 12/27/2018 Medications Active Medications SIG Qnty Indications Ordering Date Provider Aspirin 1 by mouth every Obdulio Rodriguez 04/09/2018 81mg Chewtabs day Chata Castrejon Nitro-Dur 1 placed on 90units R07.9 Obdulio Rodriguez 01/21/2018 0.6mg/HR Patches 24HR chest during Chata Castrejon day, removed at night Nucynta ER 1 tab by mouth 10tabs Bryan Howard, 05/09/2017 200mg Tablets ER twice a day as , FACS 12HR needed for pain Verapamil HCL ER 1 po mid-day or 100caps Obdulio Rodriguez 07/29/2015 240mg Caps ER am (pt states Chata Castrejon 24HR between 12-4). and 1/2 at night (per pt) Coumadin as directed ( Unknown 12/30/[address] Dumont) Alendronate Sodium take one tablet Unknown 70mg Tablets by mouth once a week Mesalamine Estefania Dumont, 1.2gm Tablets DR PEREZ Clobetasol Propionate Piotr, 0.05% MD Lucie Ointment Triamcinolone Acetonide Estefania Dumont, 0.5% Cream Vitamin E Unknown 200Unit Capsules Omeprazole 1 by mouth every Unknown 20mg Capsules DR day Alprazolam once a day Estefania Dumont, 0.25mg Tablets Nucynta ER 1 po @hs Unknown 150mg Tablets ER 12HR Fiber Unknown 625mg Tablets Esomeprazole Magnesium 1.5 cap po daily Estefania Dumont, 40mg MD Capsules DR Methylprednisolone 1 tab by mouth Unknown 4mg Tablets nightly Nucynta 1 by mouth at Unknown 50mg Tablets noon daily Metaxalone 2 times per day Unknown 800mg Tablets Multivitamin W/O K 1 po qd Unknown Tablets Calcium + D 1 tablet po Unknown daily Medications Administered in Office Medication SIG Qnty [...] Inj, Regadenoson, 0.1 MG Tim Bal, DO [facility] 01/11/2017 Injection Technetium TC 99M Tim Bal, DO [facility] 01/11/2017 Tetrofosmin, Per Unit Dose Up To [...] Inj, Regadenoson, 0.1 MG Tim Bal, DO [facility] 03/15/2016 Injection Technetium TC 99M Tim Bal, DO [facility] 03/15/2016 Tetrofosmin, Per Unit Dose Up To 40 Millicuries Injection Depomedrol 80MG JEFFERSON Reveles 10/21/2014 Injection Immunizations Description No Information Available Vital Signs Date Vital Result Comment 12/11/2019 1:17pm Height 62 inches 5'2" Weight 150.50 lb Heart Rate 81 /min BP Systolic 135 mmHg BP Diastolic 58 mmHg Respiratory Rate 16 /min O2 % BldC Oximetry 95 % BMI (Body Mass Index) 27.5 kg/m2 09/30/2019 10:06am Height 62 inches 5'2" Weight 153.00 lb no shoes BP Systolic Sitting 124 mmHg lue reg cuff BP Diastolic Sitting 68 mmHg lue reg cuff BP Systolic Standing 120 mmHg lue reg cuff BP Diastolic Standing 70 mmHg lue reg cuff Respiratory Rate 14 /min BMI (Body Mass Index) 28.0 kg/m2 Ejection Fraction 65-70% 62 Results Description No Information Available Procedures Date Code Description Status 08/20/2019 27017 ECHO Transthoracic, Real-Time 2D With Doppler And Completed Color Flow 08/20/2019 62431 ECHO Transthoracic, Real-Time 2D With Doppler And Completed Color Flow 01/22/2019 [id number] Mammogram Completed 02/06/2018 [id number] Bone Mineral Density Test Completed 12/25/2017 [id number] Colonoscopy Completed 11/23/2016 [id number] Colonoscopy Completed 07/12/2015 [id number] Colonoscopy Completed 07/19/2012 [id number] Mammogram Completed 11/09/2005 [id number] Colonoscopy Completed 09/26/2002 [id number] Colonoscopy Completed Medical Devices Description No Information Available Encounters Type Date Location Provider Dx Diagnosis Office Visit 09/30/2019 [facility] Candy Huynh, I35.0 Nonrheumatic aortic 9:30a [facility] N.P. (valve) stenosis R07.9 Chest pain, unspecified I10 Essential (primary) hypertension M54.12 Radiculopathy, cervical region R00.2 Palpitations Office Visit 07/23/2019 10:00a [facility] Candy Pierce R07.9 Chest pain, Lino, N.P. unspecified I10 Essential (primary) hypertension I35.0 Nonrheumatic aortic (valve) stenosis Office Visit 07/23/2019 [facility] M54.12 Radiculopathy, 11:30a [facility] RUDDY Morgan cervical region Office Visit 06/23/2019 [facility] M54.12 Radiculopathy, 2:00p [facility] Cathy PA cervical region Assessments Date Code Description Provider 12/11/2019 K51.90 Ulcerative colitis, unspecified, without Adebayo Vieira MD complications 12/11/2019 I10 Essential (primary) hypertension Adebayo Vieira MD 12/11/2019 Z79.899 [facility]current[facility] drug therapy Adebayo Vieira MD 09/30/2019 I35.0 Nonrheumatic aortic (valve) stenosis Candy Huynh, N.P. 09/30/2019 R07.9 Chest pain, unspecified Candy Huynh, N.P. 09/30/2019 I10 Essential (primary) hypertension Candy Huynh, N.P. 09/30/2019 M54.12 Cervical radiculopathy Candy Huynh, N.P. 09/30/2019 R00.2 Palpitations Candy Huynh, N.P. 08/20/2019 I35.0 Nonrheumatic aortic (valve) stenosis Obdulio Castrejon M.D. 08/20/2019 I35.0 Nonrheumatic aortic (valve) stenosis Traveling ECHO 1 08/20/2019 R07.9 Chest pain, unspecified Traveling ECHO 1 07/23/2019 M54.12 Cervical radiculopathy RUDDY Hauser 07/23/2019 R07.9 Chest pain, unspecified Candy Huynh, N.P. 07/23/2019 I10 Essential (primary) hypertension Candy Huynh, N.P. 07/23/2019 I35.0 Nonrheumatic aortic (valve) stenosis Candy Huynh, N.P. 06/23/2019 M54.12 Cervical radiculopathy RUDDY Hauser Plan of Treatment Future Appointment(s):01/09/2020 9:30 am - [facility]04/22/2020 1:00 pm - Otis Palacios M.D. at [facility]12/11/2019 - Adebayo Vieira MDK51.90 Ulcerative colitis, unspecified, without [id number] Essential (primary) supdgoqovsovJ79.899 Other [facility] (current) drug therapy Functional Status Description No Information Available Mental Status Description No Information Available Referrals Description No Information Available
--- NOTE | 2020-01-04 17:21 | ED ---
Skin Complaint - HPI Summary HPI Summary: 79-year-old female presents with redness to right hand today. She states that a couple days ago she had injection into her right hand to get ride of potential cancerous cells. States that she now has redness on the palm side of her right hand. The redness started spreading up to her middle finger. She has limited range of motion of the middle finger. She denies any fevers or chills. She has a history of htn. is on warfarin. - History of Current Complaint Chief Complaint: EDRashSkinAbscess Time Seen by Provider: 01/04/20 16:56 Stated Complaint: POSS INFECTION RT HAND PER PT Pain Intensity: 6 - Additional Pertinent History Primary Care Physician: JANET - Allergy/Home Medications Allergies/Adverse Reactions: Allergies Allergy/AdvReac Type Severity Reaction Status Date / Time Penicillins Allergy Severe Difficulty Verified 01/04/20 16:05 Breathing cocoa butter Allergy Mild Hives Verified 01/04/20 16:05 gabapentin Allergy Mild Hives Verified 01/04/20 16:05 celecoxib AdvReac Intermediate Hypertensive Verified 01/04/20 16:05 Reaction tramadol AdvReac Intermediate See Comment Verified 01/04/20 16:05 atenolol AdvReac Mild See Comment Verified 01/04/20 16:05 metronidazole AdvReac Mild Nausea Verified 01/04/20 16:05 nortriptyline AdvReac Mild Nausea Verified 01/04/20 16:05 pregabalin AdvReac Mild Hallucinati Verified 01/04/20 16:05 ons [id number]-[id number] Reductase AdvReac Mild See Comment Verified 01/04/20 16:05 Inhibitor venlafaxine AdvReac Mild Nausea Verified 01/04/20 16:05 PMH/Surg Hx/FS Hx/Imm Hx Endocrine/Hematology History: Denies: Hx Diabetes Cardiovascular History: Reports: Hx Angina, Hx Deep Vein Thrombosis, Hx Hypertension, Hx Peripheral Vascular Disease, Other Cardiovascular Problems/ Disorders - DVT HAS BEEN ON COUMADIN Denies: Hx Coronary Artery Disease, Hx Hypercholesterolemia, Hx Myocardial Infarction, Hx Pacemaker/ICD, Hx Valvular Heart Disease Respiratory History: Reports: Hx Sleep Apnea Denies: Hx Asthma, Hx Chronic Obstructive Pulmonary Disease (COPD) GI History: Reports: Hx Gastroesophageal Reflux Disease - ON MEDICATON, Hx Hiatal Hernia, Other GI Disorders - chronic diarrhea, MECKLES DIVERTICULUM History: Denies: Hx Renal Disease Musculoskeletal History: Reports: Hx Arthritis - GENERALIZED, Hx Back Problems, Other Musculoskeletal History - LUMBAR RADICULOPATHY AND CERVICAL LUMBAR SPONDYLOLISTHESIS Denies: Hx Osteoporosis Sensory History: Reports: Hx Cataracts, Hx Contacts or Glasses Denies: Hx Hearing Aid Opthamlomology History: Reports: Hx Cataracts, Hx Contacts or Glasses Neurological History: Reports: Other Neuro Impairments/Disorders - PAIN CLINIC INJECTION Psychiatric History: Reports: Hx Anxiety Denies: Hx Panic Disorder - Surgical History Surgery Procedure, Year, and Place: CERVIAL FUSION C4-C7, 2010 Hx Anesthesia Reactions: No - Immunization History Date of Tetanus Vaccine: UTD Date of Influenza Vaccine: UTD Infectious Disease History: No Infectious Disease History: Denies: Traveled Outside the [place] in Last 30 Days - Family History Known Family History: Positive: Other - Cancer - Social History Alcohol Use: Rare Alcohol Amount: 1 drink/week Hx Substance Use: No Substance Use Type: Reports: None Substance Use Comment - Amount & Last Used: Nucynta Hx Tobacco Use: No Smoking Status (MU): Never Smoked Tobacco Have You Smoked in the Last Year: No Review of Systems Negative: Fever Negative: Chest Pain Negative: Shortness Of Breath Positive: Rash All Other Systems Reviewed And Are Negative: Yes Physical Exam Triage Information Reviewed: Yes Vital Signs On Initial Exam: Initial Vitals Temp Pulse Resp BP Pulse Ox 99.5 F 84 17 150/80 99 01/04/20 15:59 01/04/20 15:59 01/04/20 15:59 01/04/20 15:59 01/04/20 15:59 Vital Signs Reviewed: Yes Appearance: Positive: Well-Appearing Skin: Positive: Warm, Dry, Other - mild erythema to palm of right hand that is warm to the touch, lesion to posterior right hand with minimial erythema Head/Face: Positive: Normal Head/Face Inspection Eyes: Positive: Normal, Conjunctiva Clear ENT: Positive: Pharynx normal Respiratory/Lung Sounds: Positive: Clear to Auscultation, Breath Sounds Present Cardiovascular: Positive: Normal, RRR Musculoskeletal: Positive: Other - able to flex fingers, no fusiform swelling, tenderness mosquera aspect of right middle and index finger, no erythema along flexor tendon, good pulses Neurological: Positive: Normal Psychiatric: Positive: Normal Procedures - Sedation Patient Received Moderate/Deep Sedation with Procedure: No Diagnostics - Vital Signs Vital Signs Temp Pulse Resp BP Pulse Ox 01/04/20 15:59 99.5 F 84 17 150/80 99 - Laboratory Result Diagrams: 01/04/20 17:31 01/04/20 17:30 Lab Statement: Any lab studies that have been ordered have been reviewed, and results considered in the medical decision making process. Course/Dx - Course Course Of Treatment: 79-year-old female presents with redness to right hand today. She states that a couple days ago she had injection into her right hand to get ride of potential cancerous cells. States that she now has redness on the palm side of her right hand. The redness started spreading up to her middle finger. She has limited range of motion of the middle finger. She denies any fevers or chills. She has a history of htn. is on warfarin. On exam mild erythema of the hand. She does have range of motion to the fingers. No signs of flexor tenosynovitis. This is some erythema around the injection. got wound culture of where injection was. wbc normal. crp normal. will place on keflex. told to follow up primary for wound check. patient understand and agrees with plan. - Differential Diagnoses - Skin Complaint Differential Diagnoses: Abscess, Cellulitis, Contact Dermatitis - Diagnoses Provider Diagnoses: Cellulitis of right hand Discharge ED - Sign-Out/Discharge Documenting (check all that apply): Patient Departure - Discharge Plan Condition: Good Disposition: HOME Prescriptions: Cephalexin CAP* [Keflex CAP*] 500 mg PO TID #29 cap Patient Education Materials: Cellulitis (ED) Referrals: Estefania Dumont MD [Primary Care Provider] - Additional Instructions: Take Keflex three times a day for 10 days, first dose given in ED Place ice on area, elevate hand take tyenlol every 6 hours as needed for pain Follow up with primary within 3 days Return to ED if develop fever, area of redness spreads, or any new or worsening symptoms - Billing Disposition and Condition Condition: GOOD Disposition: Home - Attestation Statements Provider Attestation: I was available for consultation for this patient. I did not evaluate the patient or participate in any medical decision making or disposition decisions unless I am specifically named in the chart as having consulted on the patient. If I have consulted on the patient, please see my own ED note on the patient encounter. Virginia Mackey MD
[2020-01-04 17:39] LABS: ABS Basophils 0.1 10^3/ul (0-0.2); ABS Eosinophils 0.2 10^3/ul (0-0.6); ABS Lymphocytes 1.6 10^3/ul (1.0-4.8); ABS Monocytes 0.6 10^3/ul (0-0.8); ABS Neutrophils 5.7 10^3/ul (1.5-7.7); Eosinophil % 2.1 %; Hematocrit 39 % (35-47); Hemoglobin 12.5 g/dL (12.0-16.0); Lymphocyte % 19.3 %; Mean Corpuscular HGB Conc 32 g/dL (31-36); Mean Corpuscular Hemoglobin 29 pg (27-31); Mean Corpuscular Volume 89 fL (80-97); Mean Platelet Volume 8.3 fL (7.4-10.4); Nucleated Red Blood Cells % 0.1; Platelet Count 309 10^3/uL (150-450); Red Blood Count 4.32 10^6 /uL (3.70-4.87); Red Cell Distribution Width 15 % (10-15); White Blood Count 8.1 10^3/uL (3.5-10.8)
[2020-01-04 17:57] LABS: Albumin 4.1 g/dL (3.2-5.2); Calcium 9.9 mg/dL (8.6-10.3); Potassium 3.9 mmol/L (3.5-5.0); Total Bilirubin 0.3 mg/dL (0.2-1.0)
[2020-01-04 18:03] LABS: Albumin/Globulin Ratio 1.5 (1-3); BUN/Creatinine Ratio 21.4 (8-20); C Reactive Protein 2.53 mg/L (<8.01); EGFR African American 97.4 (>60); EGFR Non-African American 80.5 (>60); Globulin 2.8 g/dL (2-4); Total Protein 6.9 g/dL (6.4-8.9)
[2020-01-04] MEDS ORDERED: Cephalexin CAP* 500 MG PO ONE ×2 (18:29→18:41)
[2020-01-04 18:55] VITALS: BP 178/95
== END 2020-01-04 18:54 | disposition home or self-care (01) ==
LOC: ED 15:50
DX: L03.113 Cellulitis of right upper limb (principal); I10 Essential (primary) hypertension; I73.9 Peripheral vascular disease, unspecified; K21.9 Gastro-esophageal reflux disease without esophagitis; F41.9 Anxiety disorder, unspecified; Z86.718 Personal history of other venous thrombosis and embolism; Z79.01 Long term (current) use of anticoagulants; Z79.899 Other long term (current) drug therapy; Z88.0 Allergy status to penicillin; Z88.1 Allergy status to other antibiotic agents; Z88.5 Allergy status to narcotic agent; Z88.8 Allergy status to other drugs, medicaments and biological substances
CPT/HCPCS: 36415; 80053; 83605; 85025; 86140; 87070; 87205; 99282; A9270-GY

== ENCOUNTER 2020-01-13 17:10 | Emergency (ER) | payer MEDICARE ==
--- OUTSIDE RECORDS SUMMARY | 2020-01-13 17:33 | XMS REPORT | Continuity of Care Document ---
:1940 External Reference #:[id number] Author Name Anastacio Srivastava MD (transmitted by agent of provider Hazel Venegas) Address [address] [place] [id number] Care Team Providers Name Role Phone Estefania Dumont MD - Internal Medicine Care Team Information [employer]er Problems Active Problems Provider Date Irritable bowel syndrome with diarrhea Adebayo Vieira MD Onset: 12/27/2001 Note: diarrhea bouts many times over years in many Dr Jean notes; 2001 after [employer] trip, then Lipitor cessation (? 2004) Nexium [...] and/or foot Obdulio Castrejon M.D. Onset: 2013 Localized, primary osteoarthritis Kailey Hastings M.D. Onset: 02/21/2016 Knee joint effusion Kailey Hastings M.D. Onset: 04/04/2017 Social History Type Date Description Comments Sex Unknown Tobacco Use Start: Unknown Never Smoked Cigarettes Smoking Status Reviewed: 01/09/20 Never Smoked Cigarettes ETOH Use Drinks Alcoholic [...] 11/10/2011 Oxycodone per [facility] 09/01/2014 Doxycycline per [facility] 09/01/2014 Cymbalta per [facility] 09/01/2014 Codeine per [facility] 09/01/2014 [employer] Urticaria 07/04/2017 Metronidazole diarrhea/nausea 12/06/2018 Sulfa [...] Howard, 05/09/2017 200mg twice a day as CORI PEREZ Tablets ER 12HR needed for pain Verapamil HCL ER 1 po mid-day or am 100caps Obdulio Rodriguez 07/29/2015 240mg (pt states between Chata Castrejon Caps ER 24HR 12-4). and 1/2 at night (per pt) Coumadin as directed ( Unknown 12/30/[address] Dumont) Alendronate Sodium take one tablet by Unknown 70mg mouth once a week Tablets Mesalamine DmitryosielEstefania, 1.2gm Tablets Clobetasol Propionate Marily Saldañahel, 0.05% Ointment Triamcinolone DmitryEstefania cartagena, Acetonide 0.5% Cream Vitamin E Unknown 200Unit Capsules Omeprazole 1 by mouth every Unknown 20mg day Capsules Alprazolam once a day DmitryEstefania cartagena, 0.25mg MD Tablets Nucynta ER 1 po @hs Unknown 150mg Tablets ER 12HR Fiber Unknown 625mg Tablets Esomeprazole 1.5 cap po daily DmitryEstefania cartagena, Magnesium MD 40mg Capsules DR Mak 1 [...] Inj, Regadenoson, 0.1 MG Tim Bal, DO [facility] 01/11/2017 Injection Technetium TC 99M Tim Bal, DO [facility] 01/11/2017 Tetrofosmin, Per Unit Dose [...] Inj, Regadenoson, 0.1 MG Tim Bal, DO [facility] 03/15/2016 Injection Technetium TC 99M Tim Bal, DO [facility] 03/15/2016 Tetrofosmin, Per Unit Dose Up To 40 Millicuries Injection Depomedrol 80MG JEFFERSON Reveles 10/21/2014 Injection Immunizations Description No Information Available Vital Signs Date Vital Result Comment 01/09/2020 9:43am Height 62 inches 5'2" Weight 151.00 lb Heart Rate 90 /min BP Systolic 145 mmHg BP Diastolic 78 mmHg O2 % BldC Oximetry 96 % BMI (Body Mass Index) 27.6 kg/m2 12/19/2019 1:51pm Height 62 inches 5'2" Weight 151.00 lb without shoes Heart Rate 88 /min BP Systolic Sitting 115 mmHg Ra BP Diastolic Sitting 80 mmHg Ra BP Systolic Standing 120 mmHg BP Diastolic Standing 82 mmHg O2 % BldC Oximetry 95 % BMI (Body Mass Index) 27.6 kg/m2 Ejection Fraction 65-70% Echo 08/20/19 Results Description No Information Available Procedures Date Code Description Status 08/20/2019 42002 ECHO Transthoracic, Real-Time 2D With Doppler And Completed Color Flow 08/20/2019 93764 ECHO Transthoracic, Real-Time 2D With Doppler And Completed Color Flow 01/22/2019 [id number] Mammogram Completed 02/06/2018 [id number] Bone Mineral Density Test Completed 12/25/2017 [id number] Colonoscopy Completed 11/23/2016 [id number] Colonoscopy Completed 07/12/2015 [id number] Colonoscopy Completed 07/19/2012 [id number] Mammogram Completed 11/09/2005 [id number] Colonoscopy Completed 09/26/2002 [id number] Colonoscopy Completed Medical Devices Description No Information Available Encounters Type Date Location Provider Dx Diagnosis Office Visit 01/09/2020 [facility] Anastacio Srivastava MD Z80.41 Family history of 9:30a [facility] malignant neoplasm of ovary Z12.31 Encntr screen mammogram for malignant neoplasm of breast Office Visit 12/19/2019 2:00p [facility] Marie Martell, R00.2 Palpitations [facility] M.DLv R00.0 Tachycardia, unspecified I10 Essential (primary) hypertension Office 12/11/2019 [facility] Peter TLv K51.90 Ulcerative Visit 1:00p MD Dariel colitis, unspecified, without complications I10 Essential (primary) hypertension Z79.899 [facility] (current) drug therapy Office Visit 09/30/2019 9:30a [facility] Candy S. I35.0 Nonrheumatic [facility] Lino, N.P. aortic (valve) stenosis R07.9 Chest pain, unspecified I10 Essential (primary) hypertension M54.12 Radiculopathy, cervical region R00.2 Palpitations Office Visit 07/23/2019 10:00a [facility] Candy S. R07.9 Chest pain, Foster, N.P. unspecified I10 Essential (primary) hypertension I35.0 Nonrheumatic aortic (valve) stenosis Office Visit 07/23/2019 [facility] Kimberlee M54.12 Radiculopathy, 11:30a [facility] RUDDY Morgan cervical region Assessments Date Code Description Provider 01/09/2020 Z80.41 Family history of malignant neoplasm of Anastacio Srivastava MD ovary 01/09/2020 Z12.31 Encounter for screening mammogram for Anastacio Srivastava MD malignant neoplasm of breast 12/19/2019 R00.2 Palpitations Marie Martell M.D. 12/19/2019 R00.0 Tachycardia, unspecified Marie Martell M.D. 12/19/2019 I10 Essential (primary) hypertension Marie Martell M.D. 12/11/2019 K51.90 Ulcerative colitis, unspecified, without Adebayo Vieira MD complications 12/11/2019 I10 Essential (primary) hypertension Adebayo Vieira MD 12/11/2019 Z79.899 Other technician terminal and repeater (current) drug therapy Adebayo Vieira MD 09/30/2019 I35.0 Nonrheumatic aortic (valve) stenosis Candy SLv Huynh, N.P. 09/30/2019 R07.9 Chest pain, unspecified Candy S. Lino, N.P. 09/30/2019 I10 Essential (primary) hypertension Candy SLv Huynh, N.P. 09/30/2019 M54.12 Cervical radiculopathy Candy S. Lino, N.P. 09/30/2019 R00.2 Palpitations Candy S. Lino, N.P. 08/20/2019 I35.0 Nonrheumatic aortic (valve) stenosis Obdluio Castrejon M.D. 08/20/2019 I35.0 Nonrheumatic aortic (valve) stenosis Traveling ECHO 1 08/20/2019 R07.9 Chest pain, unspecified Traveling ECHO 1 07/23/2019 M54.12 Cervical radiculopathy RUDDY Hauser 07/23/2019 R07.9 Chest pain, unspecified Candy S. Lino, N.P. 07/23/2019 I10 Essential (primary) hypertension Candy S. Lino, N.P. 07/23/2019 I35.0 Nonrheumatic aortic (valve) stenosis Candy SLv Huynh, N.P. Plan of Treatment Future Appointment(s):07/09/2020 2:00 pm - Anastacio Srivastava MD at [facility]02/02/2020 3:40 pm - Marie Martell M.D. at [facility]04/22/2020 1:00 pm - Otis Palacios M.D. at [facility] - Anastacio Srivastava MDZ80.41 Family history of malignant neoplasm of ovaryComments:Recommend appointment for evaluation if develops pelvic pain, frequent bloating, vaginal bleeding, vaginal discharge/prn.Follow up:6 czitzxO19.31 Encounter for screening mammogram for malignant neoplasm of breast Functional Status Description No Information Available Mental Status Description No Information Available Referrals Description No Information Available
[2020-01-13] MEDS ORDERED: Acetaminophen TAB* 325 MG PO ONE (18:17)
[2020-01-13] MEDS ORDERED: hydrALAZINE IV* 20 MG/ML VIAL IV SLOW PU ONE (18:17)
--- NOTE | 2020-01-13 18:25 | ED ---
Hypertension - HPI Summary HPI Summary: The patient is an 79 y/o F presenting to [facility] with cc of headaches and elevated BP beginning round 1100 this morning. She reports hx of HTN, and she occasionally experiences headaches with elevated pressures but not always. This morning she felt a diffuse headache begin and gradually worsened throughout the day with currently severity of 8/10. She also measured her BP at home and found it to be elevated. She endorses chest pressure earlier with uncertain time of onset. She denies any SOB, extremity weakness or numbness, dizziness, nausea, or vomiting. She has not taken any medications for treatment [employer]. PMHx: DVT, PVD , sleep apnea, GERD, lumbar radiculopathy, cervical lumbar spondylolisthesis, arthritis. Nonsmoker, rare EtOH, no substance use. Medications reviewed. Allergies noted. Home Medications Medication Instructions Recorded Confirmed Type Aspirin EC TAB* [Ecotrin EC Low 81 mg PO DAILY 06/10/18 06/25/19 History Dose 81 MG*] Cholecalciferol TAB* [Vitamin D 2,000 units PO DAILY 06/10/18 06/25/19 History TAB*] Escitalopram * [Lexapro 10 mg (NF)] 10 mg PO DAILY PRN 06/10/18 06/25/19 History Lidocaine PATCH 5%* [Lidoderm 5% 1 patch TRANSDERM DAILY 06/10/18 06/25/19 History Patch*] Mesalamine (NF) [Lialda (NF)] 1.2 gm PO BID 06/10/18 06/25/19 History Nitroglycerin 0.6 MG/HR PATCH* 1 patch TRANSDERM DAILY 06/10/18 06/25/19 History [Nitroglycerin 15 MG PATCH*] Nitroglycerin TAB 0.4 MG* 0.4 mg SL Q5M PRN 06/10/18 06/25/19 History Omeprazole CAP (NF) [Prilosec CAP* 20 mg PO DAILY 06/10/18 06/25/19 History 20 MG] Tapentadol ER (NF) [Nucynta ER 200 mg PO DAILY 06/10/18 06/25/19 History (NF)] Tapentadol(NF) [Nucynta(NF)] 50 mg PO DAILY 06/10/18 06/25/19 History Triazolam TAB* [Halcion TAB*] 0.5 mg PO BEDTIME PRN 06/10/18 06/25/19 History Warfarin TAB(*) [Coumadin TAB(*)] 15 mg PO .TWICE A WEEK 06/10/18 06/25/19 History Tapentadol ER (NF) [Nucynta ER 150 mg PO BEDTIME 11/25/18 06/25/19 History (NF)] Verapamil HCl [Verapamil ER] 120 mg PO BEDTIME 11/25/18 06/25/19 History Verapamil HCl [Verapamil ER] 240 mg PO DAILY 11/25/18 06/25/19 History Warfarin TAB(*) [Coumadin TAB(*)] 10 mg PO .REMAINING DAYS 11/25/18 06/25/19 History Collagenase 250 UNITS/GM OINT* 1 applic .SEE ORDER DAILY #1 oint 12/20/18 Rx [Santyl 250 mg/gm Oint*] Cephalexin CAP* [Keflex CAP*] 500 mg PO TID #29 cap 01/04/20 Rx - History of Current Complaint Chief Complaint: EDHypertension Stated Complaint: HEADACHE/HIGH BLOOD PRESSURE PER PT Hx Obtained From: Patient Onset/Duration: Started Hours Ago, Still Present Timing: Constant Aggravating Factor(s): Nothing Alleviating Factor(s): Nothing Associated Signs & Symptoms: Chest Pain - pressure, Headaches, Other: - Negative : extremity numbness or weakness, dizziness, SOB, nausea, vomiting - Allergies/Home Medications Allergies/Adverse Reactions: Allergies Allergy/AdvReac Type Severity Reaction Status Date / Time Penicillins Allergy Severe Difficulty Verified 01/13/20 17:58 Breathing cocoa butter Allergy Mild Hives Verified 01/13/20 17:58 gabapentin Allergy Mild Hives Verified 01/13/20 17:58 celecoxib AdvReac Intermediate Hypertensive Verified 01/13/20 17:58 Reaction tramadol AdvReac Intermediate See Comment Verified 01/13/20 17:58 atenolol AdvReac Mild See Comment Verified 01/13/20 17:58 metronidazole AdvReac Mild Nausea Verified 01/13/20 17:58 nortriptyline AdvReac Mild Nausea Verified 01/13/20 17:58 pregabalin AdvReac Mild Hallucinati Verified 01/13/20 17:58 ons [id number]-Iax Reductase AdvReac Mild See Comment Verified 01/13/20 17:58 Inhibitor venlafaxine AdvReac Mild Nausea Verified 01/13/20 17:58 Home Medications: Home Medications Aspirin EC TAB* [Ecotrin EC Low Dose 81 MG*] 81 mg PO DAILY 06/10/18 [History Confirmed 01/13/20] Cholecalciferol TAB* [Vitamin D TAB*] 2,000 units PO DAILY 06/10/18 [History Confirmed 01/13/20] Escitalopram * [Lexapro 10 mg (NF)] 10 mg PO DAILY PRN 06/10/18 [History Confirmed 01/13/20] Lidocaine PATCH 5%* [Lidoderm 5% Patch*] 1 patch TRANSDERM DAILY 06/10/18 [ History Confirmed 01/13/20] Mesalamine (NF) [Lialda (NF)] 1.2 gm PO BID 06/10/18 [History Confirmed 01/13/20 ] Nitroglycerin 0.6 MG/HR PATCH* [Nitroglycerin 15 MG PATCH*] 1 patch TRANSDERM DAILY 06/10/18 [History Confirmed 01/13/20] Nitroglycerin TAB 0.4 MG* 0.4 mg SL Q5M PRN 06/10/18 [History Confirmed 01/13/20 ] Omeprazole CAP (NF) [Prilosec CAP* 20 MG] 20 mg PO DAILY 06/10/18 [History Confirmed 01/13/20] Tapentadol ER (NF) [Nucynta ER (NF)] 200 mg PO DAILY 06/10/18 [History Confirmed 01/13/20] Tapentadol(NF) [Nucynta(NF)] 50 mg PO DAILY 06/10/18 [History Confirmed 01/13/20 ] Triazolam TAB* [Halcion TAB*] 0.5 mg PO BEDTIME PRN 06/10/18 [History Confirmed 01/13/20] Warfarin TAB(*) [Coumadin TAB(*)] 15 mg PO .TWICE A WEEK 06/10/18 [History Confirmed 01/13/20] Tapentadol ER (NF) [Nucynta ER (NF)] 150 mg PO BEDTIME 11/25/18 [History Confirmed 01/13/20] Verapamil HCl [Verapamil ER] 120 mg PO BEDTIME 11/25/18 [History Confirmed 01/13] Verapamil HCl [Verapamil ER] 240 mg PO DAILY 11/25/18 [History Confirmed ] Warfarin TAB(*) [Coumadin TAB(*)] 10 mg PO .REMAINING DAYS 11/25/18 [History Confirmed 01/13/20] Collagenase 250 UNITS/GM OINT* [Santyl 250 mg/gm Oint*] 1 applic .SEE ORDER DAILY #1 oint 12/20/18 [Rx Confirmed 01/13/20] Cephalexin CAP* [Keflex CAP*] 500 mg PO TID #29 cap 01/04/20 [Rx Confirmed 01/13] PMH/Surg Hx/FS Hx/Imm Hx Endocrine/Hematology History: Denies: Hx Diabetes Cardiovascular History: Reports: Hx Angina, Hx Deep Vein Thrombosis, Hx Hypertension, Hx Peripheral Vascular Disease, Other Cardiovascular Problems/ Disorders - DVT HAS BEEN ON COUMADIN Denies: Hx Coronary Artery Disease, Hx Hypercholesterolemia, Hx Myocardial Infarction, Hx Pacemaker/ICD, Hx Valvular Heart Disease Respiratory History: Reports: Hx Sleep Apnea Denies: Hx Asthma, Hx Chronic Obstructive Pulmonary Disease (COPD) GI History: Reports: Hx Gastroesophageal Reflux Disease - ON MEDICATON, Hx Hiatal Hernia, Other GI Disorders - chronic diarrhea, MECKLES DIVERTICULUM History: Denies: Hx Renal Disease Musculoskeletal History: Reports: Hx Arthritis - GENERALIZED, Hx Back Problems, Other Musculoskeletal History - LUMBAR RADICULOPATHY AND CERVICAL LUMBAR SPONDYLOLISTHESIS Denies: Hx Osteoporosis Sensory History: Reports: Hx Cataracts, Hx Contacts or Glasses Denies: Hx Hearing Aid Opthamlomology History: Reports: Hx Cataracts, Hx Contacts or Glasses Neurological History: Reports: Other Neuro Impairments/Disorders - PAIN CLINIC INJECTION Psychiatric History: Reports: Hx Anxiety Denies: Hx Panic Disorder - Surgical History Surgical History: Yes Surgery Procedure, Year, and Place: CERVIAL FUSION C4-C7, 2010 Hx Anesthesia Reactions: No - Immunization History Date of Tetanus Vaccine: UTD Date of Influenza Vaccine: UTD Infectious Disease History: No Infectious Disease History: Denies: Traveled Outside the [place] in Last 30 Days - Family History Known Family History: Positive: Other - Cancer - Social History Alcohol Use: Rare Alcohol Amount: 1 drink/week Hx Substance Use: No Substance Use Type: Reports: None Substance Use Comment - Amount & Last Used: Nucynta Hx Tobacco Use: No Smoking Status (MU): Never Smoked Tobacco Have You Smoked in the Last Year: No Review of Systems Positive: Chest Pain - diffuse pressure, Other - elevated BP Negative: Shortness Of Breath Negative: Vomiting, Nausea Neurological/Mental Status: Other - Negative: dizziness Positive: Headache. Negative: Weakness, Numbness All Other Systems Reviewed And Are Negative: Yes Physical Exam - Summary Physical Exam Summary: Constitutional: Well-developed, Well-nourished, Alert. (-) Distressed Skin: Warm, Dry HENT: Normocephalic; Atraumatic Eyes: Conjunctiva normal Neck: Musculoskeletal ROM normal neck. (-) JVD, (-) Stridor, (-) Nuchal rigidity Cardio: Rhythm regular, rate normal, Heart sounds normal; Intact distal pulses; Radial pulses are 2+ and symmetric. (-) Murmur Pulmonary/Chest wall: Effort normal. (-) Respiratory distress, (-) Wheezes, (-) Rales Abd: Soft, (-) tenderness, (-) Distension, (-) Guarding, (-) Rebound Musculoskeletal: (-) Edema Lymph: (-) Cervical adenopathy Neuro: Alert, Oriented x3 Psych: Mood and affect Normal Triage Information Reviewed: Yes Vital Signs On Initial Exam: Initial Vitals Temp Pulse Resp BP Pulse Ox 98.9 F 96 18 210/116 95 01/13/20 17:13 01/13/20 17:13 01/13/20 17:13 01/13/20 17:13 01/13/20 17:13 Vital Signs Reviewed: Yes Procedures - Sedation Patient Received Moderate/Deep Sedation with Procedure: No Diagnostics - Vital Signs Vital Signs Temp Pulse Resp BP Pulse Ox 01/13/20 18:01 82 16 95 01/13/20 17:57 84 18 198/125 95 01/13/20 17:13 98.9 F 96 18 210/116 95 - Laboratory Result Diagrams: 01/13/20 18:25 01/13/20 18:25 Lab Statement: Any lab studies that have been ordered have been reviewed, and results considered in the medical decision making process. - EKG 1844 Cardiac Rate: NL - 77 BPM EKG Rhythm: Sinus Rhythm EKG Comparison: No Significant Change - Compared to prior on 06/25/2019 Summary of EKG Findings: An EKG at 1844 reveals normal sinus rhythm at rate of 77 BPM, T wave inversions in lead III. No STEMI. Compared to prior on 06/25/2019, no significant changes. ED physician has reviewed and interpreted this EKG. Re-Evaluation - Re-Evaluation First Eval Re-Evaluation Time: 18:50 Change: Improved Comment: She is feeling somewhat better Second Eval Re-Evaluation Time: 19:35 Change: Improved Comment: Patient is asymptomatic at this time; no CP, no BEARD. She feels comfortable with d/c. Hypertension Course/Dx - Course Course Of Treatment: 79 y/o F w hx HTN p/w headache. Although does NOT have a history of headache of exactly the same type, pain was not sudden onset/ thunderbolt, not worst of life, no meningismus, no neuro deficit on exam, and no personal/family history of aneurysm, so unlikely ICH. Declining head CT at this time. No fever, URI sx, meningismus, or known immunocompromised state to suggest meningitis. Will try symptomatic relief and reassess. Given hydralazine for BP, tylenol for headache. Patient feels significantly improved after fluids and Tylenol. Ambulating in the ED with a steady gait. Regarding episode of chest pressure earlier, patient unable to further describe, states she gets pressure often, non exertional, no SOB. EKG unchanged, trop negative x1. No current pain. Do not suspect ACS. - Diagnoses Provider Diagnoses: Headache, Hypertension Discharge ED - Sign-Out/Discharge Documenting (check all that apply): Patient Departure - Patient will be discharged home. - Discharge Plan Condition: Stable Disposition: HOME Patient Education Materials: Acute Headache (ED), Chronic Hypertension (ED) Referrals: Estefania Dumont MD [Primary Care Provider] - 3 Days Additional Instructions: You were seen in the emergency department for high blood pressure and headache. We gave you a medication here to help with that. Your labs did not show any evidence of abnormalities. Please follow up with your doctor within the next week to get a repeat blood pressure check. Please follow up with your primary care doctor in the next 2-3 days and return to the emergency department for worsening aches, confusion, chest pain, shortness of breath,or concerning symptoms. It was a pleasure taking care of you today. - Billing Disposition and Condition Condition: STABLE Disposition: Home - Attestation Statements Document Initiated by Scribe: Yes Documenting Scribe: Lashon Morcoho Provider For Whom Lawandaibe is Documenting (Include Credential): Dr. Virginia Mackey MD Scribe Attestation: I, Lashon Morocho, scribed for Dr. Virginia Mackey MD on 01/13/20 at 1956. Scribe Documentation Reviewed: Yes Provider Attestation: The documentation as recorded by the scribe, Lashon Morocho accurately reflects the service I personally performed and the decisions made by me, Dr. Virginia Mackey MD Status of Scribe Document: Viewed
[2020-01-13 18:49] LABS: ABS Basophils 0.1 10^3/ul (0-0.2); ABS Eosinophils 0.2 10^3/ul (0-0.6); ABS Lymphocytes 1.7 10^3/ul (1.0-4.8); ABS Monocytes 0.6 10^3/ul (0-0.8); ABS Neutrophils 3.4 10^3/ul (1.5-7.7); Eosinophil % 2.6 %; Hematocrit 38 % (35-47); Hemoglobin 12.9 g/dL (12.0-16.0); Lymphocyte % 28.1 %; Mean Corpuscular HGB Conc 34 g/dL (31-36); Mean Corpuscular Hemoglobin 30 pg (27-31); Mean Corpuscular Volume 88 fL (80-97); Mean Platelet Volume 8.1 fL (7.4-10.4); Platelet Count 315 10^3/uL (150-450); Red Blood Count 4.32 10^6 /uL (3.70-4.87); Red Cell Distribution Width 15 % (10-15); White Blood Count 5.9 10^3/uL (3.5-10.8)
[2020-01-13 19:04] LABS: Troponin I 0.01 ng/mL (<0.03)
[2020-01-13 19:05] LABS: Albumin 4.2 g/dL (3.2-5.2); Albumin/Globulin Ratio 1.5 (1-3); BUN/Creatinine Ratio 24.3 (8-20); EGFR African American 97.4 (>60); EGFR Non-African American 80.5 (>60); Globulin 2.8 g/dL (2-4); Potassium 4.2 mmol/L (3.5-5.0); Total Bilirubin 0.3 mg/dL (0.2-1.0)
[2020-01-13 20:08] VITALS: BP 162/89
== END 2020-01-13 20:09 | disposition home or self-care (01) ==
LOC: ED 17:10
DX: I10 Essential (primary) hypertension (principal); I73.9 Peripheral vascular disease, unspecified; K21.9 Gastro-esophageal reflux disease without esophagitis; F41.9 Anxiety disorder, unspecified; Z86.718 Personal history of other venous thrombosis and embolism; Z79.01 Long term (current) use of anticoagulants; Z79.82 Long term (current) use of aspirin; Z79.899 Other long term (current) drug therapy; Z88.0 Allergy status to penicillin; Z88.1 Allergy status to other antibiotic agents; Z88.5 Allergy status to narcotic agent; Z88.6 Allergy status to analgesic agent; Z88.8 Allergy status to other drugs, medicaments and biological substances
CPT/HCPCS: 36415; 80053; 84484; 85025; 93005; 96374; 99283; A9270-GY; J0360

== ENCOUNTER 2020-01-14 23:48 | Emergency (ER) | payer MEDICARE ==
[2020-01-15] MEDS ORDERED: hydrALAZINE IV* 20 MG/ML VIAL IV SLOW PU ONE ×2 (00:33→00:35)
--- NOTE | 2020-01-15 00:33 | ED ---
Headache - HPI Summary HPI Summary: Patient complains of elevated blood pressure and headache starting this evening. Patient seen here last night for same symptoms. Patient on Coumadin, takes verapamil for hypertension. Triage blood pressure 237/130. Denies fever , cough, sore throat, CP, SOB, N/V/D, abdominal pain, change in urine, change in BM. - History Of Current Complaint Chief Complaint: EDHypertension Stated Complaint: STROKE LIKE PER PT Time Seen by Provider: 01/15/20 00:28 Hx Obtained From: Patient Onset/Duration: Sudden Onset, Started hours ago Initially Headache Was: Moderate Currently Pain Is: Moderate Timing: Constant Character: Dull Location of Headache: Diffuse Aggravating Factor: Nothing Allevating Factors: Nothing Associated Signs And Symptoms: Negative - Allergies/Home Medications Allergies/Adverse Reactions: Allergies Allergy/AdvReac Type Severity Reaction Status Date / Time Penicillins Allergy Severe Difficulty Verified 01/13/20 17:58 Breathing cocoa butter Allergy Mild Hives Verified 01/13/20 17:58 gabapentin Allergy Mild Hives Verified 01/13/20 17:58 celecoxib AdvReac Intermediate Hypertensive Verified 01/13/20 17:58 Reaction tramadol AdvReac Intermediate See Comment Verified 01/13/20 17:58 atenolol AdvReac Mild See Comment Verified 01/13/20 17:58 metronidazole AdvReac Mild Nausea Verified 01/13/20 17:58 nortriptyline AdvReac Mild Nausea Verified 01/13/20 17:58 pregabalin AdvReac Mild Hallucinati Verified 01/13/20 17:58 ons [id number]-[id number] Reductase AdvReac Mild See Comment Verified 01/13/20 17:58 Inhibitor venlafaxine AdvReac Mild Nausea Verified 01/13/20 17:58 Home Medications: Home Medications Aspirin EC TAB* [Ecotrin EC Low Dose 81 MG*] 81 mg PO DAILY 06/10/18 [History Confirmed 01/15/20] Lidocaine PATCH 5%* [Lidoderm 5% Patch*] 1 patch TRANSDERM DAILY 06/10/18 [ History Confirmed 01/15/20] Mesalamine (NF) [Lialda (NF)] 1.2 gm PO BID 06/10/18 [History Confirmed 01/15/20 ] Nitroglycerin 0.6 MG/HR PATCH* [Nitroglycerin 15 MG PATCH*] 1 patch TRANSDERM DAILY 06/10/18 [History Confirmed 01/15/20] Nitroglycerin TAB 0.4 MG* 0.4 mg SL Q5M PRN 06/10/18 [History Confirmed 01/15/20 ] Omeprazole CAP (NF) [Prilosec CAP* 20 MG] 20 mg PO DAILY 06/10/18 [History Confirmed 01/15/20] Tapentadol ER (NF) [Nucynta ER (NF)] 200 mg PO DAILY 06/10/18 [History Confirmed 01/15/20] Tapentadol(NF) [Nucynta(NF)] 50 mg PO DAILY 06/10/18 [History Confirmed 01/15/20 ] Triazolam TAB* [Halcion TAB*] 0.5 mg PO BEDTIME PRN 06/10/18 [History Confirmed 01/15/20] Warfarin TAB(*) [Coumadin TAB(*)] 15 mg PO .TWICE A WEEK 06/10/18 [History Confirmed 01/15/20] Tapentadol ER (NF) [Nucynta ER (NF)] 150 mg PO BEDTIME 11/25/18 [History Confirmed 01/15/20] Verapamil HCl [Verapamil ER] 120 mg PO BEDTIME 11/25/18 [History Confirmed 01/15] Verapamil HCl [Verapamil ER] 240 mg PO DAILY 11/25/18 [History Confirmed ] Warfarin TAB(*) [Coumadin TAB(*)] 10 mg PO .REMAINING DAYS 11/25/18 [History Confirmed 01/15/20] PMH/Surg Hx/FS Hx/Imm Hx Endocrine/Hematology History: Denies: Hx Diabetes Cardiovascular History: Reports: Hx Angina, Hx Deep Vein Thrombosis, Hx Hypertension, Hx Peripheral Vascular Disease, Other Cardiovascular Problems/ Disorders - DVT HAS BEEN ON COUMADIN Denies: Hx Coronary Artery Disease, Hx Hypercholesterolemia, Hx Myocardial Infarction, Hx Pacemaker/ICD, Hx Valvular Heart Disease Respiratory History: Reports: Hx Sleep Apnea Denies: Hx Asthma, Hx Chronic Obstructive Pulmonary Disease (COPD) GI History: Reports: Hx Gastroesophageal Reflux Disease - ON MEDICATON, Hx Hiatal Hernia, Other GI Disorders - chronic diarrhea, MECKLES DIVERTICULUM History: Denies: Hx Renal Disease Musculoskeletal History: Reports: Hx Arthritis - GENERALIZED, Hx Back Problems, Other Musculoskeletal History - LUMBAR RADICULOPATHY AND CERVICAL LUMBAR SPONDYLOLISTHESIS Denies: Hx Osteoporosis Sensory History: Reports: Hx Cataracts, Hx Contacts or Glasses Denies: Hx Hearing Aid Opthamlomology History: Reports: Hx Cataracts, Hx Contacts or Glasses Neurological History: Reports: Other Neuro Impairments/Disorders - PAIN CLINIC INJECTION Psychiatric History: Reports: Hx Anxiety Denies: Hx Panic Disorder - Surgical History Surgery Procedure, Year, and Place: CERVIAL FUSION C4-C7, 2010 Hx Anesthesia Reactions: No - Immunization History Date of Tetanus Vaccine: UTD Date of Influenza Vaccine: UTD Infectious Disease History: No Infectious Disease History: Denies: Traveled Outside the [place] in Last 30 Days - Family History Known Family History: Positive: Other - Cancer - Social History Alcohol Use: Rare Alcohol Amount: 1 drink/week Hx Substance Use: No Substance Use Type: Reports: None Substance Use Comment - Amount & Last Used: Nucynta Hx Tobacco Use: No Smoking Status (MU): Never Smoked Tobacco Have You Smoked in the Last Year: No Review of Systems Constitutional: Negative Eyes: Negative ENT: Negative Cardiovascular: Negative Respiratory: Negative Gastrointestinal: Negative Genitourinary: Negative Musculoskeletal: Negative Skin: Negative Positive: Headache Psychological: Normal All Other Systems Reviewed And Are Negative: Yes Physical Exam - Summary Physical Exam Summary: Neuro exam normal. Triage Information Reviewed: Yes Vital Signs On Initial Exam: Initial Vitals Temp Pulse Resp BP Pulse Ox 98.3 F 94 20 237/130 99 01/14/20 23:49 01/14/20 23:49 01/14/20 23:49 01/14/20 23:49 01/14/20 23:49 Vital Signs Reviewed: Yes Appearance: Positive: Well-Appearing Skin: Positive: Warm Head/Face: Positive: Normal Head/Face Inspection Eyes: Positive: Normal Neck: Positive: Supple Respiratory/Lung Sounds: Positive: Clear to Auscultation Cardiovascular: Positive: Normal Abdomen Description: Positive: Nontender Musculoskeletal: Positive: Normal Neurological: Positive: Normal Psychiatric: Positive: Normal AVPU Assessment: Alert - [place] Coma Scale Best Eye Response: 4 - Spontaneous Best Motor Response: 6 - Obeys Commands Best Verbal Response: 5 - Oriented Coma Scale Total: 15 Procedures - Sedation Patient Received Moderate/Deep Sedation with Procedure: No Diagnostics - Vital Signs Vital Signs Temp Pulse Resp BP Pulse Ox 01/14/20 23:49 98.3 F 94 20 237/130 99 - Laboratory Result Diagrams: 01/15/20 01:13 01/15/20 01:13 Lab Statement: Any lab studies that have been ordered have been reviewed, and results considered in the medical decision making process. Headache Course/Dx - Course Course Of Treatment: Patient complains of elevated blood pressure and headache starting this evening. Patient seen here last night for same symptoms. Patient on Coumadin, takes verapamil for hypertension. Triage blood pressure 237/130. Denies fever, cough, sore throat, CP, SOB, N/V/D, abdominal pain, change in urine, change in BM. BP 237/130. Vital signs otherwise within normal limits. Blood pressure improved with hydralazine 10 mg IV. Headache improves with Tylenol and 1 L normal saline. Discussed patient with hospitalist Dr. Hutson as this is second visit for same symptoms. Patient states she has appointment later today with primary care for workup of hypertension. Patient prefers to go home. Dr. Hutson and I both agreed patient can be discharged. - Diagnoses Provider Diagnoses: Hypertension, Headache Discharge ED - Sign-Out/Discharge Documenting (check all that apply): Patient Departure - Discharge Plan Condition: Stable Disposition: HOME Patient Education Materials: Hypertension (ED) Referrals: Estefania Dumont MD [Primary Care Provider] - Additional Instructions: Follow-up with primary care today for further evaluation of elevated blood pressure for the past 2 nights. Return to the ED for any new or worsening symptoms. - Billing Disposition and Condition Condition: STABLE Disposition: Home
[2020-01-15] MEDS ORDERED: Acetaminophen TAB* 325 MG PO ONE (00:35)
[2020-01-15] MEDS ORDERED: NS 0.9% 1000 ML** 1,000 ML IV ONE (00:35)
[2020-01-15 01:20] LABS: ABS Basophils 0.1 10^3/ul (0-0.2); ABS Eosinophils 0.2 10^3/ul (0-0.6); ABS Lymphocytes 1.3 10^3/ul (1.0-4.8); ABS Monocytes 0.7 10^3/ul (0-0.8); ABS Neutrophils 5.2 10^3/ul (1.5-7.7); Eosinophil % 3.1 %; Hematocrit 41 % (35-47); Hemoglobin 13.6 g/dL (12.0-16.0); Lymphocyte % 17.9 %; Mean Corpuscular HGB Conc 33 g/dL (31-36); Mean Corpuscular Hemoglobin 30 pg (27-31); Mean Corpuscular Volume 89 fL (80-97); Mean Platelet Volume 7.9 fL (7.4-10.4); Platelet Count 326 10^3/uL (150-450); Red Blood Count 4.58 10^6 /uL (3.70-4.87); Red Cell Distribution Width 15 % (10-15); White Blood Count 7.5 10^3/uL (3.5-10.8)
[2020-01-15 01:37] LABS: Albumin 4.6 g/dL (3.2-5.2); Albumin/Globulin Ratio 1.5 (1-3); C Reactive Protein 2.46 mg/L (<8.01); Calcium 10.1 mg/dL (8.6-10.3); EGFR African American 81.2 (>60); EGFR Non-African American 67.1 (>60); Potassium 3.9 mmol/L (3.5-5.0); Total Bilirubin 0.3 mg/dL (0.2-1.0); Total Protein 7.6 g/dL (6.4-8.9)
[2020-01-15 01:38] LABS: INR 1.42 (0.82-1.09)
[2020-01-15 01:44] LABS: Urine Appearance Clear; Urine Bilirubin Negative (Negative); Urine Blood 1+ (Negative); Urine Color Colorless; Urine Glucose Negative (Negative); Urine Ketones Negative (Negative); Urine Nitrite Negative (Negative); Urine Protein Negative (Negative); Urine Specific Gravity 1.004 (1.010-1.030); Urine Urobilinogen Negative (Negative)
[2020-01-15 01:50] LABS: Urine Bacteria Absent (Absent); Urine Red Blood Cell 2+(6-10/hpf) (Absent); Urine White Blood Cell Trace(0-5/hpf) (Absent)
[2020-01-15 03:36] VITALS: BP 183/76
[2020-01-15 03:51] LABS: TSH (Thyroid Stimulating Horm) 2.69 mcIU/mL (0.34-5.60)
== END 2020-01-15 03:35 | disposition home or self-care (01) ==
LOC: ED 23:48
DX: I10 Essential (primary) hypertension (principal); I73.9 Peripheral vascular disease, unspecified; Z86.718 Personal history of other venous thrombosis and embolism; K21.9 Gastro-esophageal reflux disease without esophagitis; F41.9 Anxiety disorder, unspecified; Z79.01 Long term (current) use of anticoagulants; Z79.82 Long term (current) use of aspirin; Z79.899 Other long term (current) drug therapy; Z88.1 Allergy status to other antibiotic agents; Z88.5 Allergy status to narcotic agent; Z88.0 Allergy status to penicillin; Z88.8 Allergy status to other drugs, medicaments and biological substances
CPT/HCPCS: 36415; 71045; 80053; 81003; 81015; 83880; 84443; 84484; 85025; 85610; 86140; 87086; 93005; 96361; 96374; 99284; A9270-GY; J0360

== ENCOUNTER 2020-01-21 00:12 | Observation (INO) | payer MEDICARE ==
[2020-01-21] MEDS ORDERED: Labetalol IV* 5 MG/ML 20 ML VIAL IV PUSH ONE ×2 (00:46→15:36)
[2020-01-21 00:54] LABS: ABS Basophils 0.1 10^3/ul (0-0.2); ABS Eosinophils 0.2 10^3/ul (0-0.6); ABS Lymphocytes 1.3 10^3/ul (1.0-4.8); ABS Monocytes 0.5 10^3/ul (0-0.8); Eosinophil % 3.8 %; Hematocrit 40 % (35-47); Hemoglobin 13.3 g/dL (12.0-16.0); Lymphocyte % 21.3 %; Mean Corpuscular HGB Conc 34 g/dL (31-36); Mean Corpuscular Hemoglobin 30 pg (27-31); Mean Corpuscular Volume 88 fL (80-97); Nucleated Red Blood Cells % 0.1; Platelet Count 328 10^3/uL (150-450); Red Blood Count 4.47 10^6 /uL (3.70-4.87); Red Cell Distribution Width 14 % (10-15); White Blood Count 6.1 10^3/uL (3.5-10.8)
[2020-01-21 00:58] LABS: INR 2.37 (0.82-1.09)
--- NOTE | 2020-01-21 00:59 | ED ---
Hypertension - HPI Summary HPI Summary: 79 year old F presenting to [facility] with a chief complaint of hypertension for the last week. Patient reports chest pressure and a headache. The patient rates the pain 0/10 in severity. Symptoms aggravated by nothing. Symptoms alleviated by nothing. On evaluation the patient's blood pressure was 203/77. She states that she took 3 of her prescribed Coreg today and last took a pill at 22:00. She has been seen previously for her symptoms and declined admission. Medication list reviewed. Allergy list reviewed. - History of Current Complaint Chief Complaint: EDHypertension Stated Complaint: HYPERTENSION PER PT Time Seen by Provider: 01/21/20 00:29 Hx Obtained From: Patient Onset/Duration: Still Present Timing: Constant Aggravating Factor(s): Nothing Alleviating Factor(s): Nothing Associated Signs & Symptoms: Chest Pain, Headaches Related Hx: Similar Episode - Allergies/Home Medications Allergies/Adverse Reactions: Allergies Allergy/AdvReac Type Severity Reaction Status Date / Time Penicillins Allergy Severe Difficulty Verified 01/21/20 01:17 Breathing cocoa butter Allergy Mild Hives Verified 01/21/20 01:17 gabapentin Allergy Mild Hives Verified 01/21/20 01:17 celecoxib AdvReac Intermediate Hypertensive Verified 01/21/20 01:17 Reaction tramadol AdvReac Intermediate See Comment Verified 01/21/20 01:17 atenolol AdvReac Mild See Comment Verified 01/21/20 01:17 metronidazole AdvReac Mild Nausea Verified 01/21/20 01:17 nortriptyline AdvReac Mild Nausea Verified 01/21/20 01:17 pregabalin AdvReac Mild Hallucinati Verified 01/21/20 01:17 ons Mgfzozp-Rhu-Ipl Reductase AdvReac Mild See Comment Verified 01/21/20 01:17 Inhibitor venlafaxine AdvReac Mild Nausea Verified 01/21/20 01:17 Home Medications: Home Medications Aspirin EC TAB* [Ecotrin EC Low Dose 81 MG*] 81 mg PO DAILY 06/10/18 [History Confirmed 01/21/20] Lidocaine PATCH 5%* [Lidoderm 5% Patch*] 1 patch TRANSDERM DAILY 06/10/18 [ History Confirmed 01/21/20] Mesalamine (NF) [Lialda (NF)] 1.2 gm PO BID 06/10/18 [History Confirmed 01/21/20 ] Nitroglycerin 0.6 MG/HR PATCH* [Nitroglycerin 15 MG PATCH*] 1 patch TRANSDERM DAILY 06/10/18 [History Confirmed 01/21/20] Nitroglycerin TAB 0.4 MG* 0.4 mg SL Q5M PRN 06/10/18 [History Confirmed 01/21/20 ] Omeprazole CAP (NF) [Prilosec CAP* 20 MG] 20 mg PO DAILY 06/10/18 [History Confirmed 01/21/20] Tapentadol ER (NF) [Nucynta ER (NF)] 200 mg PO DAILY 06/10/18 [History Confirmed 01/21/20] Tapentadol(NF) [Nucynta(NF)] 50 mg PO DAILY 06/10/18 [History Confirmed 01/21/20 ] Triazolam TAB* [Halcion TAB*] 0.5 mg PO BEDTIME PRN 06/10/18 [History Confirmed 01/21/20] Warfarin TAB(*) [Coumadin TAB(*)] 15 mg PO .TWICE A WEEK 06/10/18 [History Confirmed 01/21/20] Tapentadol ER (NF) [Nucynta ER (NF)] 150 mg PO BEDTIME 11/25/18 [History Confirmed 01/21/20] Verapamil HCl [Verapamil ER] 120 mg PO BEDTIME 11/25/18 [History Confirmed 01/20] Verapamil HCl [Verapamil ER] 240 mg PO DAILY 11/25/18 [History Confirmed ] Warfarin TAB(*) [Coumadin TAB(*)] 10 mg PO .REMAINING DAYS 11/25/18 [History Confirmed 01/21/20] PMH/Surg Hx/FS Hx/Imm Hx Endocrine/Hematology History: Denies: Hx Diabetes Cardiovascular History: Reports: Hx Angina, Hx Deep Vein Thrombosis, Hx Hypertension, Hx Peripheral Vascular Disease, Other Cardiovascular Problems/ Disorders - DVT HAS BEEN ON COUMADIN Denies: Hx Coronary Artery Disease, Hx Hypercholesterolemia, Hx Myocardial Infarction, Hx Pacemaker/ICD, Hx Valvular Heart Disease Respiratory History: Reports: Hx Sleep Apnea Denies: Hx Asthma, Hx Chronic Obstructive Pulmonary Disease (COPD) GI History: Reports: Hx Gastroesophageal Reflux Disease - ON MEDICATON, Hx Hiatal Hernia, Other GI Disorders - chronic diarrhea, MECKLES DIVERTICULUM History: Reports: Hx Renal Disease Musculoskeletal History: Reports: Hx Arthritis - GENERALIZED, Hx Back Problems, Other Musculoskeletal History - LUMBAR RADICULOPATHY AND CERVICAL LUMBAR SPONDYLOLISTHESIS Denies: Hx Osteoporosis Sensory History: Reports: Hx Cataracts, Hx Contacts or Glasses Denies: Hx Hearing Aid Opthamlomology History: Reports: Hx Cataracts, Hx Contacts or Glasses Neurological History: Reports: Other Neuro Impairments/Disorders - PAIN CLINIC INJECTION Psychiatric History: Reports: Hx Anxiety Denies: Hx Panic Disorder - Surgical History Surgery Procedure, Year, and Place: CERVIAL FUSION C4-C7, 2010 Hx Anesthesia Reactions: No - Immunization History Date of Tetanus Vaccine: UTD Date of Influenza Vaccine: UTD Infectious Disease History: No Infectious Disease History: Denies: Traveled Outside the [place] in Last 30 Days - Family History Known Family History: Positive: Other - Cancer - Social History Alcohol Use: Rare Alcohol Amount: 1 drink/week Hx Substance Use: No Substance Use Type: Reports: None Substance Use Comment - Amount & Last Used: Nucynta Hx Tobacco Use: No Smoking Status (MU): Never Smoked Tobacco Have You Smoked in the Last Year: No - Additional Comments History Additional Comments: Angina, DVT, hypertension, peripheral vascular disease. Review of Systems - ROS Summary Review of Systems Summary: Home Medications Medication Instructions Recorded Confirmed Type Aspirin EC TAB* [Ecotrin EC Low 81 mg PO DAILY 06/10/18 01/15/20 History Dose 81 MG*] Lidocaine PATCH 5%* [Lidoderm 5% 1 patch TRANSDERM DAILY 06/10/18 01/15/20 History Patch*] Mesalamine (NF) [Lialda (NF)] 1.2 gm PO BID 06/10/18 01/15/20 History Nitroglycerin 0.6 MG/HR PATCH* 1 patch TRANSDERM DAILY 06/10/18 01/15/20 History [Nitroglycerin 15 MG PATCH*] Nitroglycerin TAB 0.4 MG* 0.4 mg SL Q5M PRN 06/10/18 01/15/20 History Omeprazole CAP (NF) [Prilosec CAP* 20 mg PO DAILY 06/10/18 01/15/20 History 20 MG] Tapentadol ER (NF) [Nucynta ER 200 mg PO DAILY 06/10/18 01/15/20 History (NF)] Tapentadol(NF) [Nucynta(NF)] 50 mg PO DAILY 06/10/18 01/15/20 History Triazolam TAB* [Halcion TAB*] 0.5 mg PO BEDTIME PRN 06/10/18 01/15/20 History Warfarin TAB(*) [Coumadin TAB(*)] 15 mg PO .TWICE A WEEK 06/10/18 01/15/20 History Tapentadol ER (NF) [Nucynta ER 150 mg PO BEDTIME 11/25/18 01/15/20 History (NF)] Verapamil HCl [Verapamil ER] 120 mg PO BEDTIME 11/25/18 01/15/20 History Verapamil HCl [Verapamil ER] 240 mg PO DAILY 11/25/18 01/15/20 History Warfarin TAB(*) [Coumadin TAB(*)] 10 mg PO .REMAINING DAYS 11/25/18 01/15/20 History Positive: Chest Pain, Other - Hypertension Positive: Headache All Other Systems Reviewed And Are Negative: Yes Physical Exam - Summary Physical Exam Summary: General: Elderly female, Well-developed, Well-nourished female. No acute distress. HEENT: Normocephalic, Atraumatic. Eyes: Conjuctiva normal, PERRL. Oropharynx: Clear, mucous membranes moist, (-) exudates. Neck: Soft, FROM, (-) lymphadenopathy, (-) thyromegaly, (-) JVD. Cardiovascular: Normal sinus rhythm, (-) murmur. Lungs: Clear to auscultation bilaterally (-) wheezes, (-) rales, (-) rhonchi. Abdomen: Soft, non-tender, non-distended, (-) organomegaly, normal bowel sounds. Back: (-) CVA tenderness Extremities: No edema. Skin: Warm, dry, (-) rash. Neuro: Alert and oriented x3, moves all extremities equally. No ataxia. No gait disturbance. No sensory deficit. Normal strength, normal sensation; GCS 15. Psychiatric: Mood normal, affect normal. Triage Information Reviewed: Yes Vital Signs On Initial Exam: Initial Vitals Temp Pulse Resp BP Pulse Ox 98.7 F 75 18 226/108 94 01/21/20 00:16 01/21/20 00:16 01/21/20 00:16 01/21/20 00:16 01/21/20 00:16 Vital Signs Reviewed: Yes - Paulo Coma Scale Best Eye Response: 4 - Spontaneous Best Motor Response: 6 - Obeys Commands Best Verbal Response: 5 - Oriented Coma Scale Total: 15 Procedures - Sedation Patient Received Moderate/Deep Sedation with Procedure: No Diagnostics - Vital Signs Vital Signs Temp Pulse Resp BP Pulse Ox 01/21/20 00:43 202/92 01/21/20 00:16 98.7 F 75 18 226/108 94 - Laboratory Result Diagrams: 01/21/20 00:43 01/21/20 00:43 Lab Statement: Any lab studies that have been ordered have been reviewed, and results considered in the medical decision making process. - Radiology Chest x-ray Radiology Interpretation Completed By: ED Physician Summary of Radiographic Findings: No infiltrate. No pleural effusion. ED physician has reviewed and interpreted this EKG. - CT Brain CT CT Interpretation Completed By: Radiologist Summary of CT Findings: 1. No acute intracranial abnormality. 2. Age-related atrophy and mild chronic small vessel ischemic disease. ED physician has reviewed this report. Hypertension Course/Dx - Course Course Of Treatment: 79-year-old female presents from home with hypertension. Patient has been here 3 times this week for elevated blood pressures. Her primary care physician called [facility] after referring her to the emergency room. She states she has recently had an Coreg twice a day to her medication regimen. Tonight when her blood pressure was elevated she advised patient to take an extra Coreg. Her blood pressure then increased instead of decreasing. That is when primary referred patient here. Primary also states that she has ordered a renal ultrasound which is not until January 23. she thought perhaps monitoring, medications and nephrology consult would be helpful. Patient has a history of renal artery stenosis. Patient states she has a headache which is common when she gets elevated blood pressure. She denies any tingling or numbness or weakness. No visual changes. No difficulty with her speech. On physical exam show blood pressure 226/108. Neural blood pressure lower. Patient given IV labetalol. She did take an extra Coreg tablet prior to arrival. Blood pressure started coming down nicely. Workup demonstrates only minor abnormalities. Patient referred to hospitalist for evaluation. hospitalist felt that shouldn't did not meet criteria for admission. I requested consultation. hospitalist has seen patient and ordered a renal ultrasound. Patient will be signed out to the oncoming hospitalist according to him who will follow-up with the ultrasound. If it is positive patient may need to be transferred to a hospital that has capabilities of taking care of renal artery stenosis. Patient signed changes shift to facilitate follow through. - Diagnoses Provider Diagnoses: Asymptomatic hypertensive urgency - Physician Notifications Discussed Care Of Patient With: Jairo Tineo Time Discussed With Above Provider: 02:54 Instructed by Provider To: Other - Hospitalist would like a renal artery US in the morning because of the patient's history of renal artery stenosis. If positive, patient will need to be transferred to [place]. He will sign out to daytime hospitalist to follow-up with US report. Discharge ED - Sign-Out/Discharge Documenting (check all that apply): Sign-Out Patient Signing out patient TO: Karthik Morris - Pending US and disposition. - Discharge Plan Condition: Stable Referrals: Estefania Dumont MD [Primary Care Provider] - - Billing Disposition and Condition Condition: STABLE - Attestation Statements Document Initiated by Scribe: Yes Documenting Scribe: Lashon Valerio Provider For Whom Juan A is Documenting (Include Credential): Keyona Rodriguez MD Scribe Attestation: Rosalinda Leonard Natalie George, scribed for Keyona Rodriguez MD on 01/21/20 at 0607. Scribe Documentation Reviewed: Yes Provider Attestation: The documentation as recorded by the Rosalinda hope Natalie George accurately reflects the service I personally performed and the decisions made by , Keyona Rodriguez MD Status of Scribe Document: Viewed
[2020-01-21 01:09] LABS: Albumin 4.2 g/dL (3.2-5.2); Albumin/Globulin Ratio 1.4 (1-3); EGFR Non-African American 89.3 (>60); Potassium 3.8 mmol/L (3.5-5.0); Total Bilirubin 0.3 mg/dL (0.2-1.0); Total Protein 7.2 g/dL (6.4-8.9)
[2020-01-21 01:17] LABS: Urine Appearance Clear; Urine Bilirubin Negative (Negative); Urine Blood 1+ (Negative); Urine Color Straw; Urine Glucose Negative (Negative); Urine Ketones Negative (Negative); Urine Nitrite Negative (Negative); Urine Protein Negative (Negative); Urine Specific Gravity 1.006 (1.010-1.030); Urine Urobilinogen Negative (Negative)
[2020-01-21 01:26] LABS: Urine Bacteria 1+ (Absent); Urine Red Blood Cell 3+(>10/hpf) (Absent); Urine White Blood Cell Trace(0-5/hpf) (Absent)
[2020-01-21] MEDS ORDERED: hydrALAZINE IV* 20 MG/ML VIAL IV SLOW PU ONE ×2 (03:22→12:41)
[2020-01-21] MEDS ORDERED: Lisinopril TAB* 5 MG PO ONE (03:37)
--- NOTE | 2020-01-21 05:11 | CONSULT ---
Subjective Date of Service: 01/21/20 Interval History: 79 yo Female with PMHx significant for Hypertension which is now uncontrolled. Patient has been to the ED 3 times in one week for control of BP. Patient has a remote history of renal artery stenosis s/p stenting in one of the arteries about 20 years ago. Said they couldn't put a stent on the second artery. She is not sure which artery the stent was deployed. Her PCP started her on a second antihypertensive Coreg 6.25 mg BID a week ago with not much improvement but with view to titrate upwards. In the ED she received IV Labetalol 20 mg which brought down the BP but when it started creeping up I was consulted. Patient reported that she will like to follow up at [facility] if it was noted that the stent has failed. Renal US has been ordered. Patient informed need to start ACEI or ARBS. Started patient on low dose Lisinopril 5 mg daily with good effect after the initial dose. Will follow up with US and continue to monitor the BP. She denied BEARD, fever, nausea, vomiting, diaphoresis, chest pain. ON evaluation BP was 184/77. Patient to continue on Coreg 12.5 mg BID, Lisinopril 5 mg daily with a view to titrate upward, Verapamil 240 mg daily. Review of Systems - Measurements Intake and Output: Intake and Output Last 24 Hours 01/18/20 01/19/20 01/20/20 01/21/20 06:59 06:59 06:59 06:59 Weight 67.585 kg - Review of Systems Constitutional Symptoms: Negative: Weakness, Fatigue Dermatology: Positive: Normal HEENT: Positive: Normal Eyes: Positive: Normal Thyroid: Positive: Normal Pulmonary: Positive: Normal Cardiology: Positive: Normal Gastroenterology: Positive: Normal Genital - Urinary: Negative: Dysuria, Hematuria, Polyuria Genitourinay - Female: Positive: Menopause Musculoskeletal: Positive: Arthritis, Low Back Pain Endocrinology: Positive: Normal Hematologic/Lymphatic: Negative: Easy Bruising Neurology: Positive: Normal Psychiatry: Positive: Normal Allergic/Immunologic: Negative: Asthma Objective Vital Signs - 8 hr 01/21/20 01/21/20 01/21/20 00:16 00:39 00:43 Temperature 98.7 F Pulse Rate 75 76 Respiratory 18 Rate Blood Pressure 226/108 202/92 (mmHg) O2 Sat by Pulse 94 94 Oximetry 01/21/20 01/21/20 01/21/20 00:54 01:00 01:11 Temperature Pulse Rate 73 Respiratory 17 14 Rate Blood Pressure 203/77 162/52 (mmHg) O2 Sat by Pulse 94 Oximetry 01/21/20 01/21/20 01/21/20 01:22 01:40 02:08 Temperature Pulse Rate 70 70 Respiratory 15 16 17 Rate Blood Pressure 177/70 178/77 (mmHg) O2 Sat by Pulse 93 93 Oximetry 01/21/20 01/21/20 01/21/20 02:39 02:40 03:00 Temperature Pulse Rate Respiratory 14 13 16 Rate Blood Pressure 178/85 184/77 (mmHg) O2 Sat by Pulse Oximetry 01/21/20 01/21/20 01/21/20 03:10 03:40 04:00 Temperature Pulse Rate 68 74 Respiratory 18 16 15 Rate Blood Pressure 191/83 202/72 (mmHg) O2 Sat by Pulse 98 97 Oximetry 01/21/20 01/21/20 04:10 04:40 Temperature Pulse Rate 81 Respiratory 15 15 Rate Blood Pressure 164/75 152/93 (mmHg) O2 Sat by Pulse 96 Oximetry Appearance: Awake, alert and in no apparent distress Eyes: No Scleral Icterus Ears/Nose/Mouth/Throat: NL Teeth, Lips, Gums, Clear Oropharnyx, Mucous Membranes Moist Neck: NL Appearance and Movements; NL JVP, No Thyroid Enlargement, Masses Respiratory: Symmetrical Chest Expansion and Respiratory Effort, Clear to Auscultation Cardiovascular: NL Sounds; No Murmurs; No JVD, RRR, No Edema Abdominal: NL Sounds; No Tenderness; No Distention, No Hepatosplenomegaly Lymphatic: No Cervical Adenopathy Extremities: No Edema, No Clubbing, Cyanosis Skin: No Rash or Ulcers Neurological: Alert and Oriented x 3 Result Diagrams: 01/21/20 00:43 01/21/20 17:06 Diagnostic Imaging: Diagnostics Summary of Radiographic No infiltrate. No pleural effusion. Findings [Chest x-ray] ED physician has reviewed and interpreted this EKG . Summary of CT Findings [Brain 1. No acute intracranial abnormality. CT] 2. Age-related atrophy and mild chronic small vessel ischemic disease. ED physician has reviewed this report. Assessment/Plan - Billing Plan By Medical Problem: 1. Uncontrolled HTN 2. VTE PPX: Diet: Cardiac Code Status: FULL Admission Status and Rationale: Consult:
[2020-01-21] MEDS ORDERED: Lisinopril TAB* 10 MG PO ONE (07:46)
--- NOTE | 2020-01-21 07:53 | ED ---
Progress - Progress Note Progress Note: Receiving sign out from Dr. Rodriguez at shift change 0700 pending renal US. Discussed with US tech. Renal US not an ED study (typically performed on outpatient basis). Discussed with Dr. Mccloud, Hospitalist, recommending discharging patient home, starting on 10 mg daily lisinopril, and follow up with PCP. Dr. Grande, Radiology, called and stated that they will be able to do the US. Renal Doppler Study Impression: Technically difficult exam due to limitation patient breath-holding and tortuous bilateral renal arteries. Suggestion of bilateral hemodynamic significant renal arterystenosis given peak systolic velocities greater than 180 cm/s. Consider confirmatory test either CT angiogram or MRA. ED Provider has reviewed this report. Abdomen CTA Impression: There is beading of the right renal artery. The possibility of firomuscular dysplasia should be considered. 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 Atherosclerosis of the left renal artery is noted. Cholelithiasis is noted. ED Provider has reviewed this report. 1316 - Patient's case was discussed with Dr. Dumont, Dr. Dumont asks for admission of the patient of hypertensive urgency. 1328 - Patient's case was discussed with Dr. Mccloud, Dr. Mccloud accepts for admission. Course/Dx - Course Course Of Treatment: Receiving sign out from Dr. Rodriguez at shift change 0700 pending renal US. Discussed with US tech. Renal US not an ED study (typically performed on outpatient basis). Discussed with Dr. Mccloud, Hospitalist, recommending discharging patient home, starting on 10 mg daily lisinopril, and follow up with PCP. Dr. Grande, Radiology, called and stated that they will be able to do the US. Renal Doppler Study Impression: Technically difficult exam due to limitation patient breath-holding and tortuous bilateral renal arteries. Suggestion of bilateral hemodynamic significant renal arterystenosis given peak systolic velocities greater than 180 cm/s. Consider confirmatory test either CT angiogram or MRA. ED Provider has reviewed this report. Abdomen CTA Impression : There is beading of the right renal artery. The possibility of firomuscular dysplasia should be considered. 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 Atherosclerosis of the left renal artery is noted. Cholelithiasis is noted. ED Provider has reviewed this report. . 1316 - Patient's case was discussed with Dr. Dumont, Dr. Dumont asks for admission of the patient of hypertensive urgency. 1328 - Patient's case was discussed with Dr. Mccloud, Dr. Mccloud accepts for admission. - Diagnoses Provider Diagnoses: Hypertensive urgency - Provider Notifications Discussed Care Of Patient With: Estefania Dumont Time Discussed With Above Provider: 13:16 Instructed by Provider To: Other - 1316 - Patient's case was discussed with Dr. Ellison, Dr. Ellison asks for admission of the patient of hypertensive urgency. 1328 - Patient's case was discussed with Dr. Mccloud, Dr. Mccloud accepts for admission. Discharge ED - Sign-Out/Discharge Documenting (check all that apply): Patient Departure - admit - Discharge Plan Condition: Stable Disposition: ADMITTED TO [facility] Patient Education Materials: Hypertension (ED) Referrals: Estefania Dumont MD [Primary Care Provider] - Additional Instructions: Follow up with your primary care provider. Return to ED with new or worsening symptoms. - Billing Disposition and Condition Condition: STABLE Disposition: Admitted to [facility] - Attestation Statements Document Initiated by Juan A: Yes Documenting Scribe: Ramón Escobar Provider For Whom Juan A is Documenting (Include Credential): Joseph Morris DO Scribe Attestation: Ramón Leonard, scribed for Joseph Morris DO on 03/08 at 1429. Scribe Documentation Reviewed: Yes Provider Attestation: The documentation as recorded by the Ramón hope accurately reflects the service I personally performed and the decisions made by Joseph king DO Status of Scribe Document: Viewed
[2020-01-21] MEDS ORDERED: Iodixanol* (CONTRAST) 320 MG/ML 100 ML SDV IV ONE (11:16)
[2020-01-21] MEDS ORDERED: Nitroglycerin TAB 0.4 MG* 0.4 MG TAB SL PRN (15:26)
[2020-01-21] MEDS ORDERED: Triazolam TAB* 0.25 MG PO PRN (15:26)
[2020-01-21] MEDS ORDERED: hydrALAZINE IV* 20 MG/ML VIAL IV SLOW PU PRN (15:59)
[2020-01-21] MEDS ORDERED: Warfarin TAB(*) 5 MG PO SCH ×2 (16:00→17:00)
--- NOTE | 2020-01-21 16:53 | HP ---
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 She used to take verapamil daily, and her blood pressure was well controlled for decades until recently. She found her blood pressure went to 180mmhg- 200mmhg frequently recently. Thus she went to Dr. Dumont her primary care, coreg 6.25mg bid was added, it helped for the first few days but then her blood pressure kept uncontrolled. She was sent to ED by her primary care in order to get a renal artery imaging done. She denied any chest pain, palpitation, vision changes, dizziness with high bp, she did have some chronic chest pressure in left costosternal area which is persistent and not new. She received 2 doses of iv hydralazine and 2 doses iv labetalol on top of lisinopril 10mg and her usual bp meds overnight, her bp went down 166/80mmhg with the above management. She had a US renal artery which shows bilateral renal artery stenosis, and CTA showing beading of right renal artery suggesting fibromuscular dysplasia with both artery patent. - Past Medical History Past Medical History: 1. 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 Hypertension 3. 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 Reyna 4. History of ulcerative colitis 5. GERD 6. Lumbar radiculopathy 7. Osteoarthritis 8. Chronic back pain due to degenerative disk disease - Past Surgical History Past Surgical History: 1. x3 2. Meckel's diverticulum 3. Appendectomy 4. Left breast lumpectomy 5. Tonsillectomy - Past Family History Past Family History: Multiple relatives with ovarian cancer including grandmother, mother. Her son of carotid artery rupture due to radiation therapy from squamous cell carcinoma of throat. Father had history of lung cancer. 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 She has 3 children, 1 daughter in [place], 1 daughter in [place], 1 son . She lives in a big house alone, she is planning to move to [facility] and sell her house. Her surrogate decision maker is her daughter. She is full code. Medications: Home Medications Medication Instructions Recorded Confirmed Type Aspirin EC TAB* [Ecotrin EC Low 81 mg PO DAILY 06/10/18 01/21/20 History Dose 81 MG*] Lidocaine PATCH 5%* [Lidoderm 5% 1 patch TRANSDERM DAILY 06/10/18 01/21/20 History Patch*] Mesalamine (NF) [Lialda (NF)] 1.2 gm PO BID 06/10/18 01/21/20 History Nitroglycerin 0.6 MG/HR PATCH* 1 patch TRANSDERM DAILY 06/10/18 01/21/20 History [Nitroglycerin 15 MG PATCH*] Nitroglycerin TAB 0.4 MG* 0.4 mg SL Q5M PRN 06/10/18 01/21/20 History Omeprazole CAP (NF) [Prilosec CAP* 20 mg PO DAILY 06/10/18 01/21/20 History 20 MG] Tapentadol ER (NF) [Nucynta ER 200 mg PO DAILY 06/10/18 01/21/20 History (NF)] Tapentadol(NF) [Nucynta(NF)] 50 mg PO DAILY 06/10/18 01/21/20 History Triazolam TAB* [Halcion TAB*] 0.5 mg PO BEDTIME PRN 06/10/18 01/21/20 History Warfarin TAB(*) [Coumadin TAB(*)] 15 mg PO .TWICE A WEEK 06/10/18 01/21/20 History Tapentadol ER (NF) [Nucynta ER 150 mg PO BEDTIME 11/25/18 01/21/20 History (NF)] Verapamil HCl [Verapamil ER] 120 mg PO BEDTIME 11/25/18 01/21/20 History Verapamil HCl [Verapamil ER] 240 mg PO DAILY 11/25/18 01/21/20 History Warfarin TAB(*) [Coumadin TAB(*)] 10 mg PO .REMAINING DAYS 11/25/18 01/21/20 History Allergies/Adverse Reactions: Allergies Allergy/AdvReac Type Severity Reaction Status Date / Time Penicillins Allergy Severe Difficulty Verified 01/21/20 01:17 Breathing cocoa butter Allergy Mild Hives Verified 01/21/20 01:17 gabapentin Allergy Mild Hives Verified 01/21/20 01:17 celecoxib AdvReac Intermediate Hypertensive Verified 01/21/20 01:17 Reaction tramadol AdvReac Intermediate See Comment Verified 01/21/20 01:17 atenolol AdvReac Mild See Comment Verified 01/21/20 01:17 metronidazole AdvReac Mild Nausea Verified 01/21/20 01:17 nortriptyline AdvReac Mild Nausea Verified 01/21/20 01:17 pregabalin AdvReac Mild Hallucinati Verified 01/21/20 01:17 ons Kkedbos-Cjj-Tim Reductase AdvReac Mild See Comment Verified 01/21/20 01:17 Inhibitor venlafaxine AdvReac Mild Nausea Verified 01/21/20 01:17 Review of Systems - Review of Systems Constitutional: Negative: Fever, Chills, Sweats, Weakness, Malaise, Other Eyes: Negative: Pain, Vision Change, Conjunctivae Inflammation, Eyelid Inflammation, Redness, Other ENT: Negative: Ear Pain, Ear Discharge, Nose Pain, Nose Discharge, Nose Congestion, Mouth Pain, Mouth Swelling, Throat Pain, Throat Swelling, Other Respiratory: Negative: Cough, Dry, Shortness of Breath, Hemoptysis, SOB with Excertion, Pleuritic Pain, Sputum, Wheezing Cardiovascular: Negative: Chest Pain, Palpitations, Orthopnea, Paroxysmal Noc. Dyspnea, Edema, Light Headedness, Other Gastrointestinal: Negative: Nausea, Vomiting, Abdominal Pain, Diarrhea, Constipation, Melena, Hematochezia, Other Genitourinary: Negative: Dysuria, Frequency, Incontinence, Hematuria, Retention , Other Musculoskeletal: Negative: Neck Pain, Shoulder Pain, Arm Pain, Back Pain, Hand Pain, Leg Pain, Foot Pain, Other Skin: Negative: Rash, Lesions, Jayson, Bruising, Other Exam Vital Signs: Vital Signs (72 hours) 01/21/20 01/21/20 01/21/20 00:16 00:39 00:43 Temperature 98.7 F Pulse Rate 75 76 Respiratory 18 Rate Blood Pressure 226/108 202/92 (mmHg) O2 Sat by Pulse 94 94 Oximetry 01/21/20 01/21/20 01/21/20 00:54 01:00 01:11 Temperature Pulse Rate 73 Respiratory 17 14 Rate Blood Pressure 203/77 162/52 (mmHg) O2 Sat by Pulse 94 Oximetry 01/21/20 01/21/20 01/21/20 01:22 01:40 02:08 Temperature Pulse Rate 70 70 Respiratory 15 16 17 Rate Blood Pressure 177/70 178/77 (mmHg) O2 Sat by Pulse 93 93 Oximetry 01/21/20 01/21/20 01/21/20 02:39 02:40 03:00 Temperature Pulse Rate Respiratory 14 13 16 Rate Blood Pressure 178/85 184/77 (mmHg) O2 Sat by Pulse Oximetry 01/21/20 01/21/20 01/21/20 03:10 03:40 04:00 Temperature Pulse Rate 68 74 Respiratory 18 16 15 Rate Blood Pressure 191/83 202/72 (mmHg) O2 Sat by Pulse 98 97 Oximetry 01/21/20 01/21/20 01/21/20 04:10 04:40 05:04 Temperature Pulse Rate 81 85 Respiratory 15 15 23 Rate Blood Pressure 164/75 152/93 (mmHg) O2 Sat by Pulse 96 97 Oximetry 01/21/20 01/21/20 01/21/20 05:10 06:00 06:24 Temperature Pulse Rate 76 76 Respiratory 13 17 20 Rate Blood Pressure 129/74 176/80 (mmHg) O2 Sat by Pulse 97 99 Oximetry 01/21/20 01/21/20 01/21/20 07:27 07:54 07:55 Temperature Pulse Rate 76 Respiratory 20 17 17 Rate Blood Pressure 189/75 107/92 194/59 (mmHg) O2 Sat by Pulse 97 Oximetry 01/21/20 01/21/20 01/21/20 08:00 08:15 08:24 Temperature Pulse Rate 72 75 Respiratory 15 14 19 Rate Blood Pressure 173/63 173/71 (mmHg) O2 Sat by Pulse 96 95 Oximetry 01/21/20 01/21/20 01/21/20 08:54 09:00 10:00 Temperature Pulse Rate Respiratory 17 17 17 Rate Blood Pressure 158/89 (mmHg) O2 Sat by Pulse Oximetry 01/21/20 01/21/20 01/21/20 10:07 10:26 10:55 Temperature Pulse Rate Respiratory 17 20 17 Rate Blood Pressure 144/110 181/85 169/78 (mmHg) O2 Sat by Pulse Oximetry 01/21/20 01/21/20 01/21/20 11:00 11:24 11:51 Temperature Pulse Rate 76 Respiratory 20 21 18 Rate Blood Pressure 186/146 180/82 (mmHg) O2 Sat by Pulse 96 Oximetry 01/21/20 01/21/20 01/21/20 11:55 12:00 12:25 Temperature Pulse Rate Respiratory 18 17 18 Rate Blood Pressure 191/78 186/88 (mmHg) O2 Sat by Pulse Oximetry 01/21/20 01/21/20 01/21/20 12:52 12:55 13:00 Temperature Pulse Rate 74 Respiratory 19 21 21 Rate Blood Pressure 169/94 160/88 (mmHg) O2 Sat by Pulse 97 Oximetry 01/21/20 01/21/20 01/21/20 13:25 13:54 14:00 Temperature Pulse Rate Respiratory 22 19 15 Rate Blood Pressure 161/82 150/54 (mmHg) O2 Sat by Pulse Oximetry 01/21/20 01/21/20 01/21/20 14:24 14:52 14:54 Temperature Pulse Rate Respiratory 19 14 23 Rate Blood Pressure 147/54 164/96 160/74 (mmHg) O2 Sat by Pulse Oximetry 01/21/20 01/21/20 01/21/20 15:00 15:25 15:54 Temperature Pulse Rate Respiratory 24 16 14 Rate Blood Pressure 139/67 158/74 (mmHg) O2 Sat by Pulse Oximetry 01/21/20 01/21/20 16:00 16:26 Temperature 97.8 F Pulse Rate 85 Respiratory 21 18 Rate Blood Pressure 166/80 (mmHg) O2 Sat by Pulse 97 Oximetry Exam: Appearance: Looks younger than her age, alert, no distress HEENT: Normacephalic and atraumatic. No vision impairment. Neck: NL Appearance and Movements; NL JVP Respiratory: Clear to Auscultation Cardiovascular: NL Sounds; sytolic murmur heard; No JVD, RRR Abdominal: NL Sounds; No Tenderness; No Distention, No Hepatosplenomegaly Neurology: alert, oriented x4, moving all 4 limbs spontaneously Extremity: no edema, no cyanosis. 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 Plan: We are admitting the patient to medical floor for further management of her renal artery stenosis. 1. Uncontrolled hypertension - Patient doesn't have any end organ damage - Her sudden onset of hypertension could be related her renal artery stenosis - other causes of secondary hypertension - added captopril to target on RAAS system activation - continue verapamil and coreg - prn labetalol and hydralazine - target bp 150/90mmhg 2. Renal artery stenosis - likely due to fibromuscular dysplasia, possibility of atherosclerotic in view of her age, but less likely with beading appearance in scan - US showing bilateral renal artery stenosis, CTA showing beading of right renal artery. - no kidney impairment - I sent consult to intervential radiologist Dr. Venegas to see any possibility of angioplasty or stenting - I consulted creative services writer over phone, she felt doing functional study to assess kidney function will not be helpful in guiding the surgical plan, as only severe stenosis would affect kidney function, and high BP alone is the symptoms for mild moderate cases. She suggest to start captopril low dose in this case. 3. chronic back pain - continue tapentadol, lidocaine patch 4. ulcerative colitis - controlled,on mesalamine 5. DVT prophylaxis - on warfarin superintendent terminal Attestation Documenting Resident: Heena Brown Supervising Physician: Edgar Goel Attending/Supervising Physician Comment: 79 year old with accelerated hypertension in last few weeks. She has h/o RT renal artery stenosis, now has recurrence. Admitted for control of severe HTN, will have renal consult to discuss captopril renal scan based on results of CTA and US today. Will have vascular medicine consult re RT renal artery stenting, had angioplasty alone in 2004. Attestation: This service has been performed in part by a resident under the direction of a teaching physician.I, Edgar Goel, performed the service, or was physically present during the critical, or willoughby portions of the service, furnished by the resident. I participated in the management of the patient.
[2020-01-21 17:32] LABS: BUN/Creatinine Ratio 21.3 (8-20); Calcium 9.6 mg/dL (8.6-10.3); EGFR Non-African American 74.4 (>60); Potassium 3.5 mmol/L (3.5-5.0)
--- NOTE | 2020-01-21 17:46 | CONSULT ---
Consult Consult: Chief complaint: Uncontrolled hypertension. Right renal artery stenosis. History of fibromuscular dysplasia. History of present illness: Ms.Lesly De La Cruz 1940 is a very nice 79- year-old woman who is admitted for hypertensive urgency. She has been in the emergency room 3 times in the last week for hypertensive urgency. Nephrology consultation is requested by Dr.Kaili Richey for hypertensive urgency and FMD. She has a remote past medical history of fibromuscular dysplasia and she had angioplasty plus minus stent about 20 years ago. Since then her blood pressure has been very well controlled. Suddenly in the last couple weeks blood pressure became elevated causing her headaches and chest pain. She saw her primary care physician yesterday and systolic blood pressure was in 200s. She was asked to go to the emergency room again. She was admitted last night.Received lisinopril with improvement in her blood pressure. At the time of my visit patients blood pressure is 180 systolic and she complains of headache. Of note she has severe cervical disc disease and she sometimes gets headaches. Imaging studies here show possible bilateral renal artery stenosis by Doppler ultrasound and CT angio. 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 I reviewed the CT images personally and I agree with the radiology findings. Blood pressure is much better now. Kidney function was normal on admission. Will repeat a BMP as she received Lisinopril earlier in the day, and there is a suggestion of bilateral renal artery stenosis. ROS: Constitutional: no fevers, chills, night sweats, loss of appetite or weight loss CVS: no PND, palpitations, leg swelling, but recently positive for left-sided arm and chest pain. No shortness of breath. Respiratory: no cough, sputum production, wheezing, hemoptysis GI: no abdominal pain, N/V/D/C : no dysuria, gross hematuria, incontinence, hesitancy, slow urine flow Neurological: Positive for headaches but negative for slurred speech or decrease in vision. All systems were reviewed and they were all negative unless otherwise specified. 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 Mom passed at 72 due to ovarian cancer. - Father passed at 69 years old due to brain cancer - She had a son who passed because of complications of neck cancer treatment most probably hypertension due to baroreflex failure - She has 1 daughter with essential high blood pressure - 2 other children who are healthy. Social history: - She is . Lives by herself. She is very active socially. Never smoked but grew up with both parents being heavy smokers. did not smoke. Drinks alcohol occasionally. She is retired. Her origin is Religion [place]. Home Medications Medication Instructions Recorded Confirmed Type Aspirin EC TAB* [Ecotrin EC Low 81 mg PO DAILY 06/10/18 01/21/20 History Dose 81 MG*] Lidocaine PATCH 5%* [Lidoderm 5% 1 patch TRANSDERM DAILY 06/10/18 01/21/20 History Patch*] Mesalamine (NF) [Lialda (NF)] 1.2 gm PO BID 06/10/18 01/21/20 History Nitroglycerin 0.6 MG/HR PATCH* 1 patch TRANSDERM DAILY 06/10/18 01/21/20 History [Nitroglycerin 15 MG PATCH*] Nitroglycerin TAB 0.4 MG* 0.4 mg SL Q5M PRN 06/10/18 01/21/20 History Omeprazole CAP (NF) [Prilosec CAP* 20 mg PO DAILY 06/10/18 01/21/20 History 20 MG] Tapentadol ER (NF) [Nucynta ER 200 mg PO DAILY 06/10/18 01/21/20 History (NF)] Tapentadol(NF) [Nucynta(NF)] 50 mg PO DAILY 06/10/18 01/21/20 History Triazolam TAB* [Halcion TAB*] 0.5 mg PO BEDTIME PRN 06/10/18 01/21/20 History Tapentadol ER (NF) [Nucynta ER 150 mg PO BEDTIME 11/25/18 01/21/20 History (NF)] Verapamil HCl [Verapamil ER] 120 mg PO BEDTIME 11/25/18 01/21/20 History Verapamil HCl [Verapamil ER] 240 mg PO DAILY 11/25/18 01/21/20 History Warfarin TAB(*) [Coumadin TAB(*)] 10 mg PO DAILY 11/25/18 01/21/20 History Active meds: Aspirin (Aspirin Ec Tab*) 81 mg PO DAILY [facility] Captopril (Capoten Tab*) 25 mg PO TID [facility] Carvedilol (Coreg Tab*) 12.5 mg PO BID [facility] Hydralazine HCl (Apresoline Iv*) 5 mg IV SLOW PU Q6H PRN PRN Reason: SBP>180 Lidocaine (Lidoderm 5% Patch*) 1 patch TRANSDERM DAILY [facility] Mesalamine (Lialda (Nf)) 1.2 gm PO BID [facility] Nitroglycerin (Nitroglycerin Tab 0.4 Mg*) 0.4 mg SL Q5M PRN PRN Reason: PAIN - CHEST Pantoprazole Sodium (Protonix Tab*) 40 mg PO DAILY [facility] Pharmacy Profile Note (Lidocaine Patch Remove*) 1 note PATCH OFF 2100 [facility] Tapentadol (Nucynta(Nf)) 100 mg PO Q6H [facility] Triazolam (Halcion Tab*) 0.5 mg PO BEDTIME PRN PRN Reason: INSOMNIA Verapamil HCl (Calan Sr Tab*) 240 mg PO DAILY [facility] Warfarin Sodium (Coumadin Tab(*)) 10 mg PO DAILY@1700 NANETTE; Protocol Last Admin: 01/21/20 17:40 Dose: [address] angiogram shows beading of the right renal artery and aneurysmal dilatation of the left renal artery the upper branch. Kidneys are normal in appearance. Bilateral renal cysts. Right renal arteries is a segment of string of beads Physical exam: Temp Pulse Resp BP SpO2 FiO2 98.6 F 81 20 181/86 98 01/21/20 17:41 01/21/20 17:41 01/21/20 17:41 01/21/20 17:41 01/21/20 17:41 Constitutional: No acute distress, pleasant and conversant, lying almost flat in bed Head: Atraumatic and normocephalic. Nose, lips and ears appear normal. Eyes: moist conjunctivae, no ptosis, pupils are equal. Neck: Supple, no masses, trachea midline, no thyromegaly, no carotid bruits appreciated, no JVD. Respiratory: Chest is clear to auscultation with good respiratory effort. Cardiovascular: Heart auscultation shows normal S1-S2, regular rate and rhythm, no murmur rubs or gallops. No peripheral edema. Gastrointestinal: Abdomen is soft, nontender and nondistended. No hepatosplenomegaly or masses appreciated. No hernias. Musculoskeletal: No digital cyanosis or clubbing. No joint swelling or tenderness. No CVA tenderness. Skin: No skin rashes, ulcers or lesions. Normal turgor and temperature. Neurologic: Speech fluent, no tremor, grossly nonfocal. Psychiatric: Appropriate affect, alert and oriented 3, intact judgment is insight. Labs normal CBC, normal BMP on admission with repeated serum creatinine of 0.75 which is unchanged after receiving lisinopril. Assessment and plan: Mrs. Estrada is a delightful 79-year-old woman with a history of fibromuscular dysplasia and hypertension and renal artery stenting about 20 years ago. She is admitted with new onset uncontrolled high blood pressure with headaches and chest pain. 1. Hypertensive urgency. Most probably due to recurrence of renal artery stenosis due to fibromuscular dysplasia. I agree with IR consult for angiogram and angioplasty plus minus stenting. Interestingly the CT angio showed FMD on the right side but an aneurysmal dilatation of 1 of the main branches of the renal artery on the left side. There is no need for captopril renal scan as it will not change the management. Renal artery stenosis is hemodynamically significant until proven otherwise, due to acute onset of uncontrolled high blood pressure. The only way to prove that it is not hemodynamically significant is by doing an angioplasty without improvement in blood pressure. If thinking about checking renin levels they are usually highly variable and would not help in diagnosis. Add nifedipine XL 30 mg daily Can add clonidine 0.1-0.2 mg by mouth every couple hours as needed for lowering blood pressure. I see that she was already on lisinopril and she tolerated well so can change captopril to a longer acting JEREMY inhibitor as lisinopril for instance 20 mg daily and go up on the dose as tolerated. She was noted to have a microscopic hematuria on exam. I wonder if this is result of her high blood pressure. Please repeat UA. 2. Fibromuscular dysplasia. As above she does not seem to have significant narrowing of the carotid arteries as on exam she does not have a bruit. 3. Back and neck pain. Can increase blood pressure. Continue to control with her previous medications. Avoid NSAIDs. thank you for the consult. This note was dictated using Dragon, some mistakes may still be present in the text, please call with questions. Discussed with Dr Sofía Brown.
--- NOTE | 2020-01-21 19:04 | CONSULT ---
Consult Consult: Date of Service: 01/21/20 Reason for Consultation: High Blood Pressure Requesting Service: Internal Medicine (Heena Brown MD with attending Juan Goel MD) History of Present Illness: Guido Estrada is a 79 y/o female with history of hypertension, renal artery stenosis s/p right side angioplasty in 2004, multiple DVT (on lifelong warfarin) , who presented to the emergency department with headache x 1 week and high BP. She found her blood pressure went to 180mmhg- 200mmhg recently. Recently her PCP Dr. Dumont added coreg 6.25mg bid which helped for a few days but then her blood pressure became high again. She was sent to ED by her primary care in order to get a renal artery imaging done. She denies chest pain, palpitation, vision changes, dizziness with high bp, she did have some chronic chest pressure in left costosternal area which is chronic. She received 2 doses of iv hydralazine and 2 doses iv labetalol on top of lisinopril 10mg and her usual bp meds overnight, her bp went down 166/80mmhg with the above management. She had a US renal artery which shows bilateral renal artery stenosis, and CTA showing beading of right renal artery suggesting fibromuscular dysplasia with both artery patent. She reports bilateral leg swelling for which she wears thigh high compression stockings daily. She has DVTs in the past in her 40s and 50s bilaterally for which she takes Coumadin. She is unaware of having a hypercoaguable disease. She had bilateral vein stripping and currently has multiple superficial varicose veins. She reports her legs feel achy when she has been on her feet for long periods of time. Past Medical History: 1. 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 Hypertension 3. Renal artery stenosis due to fibromuscular dysplasia, s/p right side angioplasty in 2004 at [facility] by Dr. Reyna 4. History of ulcerative colitis 5. GERD 6. Lumbar radiculopathy 7. Osteoarthritis 8. Chronic back pain due to degenerative disk disease 9. Bilateral superifical varicose veins Past Surgical History: 1. x3 2. Meckel's diverticulum 3. Appendectomy 4. Left breast lumpectomy 5. Tonsillectomy 6. Bilateral vein stripping Past Family History: Multiple relatives with ovarian cancer including grandmother, mother. Her son of carotid artery rupture due to radiation therapy from squamous cell carcinoma of throat. Father had history of lung cancer. 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 She has 3 children, 1 daughter in [place], 1 daughter in [place], 1 son . Her surrogate decision maker is her daughter. She is full code. Home Medications: Medication Instructions Recorded Type Confirmed Aspirin EC TAB* [Ecotrin EC Low 81 mg PO DAILY 06/10/18 01/21/20 History Dose 81 MG*] Lidocaine PATCH 5%* [Lidoderm 1 patch TRANSDERM DAILY 06/10/18 01/21/20 History 5% Patch*] Mesalamine (NF) [Lialda (NF)] 1.2 gm PO BID 06/10/18 01/21/20 History Nitroglycerin 0.6 MG/HR PATCH* 1 patch TRANSDERM DAILY 06/10/18 01/21/20 History [Nitroglycerin 15 MG PATCH*] Nitroglycerin TAB 0.4 MG* 0.4 mg SL Q5M PRN 06/10/18 01/21/20 History Omeprazole CAP (NF) [Prilosec 20 mg PO DAILY 06/10/18 01/21/20 History CAP* 20 MG] Tapentadol ER (NF) [Nucynta ER 200 mg PO DAILY 06/10/18 01/21/20 History (NF)] Tapentadol(NF) [Nucynta(NF)] 50 mg PO DAILY 06/10/18 01/21/20 History Triazolam TAB* [Halcion TAB*] 0.5 mg PO BEDTIME PRN 06/10/18 01/21/20 History Warfarin TAB(*) [Coumadin 15 mg PO .TWICE A WEEK 06/10/18 01/21/20 History Tapentadol ER (NF) [Nucynta ER 150 mg PO BEDTIME 11/25/18 01/21/20 History (NF)] Verapamil HCl [Verapamil ER] 120 mg PO BEDTIME 11/25/18 01/21/20 History Verapamil HCl [Verapamil ER] 240 mg PO DAILY 11/25/18 01/21/20 History Warfarin TAB(*) [Coumadin 10 mg PO .REMAINING 11/25/18 01/21/20 History Allergies/Adverse Reactions: Allergies Allergy/AdvReac Type Severity Reaction Status Date / Time Penicillins Allergy Severe Difficulty Verified 01/21/20 01:17 Breathing cocoa butter Allergy Mild Hives Verified 01/21/20 01:17 gabapentin Allergy Mild Hives Verified 01/21/20 01:17 celecoxib AdvReac Intermediate Hypertensive Verified 01/21/20 01:17 Reaction tramadol AdvReac Intermediate See Comment Verified 01/21/20 01:17 atenolol AdvReac Mild See Comment Verified 01/21/20 01:17 metronidazole AdvReac Mild Nausea Verified 01/21/20 01:17 nortriptyline AdvReac Mild Nausea Verified 01/21/20 01:17 pregabalin AdvReac Mild Hallucinati Verified 01/21/20 01:17 ons Mqgwgsg-Bqu-Roy Reductase AdvReac Mild See Comment Verified 01/21/20 01:17 Inhibitor venlafaxine AdvReac Mild Nausea Verified 01/21/20 01:17 Review of Systems: Review of systems is negative other than what is described in the HPI section. PE: NAD, AAO X 3 Sitting up in bed, pleasant and conversant. PERRLA, EOMI CN 2-12 grossly intact CTAB 2/6 SFM. RRR. S1/S2. Abdomen is soft and nontender No flank tenderness to percussion No bruit heard over the aorta or expected location of renal arteries 2+ pulses are readily palpable in [employer], pop and pedal arteries Multiple varicose veins overlying the lower legs measuring up to 5mm in diameter Selected Entries 01/21/20 01/21/20 01/21/20 02:40 03:10 03:40 Temperature Temperature Source Pulse Rate Respiratory Rate Blood Pressure 202/72 (mmHg) Blood Pressure 88 109 118 Mean O2 Sat by Pulse Oximetry 01/21/20 01/21/20 01/21/20 04:10 04:40 05:10 Temperature Temperature Source Pulse Rate Respiratory Rate Blood Pressure 164/75 152/93 129/74 (mmHg) Blood Pressure 110 132 95 Mean O2 Sat by Pulse Oximetry 01/21/20 01/21/20 01/21/20 06:24 07:27 07:54 Temperature Temperature Source Pulse Rate Respiratory Rate Blood Pressure 176/80 189/75 107/92 (mmHg) Blood Pressure 114 120 98 Mean O2 Sat by Pulse Oximetry 01/21/20 01/21/2020 07:55 08:15 08:24 Temperature Temperature Source Pulse Rate Respiratory Rate Blood Pressure 194/59 173/63 173/71 (mmHg) Blood Pressure 116 88 104 Mean O2 Sat by Pulse Oximetry 01/21/20 01/21/20 01/21/20 08:54 10:07 10:26 Temperature Temperature Source Pulse Rate Respiratory Rate Blood Pressure 158/89 144/110 181/85 (mmHg) Blood Pressure 119 118 114 Mean O2 Sat by Pulse Oximetry 01/21/20 01/21/20 01/21/20 10:55 11:24 11:51 Temperature Temperature Source Pulse Rate Respiratory Rate Blood Pressure 169/78 186/146 180/82 (mmHg) Blood Pressure 99 179 146 Mean O2 Sat by Pulse Oximetry 01/21/20 01/21/20 01/21/20 11:55 12:25 12:52 Temperature Temperature Source Pulse Rate Respiratory Rate Blood Pressure 191/78 186/88 169/94 (mmHg) Blood Pressure 92 122 106 Mean O2 Sat by Pulse Oximetry 01/21/20 01/21/20 01/21/20 12:55 13:25 13:54 Temperature Temperature Source Pulse Rate Respiratory Rate Blood Pressure 160/88 161/82 150/54 (mmHg) Blood Pressure 109 105 93 Mean O2 Sat by Pulse Oximetry 01/21/20 01/21/20 01/21/20 14:24 14:52 14:54 Temperature Temperature Source Pulse Rate Respiratory Rate Blood Pressure 147/54 164/96 160/74 (mmHg) Blood Pressure 99 104 104 Mean O2 Sat by Pulse Oximetry 01/21/20 01/21/20 01/21/20 15:25 15:54 16:25 Temperature Temperature Source Pulse Rate Respiratory Rate Blood Pressure 139/67 158/74 166/80 (mmHg) Blood Pressure 91 116 116 Mean O2 Sat by Pulse Oximetry 01/21/20 01/21/20 16:26 17:41 Temperature 98.6 F Temperature Temporal Artery Source Scan Pulse Rate 81 Respiratory 20 Rate Blood Pressure 166/80 181/86 (mmHg) Blood Pressure Mean O2 Sat by Pulse 98 Oximetry Relevant labs: Laboratory Tests 01/21/20 01/21/20 01/21/20 00:43 00:43 00:43 WBC 6.1 RBC 4.47 Hgb 13.3 Hct 40 INR (Anticoag Therapy) 2.37 H BUN Creatinine Est GFR (Non-Af Amer) B-Natriuretic Peptide 119 H 01/21/20 17:06 WBC RBC Hgb Hct INR (Anticoag Therapy) BUN 16 Creatinine 0.75 Est GFR (Non-Af Amer) 74.4 B-Natriuretic Peptide Relevant imaging: Patient Name: GUIDO ESTRADA Medical Record#: [id number] Ordering Physician: Joseph Morris DO Acct.#: [id number] : 1940 Age: 79 Sex: F Location: EMERGENCY DEPARTMENT Exam Date: 01/21/201046 ADM Status: REG ER Order Information: CTA ABDOMEN Accession Number: [id number] CPT: 06825 Indication: Uncontrolled hypertension, evaluate for renal artery stenosis. Contrast: Administered 98.4 ml of VISIPAQUE 320 mg/ml CTA of the abdominal aorta was performed in the axial plane. Sagittal and coronal reconstructed images were obtained. The lung bases demonstrate no pleural fluid, nodules or masses. Heart demonstrates no pericardial effusion. Liver is normal in size. No focal lesions or intrahepatic duct dilatation is noted. The spleen is normal in size. No adrenal lesions are noted. The kidneys demonstrate symmetric nephrograms. Bilateral renal cysts are noted. The gallbladder demonstrates gallstones with no pericholecystic fluid or wall thickening. Common duct is not dilated. The renal arteries are patent bilaterally with atherosclerosis of the left renal artery. There is beading of the right renal artery and the possibility of fibromuscular dysplasia should BE considered. There is a renal artery aneurysm in the left kidney measuring up to 1.3 cm. No retroperitoneal adenopathy is noted. Celiac axis and superior mesenteric artery are grossly unremarkable. IMPRESSION: There is beading of the right renal artery. The possibility of fibromuscular dysplasia should be considered. 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 Atherosclerosis of the left renal artery is noted. Cholelithiasis is noted. <Electronically signed by Ira Cruz MD in [place]> 01/21/20 1207 Patient Name: GUIDO ESTRADA Medical Record#: [id number] Ordering Physician: Jairo Tineo DO Acct.#: [id number] : 1940 Age: 79 Sex: F Location: EMERGENCY DEPARTMENT Exam Date: 01/21/20324 ADM Status: REG ER Order Information: VL RENAL ART DOPPLER BILAT Accession Number: [id number] CPT: 13447 INDICATION: Resistant hypertension. COMPARISON: February 11, 2018 CT TECHNIQUE: Multiple longitudinal and transverse sonographic images of the kidneys and renal arteries were obtained including color Doppler and spectral analysis. REPORT: Peak systolic velocity in the aorta measures 110 cm/s. Right kidney measures 9.0 x 4.6 x 5.6 cm. Cortical echogenicity is normal. 2.4 cm superior pole grossly simple appearing cortical cyst noted. No conspicuous stones or hydronephrosis.. Resistive indices measure up to 0.84. The peak systolic velocity within the right renal artery measures 255 cm/s at the proximal segment. The renal to aortic ratio is 2.3. Left kidney measures 9.3 x 5.1 x 5.3 cm. Cortical echogenicity is normal. 4.0 cm grossly simple cyst noted at the inferior pole cortex. No conspicuous stones or hydronephrosis. Resistive indices measure up to 0.73. The peak systolic velocity within the left renal artery measures 269 cm/s at the mid segment. The renal to aortic ratio is 2.4. IMPRESSION: #. Technically difficult exam due to limitation patient breath-holding and tortuous bilateral renal arteries. #. Suggestion of bilateral hemodynamic significant renal artery stenosis given peak systolic velocities greater than 180 cm/s. Consider confirmatory test either CT angiogram or MRA. <Electronically signed by Channing Duran MD in [place]> 01/21/20 1017 Dictated By: Channing Duran MD Summary: 79-year-old woman with hypertension and chronic DVT. 1. Hypertension: Although flow velocities in the right renal artery acquired on the 01/21/2020 right renal artery ultrasound measure up to 255 cm/s, the ratio to the aorta is only 2.3 and these numbers therefore only partially fulfill criteria for renal artery stenosis. Furthermore, the sonography reported the study was limited due to inconsistent breath-hold and movement. Review of the CTA demonstrates a be the appearance of the more distal right renal artery. This appearance is not seen on the left. The patient is taking only Verapamil at home and only recently had coreg added to her antihypertensive regimen. 2. Chronic DVT: Review of the 02/11/2018 CT examination demonstrates compression of the distal right common iliac vein between the overlying right common iliac artery and L5 vertebral body (axial image 47 of 99) which could be exacerbating the chronic DVT by causing lower extremity venous hypertension. 3. Left renal artery aneurysm: There is a 9 mm left renal artery aneurysm that has not changed significantly since the 02/11/2018 CT examination. This does not meet size threshold for intervention, nor has it changed in 2 years and therefore can be continued to be monitored. Plan/recommendations: 1. Anti Hypertensive Pharmacotherapy: At the time of ER presentation the patient was not maximally managed medically with anti-hyptensive pharmacotherapy. Unless patients are suffering side effects, renal artery interventions (balloon angioplasty and/or stenting) are not considered until pharmacotherapy has been maximized. I will observe how her BP responds to anti- hypertensive pharmacotherapy managed by the hospitalist service which I am anticipating will be more than Verapamil. 2. Although the CTA demonstrates a beaded appearance in the right renal artery characteristic of fibromuscular dysplasia, patency appears to be intact. The ultrasound demonstrates mildly elevated velocities, but the ratio to the aorta does not meet threshold for diagnosis of YAYO. A scintigraphic captopril renal scan will determine if there is YAYO significant enough to delay enhancement relative to the left kidney. 3. Potentially the compression at the right common iliac vein seen on the 2018 CT is causing venous hypertension that is exacerbating her leg swelling, varicose veins and heightening her risk of DVT.
[2020-01-21] MEDS: Carvedilol TAB* 6.25 MG PO SCH (20:56)
[2020-01-21] MEDS ORDERED: PTO:Mesalamine (NF) 1.2 GM TAB PO SCH (21:00)
[2020-01-21] MEDS ORDERED: TAPENTADOL 150 MG PO SCH (21:00)
[2020-01-21] MEDS ORDERED: Captopril TAB* 25 MG PO SCH (21:00)
[2020-01-21] MEDS: Tapentadol(NF) 50 MG TAB PO SCH (22:06)
[2020-01-21] MEDS: PTO:Mesalamine (NF) 1.2 GM TAB PO SCH (23:52)
[2020-01-22] MEDS: Tapentadol(NF) 50 MG TAB PO SCH ×2 (04:19→09:05)
[2020-01-22 08:50] LABS: Urine Appearance Clear; Urine Bilirubin Negative (Negative); Urine Blood Negative (Negative); Urine Color Yellow; Urine Glucose Negative (Negative); Urine Ketones Negative (Negative); Urine Nitrite Negative (Negative); Urine Protein Negative (Negative); Urine Specific Gravity 1.016 (1.010-1.030); Urine Urobilinogen Negative (Negative)
[2020-01-22] MEDS ORDERED: Aspirin EC TAB* 81 MG TAB.EC PO SCH (09:00)
[2020-01-22] MEDS ORDERED: TAPENTADOL 200 MG PO SCH (09:00)
[2020-01-22] MEDS ORDERED: Lisinopril TAB* 10 MG PO SCH ×2 (09:00)
[2020-01-22] MEDS ORDERED: Lidocaine PATCH 5%* 1 PATCH TRANSDERM SCH (09:00)
[2020-01-22] MEDS ORDERED: Pantoprazole TAB * 40 MG TAB PO SCH (09:00)
[2020-01-22] MEDS ORDERED: NIFEdipine ER TAB* 30 MG PO SCH (09:00)
[2020-01-22] MEDS ORDERED: Verapamil SR TAB* 240 MG PO SCH (09:00)
[2020-01-22] MEDS: Carvedilol TAB* 6.25 MG PO SCH (09:03)
[2020-01-22] MEDS: PTO:Mesalamine (NF) 1.2 GM TAB PO SCH (09:03)
--- NOTE | 2020-01-22 16:03 | PN ---
Progress Note - Progress Note Date of Service: 01/22/20 SOAP: Subjective: Patient reports persistent headache. Denies any other symptoms aside from fatigue. Patient has had nifedipine, coreg and lisinopril added to her regimen. Objective: Sitting up in bed. Convsersant and pleasant. NAD, AAO x 3 Selected Entries 01/21/20 01/21/20 01/21/20 20:00 20:29 23:15 Temperature Temperature Source Pulse Rate Respiratory Rate Blood Pressure 114/59 131/51 130/60 (mmHg) Blood Pressure 77 83 Mean O2 Sat by Pulse Oximetry 01/22/20 01/22/20 01/22/20 03:15 04:58 07:15 Temperature Temperature Source Pulse Rate Respiratory Rate Blood Pressure 184/63 164/72 170/66 (mmHg) Blood Pressure 103 102 100 Mean O2 Sat by Pulse Oximetry 01/22/20 01/22/20 10:36 11:03 Temperature 98.2 F Temperature Oral Source Pulse Rate 73 Respiratory 16 Rate Blood Pressure 145/47 145/47 (mmHg) Blood Pressure 79 79 Mean O2 Sat by Pulse 97 Oximetry Assessment: 79 year old female with hypertensive crisis in the presence of right kidney fibromuscular dysplasia (FMD). I have discussed this case with Dr. Pina who favors balloon angioplasty as opposed to further imaging and/or pharmotherapy. She is right. Although the patient is under better pressure control with added pharmacotherapy, the FMD should be a relatively simple to treat with balloon angioplasty. Plan: 1. As discussed with the patient and her daughter Luz, we will schedule angiography and balloon angioplasty as an outpatient. 2. Continue pharmacologic BP control in the interval to angiography. 3. Coumadin will have to be held and the patient will receive a Lovenox bridge.
[2020-01-22 16:24] VITALS: BP 147/56
--- NOTE | 2020-01-22 17:26 | DS ---
Resident Discharge Summary Discharge Summary: Date of Admission: 01/21/20 Date of Discharge: 01/22/2020 Admitting MD: Edgar Goel MD Attending MD: Edgar Goel MD Primary Care Physician: Estefania Dumont MD CC: Tiffany Pina, Selvin Venegas, Estefania Dumont Home Medications Medication Instructions Recorded Confirmed Type Aspirin EC TAB* [Ecotrin EC Low 81 mg PO DAILY 06/10/18 01/21/20 History Dose 81 MG*] Lidocaine PATCH 5%* [Lidoderm 5% 1 patch TRANSDERM DAILY 06/10/18 01/21/20 History Patch*] Mesalamine (NF) [Lialda (NF)] 1.2 gm PO BID 06/10/18 01/21/20 History Nitroglycerin 0.6 MG/HR PATCH* 1 patch TRANSDERM DAILY 06/10/18 01/21/20 History [Nitroglycerin 15 MG PATCH*] Nitroglycerin TAB 0.4 MG* 0.4 mg SL Q5M PRN 06/10/18 01/21/20 History Omeprazole CAP (NF) [Prilosec CAP* 20 mg PO DAILY 06/10/18 01/21/20 History 20 MG] Tapentadol ER (NF) [Nucynta ER 200 mg PO DAILY 06/10/18 01/21/20 History (NF)] Tapentadol(NF) [Nucynta(NF)] 50 mg PO DAILY 06/10/18 01/21/20 History Triazolam TAB* [Halcion TAB*] 0.5 mg PO BEDTIME PRN 06/10/18 01/21/20 History Tapentadol ER (NF) [Nucynta ER 150 mg PO BEDTIME 11/25/18 01/21/20 History (NF)] Verapamil HCl [Verapamil ER] 120 mg PO BEDTIME 11/25/18 01/21/20 History Verapamil HCl [Verapamil ER] 240 mg PO DAILY 11/25/18 01/21/20 History Warfarin TAB(*) [Coumadin TAB(*)] 10 mg PO DAILY 11/25/18 01/21/20 History Carvedilol TAB* [Coreg TAB*] 12.5 mg PO BID #60 tab 01/22/20 Rx Lisinopril TAB* [Prinivil TAB 10 20 mg PO DAILY #30 tab 01/22/20 Rx MG*] NIFEdipine ER TAB* [Procardia Xl 30 mg PO DAILY #30 tab.xl 01/22/20 Rx TAB*] cloNIDine TAB* [Catapres 0.1 MG 0.1 mg PO Q4H PRN #30 tab 01/22/20 Rx TAB*] Disposition: Home Condition: Stable Primary Diagnosis: 1. Hypertensive Urgency 2. Renal Artery Stenosis 3. Fibromuscular Dysplasia Secondary Diagnosis: 1. Recurrent DVT 2. History of ulcerative colitis 3. GERD 4. Lumbar radiculopathy 5. Osteoarthritis 6. Degenerative disk disease Diagnostic Imaging: US Doppler of renal artery: Suggestion of bilateral hemodynamic significant renal artery stenosis, consider confirmatory tests either CT angiogram or MRA. CT abd: Beading of right renal artery, the possibility of fibromuscular dysplasia should be considered. 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 Pertinent Laboratory Results: CBC: WBC 6.1, Hb 13.3, Plt 328. BMP: Na 138, K 3.8, Cl 102, bicarb 30, creatinine 0.64. Urine analysis: negative Hospital Course: Noemy Estrada is a 79 y/o female with history of DVT on intermediate warfarin, hypertension, renal artery stenosis due to fibromuscular dysplasia s/p right renal artery angioplasty in 2004, presented with acute onset of hypertension despite increasing antihypertensive in outpatient. Her blood pressure was well controlled for decades until recently. She found her blood pressure went to 180mmHg- 200mmHg frequently recently with her BP meds Coreg and verapamil. She received multiple doses of IV labetalol and IV hydralazine in ED to bring her BP down, but no end organ damage was seen. She had a US renal artery which shows bilateral renal artery stenosis, and CTA showing beading of right renal artery suggesting fibromuscular dysplasia with both artery patent. Case was discussed with bullet charging machine operator Dr. Pina, and interventional radiologist Dr. Alfaro, consensus was reached to do a renal artery angioplasty as an outpatient. Medication changes were also made including adding nifedipine 30mg daily and lisinopril 20mg daily, her blood pressure was better controlled in the range of 140-50mmHg. She will be discharged back home and follow up with her PCP Dr. Dumont, as well as bullet charging machine operator Dr. Pina for further hypertension management. On the day of discharge, she was comfortable, no complains. Her BP is 147/ 56mmhg. 12-Point physical examination normal. She will be follow up with Dr. Pina for her bp after discharge. I've instructed regarding BP management if it remains elevated, Clonidine prn dose was given for SBP>180mmHg despite her 4 regular BP meds. Follow Up Instructions: Follow up with Dr. Venegas for outpatient renal artery angioplasty, stop warfarin and convert to Lovenox for that procedure will be needed prior to procedure. Follow up wt Dr. Pina for BP management. In case of an emergency or after clinic hours, please go to your nearest Emergency Department. You may also call the [facility] clay products machine operator at .
--- NOTE | 2020-01-22 17:48 | PN ---
Progress Note - Progress Note Date of Service: 01/22/20 Note: Chief complaint: Uncontrolled hypertension Hstory of present illness. Mrs. Estrada feels better today. Blood pressure is better controlled with addition of nifedipine XL 30 mg and lisinopril 20 mg daily. The headache is much improved She denies chest pain, shortness of breath, nausea, vomiting, constipation or diarrhea. Kidney function remains normal. She is tolerating the addition of new medication just fine. ROS: const: no fever, chills, loss of appetite. Cardiovascular: No chest pain or shortness of breath: No increased swelling. Neurological: No tremors, speech is fluent, headaches improved. meds and labs reviewed. Physical exam: Temp Pulse Resp BP SpO2 FiO2 98.4 F 68 20 147/56 97 01/22/20 16:24 01/22/20 16:24 01/22/20 16:24 01/22/20 16:24 01/22/20 16:24 No acute distress Trace lower extremities edema, no clubbing or cyanosis Neurological: No tremor, speech fluent psychiatric:Alert and oriented 3, mood is normal, judgment and insight appropriate. Assessment and plan Hypertensive urgency. Most probably due to fibromuscular dysplasia. Discussed with Dr. Venegas and he agrees that angioplasty is a good way of improving her blood pressure. She can also go home on a higher dose of blood pressure medications but I think she can continue to spike her blood pressure without angioplasty. I do not think is necessary to have the procedure done while she is in the hospital. Definitely it can be done as an outpatient. patients daughter was present at the time of my visit and i answered all their questions.
[2020-01-22] MEDS ORDERED: Lidocaine Patch REMOVE* 1 NOTE MISC PATCH OFF SCH (21:00)
== END 2020-01-22 17:25 | disposition home or self-care (01) ==
LOC: ED 00:12 → MED 15:20 → INTOOBSV 15:20 → MED 01-22 08:47 → INTOOBSV 01-22 11:00 → OBSVTOIN 01-22 11:00
PROVIDERS: ADMIT Internal Medicine; ATTEND Internal Medicine
DX: I16.0 Hypertensive urgency (principal); I70.1 Atherosclerosis of renal artery; I77.3 Arterial fibromuscular dysplasia; I72.2 Aneurysm of renal artery; I10 Essential (primary) hypertension; M51.36 Other intervertebral disc degeneration, lumbar region; I73.9 Peripheral vascular disease, unspecified; I82.501 Chronic embolism and thrombosis of unspecified deep veins of right lower extremity; M54.16 Radiculopathy, lumbar region; M19.90 Unspecified osteoarthritis, unspecified site; K21.9 Gastro-esophageal reflux disease without esophagitis; R07.9 Chest pain, unspecified; I83.93 Asymptomatic varicose veins of bilateral lower extremities; F41.9 Anxiety disorder, unspecified; Z88.0 Allergy status to penicillin; Z79.899 Other long term (current) drug therapy; Z88.6 Allergy status to analgesic agent; Z79.01 Long term (current) use of anticoagulants; Z86.79 Personal history of other diseases of the circulatory system; Z80.9 Family history of malignant neoplasm, unspecified
CPT/HCPCS: 36415; 70450; 71045; 74175; 80048; 80053; 81003; 81015; 83605; 83880; 85025; 85610; 87086; 93005; 93975; 96374; 96375; 96376; 99285; A9270-GY; G0378; J0360; Q9967